=== PATIENT | female | born 1945 | race Caucasian/White ===

== ENCOUNTER 2023-03-29 21:41 | Inpatient (IN) | payer MEDICARE, BC, SELFPAY ==
[2023-03-29 17:30] VITALS: BP 141/70
[2023-03-29 17:56] LABS: % Basophils 0.5 % (0-2); % Eosinophils 0.4 % (0-6); % Immature Granulocytes 0.5 % (0-0.5); % Lymphocytes 6.6 % (20.5-51.1); % Monocytes 6.3 % (1.7-9.3); % Neutrophils 85.7 % (42.2-75.2); Absolute Basophils 0.1 10^3/uL (0-0.2); Absolute Immature Granulocytes 0.1 10^3/uL (0-0.05); Absolute Lymphocytes 0.6 10^3/uL (1.2-3.4); Absolute Monocytes 0.6 10^3/uL (0.1-0.6); Absolute Neutrophils 8.3 10^3/uL (1.4-6.5); Hematocrit 42.8 % (37.0-47.0); Hemoglobin 14.6 g/dL (12.0-16.0); Mean Corp Hgb Conc. 34.1 g/dL (33.0-37.0); Mean Corpuscular Hgb 30.9 pg (27.0-31.0); Mean Corpuscular Volume 90.7 fL (81.0-99.0); Mean Platelet Volume 10.5 fL (7.4-10.4); Nucleated Red Blood Cells % 0 %; Platelet Count 255 10^3/uL (130-400); Red Blood Cell Count 4.72 10^6/uL (4.20-5.40); Red Cell Dist. Width 13.9 % (11.5-14.5); White Blood Cell Count 9.7 10^3/uL (4.8-10.8)
[2023-03-29 18:05] LABS: ALT (SGPT) 26 U/L (0-35); AST (SGOT) 36 U/L (14-36); Alkaline Phosphatase 84 U/L (38-126); Blood Urea Nitrogen 66 mg/dl (7-17); Calcium 9.2 mg/dl (8.4-10.2); Carbon Dioxide 22 mmol/L (22-30); Chloride 105 mmol/L (98-107); Glucose 166 mg/dl (70-99); Potassium 3.8 mmol/L (3.5-5.1); Sodium 136 mmol/L (135-145); Total Bilirubin 0.8 mg/dl (0.2-1.3); Total Protein 7.6 g/dl (6.3-8.2); eGFR 28.31
--- NOTE | 2023-03-29 19:44 | ED.GENMED ---
History of Present Illness
General
Chief Complaint: Skin Problem
Source: patient and family
Time Seen by Provider: 03/29/23 19:31
Travel History
Have you had any contact with someone who has COVID-19?: No
Do you have any symptoms of coronavirus? Fever > 100 degrees, chills, cough, shortness of breath, sore throat, loss of taste or smell, muscle aches, or headache?: No
History of Present Illness
History of Present Illness:
77-year-old female with past medical history of CHF, hypertension, hyperlipidemia, CKD, diabetes presenting to the emergency department with family for evaluation of extremity edema, erythema and fluid weeping that has been ongoing for an unknown
duration of time. Family reports that patient's brother used to help patient with wound care but he this previous July and patient has not had much medical care since that time. Patient lives at home with younger son but the son who is
present with the states that he does not help very much with the patient. Patient denies any fevers, chills, rigors but does endorse a cough that is been going on for about 4 weeks but states the cough today is better than it had been. Patient and
son admit to medication noncompliance secondary to some side effects of the medications noting that she does not take her diuretic and it is unclear how compliant patient is with her diabetic medications.
Past History
Past History
ED Past Medical History: COPD, HTN, Hypercholesterolemia, NIDDM, Renal failure and Other (Chronic venous stasis)
ED Past Surgical History: Gynecological and Orthopedic
Social History
Tobacco: Non-smoker
Alcohol: None
Drug: None
Personal:
Living: with family
Employment: Not employed
Family History
Family History: Diabetes and Other
Review of Systems
Review of Systems
All Other Systems: ROS reviewed and negative except as documented in HPI and ROS
Phy Exam
Physical Exam
Physical Exam:
GENERAL: Alert , in no apparent distress, Appears older than stated age, unkempt and malodorous
EYE: conjunctiva clear
NECK: Supple
ENT: o/p clr, mmm.
CARDIAC: Regular rate and rhythm
LUNGS: Clear breath sounds bilaterally, no acute respiratory distress, no wheezes/rales/rhonchi, Intermittent nonproductive cough during the exam appreciated
NEUROLOGICAL: Alert and oriented
SKIN: Warm , Lower extremities have dry cracking/flaking skin, the left lower extremity has significant erythema circumferentially with skin sloughing at the distal anterior portion of the ankle with clear weeping
MUSCULOSKELETAL: Significant edema to the left lower extremity compared to the right. There are faintly palpable pedal pulses bilateral. Cap refill is approximately 2 seconds sensation grossly intact to light touch.
PSYCH: Normal and appropriate interaction.
Scores
Heart Failure Risk
Heart Failure Risk Score: Not Applicable
Heart Score for Chest Pain Patients
STEMI patient?: Not applicable
Withdrawal Assessment of Alcohol
Withdrawal Assessment Completed?: Not applicable
Course
Orders/Labs/Results
Orders:
Orders
03/29/23 17:43
CMP [Comprehensive Metabolic Panel] Urgent
Complete Blood Count/With Diff Urgent
03/29/23 19:42
NT-proBNP Urgent
Piperacillin/Tazo 3.375 Gram [Zosyn] 3.375 gram in 50 ml IV NOW
Vancomycin [Vancocin] 1,500 mg 0.9% Sodium Chloride [Nss] 20 ml 0.9% Sodium Chloride 250 ml [Nss] 250 ml IV NOW
Venous Doppler Lwr Ext Left [US Periph Venous LOWER Ext LT] Urgent
Comment:
Reason For Exam: edema, erythema
Abnormal Lab Results
03/29/23
17:43
MPV 10.5 H fL
(7.4-10.4)
Abs Immat Gran (auto) 0.1 H 10^3/uL
(0-0.05)
Absolute Neuts (auto) 8.3 H 10^3/uL
(1.4-6.5)
Absolute Lymphs (auto) 0.6 L 10^3/uL
(1.2-3.4)
Neutrophils % 85.7 H %
(42.2-75.2)
Lymphocytes % 6.6 L %
(20.5-51.1)
BUN 66 H mg/dl
(7-17)
Creatinine 1.8 H mg/dL
(0.6-1.0)
Glucose 166 H mg/dl
(70-99)
03/29/23 17:43
03/29/23 17:43
Vital Signs
Initial and Last Documented VS:
Initial Vital Signs
Temp Pulse Resp BP Pulse Ox
97.9 F 88 18 141/70 96
03/29/23 17:30 03/29/23 17:30 03/29/23 17:30 03/29/23 17:30 03/29/23 17:30
Last Documented Vital Signs
Temp Pulse Resp BP Pulse Ox
97.9 F 88 18 141/70 96
03/29/23 17:30 03/29/23 17:30 03/29/23 17:30 03/29/23 17:30 03/29/23 17:30
MDM/Problems Addressed
Differential Diagnosis Includes:
Acute on chronic stasis dermatitis, cellulitis, DVT, medication noncompliance, peripheral vascular disease, peripheral arterial disease, CHF
MDM/Problems Addressed:
77-year-old female presenting to the emergency department for evaluation of left lower extremity erythema and edema with wound weeping but for unknown duration of time. Son notes that he came to check up on the patient today and had to convince the
patient to come to the ER for further evaluation. Overall concern for patient's ability to care for herself as she is very unkempt, her socks were matted to her feet and there is significant dried skin flaking and sloughing of her skin to the left
lower extremity. Will ask for suspected cellulitis. Patient noted a cough and appreciated a cough during exam so will obtain an ultrasound to rule out DVT although I am less suspicious for DVT/PE as a diagnosis. Lab work had been initiated from
triage and there is no leukocytosis. There is worsening renal function past patient's baseline. Antibiotics ordered. Anticipate admission.
Chronic conditions affecting care: DM and Other (PVD)
*Radiology
Radiology exam reviewed: radiology read reviewed
*Pulse Oximetry
Patient hypoxic: no
*Critical Care Note
Total Time (30-74mins, 75-104mins- exclusive of procedures): Not Applicable
Data Reviewed
Review of Other/Old Records Reveals: Labs and Records
Patient Management
Discussion with other providers: Hospitalist
Escalation/DeEscalation of care consider admission/obs:
US negative for DVT. Hospitalist notified and accepts for continued evaluation and treatment of left lower extremity cellulitis
ED Attending Note
-
Portions of this chart may have been created with voice recognition software.� Occasional wrong word or��sound alike� substitutions may have occurred due to the inherent limitations of voice recognition software.
Discharge Plan
Departure
Patient Disposition: Admit
Date of Disposition: 03/29/23
Time of Disposition: 20:24
Presentation/result/management discussed w/ accepting MD/DO: Hospitalist
Discharge Problem:
Cellulitis of left leg, PVD (peripheral vascular disease), Nonadherence to medication
Prescriptions:
No Action
metoprolol succinate 50 MG tablet extended release 24 hr
50 mg PO DAILY
pravastatin 20 MG tablet
20 mg PO HS
aspirin [Aspir-Low] 81 MG tablet,delayed release (DR/EC)
81 mg PO DAILY
cholecalciferol (vitamin D3) 2,000 UNIT tablet
2,000 units PO MOWEFR
Patient Comments:
pt takes on MON,WED,FRI- 2000 units TUES,THURS,SAT,SUN- 1000 units
glimepiride 1 MG tablet
1 mg PO DAILY
metformin 500 MG tablet
500 mg PO HS
spironolactone 25 MG tablet
12.5 mg PO DAILY
cholecalciferol (vitamin D3) [Vitamin D3] 25 mcg (1,000 unit) Tablet
25 mcg PO SUTUTHSA
furosemide 80 mg tablet
80 mg PO DAILY 30 Days Qty: 30 0RF
levofloxacin 750 mg tablet
750 mg PO Q48H Qty: 2 0RF
clindamycin HCl 150 mg capsule
450 mg PO TID 7 Days Qty: 63 0RF
Referrals:
Liz Pereira MD [Family Provider] -
Interventions
Interventions:
*Risk Screen - Suicide Last Done: 03/29/23 18:23
*General Assessment Last Done: 03/29/23 17:30
*Neglect/Abuse Screening Last Done: 03/29/23 18:23
*ED COVID-19 Vaccine History Last Done: 03/29/23 17:30
--- NOTE | 2023-03-29 20:32 | HPS.HSE ---
Addendum entered and electronically signed by Pablo Soto MD 03/29/23 21:22:
I saw and examined the patient.
The TON CONTAINER FILLER or PA's note was reviewed and I agree with the note.
Comment:
HPI
76F DMT2 HX CKD3b/4, chr HFpEF, severe PHT, HTN BiB family for evaluation of extremity edema, erythema and fluid weeping that has been ongoing for an unknown duration of time. Family reports that patient's brother used to help patient with wound
care but he this previous July and patient has not had much medical care since that time. P
+ cough that is been going on for about 4 weeks
Noncompliance secondary to some side effects of the medications noting that she does not take her diuretic and it is unclear how compliant patient is with her diabetic medications.
ROS
Denies any fevers, chills, rigors
PHX
LE wounds, edema
Chr HFpEF
Secondary pulmonary hypertension
CKD3/4
DM2
HTN
HLD
Chronic venous insufficiency
Obesity
FERNANDA, untreated
COPD
H/o lung nodules
Ongoing tobacco use
h/o B/L LE vein ablation
Noncompliance
Reviewed VS: afebrile, unremarkable
PE
Gen: NAD
HEENT: anicteric
Neck: supple
Lungs: symmetric AE
Cor: RRR S1 S2
Abdomen: soft benign
FRUIT HARVEST WORKER: awake and alert
MS: bilateral lymphedema, foul smelling, superficial wound posterior left leg
Psych:nl mood
Data
WCC 9.7
BUN 66
Cr 1.8 - baseline is 1.5 - 1.7
eGFR 28 c/w CKD 4
CO2 22 - Baseline CO2 is in mid 30s ( suspect chr hypercapnic RF)
pending pBNP - baseline was 1500 - 5000
LLEx peripheral venous duplex US
No evidence of deep venous thrombosis of the left lower extremity.
Prior Wd Cx as of 08/12/21
Polymicrobic POS ( Providencia, E Coli, Enterococcus , Kleb, Diphtheroids)
08/13/21 ECHO
- LVEF 55 to 60%
- abnormal septal motion consistent with RV volume overload and/or elevated RV end-diastolic pressure
- stage II diastolic dysfunction
- enlarged RV size, severely dilated right atrium
- mild TR
- severe pulmonary hypertension with PAP 66 mmHg, mild OK, no significant change compared to prior
Last hospitalist admission: 08/13/21- 08/20/21
DC DIAGNOSIS:
1. Acute on chronic HFpEF
2. Severe lymphedema.
3. Cellulitis.
ASSESSMENT & PLAN
Reports non compliance with Rx
LLE cellulitis
Worsening chr David venous stasis/ underlying bilateral lymphedema
HX Polymicrobic POS Wd Cx with Providencia, E Coli, Enterococcus , Kleb, Diethenoids
No prior HX POS MRSA screen
- NEG Sono evidence of DVT
- cont Zosyn for now
- ID consult
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
Ingrowing unkempt toe nails
Chr lymphedema
- Wd care consult
- Electromechanical Technician consult
Acute on chr HFpEF - Noncompliance with diuretic
Clinically suspect element acute on chr RHF led to worsening chr David venous statisis
Underlying severe PHT
- check pBNP
- IV Lasix [address] of PO
- daily BMP
- DCA cardiology consult
Suspected clinical FERNANDA - reports not on CPAP
Current HCO3 /CO2 22
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
Obesity
Current Tobacco use disorder
- stat ABG with ant altered mentation and to start BiiPAP
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
- f/U Cr daily
- Renal consult while diuresis
Essential HTN
- c/w Metoprolol , spironolactone and Lasix
- f/u Cr
DMT2
- c/w CARE ANALYST Glimepiride
- Held Metformin
- add ISS low
HLD on
c/w ASA and Pravastatin
Current ETOH use disorder
- Observe on MSAS
DVT prophylaxis�SQH
Code: DNR per patient request
IP TLM
Original Note:
Family Physician
-
Family Physician: Liz Pereira
Chief Complaint
-
leg erythema, edema, pain x 3 days
History of Present Illness
77-year-old female from home where she her youngest son lives with her and states she has had increased pain, redness and swelling to her left lower extremity on top of her chronic lymphedema. She has not been able to use her lymphedema Velcro
stockings. She has chronic scaling from feet to below knees she has overgrown toenails growing into the bottoms of her toes with crusting scales. She is unkept yet states she had a shower yesterday. She reports she still drives but has her son do
grocery shopping for her. She denies fever, chills, chest pain, palpitations, shortness of breath, abdominal pain, nausea, vomiting, diarrhea, urinary symptoms
PMH HTN, HLD, CKD 3B, diastolic CHF, severe pulmonary HTN, DM 2, morbid obesity, bilateral leg cellulitis, venous stasis dermatitis, PVD, nicotine abuse, alcohol abuse.
Medical History
Past Medical History
Past Medical History: Reports Other
Additional Past Medical History:
HTN
HLD
CKD 3B
diastolic CHF
severe pulmonary HTN
DM 2
morbid obesity
bilateral leg cellulitis, venous stasis dermatitis, PVD,
nicotine abuse
COPD
Sleep apnea
Past Surgical History: Reports Other
Additional Past Surgical History:
Tubal ligation
Appendectomy
Right knee arthroscopy
Social History
Tobacco: Smoker
Alcohol: Binge drinker (Drinks 1 box wine Pinot grigio every weekend)
Drug: None
Personal: Single
Living: With Family (Youngest adult son child lives with her)
Employment: Retired
Family History
Family History: Other (Father age 83 dementia mother age 94)
Allergies / Home Medications
Allergies reflects when Allergies were last updated in [facility].
Home Medications with original date entered in [facility]
Allergy/Medication List:
Allergies
Allergy/AdvReac Type Severity Reaction Status Date / Time
cephalexin [From Keflex] Allergy Mild Rash, Verified 03/29/23 17:34
Tolerates
zosyn,
cefepime,
cefazolin
DINA Inhibitors Allergy cough Verified 03/29/23 17:34
amlodipine besylate Allergy cough Verified 03/29/23 17:34
[From Norvasc]
Influenza Virus Vaccines Allergy does not Verified 03/29/23 17:34
remember
Sulfa (Sulfonamide Allergy eyes swell Verified 03/29/23 17:34
Antibiotics)
valsartan [From Diovan] Allergy cough Verified 03/29/23 17:34
Home Medications
metoprolol succinate 50 mg tablet,extended release 24 hr 50 mg PO DAILY Heart disease/condition 08/09/15
pravastatin 20 mg tablet 20 mg PO DAILY High cholesterol 08/09/15
metformin 500 mg tablet 500 mg PO DAILY Diabetes 01/31/21
spironolactone 25 mg tablet 12.5 mg PO DAILY Fluid retention/Swelling 01/31/21
acetaminophen 500 mg tablet (Tylenol Extra Strength) 500 mg PO DAILY 03/29/23
aspirin 81 mg tablet,delayed release 81 mg PO DAILY 03/29/23
furosemide 40 mg tablet 40 mg PO DAILY 03/29/23
glimepiride 2 mg tablet 2 mg PO DAILY 03/29/23
Review of Systems
-
History Source: Patient
A 12 point ROS was completed and negative except as noted: Yes
Constitutional: Denies Fever, Fatigue or Chills
EENT: Denies Sore Throat or Runny Nose
Respiratory: Denies Cough or Trouble Breathing
Cardiac: Denies Chest Pain, Diaphoresis, Palpitations or Syncope
Abdomen/GI: Denies Abdominal Pain, Nausea, Vomiting, Diarrhea or Constipated
: Denies Dysuria, Frequency, Flank Pain, Incontinence or Difficulty Voiding
Musculoskeletal: Reports Edema (Chronic bilateral leg lymphedema, left leg increased with erythema, edema and large plaque scales from feet to knees bilaterally with overgrown toenails); Denies Joint Pain
Skin: Denies Itching or Rash
Neurological: Denies Dizzy, Headache or Weakness
Endocrine: Reports No Symptoms
Hematologic/Lymphatic: Reports No Symptoms
Psych: Reports Calm
Physical Exam
Vital Signs
Vital Signs
Temp Pulse Resp BP Pulse Ox
97.9 F 88 18 141/70 96
03/29/23 17:30 03/29/23 17:30 03/29/23 17:30 03/29/23 17:30 03/29/23 17:30
Physical Exam
General: Comfortable, Conversant, Pain and Morbidly Obese; No Fever or Chills
HEENT: NormoCephalic, Anicteric, PERRLA, [place] Conjunctivae and No Ptosis
Respiratory: Clear; No Wheezes, Rales or Rhonchi
Cardiac: S1/S2 and Regular Rhythm; No Tachycardia, Murmur or Rub
Breast: Deferred by me
GI: Soft, Non Tender, Non Distended, Normal Bowel Sounds, No Hepatosplenomegaly and Other (soft venrtal hernia present )
Genito-urinary: Deferred by me
Musculoskeletal: No Clubbing, No Cyanosis, Edema, Left Lower Extremity (Chronic bilateral leg lymphedema, left leg increased with erythema, edema and large plaque scales from feet to knees bilaterally with overgrown toenails) and Edema, Right Lower
Extremity (Chronic lymphedema with chronic plaque scales feet to knees); No Edema, Left Upper Extremity or Edema, Right Upper Extremity
Skin: Warm and Dry; No Jaundice
Neuro: AO x 3, No Motor Deficits and Nonfocal/grossly intact; No No Sensory Deficits, Slurred Speech, Facial Droop or Tremors
Psych: Calm
Laboratory Results
-
03/29/23 17:43
03/29/23 17:43
Laboratory Results
Total Bilirubin 0.8 mg/dl (0.2-1.3) 03/29/23 17:43
AST 36 U/L (14-36) 03/29/23 17:43
ALT 26 U/L (0-35) 03/29/23 17:43
Alkaline Phosphatase 84 U/L (38-126) 03/29/23 17:43
Impression/Plan
-
Impression/plan:
Admit to tele
#Left lower extremity cellulitis
##Worsening PVD/venous stasis/Chronic Lymphedema
Overgrown nail/unkept appearance
-IV vancomycin given in er will hold further
- IV Zosyn
-Consult ID
-Consult Dr. Arciniega
-Consult wound care
-Check COVID, flu
PT/OT/case management eval
#Acute on Chronic diastolic heart failure
#Severe pulmonary HTN
-Lasix 80 mg once then Lasix 40 mg IV daily, spironolactone 12.5 mg daily
I/O daily weight
2D echo 08/13/2021: EF 55 to 60%, mild LVH, no wall abnormalities, stage II diastolic dysfunction, enlarged RVS,
moderate reduced right ventricular systolic function, severely dilated right atrium, mild TR
Severe pulm HTN�pulm arterial pressure 66 mmHg
#CKD stage IV
Creat 1.8, baseline appears 1.6
-Hold metformin
- follow bmp
-consult Nephro
#DM2
Accu-Cheks with SSI, check HgbA1c
Hold metformin
-Continue glimepiride 2 mg daily
#Alcohol abuse
Drinks 1 box of wine on weekends
-MSAs screen protocol
#HTN�benign
bp stable
-Metoprolol succinate 50 mg daily
#HLD
-Continue pravastatin
#Morbid obesity due to excess calorie consumption
-1800 ADA low-fat diet
#COPD�no acute exacerbation
#Nicotine abuse
3/ ppd
- nicotine 21 mg patch
- cessation advised
#Sleep apnea- no cpap uses
#Chronic pain
-Continue Tylenol 650 mg daily
DVT prophylaxis
Subcu heparin
DNR
[2023-03-29] MEDS: ZOSYN 50 IV (20:44)
[2023-03-29 20:46] VITALS: BP 132/54
--- NOTE | 2023-03-29 20:55 | PHANOTE ---
03/29/2023, [employer] rec tech, spoke to pt. to obtain their med. history; pt. states that they are taking Metformin 500 mg daily; however, I could not find this med. in pt.'s pharmacy fill data or using [facility] records so therefore I could not confirm it.
[2023-03-29 21:04] LABS: NT-proBNP 500 pg/ml
[2023-03-29] MEDS: VANCOCIN 540 MG IV (22:08)
[2023-03-29 22:09] VITALS: BP 120/74
[2023-03-29 22:49] VITALS: BP 95/74; BMI 36.6
--- NOTE | 2023-03-29 23:00 | PTCARENOTE ---
Pt arrived to unit from ED and ambulated with x1 assist from stretcher to bed. Pt is AAOx3. Pt oriented to room, call segura within reach. BP after ambulating and sitting on side of bed 95/74 in right upper arm. BP rechecked after lying down was
134/68 in left upper arm. Will continue to monitor.
[2023-03-29 23:11] LABS: Glucose - Point of Care 184 mg/dl (70-99)
[2023-03-29 23:17] VITALS: BMI 36.6
[2023-03-29 23:26] VITALS: BP 134/68
[2023-03-29 23:50] LABS: COVID-19 Antigen Negative (Negative)
[2023-03-29 23:50] LABS: INR 1.14; PT 14.4 Sec (11.4-14.6)
[2023-03-29 23:51] LABS: APTT 29.4 Sec (23.4-35.0)
[2023-03-29 23:52] LABS: GGTP 28 U/L (12-43); Magnesium 2.1 mg/dl (1.6-2.3); Phosphorus 4.5 mg/dl (2.5-4.5)
[2023-03-29 23:54] LABS: Alcohol None Detected
[2023-03-29 23:59] LABS: B-Hydroxybutyrate 0.97 mmol/L (0.02-0.27)
[2023-03-30] VITALS (7 sets, daily range): BP systolic 120–135; BP diastolic 61–90; O2SAT 97; BMI 37.0
[2023-03-30] MEDS: ZOSYN 50 IV ×4 (02:30→21:00)
[2023-03-30 08:14] LABS: % Basophils 0.2 % (0-2); % Eosinophils 0.2 % (0-6); % Immature Granulocytes 0.7 % (0-0.5); % Lymphocytes 1.8 % (20.5-51.1); % Monocytes 2.8 % (1.7-9.3); % Neutrophils 94.3 % (42.2-75.2); Absolute Immature Granulocytes 0.1 10^3/uL (0-0.05); Absolute Lymphocytes 0.2 10^3/uL (1.2-3.4); Absolute Monocytes 0.4 10^3/uL (0.1-0.6); Absolute Neutrophils 12.1 10^3/uL (1.4-6.5); Hematocrit 39.5 % (37.0-47.0); Hemoglobin 13.4 g/dL (12.0-16.0); Mean Corp Hgb Conc. 33.9 g/dL (33.0-37.0); Mean Corpuscular Hgb 30.4 pg (27.0-31.0); Mean Corpuscular Volume 89.6 fL (81.0-99.0); Nucleated Red Blood Cells % 0 %; Platelet Count 244 10^3/uL (130-400); Red Blood Cell Count 4.41 10^6/uL (4.20-5.40); Red Cell Dist. Width 14.1 % (11.5-14.5); White Blood Cell Count 12.8 10^3/uL (4.8-10.8)
[2023-03-30 08:26] LABS: Glucose - Point of Care 158 mg/dl (70-99)
[2023-03-30 08:31] LABS: Glycohemoglobin (HgbA1c) 6.6 % (4.0-5.6)
[2023-03-30 08:51] LABS: Blood Urea Nitrogen 55 mg/dl (7-17); Carbon Dioxide 23 mmol/L (22-30); Chloride 106 mmol/L (98-107); Estimated Creatinine Clearance 34 ml/min; Glucose 157 mg/dl (70-99); Potassium 3.9 mmol/L (3.5-5.1); Sodium 137 mmol/L (135-145); eGFR 30.32
[2023-03-30] MEDS: LASIX 40 MG IV (09:34)
[2023-03-30] MEDS: THIAMINE INJECTION 200 MG IV ×2 (09:36→21:01)
[2023-03-30] MEDS: HEPARIN 5000 UNITS SC ×2 (09:37→19:39)
[2023-03-30] MEDS: ASPIR LOW (ENTERIC COATED) 81 MG PO (09:38)
[2023-03-30] MEDS: DESENEX/MITRAZOL/ZEASORB 1 APPLIC TOPICAL ×2 (09:38→19:40)
[2023-03-30] MEDS: PRAVACHOL 20 MG PO (09:39)
[2023-03-30] MEDS: ALDACTONE 12.5 MG PO (09:39)
[2023-03-30] MEDS: NICODERM TRANSDERMAL 21 MG TRANSDERM (09:41)
[2023-03-30] MEDS: FOLVITE 1 MG PO (09:41)
[2023-03-30] MEDS: TOPROL XL 50 MG PO (09:42)
--- NOTE | 2023-03-30 10:29 | WOUNDNOTE ---
R HEEL AND POSTERIOR LOWER LEG
--- NOTE | 2023-03-30 10:30 | WOUNDNOTE ---
L LOWER LEG/ANKLE
--- NOTE | 2023-03-30 10:31 | WOUNDNOTE ---
[facility] RN note: Patient admitted with cellulitis of L leg and PVD. Patient lives with her son.
See H&P for complete history.
PMH: HTN, NIDDM, smoker, obesity, venous stasis ulcers, lymphedema, CKD3, chronic UTI's and DVT's.
Wound Location and type/assessment:Patient known to service, last seen on 08/20/21 for venous ulcers on legs. Compared to last seen, L calf wound now with scant weeping skin of serosanguineous drainage, flaky scaly skin both legs and feet near toes.
Large SS drainage,+ yellow slough and odor near L ankle area. Leg is red with 2-3+ edema, heels are intact. B/L + palpable pedal pulses, poor nail care and unable to manage own wound care, patient states. No open wounds visible btw toe webs. Has
Farrow wrap's at home for compression, uses them sometimes patient states. Patient turned with assist of nurse, Sacrum is intact, few thin scabs on both buttocks suspect from shearing, not pressure. Blanchable chronic discolored skin. Patient states
she takes Lasix at home and is constantly on the toilet. Venous Doppler L leg negative for DVT. MASD abdominal/groin folds, fungal powder in use.
Appetite: good.
Pressure redistribution devices in place: [employer] Air. Patient moves slowly and needs assistance, repositioned onto R semi side lying position. Pillow placed under calves to offload heels.
Plan: LLE dressing changed using adaptic, alginate, abd pad and kerlix, Chris wrap knee high. Will order Dakin's for wound cleaning/soaks to start tomorrow. Applied Vaseline to dry skin on legs and feet, will order mineral oil to start tomorrow.
Protective silicone border foam changed on Sacrum. Protective foam to L heel applied. Will confirm orders with Dr. Padron. Updated nurse Prabha on the above. Updated care plan and will follow as needed.
Recommend patient follow up with [facility].
Note to case management requested for discharge: VN to assist with wound care if not SNF.
--- NOTE | 2023-03-30 10:58 | CM ---
Patient seen bedside.
IA completed.
Patient lives with son in a basement apartment.
3 steps to enter apartment.
Patient has a WC, Walker and cane.
Per patient she uses the walker at home and drives.
Per patient she sleeps in a recliner to assist with breathing.
Patient drives her son to work.
Patient stated she is not not active with home care and not being followed by [facility].
Had [facility] in the past, however per prior notes, unable to accept back.
Patient is agreeable to Skilled rehab and VN if required.
Options list provided.
Patient denies ETOH services.
PCP: Dr Pereira
Pharmacy: [facility]
Plan: Skilled vs home with services. Son will transport.
[2023-03-30] MEDS: NOVOLOG FLEXPEN-LOW RESISTANCE 1 UNITS SC ×2 (11:22→13:05)
[2023-03-30] MEDS: AMARYL 2 MG PO (11:23)
--- NOTE | 2023-03-30 11:39 | W.PN.HOSP.TC ---
Today's Communication/Plan
-
diuresis
IV antibiotics
Assessment / Plan
Assessment / Plan
76F� DMT2 HX CKD3b/4, chr HFpEF, severe PHT, HTN� BiB� family for evaluation of extremity edema, erythema and fluid weeping that has been ongoing for an unknown duration of time.� Family reports that patient's brother used to help patient with wound
care but he this previous July and patient has not had much medical care since that time.�
Noncompliance secondary to some side effects of the medications noting that she does not take her diuretic and it is unclear how compliant patient is with her diabetic medications.
LLEx peripheral venous duplex US
No evidence of deep venous thrombosis of the left lower extremity.
08/13/21 ECHO
- LVEF 55 to 60%
- abnormal septal motion consistent with RV volume overload and/or elevated RV end-diastolic pressure
- stage II diastolic dysfunction
- enlarged RV size, severely dilated right atrium
- mild TR
- severe pulmonary hypertension with PAP 66 mmHg, mild GA, no significant change compared to prior
ASSESSMENT & PLAN
Reports non compliance with Rx
LLE cellulitis
Worsening chr David venous stasis/ underlying bilateral lymphedema
HX Polymicrobic POS Wd Cx with� Providencia, E Coli, Enterococcus , Kleb, Diethenoids
No prior HX POS MRSA screen
- NEG Sono evidence of DVT
- cont�Zosyn for now
- ID consult
- LLE elevation
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
Ingrowing unkempt toe nails
Chr lymphedema
- Wd care consult
- It Help Desk Analyst consult
Acute on chr HFpEF - Noncompliance� with� diuretic (TAKES ONCE A DAY INSTEAD OF TWICE A DAY)
Clinically suspect element acute on chr RHF led to worsening� chr David venous stasis
Underlying severe PHT
- IV Lasix [address] of PO
- daily BMP�
- DCA cardiology consult�
Suspected� clinical FERNANDA - reports not on CPAP
Current HCO3 /CO2� 22
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
Obesity
Current Tobacco use disorder
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
-monitor daily with diuresis
Essential HTN
- c/w Metoprolol , spironolactone and Lasix
DMT2
- c/w GROCERY CLERK MARKING Glimepiride
- Held Metformin
- add ISS low
HLD on
c/w ASA and Pravastatin
Current ETOH use disorder
- Observe on MSAS
DVT prophylaxis�SQH
Code: DNR per patient request
IP TLM
Anticipated Discharge: 24 - 48 hours
Subjective/Interval History
-
Date of Service: March 30, 2023
states she takes lasix once a day at home
breathing stable
no chest pain
walks with walker
Objective Data
-
Labs:
Laboratory Results
03/29/23 03/30/23
23:20 07:12
WBC 12.8 H
Hgb 13.4
Hct 39.5
Plt Count 244
PT 14.4
INR 1.14
APTT 29.4
Sodium 137
Potassium 3.9
Chloride 106
Carbon Dioxide 23
BUN 55 H
Creatinine 1.7 H
Glucose 157 H
Calcium 9.0
Vital Signs:
Vital Signs
Temp Pulse Resp BP Pulse Ox
98.2 F 110 19 120/87 94
03/30/23 08:36 03/30/23 09:39 03/30/23 08:36 03/30/23 09:39 03/30/23 08:36
I&O
03/29/23 03/30/23 03/31/23
06:59 06:59 06:59
Intake Total 1560 / 1560
Balance 1559
Review of Systems
-
History Source: Patient
All other systems: Reviewed and negative
Physical Exam
-
General: Appears Chronically Ill
HEENT: Normocephalic, Atraumatic and Moist Mucous Membranes
Respiratory: Clear to Auscultation
Cardiac: Regular Rhythm and S1/S2; Negative Murmur, Rub or Gallop
GI: Soft, Nontender, Nondistended and Normal Bowel Sounds; Negative Organomegaly
Rectal: Deferred by Provider
Musculoskeletal: Edema, Right Lower Extrem, Edema, Left Lower Extrem and Other (LLE wrapped (photos in [employer] from wound RN) - erythema noted L > R with chronic venous stasis )
Skin: Other (toe nail overgrowth ); Negative Rash
Neuro: Nonfocal/Grossly Intact
Psych: Calm
Data Reviewed
-
Diagnostic Radiology: Report Reviewed by me
Labs: Labs Reviewed by me
[2023-03-30 12:03] LABS: Glucose - Point of Care 174 mg/dl (70-99)
[2023-03-30 12:34] LABS: Urine Albumin Negative (Neg - Trace); Urine Bilirubin Negative (Negative); Urine Character Clear (Clear); Urine Color Yellow; Urine Glucose Negative (Negative); Urine Ketone Negative (Negative); Urine Leukocyte Negative (Negative); Urine Nitrite Negative (Negative); Urine Occult Blood 1+ (Negative); Urine Specific Gravity 1.015 (<1.030); Urine Urobilinogen Negative (Neg - 1+)
[2023-03-30 12:41] LABS: Urine Bacteria Few (Negative); Urine Red Blood Cell 0-2 /HPF (0-2); Urine White Cell 0-2 /HPF (0-5)
--- NOTE | 2023-03-30 13:16 | CON.CAR ---
Addendum entered and electronically signed by Ronnie Funez MD 03/30/23 15:53:
I saw and examined the patient.
The BATCH ANALYST or PA's note was reviewed and I agree with the note.
Comment: General: Well developed, well nourished in NAD.
Neck: Supple, no JVD, HJR, carotids +2 B/L, no bruits bilaterally.
Heart: Non displaced PMI, RRR, no murmurs, No S3, S4, no rubs.
Lungs: Scattered rhonchi
Abdomen: Normal bowel sounds, soft, non-tender, non-distended.
Extremities: Chronic venous stasis changes
Neuro: Grossly nonfocal, awake, alert and oriented x3.
Dedra has a history of chronic diastolic CHF, secondary severe pulm hypertension, CKD, diabetes, hypertension, venous insufficiency, obesity, untreated sleep apnea, COPD, ongoing tobacco abuse. She presents with worsening edema and erythema left
lower extremity. She has not been taking Lasix on a regular basis over the last year as it causes her to urinate too much and disrupts her daily activity. She has not weighed herself but was 246 pounds a year ago. She has had weight gain as well
due to lower extremity edema.
Will assess with IV diuresis. Need to follow creatinine closely which is 1.7. Also being treated for cellulitis. Compliance is an issue and will need to be more compliant with taking medications and weighing herself daily
Original Note:
Consultation
Consultation Request
Date/Time Consultation Performed: 03/30/23
Requesting Provider: Dr. Soto
Performing Provider: Saadia Drummond PA-C for Dr. Funez
Reason for Consultation: CHF
Medical History
-
Chief Complaint: LLE pain, erythema
History of Present Illness:
Patient is a 77-year-old female with past medical history of chronic heart failure with preserved EF, secondary severe pulmonary hypertension, with history of noncompliance with Lasix, as well as chronic venous insufficiency who presented due to
worsening edema and erythema of left lower extremity starting 48 hours ago. She states this has become progressively worse causing her to come into the hospital. She is supposed to be taking Lasix 40 mg daily, however has not been taking Lasix on
a regular basis over the last year as it causes her to urinate and disrupt her daily activities. She states she last took her weight about a year ago when she was 246 pounds, now less than that, however she states she has gained some weight
recently due to lower extremity edema. She believes she is compliant with all of her additional medications, and she manages them as an outpatient. She sleeps in a lounge chair, cannot lay flat due to shortness of breath, however has not been
using more pillows than previous. Denies chest pain, palpitations. proBNP 500, which is lower than prior admissions. Cardiology consulted for evaluation of CHF.
PMH:
Chronic HFpEF
Secondary severe pulmonary hypertension
CKD
DM2
HTN
HLD
Chronic venous insufficiency
Obesity
FERNANDA, untreated
COPD
H/o lung nodules
Ongoing tobacco use
h/o B/L LE vein ablation
Noncompliance
Past Medical History
Past Medical History: Other (in HPI)
Social History
Tobacco: Smoker
Alcohol: Binge Drinker
Living: Other (with son)
Employment: Retired
Allergies / Home Medications
Allergy/AdvReac Type Severity Reaction Status Date / Time
cephalexin [From Keflex] Allergy Mild Rash, Verified 03/29/23 17:34
Tolerates
zosyn,
cefepime,
cefazolin
DINA Inhibitors Allergy cough Verified 03/29/23 17:34
amlodipine besylate Allergy cough Verified 03/29/23 17:34
[From Norvasc]
Influenza Virus Vaccines Allergy does not Verified 03/29/23 17:34
remember
Sulfa (Sulfonamide Allergy eyes swell Verified 03/29/23 17:34
Antibiotics)
valsartan [From Diovan] Allergy cough Verified 02/19/24 17:34
Medication Instructions Recorded Confirmed Type
metoprolol succinate 50 mg 50 mg PO DAILY Heart 08/09/15 03/29/23 History
tablet,extended release 24 hr disease/condition
pravastatin 20 mg tablet 20 mg PO DAILY High cholesterol 08/09/15 03/29/23 History
metformin 500 mg tablet 500 mg PO DAILY diabetes 01/31/21 08/19/21 History
spironolactone 25 mg tablet 12.5 mg PO DAILY Fluid 01/31/21 03/29/23 History
retention/Swelling
acetaminophen 500 mg tablet 500 mg PO DAILY pain 03/29/23 03/29/23 History
(Tylenol Extra Strength)
aspirin 81 mg tablet,delayed 81 mg PO DAILY Blood Clot 03/29/23 03/29/23 History
release Prevention/Tx
furosemide 40 mg tablet 40 mg PO DAILY Fluid 03/29/23 03/29/23 History
Retention/Swelling
glimepiride 2 mg tablet 2 mg PO DAILY diabetes 03/29/23 03/29/23 History
Review of Systems
-
History Source: Patient
All other systems: Negative unless noted
Physical Exam
Vital Signs
Temp Pulse Resp BP Pulse Ox
98.1 F 98 17 127/90 94
03/30/23 13:07 03/30/23 13:07 03/30/23 13:07 03/30/23 13:07 03/30/23 13:07
Lab Results
03/30/23 07:12
03/30/23 07:12
Veg-E-Vsyhfqckmrf Pept 500 pg/ml 03/29/23 20:32
Physical Exam
General: No Apparent Distress, Comfortable and Other (obese. sitting in chair)
HEENT: Normocephalic, Anicteric and Moist Mucous Membranes
Respiratory: Clear and Non Labored Respirations
Cardiac: S1/S2 and Regular Rhythm
GI: Soft, Non Tender, Normal Bowel Sounds and Distended (mild)
Musculoskeletal: No Clubbing, No Cyanosis and Edema (3+ edema of LLE, 1+ edema of RLE with chronic venous stasis changes/discoloration. LLE edematous with dressings around ankle)
Neuro: AO x 3
Impression / Plan
-
Primary Digester Operator Helper: Dr. Latesha Sood
Assessment:
LLE cellulitis
Suspected acute on chronic HFpEF
Secondary severe pulmonary hypertension
CKD3B
DM2
HTN
HLD
Chronic venous insufficiency/lymphedema
Obesity
FERNANDA, untreated
COPD
H/o lung nodules
Ongoing tobacco use
h/o right upper extremity thrombus, followed by vascular
h/o B/L LE vein ablation
Noncompliance
ECHO 08/13/2021: Definity used, EF 55 to 60%, abnormal septal motion consistent with RV volume overload, stage II diastolic dysfunction, enlarged RV size with moderately reduced RV systolic function, severely dilated right atrium, mild TR, severe
pulmonary hypertension with PAP 66 mmHg
Plan:
-Patient presents with left lower extremity wound and cellulitis
-Cardiology consulted for evaluation of acute CHF, with noncompliance with Lasix as an outpatient
-Continue IV Lasix 40 mg daily. Cr 1.7 on 03/30
-CHF education. compliance urged
-repeat echo, last from 08/2021 with results as above
-continue toprol, spironolactone
-in SR by review of tele overnight
-continue local wound care
-continue LE compression as able
-continue abx per ID/primary service
Data Reviewed
-
EKG: Tracing Personally Visualized and interpreted
Medical Tests (Nuc Med, Echo etc): Report Reviewed by me
Labs: Labs Reviewed by me
Old Records: Reviewed
[2023-03-30 13:24] LABS: Amphetamines Negative (Negative); Barbiturates Negative (Negative); Benzodiazepines Negative (Negative); Buprenorphine Negative (Negative); Cocaine Negative (Negative); Marijuana Negative (Negative); Methadone Negative (Negative); Methamphetamines Negative (Negative); Opiates Negative (Negative); Phencyclidine Negative (Negative); Tricyclic Antidepressants Negative (Negative)
--- NOTE | 2023-03-30 14:42 | CON.ID ---
Consultation
-
Date/Time Consultation Requested: 03/29/2023 2202
Date/Time Consultation Performed: 03/30/2021 1428
Requesting Provider: Yue
Performing Provider: Reddy
Reason for Consultation: Lower extremity cellulitis
Chief Complaint / Past History
History of Present Illness
Dedra Black is a 77-year-old female being evaluated at the request of Madisyn Turner regarding lower extremity cellulitis. History is obtained from chart review, along with patient interview. According to reviewed notes the patient has a
significant history of chronic lower extremity venous stasis. She has been seen several times in the ER secondary to lower extremity cellulitis. According to reviewed notes the patient's brother used to help the patient out with wound care of the
lower extremities, but he mid 2022, and since that time she has not had significant medical care. She notes that recently she has had increasing edema of the lower extremities, and she has had a difficult time getting on the lower
extremity compression socks. She admits to some fevers over the past week or so, along with some tenderness of the lower extremities. She has noted some serous drainage from the lower extremities (left > right).
Today she is found to have a leukocytosis. Infectious Diseases is asked to comment upon further antimicrobial management.
Past History
Additional Past Medical History:
COPD
HTN
Dyslipidemia
DM
CKD
Lower extremity venous stasis
Lower extremity venous insufficiency
Allergy History:
cephalexin [From Keflex] Allergy (Mild, Verified 03/29/23 17:34)
Rash, Tolerates zosyn, cefepime, cefazolin
DINA Inhibitors Allergy (Verified 03/29/23 17:34)
cough
amlodipine besylate [From Norvasc] Allergy (Verified 03/29/23 17:34)
cough
Influenza Virus Vaccines Allergy (Verified 03/29/23 17:34)
does not remember
Sulfa (Sulfonamide Antibiotics) Allergy (Verified 03/29/23 17:34)
eyes swell
valsartan [From Diovan] Allergy (Verified 03/29/23 17:34)
cough
Medications Reviewed: Yes
Current Antibiotics:
Zosyn
Social History
Tobacco: Non-Smoker
Alcohol: None
Drug: None
Personal:
Living: Alone
Employment: Retired
Family History
Family History: Not Pertinent
Review of Systems
Vital Signs
Temp Pulse Resp BP Pulse Ox
98.1 F 98 17 127/90 94
03/30/23 13:07 03/30/23 13:07 03/30/23 13:07 03/30/23 13:07 03/30/23 13:07
Physical Exam
Physical Exam
Constitutional: No Acute Distress, Comfortable, Chronically Ill, Non-toxic and Obese
Head: Normocephalic
Eyes: Pupils Equal, Pupils Round, No Conjunctival Hemorrhage and Sclera Anicteric
Oral: No Thrush and No Ulcers
Cardiovascular: Regular Rate and S1/S2; Negative S3/S4
Pulmonary: Clear; Negative Wheezes, Rales or Rhonchi
Gastrointestinal: Soft, Non Tender and Non Distended
Genito-Urinary: Negative Gold
Extremities: Edema (4+), Erythema (Bilateral lower extremities. Extends along the medial aspect of the left lower extremity thigh.) and Venous Insufficiency (Severe bilateral lower extremities with tissue texture changes and hyperkeratosis)
Musculoskeletal: Negative Joint Swelling
Neurological: Awake and Alert
Psychological: Calm
Lab / Diagnostic Study Results
03/30/23 07:12
03/30/23 07:12
Abs Immat Gran (auto) 0.1 10^3/uL (0-0.05) H 03/30/23 07:12
Absolute Neuts (auto) 12.1 10^3/uL (1.4-6.5) H 03/30/23 07:12
Absolute Lymphs (auto) 0.2 10^3/uL (1.2-3.4) L 03/30/23 07:12
Absolute Monos (auto) 0.4 10^3/uL (0.1-0.6) 03/30/23 07:12
Absolute Basos (auto) 0.0 10^3/uL (0-0.2) 03/30/23 07:12
Immature Gran % 0.7 % (0-0.5) H 03/30/23 07:12
Neutrophils % 94.3 % (42.2-75.2) H 03/30/23 07:12
Lymphocytes % 1.8 % (20.5-51.1) L 03/30/23 07:12
Monocytes % 2.8 % (1.7-9.3) 03/30/23 07:12
Eosinophils % 0.2 % (0-6) 03/30/23 07:12
Basophils % 0.2 % (0-2) 03/30/23 07:12
PT 14.4 Sec (11.4-14.6) 03/29/23 23:20
INR 1.14 03/29/23 23:20
Urine WBC 0-2 /HPF (0-5) 03/30/23 12:11
Ur Squamous Epith Cells 3-5 /LPF (Few) 03/30/23 12:11
Microbiology Results
Micro:
03/29/23 23:21 MRSA Screen - Pending
Nose
Assessment / Plan
Left lower extremity cellulitis
Bilateral severe lower extremity venous stasis and insufficiency disease
Lymphedema
Leukocytosis
Multiple antibiotic allergies (cephalexin; sulfa)
COPD
HTN
Dyslipidemia
DM
CKD
Recommendations:
Continue with Zosyn for the present.
Agree with current wound care orders.
Continue with compressive modalities to decrease overall tissue edema, which should decrease serous drainage.
Monitor white count and temperature curve.
No need to perform a superficial culture as will not likely reflect true pathogen's.
[2023-03-30 16:25] LABS: Glucose - Point of Care 120 mg/dl (70-99)
[2023-03-30] MEDS: NOVOLOG FLEXPEN-LOW RESISTANCE SC (17:08)
[2023-03-30] MEDS: ZOSYN IV (19:39)
[2023-03-30] MEDS: THIAMINE INJECTION IV (19:39)
--- NOTE | 2023-03-30 21:17 | W.CS.POD ---
Addendum entered and electronically signed by Jose Mittal DPM 04/08/23 08:09:
Addendum tot he plan of treatment: By using nail nipper trimmed ( reduced the length ) all toe nails X 10, not any type of excisional or non excisional debridement .
Original Note:
Consult Summary - Podiatry
-
77 yo female with h/o DM - type 2 and HTN, HLD, Chronic venous insufficiency and B/L lower leg lymphedema,
Obesity presented to the [facility] brought in by family for evaluation of extremity edema, erythema and fluid weeping that has been ongoing for an unknown duration of time.�She does not remember any wound care treatments, she was doing at home therapy
. She did not take care of her feet for long time.
WBC count at 12.5
Reviewed PMH, meds and allergies
Exam : b/l palpable pedal pulses
B/L feet with non pitting edema, b/l indurated skin with lymphedema, presence of erythematous LT lower leg
LT lower leg with superficial ulcers with serous drainage,
All toe nails are elongated, dystrophic, mycotic X10. no open ulcerations b/l feet. No Signs of infection
A/p: LT lower leg cellulitis
Lymphedema b/l lower legs with superficial ulcerations
Chronic venous stasis
Diabetic neuropathy
Onychomycosis
Plan : Cont IV abx per id
Compressions to lT lower leg
Debrided all toe nails at bedside
Discussed with pt to follow up at wound care center after discharge
[2023-03-30 21:37] LABS: Glucose - Point of Care 116 mg/dl (70-99)
[2023-03-31] VITALS (7 sets, daily range): BP systolic 98–122; BP diastolic 51–76; BMI 36.3
[2023-03-31] MEDS: ZOSYN 50 IV ×4 (03:00→19:49)
--- NOTE | 2023-03-31 04:36 | DOWNTIME ---
There was a [employer] Client Crust Sorter Downtime on 03/31/2023 from 0111 to 03/31/2023 at 0405. Downtime documentation of patient's care, including medication administrations, has been reconciled in the electronic record per guidelines. Refer to the
patient's paper chart under the miscellaneous tab to see printed paper medication records and downtime forms.
[2023-03-31 07:29] LABS: Glucose - Point of Care 49 mg/dl (70-99)
[2023-03-31 07:57] LABS: Glucose - Point of Care 79 mg/dl (70-99)
[2023-03-31 08:02] LABS: % Basophils 0.3 % (0-2); % Eosinophils 0.9 % (0-6); % Immature Granulocytes 0.5 % (0-0.5); % Lymphocytes 7.8 % (20.5-51.1); % Monocytes 5.4 % (1.7-9.3); % Neutrophils 85.1 % (42.2-75.2); Absolute Eosinophils 0.1 10^3/uL (0-0.7); Absolute Lymphocytes 0.6 10^3/uL (1.2-3.4); Absolute Monocytes 0.4 10^3/uL (0.1-0.6); Absolute Neutrophils 6.5 10^3/uL (1.4-6.5); Hematocrit 37.2 % (37.0-47.0); Hemoglobin 12.2 g/dL (12.0-16.0); Mean Corp Hgb Conc. 32.8 g/dL (33.0-37.0); Mean Corpuscular Volume 91.6 fL (81.0-99.0); Mean Platelet Volume 10.8 fL (7.4-10.4); Nucleated Red Blood Cells % 0 %; Platelet Count 219 10^3/uL (130-400); Red Blood Cell Count 4.06 10^6/uL (4.20-5.40); Red Cell Dist. Width 14.2 % (11.5-14.5); White Blood Cell Count 7.6 10^3/uL (4.8-10.8)
[2023-03-31 09:21] LABS: Blood Urea Nitrogen 44 mg/dl (7-17); Calcium 9.3 mg/dl (8.4-10.2); Carbon Dioxide 27 mmol/L (22-30); Chloride 102 mmol/L (98-107); Estimated Creatinine Clearance 30 ml/min; Glucose 42 mg/dl (70-99); Potassium 3.6 mmol/L (3.5-5.1); Sodium 137 mmol/L (135-145); eGFR 26.53
[2023-03-31] MEDS: NOVOLOG FLEXPEN-LOW RESISTANCE SC ×3 (09:51→16:40)
[2023-03-31] MEDS: AMARYL PO (09:52)
[2023-03-31] MEDS: ALDACTONE 12.5 MG PO (09:53)
[2023-03-31] MEDS: ASPIR LOW (ENTERIC COATED) 81 MG PO (09:55)
[2023-03-31] MEDS: DESENEX/MITRAZOL/ZEASORB 1 APPLIC TOPICAL ×2 (09:55→19:50)
[2023-03-31] MEDS: HEPARIN 5000 UNITS SC ×2 (09:57→19:50)
[2023-03-31] MEDS: FOLVITE 1 MG PO (09:57)
[2023-03-31] MEDS: LASIX 40 MG IV (10:01)
[2023-03-31] MEDS: HYDROPHOR 1 APPLIC TOPICAL (10:01)
[2023-03-31] MEDS: NICODERM TRANSDERMAL TRANSDERM ×2 (10:05→10:41)
[2023-03-31] MEDS: THIAMINE INJECTION 200 MG IV ×2 (10:06→19:50)
[2023-03-31] MEDS: PRAVACHOL 20 MG PO (10:06)
[2023-03-31] MEDS: TOPROL XL 50 MG PO (10:09)
[2023-03-31 11:01] LABS: Glucose - Point of Care 158 mg/dl (70-99)
--- NOTE | 2023-03-31 12:05 | W.PN.HOSP.TC ---
Addendum entered and electronically signed by Amparo Padron MD 03/31/23 12:59:
hypoglycemia
-stop glimepiride in-house
Original Note:
Today's Communication/Plan
-
IV Zosyn
diuresis
appreciate consultants
eventual SNF
Assessment / Plan
Assessment / Plan
76F� DMT2 HX CKD3b/4, chr HFpEF, severe PHT, HTN� BiB� family for evaluation of extremity edema, erythema and fluid weeping that has been ongoing for an unknown duration of time.� Family reports that patient's brother used to help patient with wound
care but he this previous July and patient has not had much medical care since that time.�
Noncompliance secondary to some side effects of the medications noting that she does not take her diuretic and it is unclear how compliant patient is with her diabetic medications.
LLEx peripheral venous duplex US
No evidence of deep venous thrombosis of the left lower extremity.
08/13/21 ECHO
- LVEF 55 to 60%
- abnormal septal motion consistent with RV volume overload and/or elevated RV end-diastolic pressure
- stage II diastolic dysfunction
- enlarged RV size, severely dilated right atrium
- mild TR
- severe pulmonary hypertension with PAP 66 mmHg, mild IN, no significant change compared to prior
ASSESSMENT & PLAN
Reports non compliance with Rx
LLE cellulitis
Worsening chr David venous stasis/ underlying bilateral lymphedema
HX Polymicrobic POS Wd Cx with� Providencia, E Coli, Enterococcus , Kleb, Diethenoids
No prior HX POS MRSA screen
- NEG Sono evidence of DVT
- cont�Zosyn for now
- ID consult appreciated
- LLE elevation
Severe chr venosus stasis dermatitis
Ingrowing unkempt toe nails
Chr lymphedema
-appreciate wound care
-appreciate podiatry - patient s/p toe nail debridement on 03/30
Acute on chr HFpEF - Noncompliance� with� diuretic (TAKES ONCE A DAY INSTEAD OF TWICE A DAY)
Clinically suspect element acute on chr RHF led to worsening� chr David venous stasis
Underlying severe PHT
- Lasix 40mg IV QD
- patient prescribed BID and only takes once a day at home
- appreciate cardiology consult
Suspected clinical FERNANDA - reports not on CPAP
Current HCO3 /CO2� 22
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
Obesity
Current Tobacco use disorder
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
-monitor daily with diuresis
Essential HTN
- c/w Metoprolol , spironolactone and Lasix
DMT2
- c/w CHIEF TRANSFER AND PUMPHOUSE OPERATOR Glimepiride
- Held Metformin
- add ISS low
HLD on
c/w ASA and Pravastatin
Current ETOH use disorder
- Observe on MSAS
PT/OT recommending SNF
DVT prophylaxis�SQH
Code: DNR per patient request
IP TLM
Anticipated Discharge: 24 - 48 hours
Subjective/Interval History
-
Date of Service: March 31, 2023
states legs less swollen
she is urinating a lot
no chest pain
Objective Data
-
Labs:
Laboratory Results
03/31/23
07:06
WBC 7.6
Hgb 12.2
Hct 37.2
Plt Count 219
Sodium 137
Potassium 3.6
Chloride 102
Carbon Dioxide 27
BUN 44 H
Creatinine 1.9 H
Glucose 42 L*
Calcium 9.3
Vital Signs:
Vital Signs
Temp Pulse Resp BP Pulse Ox
98.2 F 75 18 103/75 97
03/31/23 11:24 03/31/23 11:24 03/31/23 11:24 03/31/23 11:24 03/31/23 11:24
I&O
03/30/23 03/31/23 04/01/23
06:59 06:59 06:59
Intake Total 1560 / 1560 1719 / 1719
Balance 1560 / 1560 172 / 172
Review of Systems
-
History Source: Patient
All other systems: Reviewed and negative
Physical Exam
-
General: Appears Chronically Ill
HEENT: Normocephalic, Atraumatic and Moist Mucous Membranes
Respiratory: Clear to Auscultation
Cardiac: Regular Rhythm and S1/S2; Negative Murmur, Rub or Gallop
GI: Soft, Nontender, Nondistended and Normal Bowel Sounds; Negative Organomegaly
Rectal: Deferred by Provider
Musculoskeletal: Edema, Right Lower Extrem, Edema, Left Lower Extrem and Other (LLE wrapped (photos in [employer] from wound RN) - erythema noted L > R with chronic venous stasis )
Skin: Other (toe nail overgrowth ); Negative Rash
Neuro: Nonfocal/Grossly Intact
Psych: Calm
Data Reviewed
-
Diagnostic Radiology: Report Reviewed by me
Labs: Labs Reviewed by me
[2023-03-31 12:40] LABS: Glucose - Point of Care 135 mg/dl (70-99)
[2023-03-31] MEDS: KCL 20 MEQ PO (12:41)
[2023-03-31] MEDS: DAKIN'S SOLUTION 0.125% 1/4 STRENGTH 1 ML TOPICAL (14:59)
--- NOTE | 2023-03-31 15:15 | CM ---
Patient seen bedside.
PT/OT recommending skilled rehab.
Discussed with patient.
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
Reviewed home care agencies, had [facility] in 2021 but would prefer another agency.
Referral to [facility].
Per patient her son Lucio is there to assist her.
Plan: home with [facility] (skilled if patient changes her mind and is agreeable)
--- NOTE | 2023-03-31 16:24 | CARDSERVDEF ---
Echocardiogram with Definity completed after protocol screening completed. Allergies verified.
Patent IV site: ___RAC__
IV site flushed with 0.9% NaCl pre and post administration.
Diluted bolus method utilized to enhance visualization of ventricular kohler.
Total volume given: __10__ mL
Patient tolerated all procedures well without complications.
--- NOTE | 2023-03-31 16:38 | W.PN.CARDCBS ---
Addendum entered and electronically signed by Paula Feliciano DO 03/31/23 19:57:
I saw and examined the patient.
The Potato Loader's note was reviewed and I agree with the note.
Comment: Seen and examined. Overall patient complaining of leg pain but denies shortness of breath. No chest pain.
Comment:�NAD, AAOX3 RA.
Heart: Regular positive S1-S2. No murmurs. Distant heart sounds
Lungs: Bronchovesicular breath sounds decreased at the bases. No wheezes
Abdomen: Obese. Nontender. Positive bowel sounds
Extremities: Chronic venous stasis changes; ++ edema.
Plan:
Admitted with worsening left lower extremity cellulitis complicating bilateral lower extremity venous stasis/lymphedema
-ID consulted as well as wound care
-IV antibiotic
Heart failure with preserved ejection fraction appears volume overloaded
-weight decreasing on IV lasix 40mg daily.
-Cr up slightly to 1.9 on 03/31. if continues to worsen, would consider nephrology evaluation
-CHF education
-2D echocardiogram with normal LV systolic function, 55 to 60%. RV appears enlarged with reduced function. RVSP estimated 42 mmHg. Mild MR and TR.
-Tobacco cessation strongly advised
Original Note:
Today's Communication / Plan
-
continue lasix
follow Cr. if continues to worsen consider nephro eval
continue toprol, spironolactone
Impression / Plan
-
Primary Silk Winding Machine Operator: Dr. Latesha Sood
Assessment:
LLE cellulitis
Suspected acute on chronic HFpEF
Secondary severe pulmonary hypertension
CKD3B
DM2
HTN
HLD
Chronic venous insufficiency/lymphedema
Obesity
FERNANDA, untreated
COPD
H/o lung nodules
Ongoing tobacco use
h/o right upper extremity thrombus, followed by vascular
h/o B/L LE vein ablation
Noncompliance
ECHO 08/13/2021: Definity used, EF 55 to 60%, abnormal septal motion consistent with RV volume overload, stage II diastolic dysfunction, enlarged RV size with moderately reduced RV systolic function, severely dilated right atrium, mild TR, severe
pulmonary hypertension with PAP 66 mmHg
Plan:
-weight decreasing on IV lasix 40mg daily. Cr up slightly to 1.9 on 03/31. if continues to worsen, would consider nephrology evaluation
-CHF education
-echo pending
-continue toprol, spironolactone. consider addition of SGLT2 inhibitor if not cost prohibitive, CM to assess cost. medication compliance remains major issue for patient
-was hypoglycemic this morning, adjustment in meds/continued monitoring per primary service
-in SR with PACs by review of tele overnight
-continue LE wound care and compression as able
-continue abx per ID/primary service
-she has been recommended SNF by PT/OT however currently wants to go home with VN services
Progress Note - Silk Winding Machine Operator
Subjective
Date of Service: March 31, 2023
weight trending down. hypoglycemic this AM
Objective
Labs:
03/31/23 07:06
03/31/23 07:06
Labs
Hgb 12.2 g/dL (12.0-16.0) 03/31/23 07:06
Hct 37.2 % (37.0-47.0) 03/31/23 07:06
Plt Count 219 10^3/uL (130-400) 03/31/23 07:06
PT 14.4 Sec (11.4-14.6) 03/29/23 23:20
INR 1.14 03/29/23 23:20
APTT 29.4 Sec (23.4-35.0) 03/29/23 23:20
Sodium 137 mmol/L (135-145) 03/31/23 07:06
Potassium 3.6 mmol/L (3.5-5.1) 03/31/23 07:06
BUN 44 mg/dl (7-17) H 03/31/23 07:06
Creatinine 1.9 mg/dL (0.6-1.0) H 03/31/23 07:06
Glucose 42 mg/dl (70-99) L* 03/31/23 07:06
Vital Signs and I&O:
Vital Signs
Temp Pulse Resp BP Pulse Ox
98.0 F 73 18 108/76 98
03/31/23 15:33 03/31/23 15:33 03/31/23 15:33 03/31/23 15:33 03/31/23 15:33
Vital Signs
Temp Pulse Resp BP Pulse Ox
98.0 F 73 18 108/76 98
03/31/23 15:33 03/31/23 15:33 03/31/23 15:33 03/31/23 15:33 03/31/23 15:33
Intake & Output
03/29/23 03/30/23 03/31/23 04/01/23
07:59 07:59 07:59 07:59
Intake Total 1560 / 1560 1720 / 1720
Balance 1560 / 1560 1720 / 1720
[2023-03-31 16:40] LABS: Glucose - Point of Care 109 mg/dl (70-99)
--- NOTE | 2023-03-31 17:34 | W.PN.ID1 ---
Date of Service
Date of Service: March 31, 2023
Today's Communication
Continue antibiotics.
Assessment / Plan
Left lower extremity cellulitis
Bilateral severe lower extremity venous stasis and insufficiency disease
Lymphedema
Leukocytosis
Multiple antibiotic allergies (cephalexin; sulfa)
COPD
HTN
Dyslipidemia
DM
CKD
Recommendations:
Continue with Zosyn for the present.
Agree with current wound care orders.
Continue with compressive modalities to decrease overall tissue edema, which should decrease serous drainage.
Would maintain compression 24 hours a day, at least during this initial period.
Monitor white count and temperature curve.
No need to perform a superficial culture as will not likely reflect true pathogen's.
Chief Complaint
-: Cellulitis
Subjective / Review of Systems
Review of Systems: No Fever and No Chills
Vital Signs / Physical Exam
Vital Signs
Vital Signs
Temp Pulse Resp BP Pulse Ox
98.0 F 73 18 108/76 98
03/31/23 15:33 03/31/23 15:33 03/31/23 15:33 03/31/23 15:33 03/31/23 15:33
Physical Exam
Constitutional: No Acute Distress, Comfortable, Non-toxic and Obese
Eyes: No Conjunctival Hemorrhage and Sclera Anicteric
Cardiovascular: S1/S2; Negative S3/S4
Pulmonary: Non Labored
Extremities: Edema, Erythema and Venous Insufficiency
Neurological: Awake and Alert
Psychological: Calm
Objective Data
Lab Data
Lab Results
03/31/23 07:06
03/31/23 07:06
PT 14.4 Sec (11.4-14.6) 03/29/23 23:20
INR 1.14 03/29/23 23:20
APTT 29.4 Sec (23.4-35.0) 03/29/23 23:20
Estimated Creat Clear 30 ml/min 03/31/23 07:06
Total Bilirubin 0.8 mg/dl (0.2-1.3) 03/29/23 17:43
GGT 28 U/L (12-43) 03/29/23 23:20
AST 36 U/L (14-36) 03/29/23 17:43
ALT 26 U/L (0-35) 03/29/23 17:43
Alkaline Phosphatase 84 U/L (38-126) 03/29/23 17:43
Most recent labs reviewed.
Micro Results:
03/29/23 23:21 MRSA Screen - Final
Nose No Methicillin Resistant Staphylococcus aureus isolated.
[2023-03-31 21:15] LABS: Glucose - Point of Care 140 mg/dl (70-99)
[2023-04-01] MEDS: ZOSYN 50 IV ×2 (01:40→08:54)
[2023-04-01 03:15] VITALS: BP 116/80
[2023-04-01 03:55] LABS: Glucose - Point of Care 118 mg/dl (70-99)
[2023-04-01 06:00] VITALS: BMI 36.5
[2023-04-01 07:22] LABS: Glucose - Point of Care 131 mg/dl (70-99)
[2023-04-01] MEDS: NOVOLOG FLEXPEN-LOW RESISTANCE SC (07:29)
[2023-04-01 07:48] LABS: % Basophils 0.7 % (0-2); % Eosinophils 2.9 % (0-6); % Immature Granulocytes 0.7 % (0-0.5); % Lymphocytes 17.6 % (20.5-51.1); % Monocytes 11.1 % (1.7-9.3); Absolute Eosinophils 0.1 10^3/uL (0-0.7); Absolute Lymphocytes 0.8 10^3/uL (1.2-3.4); Absolute Monocytes 0.5 10^3/uL (0.1-0.6); Hematocrit 36.5 % (37.0-47.0); Hemoglobin 12.1 g/dL (12.0-16.0); Mean Corp Hgb Conc. 33.2 g/dL (33.0-37.0); Mean Corpuscular Volume 90.6 fL (81.0-99.0); Mean Platelet Volume 10.7 fL (7.4-10.4); Nucleated Red Blood Cells % 0 %; Platelet Count 227 10^3/uL (130-400); Red Blood Cell Count 4.03 10^6/uL (4.20-5.40); Red Cell Dist. Width 13.9 % (11.5-14.5); White Blood Cell Count 4.5 10^3/uL (4.8-10.8)
[2023-04-01 07:59] VITALS: BP 94/68
[2023-04-01 08:15] LABS: Blood Urea Nitrogen 40 mg/dl (7-17); Carbon Dioxide 26 mmol/L (22-30); Chloride 106 mmol/L (98-107); Estimated Creatinine Clearance 34 ml/min; Glucose 123 mg/dl (70-99); Potassium 3.8 mmol/L (3.5-5.1); Sodium 137 mmol/L (135-145); eGFR 30.32
[2023-04-01] MEDS: PRAVACHOL 20 MG PO (08:54)
[2023-04-01] MEDS: ALDACTONE 12.5 MG PO (08:55)
[2023-04-01] MEDS: TOPROL XL 50 MG PO (08:55)
[2023-04-01] MEDS: ASPIR LOW (ENTERIC COATED) 81 MG PO (08:55)
[2023-04-01] MEDS: FOLVITE 1 MG PO (08:55)
[2023-04-01] MEDS: LASIX 40 MG IV (08:56)
[2023-04-01] MEDS: HEPARIN 5000 UNITS SC ×2 (08:56→20:14)
[2023-04-01] MEDS: THIAMINE INJECTION 200 MG IV ×2 (08:56→20:14)
[2023-04-01] MEDS: DESENEX/MITRAZOL/ZEASORB 1 APPLIC TOPICAL ×2 (08:58→20:18)
[2023-04-01] MEDS: HYDROPHOR 1 APPLIC TOPICAL (08:59)
[2023-04-01] MEDS: DAKIN'S SOLUTION 0.125% 1/4 STRENGTH 473 ML TOPICAL (08:59)
[2023-04-01] MEDS: NICODERM TRANSDERMAL TRANSDERM (09:00)
--- NOTE | 2023-04-01 09:39 | PN.CDI ---
CDI
- -
CDI:
Physician Documentation Request
Admit Date: 03/29/23 21:41
Dear Doctor Nereida,
Patient admitted for cellulitis and acute heart failure.
Laboratory Tests
03/30/23
07:12
WBC 12.8 H
03/30/23
05:38 03/30/23
09:34 03/30/23
19:20
Pulse 104 110 100
Please clarify which of the following most accurately describes the status of the patient's infection:
Sepsis, resolved
- Systemic manifestations of infection, with 2 or more SIRS criteria which include:
- Fever >100.4 degrees F or hypothermia < 96.8 degrees F
- Leukocytosis - WBC > 12,000 or leukopenia - WBC < 4,000 or > 10% bands
- Tachycardia > 90 beats per minute
- Tachypnea - RR > 20 breaths per minute or PaCO2 , 32mmHg
Source: Merck Manual 2013
Cellulitis Only, Without Systemic Illness
Other
Use of terms such as suspected, likely, concern for, or probable (associated with a specific diagnosis that is being evaluated, monitored, or treated as if it exists) are acceptable and can be coded in the inpatient setting, when documented at the
time of discharge.
Thank you,
Migdalia Mejia RN, BSN
CDI Specialist
Available via [employer] text
Please use your independent medical judgment in providing your response.
--- NOTE | 2023-04-01 10:52 | VNURNOTE ---
Home health liaison met with patient to discuss [facility] services, visit frequency, homebound status, pet policy. Patient is agreeable and understands that home visits will be 1-2 x week to assess and teach medical management. [facility] brochure provided
with contact information. Patient is aware that visiting nurse will contact her within 1-2 days of discharge from . Referral for [facility] completed in [facility].
--- NOTE | 2023-04-01 11:33 | W.PN.HOSP.TC ---
Today's Communication/Plan
-
diuresis
F/U further ID recs
possible DC with HH tomorrow
Assessment / Plan
Assessment / Plan
76F� DMT2 HX CKD3b/4, chr HFpEF, severe PHT, HTN� BiB� family for evaluation of extremity edema, erythema and fluid weeping that has been ongoing for an unknown duration of time.� Family reports that patient's brother used to help patient with wound
care but he this previous July and patient has not had much medical care since that time.�
Noncompliance secondary to some side effects of the medications noting that she does not take her diuretic and it is unclear how compliant patient is with her diabetic medications.
LLEx peripheral venous duplex US
No evidence of deep venous thrombosis of the left lower extremity.
08/13/21 ECHO
- LVEF 55 to 60%
- abnormal septal motion consistent with RV volume overload and/or elevated RV end-diastolic pressure
- stage II diastolic dysfunction
- enlarged RV size, severely dilated right atrium
- mild TR
- severe pulmonary hypertension with PAP 66 mmHg, mild PA, no significant change compared to prior
ASSESSMENT & PLAN
Reports non compliance with Rx
LLE cellulitis
Worsening chr David venous stasis/ underlying bilateral lymphedema
HX Polymicrobic POS Wd Cx with� Providencia, E Coli, Enterococcus , Kleb, Diethenoids
No prior HX POS MRSA screen
- NEG Sono evidence of DVT
- cont�Zosyn for now
- ID consult appreciated
- LLE elevation
Severe chr venosus stasis dermatitis
Ingrowing unkempt toe nails
Chr lymphedema
-appreciate wound care
-appreciate podiatry - patient s/p toe nail debridement on 03/30
Acute on chr HFpEF - Noncompliance� with� diuretic (TAKES ONCE A DAY INSTEAD OF TWICE A DAY)
Clinically suspect element acute on chr RHF led to worsening� chr David venous stasis
Underlying severe PHT
- Lasix 40mg IV QD
- patient prescribed BID and only takes once a day at home
- appreciate cardiology consult
Suspected clinical FERNANDA - reports not on CPAP
Current HCO3 /CO2� 22
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
Obesity
Current Tobacco use disorder
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
-monitor daily with diuresis
Essential HTN
- c/w Metoprolol , spironolactone and Lasix
DMT2
- hold ASPHALT ROLLER OPERATOR Glimepiride
- Held Metformin
- add ISS low
-A1c 6.6% can DC on lower dose glimepiride; hold metformin with CKD
HLD on
c/w ASA and Pravastatin
Current ETOH use disorder
- Observe on MSAS
PT/OT recommending SNF
DVT prophylaxis�SQH
Code: DNR per patient request
IP TLM
Anticipated Discharge: 24 - 48 hours
Subjective/Interval History
-
Date of Service: April 01, 2023
feeling better
legs less swollen
ambulating better
no shortness of breath
Objective Data
-
Labs:
Laboratory Results
04/01/23
07:31
WBC 4.5 L
Hgb 12.1
Hct 36.5 L
Plt Count 227
Sodium 137
Potassium 3.8
Chloride 106
Carbon Dioxide 26
BUN 40 H
Creatinine 1.7 H
Glucose 123 H
Calcium 9.0
Vital Signs:
Vital Signs
Temp Pulse Resp BP Pulse Ox
97.7 F 76 18 117/66 95
04/01/23 07:59 04/01/23 08:56 04/01/23 07:59 04/01/23 08:56 04/01/23 08:00
I&O
03/31/23 04/01/23 04/02/23
06:59 06:59 06:59
Intake Total 1719 820 / 820
Balance 1719 820 / 820
Review of Systems
-
History Source: Patient
All other systems: Reviewed and negative
Physical Exam
-
General: Appears Chronically Ill
HEENT: Normocephalic, Atraumatic and Moist Mucous Membranes
Respiratory: Clear to Auscultation
Cardiac: Regular Rhythm and S1/S2; Negative Murmur, Rub or Gallop
GI: Soft, Nontender, Nondistended and Normal Bowel Sounds; Negative Organomegaly
Rectal: Deferred by Provider
Musculoskeletal: Edema, Right Lower Extrem, Edema, Left Lower Extrem and Other (legs wrapped; photos in [employer] )
Skin: Other (toe nail overgrowth ); Negative Rash
Neuro: AO x 3 and Nonfocal/Grossly Intact
Psych: Calm
Data Reviewed
-
Diagnostic Radiology: Report Reviewed by me
Labs: Labs Reviewed by me
[2023-04-01 11:58] VITALS: BP 109/77
[2023-04-01 12:47] LABS: Glucose - Point of Care 161 mg/dl (70-99)
[2023-04-01] MEDS: NOVOLOG FLEXPEN-LOW RESISTANCE 1 UNITS SC ×2 (12:59→17:27)
--- NOTE | 2023-04-01 13:33 | W.PN.ID1 ---
Date of Service
Date of Service: April 01, 2023
Today's Communication
Transition to Augmentin. See below�
Assessment / Plan
Left lower extremity cellulitis
Bilateral severe lower extremity venous stasis and insufficiency disease
Lymphedema
Leukocytosis
Multiple antibiotic allergies (cephalexin; sulfa)
COPD
HTN
Dyslipidemia
DM
CKD
Recommendations:
Transition to Augmentin 875 mg twice daily for an additional 7 days.
Continue with compressive modalities to decrease lymphedema. Prior serous drainage has abated.
Would maintain compression 24 hours a day, at least during this initial period.
Lower extremity elevation above the level of the heart at least 1 hour out of every 6.
Patient will likely need follow-up in the lymphedema clinic following discharge.
����������������������������������������������������������
Chief Complaint
-: Cellulitis
Subjective / Review of Systems
Review of Systems: No Fever and No Chills
Vital Signs / Physical Exam
Vital Signs
Vital Signs
Temp Pulse Resp BP Pulse Ox
97.5 F 76 20 109/77 96
04/01/23 11:58 04/01/23 11:58 04/01/23 11:58 04/01/23 11:58 04/01/23 11:58
Physical Exam
Constitutional: No Acute Distress, Comfortable, Non-toxic and Obese
Pulmonary: Non Labored; Negative Wheezes
Gastrointestinal: Soft and Non Distended
Extremities: Other (Lower extremities with advanced bilateral venous stasis and insufficiency. Ongoing edema of the left lower extremity noted. )
Neurological: Awake and Alert
Psychological: Calm
Objective Data
Lab Data
Lab Results
04/01/23 07:31
04/01/23 07:31
PT 14.4 Sec (11.4-14.6) 03/29/23 23:20
INR 1.14 03/29/23 23:20
APTT 29.4 Sec (23.4-35.0) 03/29/23 23:20
Estimated Creat Clear 34 ml/min 04/01/23 07:31
Total Bilirubin 0.8 mg/dl (0.2-1.3) 03/29/23 17:43
GGT 28 U/L (12-43) 03/29/23 23:20
AST 36 U/L (14-36) 03/29/23 17:43
ALT 26 U/L (0-35) 03/29/23 17:43
Alkaline Phosphatase 84 U/L (38-126) 03/29/23 17:43
Most recent labs reviewed.
Micro Results:
03/29/23 23:21 MRSA Screen - Final
Nose No Methicillin Resistant Staphylococcus aureus isolated.
Care Review
Plan reviewed with: Physician (Hospitalist)
--- NOTE | 2023-04-01 14:01 | W.PN.CARDCBS ---
Addendum entered and electronically signed by Sergio Wells MD 04/01/23 14:20:
I saw and examined the patient.
The Animal Control Supervisor's note was reviewed and I agree with the note.
Comment: GEN: No distress, awake, Ox3
HEENT: supple, anicteric, mmm
LUNGS: scatt rhonchi
CV: Reg, S1/S2, /6 syst LSB, no gallop
ABD: soft, BS+, NT/ND
EXT: ++ edema
NEURO: Gross non-focal
SKIN: erythema
plan:
Will continue to diurese as much as possible. Continue Lasix 40 mg IV daily. Creatinine at 1.7 and overall improved.
Continue antibiotics for cellulitis.
Continue aspirin, pravastatin, metoprolol, and Aldactone.
Original Note:
Today's Communication / Plan
-
Continue IV Lasix
Follow creatinine
Patient noncompliance remains major issue
Impression / Plan
-
Primary Wheelchair Van Driver: Dr. Latesha Sood
Assessment:
LLE cellulitis
Suspected acute on chronic HFpEF
Secondary severe pulmonary hypertension
CKD3B
DM2
HTN
HLD
Chronic venous insufficiency/lymphedema
Obesity
FERNANDA, untreated
COPD
H/o lung nodules
Ongoing tobacco use
h/o right upper extremity thrombus, followed by vascular
h/o B/L LE vein ablation
Noncompliance
ECHO 08/13/2021: Definity used, EF 55 to 60%, abnormal septal motion consistent with RV volume overload, stage II diastolic dysfunction, enlarged RV size with moderately reduced RV systolic function, severely dilated right atrium, mild TR, severe
pulmonary hypertension with PAP 66 mmHg
ECHO 03/31/23: EF 55 to 60%, posterior MAC, mild MR, mild TR, PAP 42 mmHg, moderately dilated right atrium, enlarged RV size with reduced RV systolic function, little change compared to prior
Plan:
-Weight up 1 pound overnight, unclear if accurate. Output not recorded. Unclear how much of lower extremity edema is CHF versus cellulitis. Continue IV Lasix 40 mg daily for now. Creatinine slightly improved on 04/01-1.7.
-CHF education
-Echo with results as above
-Continue Toprol, spironolactone. Given patient's noncompliance, likely will not add SGLT2 inhibitor
-in SR with PACs by review of tele overnight
-continue LE wound care and compression as able
-continue abx per ID/primary service
-she has been recommended SNF by PT/OT however currently wants to go home with VN services
Progress Note - Wheelchair Van Driver
Subjective
Date of Service: April 01, 2023
No issues overnight noted
Objective
Labs:
04/01/23 07:31
04/01/23 07:31
Labs
Hgb 12.1 g/dL (12.0-16.0) 04/01/23 07:31
Hct 36.5 % (37.0-47.0) L 04/01/23 07:31
Plt Count 227 10^3/uL (130-400) 04/01/23 07:31
PT 14.4 Sec (11.4-14.6) 03/29/23 23:20
INR 1.14 03/29/23 23:20
APTT 29.4 Sec (23.4-35.0) 03/29/23 23:20
Sodium 137 mmol/L (135-145) 04/01/23 07:31
Potassium 3.8 mmol/L (3.5-5.1) 04/01/23 07:31
BUN 40 mg/dl (7-17) H 04/01/23 07:31
Creatinine 1.7 mg/dL (0.6-1.0) H 04/01/23 07:31
Glucose 123 mg/dl (70-99) H 04/01/23 07:31
Vital Signs and I&O:
Vital Signs
Temp Pulse Resp BP Pulse Ox
97.5 F 76 20 109/77 96
04/01/23 11:58 04/01/23 11:58 04/01/23 11:58 04/01/23 11:58 04/01/23 11:58
Vital Signs
Temp Pulse Resp BP Pulse Ox
97.5 F 76 20 109/77 96
04/01/23 11:58 04/01/23 11:58 04/01/23 11:58 04/01/23 11:58 04/01/23 11:58
Intake & Output
03/30/23 03/31/23 04/01/23 04/02/23
07:59 07:59 07:59 07:59
Intake Total 1560 / 1560 1720 / 1720 820 / 820
Balance 1560 / 1560 1720 / 1720 820 / 820
[2023-04-01 16:00] VITALS: BP 124/58
--- NOTE | 2023-04-01 16:00 | CM ---
Patient seen bedside.
PT/OT recommending skilled rehab, patient declined.
Patient will require dressing changes and will need to be taught dressing changes prior to discharge.
Per patient, her son Lucio can learn to do the dressing changes he has assisted her n the past.
Spoke with nursing to possibly coordinate when son can come in and teaching can be completed.
Patient aware VN will not come out for daily dressing changes.
IMM completed.
Plan is home with [facility].
[2023-04-01 17:25] LABS: Glucose - Point of Care 162 mg/dl (70-99)
[2023-04-01 19:10] VITALS: BP 118/62
[2023-04-01] MEDS: AUGMENTIN 875 MG/125 MG 1 TABLET PO (20:13)
[2023-04-01 22:16] LABS: Glucose - Point of Care 109 mg/dl (70-99)
[2023-04-01 23:15] VITALS: BP 122/61
[2023-04-02 03:25] VITALS: BP 136/73
[2023-04-02 06:00] VITALS: BMI 36.1
[2023-04-02 07:43] LABS: Glucose - Point of Care 132 mg/dl (70-99)
[2023-04-02] MEDS: NOVOLOG FLEXPEN-LOW RESISTANCE SC ×2 (07:44→16:51)
[2023-04-02 08:26] VITALS: BP 116/77
[2023-04-02 09:03] LABS: Blood Urea Nitrogen 33 mg/dl (7-17); Calcium 9.4 mg/dl (8.4-10.2); Carbon Dioxide 27 mmol/L (22-30); Chloride 105 mmol/L (98-107); Estimated Creatinine Clearance 35 ml/min; Glucose 131 mg/dl (70-99); Potassium 3.9 mmol/L (3.5-5.1); Sodium 137 mmol/L (135-145)
[2023-04-02] MEDS: TOPROL XL 50 MG PO (10:34)
[2023-04-02] MEDS: VITAMIN B1 100 MG PO ×2 (10:34→20:34)
[2023-04-02] MEDS: AUGMENTIN 875 MG/125 MG 1 TABLET PO ×2 (10:34→20:33)
[2023-04-02] MEDS: NICODERM TRANSDERMAL TRANSDERM (10:34)
[2023-04-02] MEDS: ALDACTONE 12.5 MG PO (10:35)
[2023-04-02] MEDS: FOLVITE 1 MG PO (10:35)
[2023-04-02] MEDS: LASIX 40 MG IV (10:35)
[2023-04-02] MEDS: HYDROPHOR 1 APPLIC TOPICAL (10:35)
[2023-04-02] MEDS: HEPARIN 5000 UNITS SC ×2 (10:35→20:33)
[2023-04-02] MEDS: PRAVACHOL 20 MG PO (10:36)
[2023-04-02] MEDS: ASPIR LOW (ENTERIC COATED) 81 MG PO (10:36)
[2023-04-02] MEDS: DAKIN'S SOLUTION 0.125% 1/4 STRENGTH 1 ML TOPICAL (10:36)
[2023-04-02] MEDS: DESENEX/MITRAZOL/ZEASORB 1 APPLIC TOPICAL ×2 (10:36→20:33)
--- NOTE | 2023-04-02 11:09 | CM ---
Addendum entered by Anne-Marie Narayan 04/02/23 12:26:
Patient reluctantly agreeable to skilled rehab.
referrals to [facility], [facility] and [facility].
Original Note:
Patient seen bedside with son Jack (primary contact) and daughter in law Harriet.
Family interested in skilled rehab for patient.
Patient not so sure she wants skilled rehab but will think about it. Options list provided along with CM phone number.
Per Harriet, patient not taking care of her basic needs at home, not showering regularly.
[facility] information also given to daughter in law for possible additional needs if she wishes to call them.
Private caregiver/Material Handler 2Nd Shift list given to son. he is aware insurance will not cover and possible costs associated.
Patient lives with son Lucio who was a TBI and is unable to take on the responsibility to care for her and do dressing changes.
Patient drives her son Lucio to work 3x week.
Patient agreeable to home health, however VN cannot come out every day to do wound care and patient unable to reach to back of her leg for dressing changes.
Plan: skilled vs home with HC and possible private care givers.
--- NOTE | 2023-04-02 11:38 | W.PN.HOSP.TC ---
Addendum entered and electronically signed by Amparo Padron MD 04/02/23 14:36:
Sepsis 2/2 Cellulitis, resolved
continue augmentin
Original Note:
Today's Communication/Plan
-
Augmentin
Diuresis
Eventual SNF
Assessment / Plan
Assessment / Plan
76F� DMT2 HX CKD3b/4, chr HFpEF, severe PHT, HTN� BiB� family for evaluation of extremity edema, erythema and fluid weeping that has been ongoing for an unknown duration of time.� Family reports that patient's brother used to help patient with wound
care but he this previous July and patient has not had much medical care since that time.� She was admitted for treatment cellulitis and Heart failure exacerbation.
LLEx peripheral venous duplex US
No evidence of deep venous thrombosis of the left lower extremity.
08/13/21 ECHO
- LVEF 55 to 60%
- abnormal septal motion consistent with RV volume overload and/or elevated RV end-diastolic pressure
- stage II diastolic dysfunction
- enlarged RV size, severely dilated right atrium
- mild TR
- severe pulmonary hypertension with PAP 66 mmHg, mild CA, no significant change compared to prior
ASSESSMENT & PLAN
Reports non compliance with Rx
LLE cellulitis
Worsening chr David venous stasis/ underlying bilateral lymphedema
HX Polymicrobic POS Wd Cx with� Providencia, E Coli, Enterococcus , Kleb, Diethenoids
No prior HX POS MRSA screen
- NEG Sono evidence of DVT
- ID consult appreciated
- LLE elevation
- compression wraps
- transitioned from IV Zosyn to Augmentin - to continue x 6 more days therapy
Acute on chr HFpEF - Noncompliance� with� diuretic (TAKES ONCE A DAY INSTEAD OF TWICE A DAY)
Clinically suspect element acute on chr RHF led to worsening� chr David venous stasis
Underlying severe PHT
- Lasix 40mg IV QD - patient with continued weight loss overnight and improved renal function; continues to report some sx volume overload/orthostasis
- patient prescribed BID and only takes once a day at home
- appreciate cardiology consult
-continue diuresis; daily BMP
Severe chr venous stasis dermatitis
Ingrowing unkempt toe nails
Chr lymphedema
-appreciate wound care
-appreciate podiatry - patient s/p toe nail debridement on 03/30
Suspected clinical FERNANDA - reports not on CPAP
Current HCO3 /CO2� 22
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
Obesity
Current Tobacco use disorder
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
-monitor daily with diuresis
Essential HTN
- c/w Metoprolol , spironolactone and Lasix
DMT2
- hold TITLE CLERK Glimepiride
- Held Metformin
- add ISS low
-A1c 6.6% can DC on lower dose glimepiride; hold metformin with CKD
HLD on
c/w ASA and Pravastatin
Current ETOH use disorder
- Observe on MSAS
PT/OT recommending SNF
DVT prophylaxis�SQH
Code: DNR per patient request
IP TLM
Anticipated Discharge: 24 - 48 hours
Subjective/Interval History
-
Date of Service: April 02, 2023
patient states she is feeling better
+ cough and some SOB when laying flat
Objective Data
-
Labs:
Laboratory Results
04/02/23
07:36
Sodium 137
Potassium 3.9
Chloride 105
Carbon Dioxide 27
BUN 33 H
Creatinine 1.6 H
Glucose 131 H
Calcium 9.4
Vital Signs:
Vital Signs
Temp Pulse Resp BP Pulse Ox
97.6 F 85 20 116/77 97
04/02/23 03:25 04/02/23 08:26 04/02/23 08:26 04/02/23 08:26 04/02/23 08:26
I&O
04/01/23 04/02/23 04/03/23
06:59 06:59 06:59
Intake Total 820 / 820 900 / 900
Balance 820 / 820 900 / 900
Review of Systems
-
History Source: Patient
All other systems: Reviewed and negative
Physical Exam
-
General: Appears Chronically Ill
HEENT: Normocephalic, Atraumatic and Moist Mucous Membranes
Respiratory: Clear to Auscultation
Cardiac: Regular Rhythm and S1/S2; Negative Murmur, Rub or Gallop
GI: Soft, Nontender, Nondistended and Normal Bowel Sounds; Negative Organomegaly
Rectal: Deferred by Provider
Musculoskeletal: Edema, Right Lower Extrem, Edema, Left Lower Extrem and Other (legs wrapped; photos in [employer]) )
Skin: Other (toe nail overgrowth ); Negative Rash
Neuro: AO x 3 and Nonfocal/Grossly Intact
Psych: Calm
Data Reviewed
-
Diagnostic Radiology: Report Reviewed by me
Labs: Labs Reviewed by me
--- NOTE | 2023-04-02 11:52 | W.PN.ID1 ---
Date of Service
Date of Service: April 02, 2023
Today's Communication
Continue abx.
Assessment / Plan
Left lower extremity cellulitis
Bilateral severe lower extremity venous stasis and insufficiency disease
Lymphedema
Leukocytosis
Multiple antibiotic allergies (cephalexin; sulfa)
COPD
HTN
Dyslipidemia
DM
CKD
Recommendations:
Continue Augmentin 875 mg twice daily for an additional 6 days.
Continue with compressive modalities to decrease lymphedema. Prior serous drainage has abated.
Would maintain compression 24 hours a day, at least during this initial period.
Lower extremity elevation above the level of the heart at least 1 hour out of every 6.
Patient will need follow-up in the lymphedema clinic following discharge.
����������������������������������������������������������
Chief Complaint
-: Cellulitis
Subjective / Review of Systems
Review of Systems: No Fever
Vital Signs / Physical Exam
Vital Signs
Vital Signs
Temp Pulse Resp BP Pulse Ox
97.6 F 85 20 116/77 97
04/02/23 03:25 04/02/23 08:26 04/02/23 08:26 04/02/23 08:26 04/02/23 08:26
Physical Exam
Constitutional: No Acute Distress, Comfortable, Chronically Ill and Non-toxic
Eyes: Sclera Anicteric
Pulmonary: Non Labored
Gastrointestinal: Soft and Non Tender
Extremities: Edema, Erythema and Venous Insufficiency (severe)
Neurological: Awake
Psychological: Calm
Objective Data
Lab Data
Lab Results
04/01/23 07:31
04/02/23 07:36
PT 14.4 Sec (11.4-14.6) 03/29/23 23:20
INR 1.14 03/29/23 23:20
APTT 29.4 Sec (23.4-35.0) 03/29/23 23:20
Estimated Creat Clear 35 ml/min 04/02/23 07:36
Total Bilirubin 0.8 mg/dl (0.2-1.3) 03/29/23 17:43
GGT 28 U/L (12-43) 03/29/23 23:20
AST 36 U/L (14-36) 03/29/23 17:43
ALT 26 U/L (0-35) 03/29/23 17:43
Alkaline Phosphatase 84 U/L (38-126) 03/29/23 17:43
Most recent labs reviewed.
Micro Results:
03/29/23 23:21 MRSA Screen - Final
Nose No Methicillin Resistant Staphylococcus aureus isolated.
[2023-04-02 12:04] VITALS: BP 143/68
[2023-04-02 12:24] LABS: Glucose - Point of Care 169 mg/dl (70-99)
[2023-04-02] MEDS: NOVOLOG FLEXPEN-LOW RESISTANCE 1 UNITS SC (13:04)
[2023-04-02 16:00] VITALS: BP 128/62
[2023-04-02 16:33] LABS: Glucose - Point of Care 130 mg/dl (70-99)
--- NOTE | 2023-04-02 16:48 | W.PN.CARDCBS ---
Documented by User: Saadia Drummond PA-C 04/02/23 16:55
Today's Communication / Plan
-
continue IV lasix today, consider transition to po lasix 80mg daily in AM. alternative would be to consider transition to torsemide
BMP in 1 week
continue toprol, spironolactone
will arrange OP cardiac follow up
Impression / Plan
-
Primary Environmental Technical Officer: Dr. Latesha Sood
Assessment:
LLE cellulitis
Suspected acute on chronic HFpEF
Secondary severe pulmonary hypertension
CKD3B
DM2
HTN
HLD
Chronic venous insufficiency/lymphedema
Obesity
FERNANDA, untreated
COPD
H/o lung nodules
Ongoing tobacco use
h/o right upper extremity thrombus, followed by vascular
h/o B/L LE vein ablation
Noncompliance
ECHO 08/13/2021: Definity used, EF 55 to 60%, abnormal septal motion consistent with RV volume overload, stage II diastolic dysfunction, enlarged RV size with moderately reduced RV systolic function, severely dilated right atrium, mild TR, severe
pulmonary hypertension with PAP 66 mmHg
ECHO 03/31/23: EF 55 to 60%, posterior MAC, mild MR, mild TR, PAP 42 mmHg, moderately dilated right atrium, enlarged RV size with reduced RV systolic function, little change compared to prior
Plan:
-patient continues to respond well to lasix. weight downtrending. dry weight unknown. continue IV lasix today, consider transition to po in AM. she was supposed to be taking 80mg po lasix as OP however was only taking 40mg daily. would plan to place
back on po lasix 80mg daily. could also consider transition to torsemide. we discussed taking the dose of diuretic in the afternoon so she can run errands in the morning without need to frequently urinate.
-Cr continues to improve, 1.6 on 04/02. BMP in 1 week upon DC
-CHF education. encouraged compliance with follow up
-continue Toprol, spironolactone. Given patient's noncompliance, likely will not add SGLT2 inhibitor
-in SR with PACs on review of tele overnight
-continue LE wound care and compression as able
-continue abx per ID/primary service
-she is considering SNF upon DC. will arrange OP cardiac follow up
-d/w nursing
Progress Note - Environmental Technical Officer
Subjective
Date of Service: April 02, 2023
reports her legs feel much improved compared to admission. no SOB
Objective
Labs:
04/01/23 07:31
04/02/23 07:36
Labs
Hgb 12.1 g/dL (12.0-16.0) 04/01/23 07:31
Hct 36.5 % (37.0-47.0) L 04/01/23 07:31
Plt Count 227 10^3/uL (130-400) 04/01/23 07:31
PT 14.4 Sec (11.4-14.6) 03/29/23 23:20
INR 1.14 03/29/23 23:20
APTT 29.4 Sec (23.4-35.0) 03/29/23 23:20
Sodium 137 mmol/L (135-145) 04/02/23 07:36
Potassium 3.9 mmol/L (3.5-5.1) 04/02/23 07:36
BUN 33 mg/dl (7-17) H 04/02/23 07:36
Creatinine 1.6 mg/dL (0.6-1.0) H 04/02/23 07:36
Glucose 131 mg/dl (70-99) H 04/02/23 07:36
Vital Signs and I&O:
Vital Signs
Temp Pulse Resp BP Pulse Ox
97.6 F 70 20 143/68 98
04/02/23 12:04 04/02/23 12:04 04/02/23 12:04 04/02/23 12:04 04/02/23 12:04
Vital Signs
Temp Pulse Resp BP Pulse Ox
97.6 F 70 20 143/68 98
04/02/23 12:04 04/02/23 12:04 04/02/23 12:04 04/02/23 12:04 04/02/23 12:04
Intake & Output
03/31/23 04/01/23 04/02/23 04/03/23
07:59 07:59 07:59 07:59
Intake Total 1720 / 1720 820 / 820 900 / 900
Balance 1720 / 1720 820 / 820 900 / 900
Physical Exam
Physical Exam
GEN: No distress, awake, alert, oriented x3
HEENT: supple, anicteric, mmm, eomi
LUNGS: CTA B/L, no wheezes/rales
CV: Reg, S1/S2, no murmur
ABD: soft, BS+, NT/ND
EXT: No cyanosis, clubbing. 1+ edema of RLE. 2+ edema of LLE with dressing c/d/i. chronic venous changes/discoloration B/L
NEURO: Gross non-focal
SKIN: Warm, pink, dry. No rash

Documented by User: John Rudolph, DO 04/02/23 18:21
Impression / Plan
-
Addendum:
I saw and examined the patient.
The Slackman's note was reviewed and I agree with the note.
Comment:
GEN: No distress, awake, alert, oriented x3
HEENT: supple, anicteric, mmm, eomi
LUNGS: CTA B/L, no wheezes/rales
CV: Reg, S1/S2, no murmur
ABD: soft, BS+, NT/ND
EXT: No cyanosis, clubbing. 1+ edema of RLE. 2+ edema of LLE with dressing c/d/i. chronic venous changes/discoloration B/L
NEURO: Gross non-focal
SKIN: Warm, pink, dry. No rash
- Treatment of cellulitis per primary service
- Transition to oral diuretic tomorrow (80 mg p.o. Lasix) with BMP in 1 week
- Outpatient cardiology follow-up
...
Primary Environmental Technical Officer: Dr. Latesha Sood
Assessment:
LLE cellulitis
Suspected acute on chronic HFpEF
Secondary severe pulmonary hypertension
CKD3B
DM2
HTN
HLD
Chronic venous insufficiency/lymphedema
Obesity
FERNANDA, untreated
COPD
H/o lung nodules
Ongoing tobacco use
h/o right upper extremity thrombus, followed by vascular
h/o B/L LE vein ablation
Noncompliance
ECHO 08/13/2021: Definity used, EF 55 to 60%, abnormal septal motion consistent with RV volume overload, stage II diastolic dysfunction, enlarged RV size with moderately reduced RV systolic function, severely dilated right atrium, mild TR, severe
pulmonary hypertension with PAP 66 mmHg
ECHO 03/31/23: EF 55 to 60%, posterior MAC, mild MR, mild TR, PAP 42 mmHg, moderately dilated right atrium, enlarged RV size with reduced RV systolic function, little change compared to prior
Plan:
-patient continues to respond well to lasix. weight downtrending. dry weight unknown. continue IV lasix today, consider transition to po in AM. she was supposed to be taking 80mg po lasix as OP however was only taking 40mg daily. would plan to place
back on po lasix 80mg daily. could also consider transition to torsemide. we discussed taking the dose of diuretic in the afternoon so she can run errands in the morning without need to frequently urinate.
-Cr continues to improve, 1.6 on 04/02. BMP in 1 week upon DC
-CHF education. encouraged compliance with follow up
-continue Toprol, spironolactone. Given patient's noncompliance, likely will not add SGLT2 inhibitor
-in SR with PACs on review of tele overnight
-continue LE wound care and compression as able
-continue abx per ID/primary service
-she is considering SNF upon DC. will arrange OP cardiac follow up
-d/w nursing
[2023-04-02 19:25] VITALS: BP 141/60
[2023-04-02 23:00] VITALS: BP 122/73; BP 142/68
[2023-04-03 06:00] VITALS: BMI 35.9
[2023-04-03 06:35] LABS: Blood Urea Nitrogen 35 mg/dl (7-17); Calcium 9.4 mg/dl (8.4-10.2); Carbon Dioxide 29 mmol/L (22-30); Chloride 103 mmol/L (98-107); Estimated Creatinine Clearance 40 ml/min; Glucose 139 mg/dl (70-99); Potassium 3.7 mmol/L (3.5-5.1); Sodium 137 mmol/L (135-145); eGFR 38.27
[2023-04-03 07:19] LABS: Glucose - Point of Care 145 mg/dl (70-99)
[2023-04-03] MEDS: NOVOLOG FLEXPEN-LOW RESISTANCE SC (07:23)
[2023-04-03 08:00] VITALS: BP 125/67
[2023-04-03] MEDS: VITAMIN B1 100 MG PO ×2 (08:28→20:30)
[2023-04-03] MEDS: FOLVITE 1 MG PO (08:28)
[2023-04-03] MEDS: DAKIN'S SOLUTION 0.125% 1/4 STRENGTH 1 ML TOPICAL (08:28)
[2023-04-03] MEDS: TOPROL XL 50 MG PO (08:28)
[2023-04-03] MEDS: PRAVACHOL 20 MG PO (08:28)
[2023-04-03] MEDS: ASPIR LOW (ENTERIC COATED) 81 MG PO (08:28)
[2023-04-03] MEDS: HEPARIN 5000 UNITS SC ×2 (08:28→20:29)
[2023-04-03] MEDS: AUGMENTIN 875 MG/125 MG 1 TABLET PO ×2 (08:28→20:29)
[2023-04-03] MEDS: LASIX 40 MG IV (08:28)
[2023-04-03] MEDS: ALDACTONE 12.5 MG PO (08:28)
[2023-04-03] MEDS: NICODERM TRANSDERMAL TRANSDERM (08:29)
[2023-04-03] MEDS: HYDROPHOR 1 APPLIC TOPICAL (08:29)
[2023-04-03] MEDS: DESENEX/MITRAZOL/ZEASORB 1 APPLIC TOPICAL ×2 (08:29→20:31)
[2023-04-03 11:00] VITALS: BP 134/65
[2023-04-03 11:28] LABS: Glucose - Point of Care 165 mg/dl (70-99)
[2023-04-03] MEDS: NOVOLOG FLEXPEN-LOW RESISTANCE 1 UNITS SC ×2 (11:35→16:35)
--- NOTE | 2023-04-03 12:02 | W.PN.CARDCBS ---
Today's Communication / Plan
-
Transition to Lasix 80 mg daily.
Compliance discussed
Outpatient follow-up to be arranged.
Impression / Plan
-
.
Primary Route Sales Person: Dr. Latesha Sood
Impression:
LLE cellulitis
Suspected acute on chronic HFpEF
Secondary severe pulmonary hypertension
CKD3B
DM2
HTN
HLD
Chronic venous insufficiency/lymphedema
Obesity
FERNANDA, untreated
COPD
H/o lung nodules
Ongoing tobacco use
h/o right upper extremity thrombus, followed by vascular
h/o B/L LE vein ablation
Noncompliance
ECHO 08/13/2021: Definity used, EF 55 to 60%, abnormal septal motion consistent with RV volume overload, stage II diastolic dysfunction, enlarged RV size with moderately reduced RV systolic function, severely dilated right atrium, mild TR, severe
pulmonary hypertension with PAP 66 mmHg
ECHO 03/31/23: EF 55 to 60%, posterior MAC, mild MR, mild TR, PAP 42 mmHg, moderately dilated right atrium, enlarged RV size with reduced RV systolic function, little change compared to prior
Plan:
Clinically improved.
Transition to 80 mg Lasix p.o. daily she was only taking 40 mg daily instead of 40 mg twice daily.
Creatinine is stable.
Given significant noncompliance SGLT2 inhibitor not added at the current time.
Continue wound care lower extremity as per ID and primary service.
Stable from cardiovascular standpoint. Will arrange outpatient follow-up.
Reviewed with primary service.
Please recall if needed.
Progress Note - Route Sales Person
Subjective
Date of Service: April 03, 2023
Patient is seen and examined. No chest pain or shortness of breath
Objective
Labs:
04/01/23 07:31
04/03/23 05:46
Labs
Hgb 12.1 g/dL (12.0-16.0) 04/01/23 07:31
Hct 36.5 % (37.0-47.0) L 04/01/23 07:31
Plt Count 227 10^3/uL (130-400) 04/01/23 07:31
PT 14.4 Sec (11.4-14.6) 03/29/23 23:20
INR 1.14 03/29/23 23:20
APTT 29.4 Sec (23.4-35.0) 03/29/23 23:20
Sodium 137 mmol/L (135-145) 04/03/23 05:46
Potassium 3.7 mmol/L (3.5-5.1) 04/03/23 05:46
BUN 35 mg/dl (7-17) H 04/03/23 05:46
Creatinine 1.4 mg/dL (0.6-1.0) H 04/03/23 05:46
Glucose 139 mg/dl (70-99) H 04/03/23 05:46
Vital Signs and I&O:
Vital Signs
Temp Pulse Resp BP Pulse Ox
97.9 F 67 18 125/67 95
04/03/23 08:00 04/03/23 08:00 04/03/23 08:00 04/03/23 08:00 04/03/23 08:00
Vital Signs
Temp Pulse Resp BP Pulse Ox
97.9 F 67 18 125/67 95
04/03/23 08:00 04/03/23 08:00 04/03/23 08:00 04/03/23 08:00 04/03/23 08:00
Intake & Output
04/01/23 04/02/23 04/03/23 04/04/23
06:59 06:59 06:59 06:59
Intake Total 820 / 820 900 / 900 600 / 600
Balance 820 / 820 900 / 900 600 / 600
Physical Exam
Physical Exam
General: No acute distress, AAOX3
Neck: Negative JVD
Heart: Regular, Negative S3 positive S1/S2, Negative S4, No murmur
Lungs: CTA b/l, negative wheezes/rales/rhonchi
Abd: Positive BS, NT/ND, neg rebound/rigidity/guarding
Ext: Venous stasis skin changes. Legs wrapped bilaterally. Lymphedema.
Neuro: nonfocal
--- NOTE | 2023-04-03 12:12 | W.PN.HOSP.TC ---
Today's Communication/Plan
-
Augmentin
Lasix
Dispo planning for SNF
Assessment / Plan
Assessment / Plan
76F� DMT2 HX CKD3b/4, chr HFpEF, severe PHT, HTN� BiB� family for evaluation of extremity edema, erythema and fluid weeping that has been ongoing for an unknown duration of time.� Family reports that patient's brother used to help patient with wound
care but he this previous July and patient has not had much medical care since that time.� She was admitted for treatment cellulitis and Heart failure exacerbation.
LLEx peripheral venous duplex US
No evidence of deep venous thrombosis of the left lower extremity.
08/13/21 ECHO
- LVEF 55 to 60%
- abnormal septal motion consistent with RV volume overload and/or elevated RV end-diastolic pressure
- stage II diastolic dysfunction
- enlarged RV size, severely dilated right atrium
- mild TR
- severe pulmonary hypertension with PAP 66 mmHg, mild AR, no significant change compared to prior
ASSESSMENT & PLAN
Reports non compliance with Rx
LLE cellulitis
Worsening chr David venous stasis/ underlying bilateral lymphedema
HX Polymicrobic POS Wd Cx with� Providencia, E Coli, Enterococcus , Kleb, Diethenoids
No prior HX POS MRSA screen
- NEG Sono evidence of DVT
- ID consult appreciated
- LLE elevation
- compression wraps
- transitioned from IV Zosyn to Augmentin - to continue x 5 more days therapy
Acute on chr HFpEF - Noncompliance� with� diuretic (TAKES ONCE A DAY INSTEAD OF TWICE A DAY)
Clinically suspect element acute on chr RHF led to worsening� chr David venous stasis
Underlying severe PHT
- Lasix 40mg IV QD - patient with continued weight loss overnight and improved renal function
- patient prescribed BID and only takes once a day at home
- appreciate cardiology consult
- s/p IV diuresis - transitioned to lasix 80mg PO QD
-continue diuresis; daily BMP
Severe chr venous stasis dermatitis
Ingrowing unkempt toe nails
Chr lymphedema
-appreciate wound care
-appreciate podiatry - patient s/p toe nail debridement on 03/30
Suspected clinical FERNANDA - reports not on CPAP
Current HCO3 /CO2� 22
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
Obesity
Current Tobacco use disorder
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
-monitor daily with diuresis
Essential HTN
- c/w Metoprolol , spironolactone and Lasix
DMT2
- hold [employer] RO[employer]ER Glimepiride
- Held Metformin
- add ISS low
-A1c 6.6% can DC on lower dose glimepiride; hold metformin with CKD
HLD on
c/w ASA and Pravastatin
Current ETOH use disorder
- Observe on MSAS
PT/OT recommending SNF
DVT prophylaxis�SQH
Code: DNR per patient request
IP TLM
Anticipated Discharge: Within 24 hours
Subjective/Interval History
-
Date of Service: April 03, 2023
swelling much improved
willing to go to SNF for wound care
Objective Data
-
Labs:
Laboratory Results
04/03/23
05:46
Sodium 137
Potassium 3.7
Chloride 103
Carbon Dioxide 29
BUN 35 H
Creatinine 1.4 H
Glucose 139 H
Calcium 9.4
Vital Signs:
Vital Signs
Temp Pulse Resp BP Pulse Ox
97.7 F 72 18 134/65 98
04/03/23 11:00 04/03/23 11:00 04/03/23 11:00 04/03/23 11:00 04/03/23 11:00
I&O
04/02/23 04/03/23 04/04/23
06:59 06:59 06:59
Intake Total 900 / 900 600 / 600
Balance 900 / 900 600 / 600
Review of Systems
-
History Source: Patient
All other systems: Reviewed and negative
Physical Exam
-
General: Appears Chronically Ill
HEENT: Normocephalic, Atraumatic and Moist Mucous Membranes
Respiratory: Clear to Auscultation
Cardiac: Regular Rhythm and S1/S2; Negative Murmur, Rub or Gallop
GI: Soft, Nontender, Nondistended and Normal Bowel Sounds; Negative Organomegaly
Rectal: Deferred by Provider
Musculoskeletal: Edema, Right Lower Extrem, Edema, Left Lower Extrem and Other (legs wrapped; photos in [employer] )
Skin: Other (toe nail overgrowth ); Negative Rash
Neuro: AO x 3 and Nonfocal/Grossly Intact
Psych: Calm
Data Reviewed
-
Diagnostic Radiology: Report Reviewed by me
Labs: Labs Reviewed by me
--- NOTE | 2023-04-03 12:25 | CM ---
Addendum entered by Sylvia Gomez RN 04/03/23 13:51:
CM updated patient's son Jack with [facility]. [facility] and [facility] are unable to accept.
Addendum entered by Sylvia Gomez RN 04/03/23 13:49:
[facility] has accepted patient for possible Wednesday transfer.
Original Note:
CM was advised that patient can be transferred to SNF when bed is available. CM updated [facility] admission coordinator and [facility] Admission Coordinator with plan for discharge. CM will await acceptance.
[2023-04-03 15:00] VITALS: BP 138/63
[2023-04-03 16:26] LABS: Glucose - Point of Care 160 mg/dl (70-99)
[2023-04-03 19:00] VITALS: BP 158/82
[2023-04-03 21:50] LABS: Glucose - Point of Care 124 mg/dl (70-99)
[2023-04-03 23:00] VITALS: BP 147/74
[2023-04-04 03:00] VITALS: BP 141/75
[2023-04-04 06:00] VITALS: BMI 35.9
[2023-04-04 07:26] LABS: Blood Urea Nitrogen 36 mg/dl (7-17); Calcium 9.9 mg/dl (8.4-10.2); Carbon Dioxide 28 mmol/L (22-30); Chloride 102 mmol/L (98-107); Estimated Creatinine Clearance 35 ml/min; Glucose 135 mg/dl (70-99); Sodium 137 mmol/L (135-145)
[2023-04-04] MEDS: AUGMENTIN 875 MG/125 MG 1 TABLET PO ×2 (07:31→21:48)
[2023-04-04] MEDS: NICODERM TRANSDERMAL TRANSDERM (07:31)
[2023-04-04] MEDS: LASIX 80 MG PO (07:32)
[2023-04-04] MEDS: ASPIR LOW (ENTERIC COATED) 81 MG PO (07:32)
[2023-04-04] MEDS: VITAMIN B1 100 MG PO ×2 (07:32→21:48)
[2023-04-04] MEDS: TOPROL XL 50 MG PO (07:33)
[2023-04-04] MEDS: HEPARIN 5000 UNITS SC ×2 (07:33→21:48)
[2023-04-04] MEDS: PRAVACHOL 20 MG PO (07:33)
[2023-04-04] MEDS: FOLVITE 1 MG PO (07:33)
[2023-04-04] MEDS: ALDACTONE 12.5 MG PO (07:33)
[2023-04-04] MEDS: DESENEX/MITRAZOL/ZEASORB 1 APPLIC TOPICAL ×2 (07:34→21:47)
[2023-04-04 07:35] VITALS: BP 112/81
[2023-04-04] MEDS: DAKIN'S SOLUTION 0.125% 1/4 STRENGTH 473 ML TOPICAL (07:35)
[2023-04-04] MEDS: HYDROPHOR 1 APPLIC TOPICAL (07:35)
[2023-04-04] MEDS: NOVOLOG FLEXPEN-LOW RESISTANCE SC (07:37)
[2023-04-04 12:21] LABS: Glucose - Point of Care 151 mg/dl (70-99)
[2023-04-04] MEDS: NOVOLOG FLEXPEN-LOW RESISTANCE 1 UNITS SC ×2 (12:22→16:35)
--- NOTE | 2023-04-04 12:28 | W.PN.HOSP.TC ---
Today's Communication/Plan
-
dispo planning
Assessment / Plan
Assessment / Plan
76F� DMT2 HX CKD3b/4, chr HFpEF, severe PHT, HTN� BiB� family for evaluation of extremity edema, erythema and fluid weeping that has been ongoing for an unknown duration of time.� Family reports that patient's brother used to help patient with wound
care but he this previous July and patient has not had much medical care since that time.� She was admitted for treatment cellulitis and Heart failure exacerbation.
LLEx peripheral venous duplex US
No evidence of deep venous thrombosis of the left lower extremity.
08/13/21 ECHO
- LVEF 55 to 60%
- abnormal septal motion consistent with RV volume overload and/or elevated RV end-diastolic pressure
- stage II diastolic dysfunction
- enlarged RV size, severely dilated right atrium
- mild TR
- severe pulmonary hypertension with PAP 66 mmHg, mild MS, no significant change compared to prior
ASSESSMENT & PLAN
Reports non compliance with Rx
LLE cellulitis
Worsening chr David venous stasis/ underlying bilateral lymphedema
HX Polymicrobic POS Wd Cx with� Providencia, E Coli, Enterococcus , Kleb, Diethenoids
No prior HX POS MRSA screen
- NEG Sono evidence of DVT
- ID consult appreciated
- LLE elevation
- compression wraps
- transitioned from IV Zosyn to Augmentin - to continue x 4 more days therapy
Acute on chr HFpEF - Noncompliance� with� diuretic (TAKES ONCE A DAY INSTEAD OF TWICE A DAY)
Clinically suspect element acute on chr RHF led to worsening� chr David venous stasis
Underlying severe PHT
- s/p Lasix 40mg IV QD with weight loss and improvement in renal function
- patient prescribed BID and only takes once a day at home
- appreciate cardiology consult
- transitioned to lasix 80mg PO QD
- patient ready for SNF, bed avilable 04/05
Severe chr venous stasis dermatitis
Ingrowing unkempt toe nails
Chr lymphedema
-appreciate wound care
-appreciate podiatry - patient s/p toe nail debridement on 03/30
Suspected clinical FERNANDA - reports not on CPAP
Current HCO3 /CO2� 22
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
Obesity
Current Tobacco use disorder
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
-monitor daily with diuresis
Essential HTN
- c/w Metoprolol , spironolactone and Lasix
DMT2
- hold METER TE[employer] PRIMARY Glimepiride
- Held Metformin
- add ISS low
-A1c 6.6% can DC on lower dose glimepiride; hold metformin with CKD
HLD on
c/w ASA and Pravastatin
Current ETOH use disorder
- Observe on MSAS
PT/OT recommending SNF
DVT prophylaxis�SQH
Code: DNR per patient request
IP TLM
Anticipated Discharge: Within 24 hours
Subjective/Interval History
-
Date of Service: April 04, 2023
no new complaints
Objective Data
-
Labs:
Laboratory Results
04/04/23
06:02
Sodium 137
Potassium 4.0
Chloride 102
Carbon Dioxide 28
BUN 36 H
Creatinine 1.6 H
Glucose 135 H
Calcium 9.9
Vital Signs:
Vital Signs
Temp Pulse Resp BP Pulse Ox
97.8 F 77 18 112/81 95
04/04/23 07:35 04/04/23 07:35 04/04/23 07:35 04/04/23 07:35 04/04/23 07:35
I&O
04/03/23 04/04/23 04/05/23
06:59 06:59 06:59
Intake Total 600 / 600 2160 / 2160
Balance 600 / 600 2160 / 2160
Review of Systems
-
History Source: Patient
All other systems: Reviewed and negative
Physical Exam
-
General: Appears Chronically Ill
HEENT: Normocephalic, Atraumatic and Moist Mucous Membranes
Respiratory: Clear to Auscultation
Cardiac: Regular Rhythm and S1/S2; Negative Murmur, Rub or Gallop
GI: Soft, Nontender, Nondistended and Normal Bowel Sounds; Negative Organomegaly
Rectal: Deferred by Provider
Musculoskeletal: Edema, Right Lower Extrem, Edema, Left Lower Extrem and Other (legs wrapped; photos in [employer] )
Skin: Negative Rash
Neuro: AO x 3 and Nonfocal/Grossly Intact
Psych: Calm
Data Reviewed
-
Diagnostic Radiology: Report Reviewed by me
Labs: Labs Reviewed by me
[2023-04-04 15:20] VITALS: BP 148/66
[2023-04-04 16:26] LABS: Glucose - Point of Care 198 mg/dl (70-99)
[2023-04-04 19:30] VITALS: BP 133/63
[2023-04-04 21:29] LABS: Glucose - Point of Care 123 mg/dl (70-99)
[2023-04-04 23:35] VITALS: BP 125/67
[2023-04-05 03:25] VITALS: BP 128/69
[2023-04-05 06:00] VITALS: BMI 35.3
[2023-04-05 07:00] VITALS: BP 151/73
[2023-04-05 07:16] LABS: Glucose - Point of Care 163 mg/dl (70-99)
[2023-04-05] MEDS: DESENEX/MITRAZOL/ZEASORB 1 APPLIC TOPICAL ×2 (09:17→20:21)
[2023-04-05] MEDS: DAKIN'S SOLUTION 0.125% 1/4 STRENGTH 473 ML TOPICAL (09:18)
[2023-04-05] MEDS: NICODERM TRANSDERMAL TRANSDERM (09:20)
[2023-04-05] MEDS: HEPARIN 5000 UNITS SC ×2 (09:22→20:22)
[2023-04-05] MEDS: FOLVITE 1 MG PO (09:22)
[2023-04-05] MEDS: ASPIR LOW (ENTERIC COATED) 81 MG PO (09:23)
[2023-04-05] MEDS: PRAVACHOL 20 MG PO (09:23)
[2023-04-05] MEDS: LASIX 80 MG PO (09:23)
[2023-04-05] MEDS: ALDACTONE 12.5 MG PO (09:23)
[2023-04-05] MEDS: AUGMENTIN 875 MG/125 MG 1 TABLET PO ×2 (09:23→20:21)
[2023-04-05] MEDS: VITAMIN B1 100 MG PO ×2 (09:24→20:21)
[2023-04-05] MEDS: TOPROL XL 50 MG PO (09:24)
[2023-04-05] MEDS: NOVOLOG FLEXPEN-LOW RESISTANCE 1 UNITS SC (09:25)
--- NOTE | 2023-04-05 10:03 | CM ---
Addendum entered by Anne-Marie Narayan 04/05/23 15:24:
Bed available for Wednesday at [facility].
Patient agreeable to skilled rehab.
Spoke with patient son Jack, agreeable to d/c and transporting.
IMM completed.
Addendum entered by Anne-Marie Narayan 04/05/23 12:34:
Patient agreeable to skilled rehab. Await TCB from [facility] re bed availability.
Addendum entered by Anne-Marie Narayan 04/05/23 11:29:
Spoke with patient bedside.
No one available at home to assist with wound care and nurses can not come out daily.
PT recommending skilled rehab.
Patient said she will think about going to skilled rehab for a few days.
Original Note:
Await bed availability for skilled rehab.
No auth needed.
Plan: Skilled rehab when bed available.
[2023-04-05 11:13] LABS: Glucose - Point of Care 221 mg/dl (70-99)
[2023-04-05 11:29] VITALS: BP 130/61
[2023-04-05] MEDS: HYDROPHOR 1 APPLIC TOPICAL (12:35)
[2023-04-05] MEDS: NOVOLOG FLEXPEN-LOW RESISTANCE 2 UNITS SC (12:36)
--- NOTE | 2023-04-05 14:26 | W.PN.HOSP.TC ---
Today's Communication/Plan
-
dc planning
Assessment / Plan
Assessment / Plan
Assessment:
LLE cellulitis
Worsening chr David venous stasis/underlying bilateral lymphedema
HX Polymicrobic POS Wd Cx with�Providencia, E Coli, Enterococcus, Kleb, Diethenoids
No prior HX POS MRSA screen
- NEG Sono evidence of DVT
- ID consult appreciated
- LLE elevation
- compression wraps
- transitioned from IV Zosyn to Augmentin - to continue x 3 more days therapy
Acute on chr HFpEF - Noncompliance� with� diuretic (TAKES ONCE A DAY INSTEAD OF TWICE A DAY)
Clinically suspect element acute on chr RHF led to worsening� chr David venous stasis
Underlying severe PHT
- s/p Lasix 40mg IV QD with weight loss and improvement in renal function
- patient prescribed BID and only takes once a day at home
- appreciate cardiology consult
- transitioned to Lasix 80mg PO QD
Severe chronic venous stasis dermatitis
Ingrowing unkempt toe nails
Chronic lymphedema
- appreciate wound care
- appreciate podiatry - patient s/p toe nail debridement on 03/30
Suspected clinical FERNANDA - reports not on CPAP
Current HCO3 /CO2� 22
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
Obesity
Current Tobacco use disorder
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
- monitor daily with diuresis
Essential HTN
- c/w Metoprolol , spironolactone and Lasix
DMT2
- hold WASTE TREATMENT OPERATOR Glimepiride
- add ISS low
- A1c 6.6% can DC on lower dose glimepiride; stop metformin with CKD
HLD on
- c/w ASA and Pravastatin
Current ETOH use disorder
- Observe on MSAS
DVT ppx: SC heparin
Code: DNR
Dispo: SNF vs home
Anticipated Discharge: Within 24 hours
Subjective/Interval History
-
Date of Service: April 05, 2023
denies any new complaints
remains undecided about SNF vs home
Objective Data
-
Vital Signs:
Vital Signs
Temp Pulse Resp BP Pulse Ox
97.7 F 65 16 130/61 97
04/05/23 11:29 04/05/23 11:29 04/05/23 11:29 04/05/23 11:29 04/05/23 11:29
I&O
04/04/23 04/05/23 04/06/23
06:59 06:59 06:59
Intake Total 2160 / 2160 1730 / 1730
Balance 2160 / 2160 1730 / 1730
Physical Exam
-
General: No Apparent Distress
HEENT: Normocephalic and Atraumatic
Respiratory: Negative Wheezes or Rales
Cardiac: Regular Rhythm and S1/S2
GI: Soft and Nontender
Musculoskeletal: No Edema
Neuro: AO x 3
Hematologic / Lymphatic: No Lymphadenopathy
Psych: Calm
Data Reviewed
-
Total Time Spent with Patient (in minutes): 45
Labs: Labs Reviewed by me
[2023-04-05 15:00] VITALS: BP 118/62
[2023-04-05 16:39] LABS: Glucose - Point of Care 143 mg/dl (70-99)
[2023-04-05] MEDS: NOVOLOG FLEXPEN-LOW RESISTANCE SC (17:02)
[2023-04-05 19:00] VITALS: BP 124/59
[2023-04-05 21:53] LABS: Glucose - Point of Care 137 mg/dl (70-99)
[2023-04-05 23:00] VITALS: BP 118/58
[2023-04-06 03:00] VITALS: BP 121/60
[2023-04-06 03:12] VITALS: BP 121/60
[2023-04-06 06:00] VITALS: BMI 35.6
[2023-04-06 07:00] VITALS: BP 123/49
[2023-04-06 07:20] LABS: Glucose - Point of Care 138 mg/dl (70-99)
[2023-04-06] MEDS: NOVOLOG FLEXPEN-LOW RESISTANCE SC (07:24)
[2023-04-06] MEDS: LASIX 80 MG PO (07:53)
[2023-04-06] MEDS: PRAVACHOL 20 MG PO (07:54)
[2023-04-06] MEDS: NICODERM TRANSDERMAL TRANSDERM (07:54)
[2023-04-06] MEDS: ASPIR LOW (ENTERIC COATED) 81 MG PO (07:54)
[2023-04-06] MEDS: FOLVITE 1 MG PO (07:54)
[2023-04-06] MEDS: ALDACTONE 12.5 MG PO (07:54)
[2023-04-06] MEDS: AUGMENTIN 875 MG/125 MG 1 TABLET PO (07:54)
[2023-04-06] MEDS: TOPROL XL 50 MG PO (07:54)
[2023-04-06] MEDS: VITAMIN B1 100 MG PO (07:54)
[2023-04-06] MEDS: HEPARIN 5000 UNITS SC (07:55)
[2023-04-06] MEDS: DESENEX/MITRAZOL/ZEASORB 1 APPLIC TOPICAL (07:57)
[2023-04-06] MEDS: DAKIN'S SOLUTION 0.125% 1/4 STRENGTH 473 ML TOPICAL (07:57)
[2023-04-06] MEDS: HYDROPHOR 1 APPLIC TOPICAL (07:58)
[2023-04-06] MEDS: TYLENOL 650 MG PO (10:33)
--- NOTE | 2023-04-06 10:33 | W.HF.CON ---
Heart Failure
- LV Function
Left ventricular function study result: LV Ejection fraction >40%
Ejection Fraction Percentage: 55-60
- ARNI
Patient already on ARNI: No
Heart Failure ARNI Not Indicated: LV Ejection Fraction >/= 40%
- ACEI/ARB
Patient already on ACEI/ARB: No
Heart Failure ACEI/ARB Not Indicated: LV Ejection Fraction > 40%
- Beta Casimiro
Patient already on Evidence Based Beta Casimiro: Yes
- Mineralocorticord Receptor Antagonist
Patient already on MRA: Yes
- SGLT-2 Inhibitor
Patient already on SGLT-2 Inhibitor: No
Heart Failure SGLT-2 Inhibitor Not Indicated: LV Ejection Fraction >40%
- NYHA CHF Classification
NYHA CHF Classification Level: Class III - Symptoms w/ min exertion, interferes w/ nml daily activity
- ACC/AHA Stage
ACC/AHA Stage: Stage C: Symptomatic Heart Failure
[2023-04-06 11:00] VITALS: BP 117/65
--- NOTE | 2023-04-06 11:15 | WOUNDNOTE ---
L POSTERIOR LOWER LEG
--- NOTE | 2023-04-06 11:17 | WOUNDNOTE ---
WON RN NOTE: Followed up with assist from nurse Jordan. Leg wounds much improved, now with just one venous ulcer L posterior leg, clean no odor. Toe nails trimmed by podiatry, toes much improved. Chronic dry scaly legs, mineral oil to be applied by
nurse and romina wraps re applied. Sacrum intact, patient able to turn with minimal assist, on [place] air bed, heels intact. Repositioned patient in bed, patient assisted. Pillow under calves. Plan: will discontinue Dakin's, and change order to
clean with saline, adaptic and silicone foam daily to L leg. Will confirm orders with hospitalist.
--- NOTE | 2023-04-06 11:42 | W.PN.HOSP.TC ---
Today's Communication/Plan
-
dc now
Assessment / Plan
Assessment / Plan
Assessment:
LLE cellulitis
Worsening chr David venous stasis/underlying bilateral lymphedema
HX Polymicrobic POS Wd Cx with�Providencia, E Coli, Enterococcus, Kleb, Diethenoids
No prior HX POS MRSA screen
- NEG Sono evidence of DVT
- ID consult appreciated
- LLE elevation
- compression wraps
- transitioned from IV Zosyn to Augmentin - to continue x 3 more days therapy
Acute on chr HFpEF - Noncompliance� with� diuretic (TAKES ONCE A DAY INSTEAD OF TWICE A DAY)
Clinically suspect element acute on chr RHF led to worsening� chr David venous stasis
Underlying severe PHT
- s/p Lasix 40mg IV QD with weight loss and improvement in renal function
- patient prescribed BID and only takes once a day at home
- appreciate cardiology consult
- transitioned to Lasix 80mg PO QD
Severe chronic venous stasis dermatitis
Ingrowing unkempt toe nails
Chronic lymphedema
- appreciate wound care
- appreciate podiatry - patient s/p toe nail debridement on 03/30
Suspected clinical FERNANDA - reports not on CPAP
Current HCO3 /CO2� 22
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
Obesity
Current Tobacco use disorder
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
- monitor daily with diuresis
Essential HTN
- c/w Metoprolol , spironolactone and Lasix
DMT2
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
- add ISS low
- A1c 6.6% can DC on lower dose glimepiride; stop metformin with CKD
HLD on
- c/w ASA and Pravastatin
Current ETOH use disorder
- Observe on MSAS
DVT ppx: SC heparin
Code: DNR
Dispo: SNF now to [facility]
see dictated noteMore than 30 minutes spent in discharge including
Final examination of the patient
Summarizing hospital stay
Instructions for continuing care to all relevant caregivers
Preparation of discharge records, prescriptions, and referral forms
Total time spent (in minutes): 45
Anticipated Discharge: Today
Subjective/Interval History
-
Date of Service: April 06, 2023
Anxiously awaiting dc
Objective Data
-
Vital Signs:
Vital Signs
Temp Pulse Resp BP Pulse Ox
98.0 F 72 18 120/62 95
04/06/23 07:00 04/06/23 07:54 04/06/23 07:00 04/06/23 07:54 04/06/23 07:00
I&O
04/05/23 04/06/23 04/07/23
06:59 06:59 06:59
Intake Total 1730 / 1730 940 / 940
Balance 1730 / 1730 940 / 940
Review of Systems
-
History Source: Patient and Coordinated Provider
Constitutional: Denies Fever
EENT: Reports No Symptoms Reported
Respiratory: Reports No Symptoms; Denies Trouble Breathing or Wheezing
Cardiac: Reports No Symptoms; Denies Chest Pain
Physical Exam
-
General: No Apparent Distress
HEENT: Normocephalic and Atraumatic
Respiratory: Negative Wheezes or Rales
Cardiac: Regular Rhythm and S1/S2
GI: Soft and Nontender
Musculoskeletal: Negative No Edema (chronic venous stasis, bilateral lymphedema)
Neuro: AO x 3
Hematologic / Lymphatic: No Lymphadenopathy
Psych: Calm
[2023-04-06 11:46] LABS: Glucose - Point of Care 213 mg/dl (70-99)
--- NOTE | 2023-04-06 12:04 | W.DS.TRANS ---
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
-
Discharge Instructions:
Discharge Diagnosis/Procedures left lower extremity cellulitis; diastolic heart
failure acute exacerbation; status post toe
nail debridement on 03/30 by Podiatry
Diet 2 Gram Sodium,Restrict fluids to 48 oz,Diabetic,
Carb Controlled
Activity As tolerated
Driving Restrictions No driving
Blood Work BMP in 1 week
follow glucose qid, resume Amaryl if glu
increases as per outpt medicine
Other Services PT,OT
Specialty Instructions Weigh Daily
Stop these medications: Stop Metformin. Hold Glimepiride. If this is
resumed post SNF consider resuming lower dose
1mg daily.
Instructions: *DCA Heart Failure Instructions
Stand-Alone Forms:
Changes to Home Medications: Yes
Discharge Medications:
DC Medications w/original date entered in [facility]
metoprolol succinate 50 mg tablet,extended release 24 hr 50 mg PO DAILY Heart disease/condition 08/09/15
pravastatin 20 mg tablet 20 mg PO DAILY High cholesterol 08/09/15
spironolactone 25 mg tablet 12.5 mg PO DAILY Fluid retention/Swelling 01/31/21
acetaminophen 500 mg tablet (Tylenol Extra Strength) 500 mg PO DAILY pain 03/29/23
aspirin 81 mg tablet,delayed release 81 mg PO DAILY Blood Clot Prevention/Tx 03/29/23
amoxicillin 875 mg-potassium clavulanate 125 mg tablet 1 tab PO Q12 #6 tabs 04/06/23
furosemide 80 mg tablet 80 mg PO DAILY #30 tabs 04/06/23
Home Medication Changes
Lasix increased to 80 mg daily
Augmentin for 6 doses
Amaryl placed on hold
Pending Results: No
--- NOTE | 2023-04-06 12:24 | CM ---
Patient for d/c to [facility] today.
[facility] will transport.
IMM completed yesterday.
Plan: [facility]
Report# [phone]
[2023-04-06] MEDS: NOVOLOG FLEXPEN-LOW RESISTANCE 2 UNITS SC (12:38)
--- NOTE | 2023-04-06 15:11 | PN.CDI ---
CDI
- -
CDI:
Physician Documentation Request
Admit Date: 03/29/23 21:41
Dear Doctor Daxa,
Patient admitted for cellulitis.
03/30 Podiatry Consult: 'Debrided all toe nails at bedside'
Could you provide, in the progress notes further clarification regarding the debridement.
Please specify the type of debridement performed:
1. Excisional Debridement - defined as removal by excision of devitalized tissue, necrosis or slough
2. Non-excisional debridement - defined as removal of devitalized tissue, necrosis or slough by such methods as irrigation, brushing, scrubbing or washing.
If the debridement was excisional, please also include:
1. Type of instrument used (#11 blade, #15 blade etc.)
2. What was excised (necrotic tissue, gangrenous tissue, slough etc.)
For excisional or non-excisional, please also include:
1. Depth of debridement (skin, subcutaneous tissue, fascia, muscle, bone etc)
2. Size and appearance of the wound (L, W, D, color of wound, drainage)
Use of terms such as suspected, likely, concern for, or probable (associated with a specific diagnosis that is being evaluated, monitored, or treated as if it exists) are acceptable and can be coded in the inpatient setting, when documented at the
time of discharge.
Thank you,
Migdalia Mejia RN, BSN
CDI Specialist
Available via [place] text
Please use your independent medical judgment in providing your response.
== END 2023-04-06 14:40 | DRG 602 ==
LOC: 4 WEST ACU 21:41
PROVIDERS: Clinical Nurse Specialist Family Health; Emergency Medicine; Physician Assistant Medical; Student in an Organized Health Care Education/Training Program; ADMITTING PHYSICIAN Internal Medicine; ATTENDING PHYSICIAN Internal Medicine; EMERGENCY PHYSICIAN Emergency Medicine; FAMILY PHYSICIAN Family Medicine; OTHER PHYSICIAN Internal Medicine Infectious Disease; OTHER PHYSICIAN Podiatrist Foot & Ankle Surgery
DX: L03.116 Cellulitis of left lower limb (principal); A41.9 Sepsis, unspecified organism; I50.33 Acute on chronic diastolic (congestive) heart failure; I13.0 Hypertensive heart and chronic kidney disease with heart failure and stage 1 through stage 4 chronic kidney disease, or unspecified chronic kidney disease; N18.4 Chronic kidney disease, stage 4 (severe); L03.115 Cellulitis of right lower limb; E11.22 Type 2 diabetes mellitus with diabetic chronic kidney disease; E78.00 Pure hypercholesterolemia, unspecified; I27.20 Pulmonary hypertension, unspecified; E66.01 Morbid (severe) obesity due to excess calories; I87.2 Venous insufficiency (chronic) (peripheral); E11.51 Type 2 diabetes mellitus with diabetic peripheral angiopathy without gangrene; G47.33 Obstructive sleep apnea (adult) (pediatric); J44.9 Chronic obstructive pulmonary disease, unspecified; R91.8 Other nonspecific abnormal finding of lung field; F17.200 Nicotine dependence, unspecified, uncomplicated; G89.29 Other chronic pain; I89.0 Lymphedema, not elsewhere classified; I87.8 Other specified disorders of veins; E11.40 Type 2 diabetes mellitus with diabetic neuropathy, unspecified; B35.1 Tinea unguium; E11.649 Type 2 diabetes mellitus with hypoglycemia without coma; F10.10 Alcohol abuse, uncomplicated; Z91.148 Patient's other noncompliance with medication regimen for other reason; Z79.82 Long term (current) use of aspirin; Z79.84 Long term (current) use of oral hypoglycemic drugs; Z68.35 Body mass index [BMI] 35.0-35.9, adult; Z11.52 Encounter for screening for COVID-19; Z66 Do not resuscitate; Z91.199 Patient's noncompliance with other medical treatment and regimen due to unspecified reason; Z88.1 Allergy status to other antibiotic agents; Z88.2 Allergy status to sulfonamides; Z88.7 Allergy status to serum and vaccine; Z88.8 Allergy status to other drugs, medicaments and biological substances
CPT/HCPCS: 80048; 80053; 80306; 81003; 81015; 82010; 82077; 82962; 82977; 83036; 83735; 83880; 84100; 85025; 85610; 85730; 87070; 87811; 93307; 93971; 96365; 97163; 97167; 97530; 97535; 99285; Q9957

== ENCOUNTER → 2023-04-14 11:33 | Outpatient (REF) | payer MEDICARE, BC, SELFPAY ==
[2023-04-14 12:19] LABS: Blood Urea Nitrogen 37 mg/dl (7-17); Calcium 9.1 mg/dl (8.4-10.2); Carbon Dioxide 27 mmol/L (22-30); Chloride 102 mmol/L (98-107); Glucose 169 mg/dl (70-99); Potassium 4.6 mmol/L (3.5-5.1); Sodium 135 mmol/L (135-145)
== END ==
LOC: OLABP 11:33
PROVIDERS: ATTENDING PHYSICIAN Student in an Organized Health Care Education/Training Program
DX: L03.116 Cellulitis of left lower limb (principal); I87.8 Other specified disorders of veins; M62.81 Muscle weakness (generalized); R26.2 Difficulty in walking, not elsewhere classified; I89.0 Lymphedema, not elsewhere classified; N18.4 Chronic kidney disease, stage 4 (severe); I13.0 Hypertensive heart and chronic kidney disease with heart failure and stage 1 through stage 4 chronic kidney disease, or unspecified chronic kidney disease; E11.628 Type 2 diabetes mellitus with other skin complications; E78.5 Hyperlipidemia, unspecified
CPT/HCPCS: 36415; 80048

== ENCOUNTER 2023-09-02 18:12 | Inpatient (IN) | payer MEDICARE, BC, SELFPAY ==
[2023-09-02 14:17] VITALS: BP 141/56
[2023-09-02 14:57] LABS: ALT (SGPT) 14 U/L (0-35); AST (SGOT) 20 U/L (14-36); Alkaline Phosphatase 88 U/L (38-126); Blood Urea Nitrogen 41 mg/dl (7-17); Calcium 9.7 mg/dl (8.4-10.2); Carbon Dioxide 24 mmol/L (22-30); Chloride 106 mmol/L (98-107); Glucose 149 mg/dl (70-99); Potassium 4.3 mmol/L (3.5-5.1); Sodium 139 mmol/L (135-145); Total Bilirubin 0.5 mg/dl (0.2-1.3); Total Protein 7.1 g/dl (6.3-8.2); eGFR 26.36
[2023-09-02 15:18] LABS: % Basophils 0.7 % (0-2); % Eosinophils 1.1 % (0-6); % Immature Granulocytes 0.4 % (0-0.5); % Lymphocytes 13.1 % (20.5-51.1); % Neutrophils 76.7 % (42.2-75.2); Absolute Eosinophils 0.1 10^3/uL (0-0.7); Absolute Lymphocytes 0.6 10^3/uL (1.2-3.4); Absolute Monocytes 0.4 10^3/uL (0.1-0.6); Absolute Neutrophils 3.5 10^3/uL (1.4-6.5); Hematocrit 38.9 % (37.0-47.0); Hemoglobin 13.2 g/dL (12.0-16.0); Mean Corp Hgb Conc. 33.9 g/dL (33.0-37.0); Mean Corpuscular Hgb 30.4 pg (27.0-31.0); Mean Corpuscular Volume 89.6 fL (81.0-99.0); Mean Platelet Volume 11.1 fL (7.4-10.4); Nucleated Red Blood Cells % 0 %; Platelet Count 197 10^3/uL (130-400); Red Blood Cell Count 4.34 10^6/uL (4.20-5.40); Red Cell Dist. Width 13.3 % (11.5-14.5); White Blood Cell Count 4.5 10^3/uL (4.8-10.8)
[2023-09-02 16:16] VITALS: BMI 38.7
[2023-09-02 16:20] VITALS: BP 142/63
--- NOTE | 2023-09-02 16:30 | ED.GENMED ---
History of Present Illness
General
Chief Complaint: Skin Problem
Source: patient
Exam Limitations: none
Time Seen by Provider: 09/02/23 15:55
Nursing documentation reviewed up to this point in time: agreed with
History of Present Illness
History of Present Illness:
Pt is an 78 yr old female with past medical history of cellulitis congestive heart failure with preserved ejection fraction, severe pulmonary hypertension, chronic kidney disease stage IIIb, NIDDM, hypertension hyperlipidemia chronic dizziness
insufficiency with lymphedema, chronic stasis dermatitis obesity sleep apnea COPD presents to the ED for worsening lower extremity swelling/redness . She denies any fever or chills.
Past History
Past History
ED Past Medical History: COPD, HTN, Hypercholesterolemia, NIDDM, Renal failure and Other (Chronic venous stasis)
ED Past Surgical History: Gynecological and Orthopedic
Social History
Tobacco: Non-smoker
Alcohol: None
Drug: None
Personal:
Living: with family
Employment: Not employed
Family History
Family History: Diabetes and Other
Review of Systems
Review of Systems
Allergies reviewed?: Yes
All Other Systems: ROS reviewed and negative except as documented in HPI and ROS
Constitutional: Reports no symptoms; Denies fever, fatigue or chills
Respiratory: Reports no symptoms
Cardiac: Reports no symptoms
ABD/GI: Reports no symptoms
Musculoskeletal: Reports other ( redness swelling to b/l legs )
Skin: Reports no symptoms
Neurological: Reports no symptoms
Psychiatric: Reports no symptoms
Phy Exam
General Physical Exam
General Presentation: well appearing
General age: appears stated age
General Skin: warm and dry
General Habitus: elderly and obese
General Mental: alert
Neurological Exam
Neurological Exam: alert and oriented x3
Musculoskeletal Exam
Musculoskeletal Exam: other (b/l l/e swelling chronic appearing thick scaling skin to legs + underlying erythema to bilateral lower legs)
Skin Exam
Skin Exam: normal color and warm/dry
Psychiatric Exam
Psychiatric Exam: normal mood/affect
Course
Orders/Labs/Results
Orders:
Orders
09/02/23 14:27
CMP [Comprehensive Metabolic Panel] Urgent
Complete Blood Count/With Diff Urgent
09/02/23 Dinner
1800 calorie (15 carb) Diabetic
At Your Request: Limited Participation
Does patient need a safe tray?: No
Fluid Restriction: 1200 mL/day (40 oz)
09/02/23 16:42
Piperacillin/Tazo 3.375 Gram [Zosyn] 3.375 gram in 50 ml IV NOW
09/02/23 16:59
Lactic Acid Urgent
09/02/23 17:05
Venous Doppler Lwr Ext Bilat [US Periph Venous LOWER Ext Karsten] Urgent
Comment:
Reason For Exam: edema
09/02/23 17:36
Admit/Transfer Patient As Directed
Co-Sign Provider:
Level of Care: Inpatient admission
Assign to:: Medical/Surgical
Physician / Group: thierry trinidad
Diagnosis: bilat leg worsenign venous stasis derm/edema L>R
Reason for Hospitalization: bilat leg worsenign venous stasis derm/edema L>R
Expected length of stay greater than two midnights?: Yes
ELOS- Estimated Length of Stay in days: 4
I certify the patient meets the requirements for IP care: Yes
Code Status As Directed
Resuscitation Status: Do not resuscitate
Reached after discussion with pt or family/Healthcare POA: Yes
Based on pt advanced directive or healthcare POA form: Yes
Decision communicated with: per pt
09/02/23 17:37
DNR Bracelet Application ONCE
09/02/23 17:45
INFECTIOUS DISEASE CONSULT Routine
Consulting Provider: Latanya Quintanilla
Was physician already notified: Yes
Reason for consult: bilat leg venous stasis derm/ erythema increased swelling
09/02/23 19:28
Acetaminophen [Tylenol] 1,000 mg PO Q6HPRN PRN
VANCOMYCIN Pharmacy to Dose [VANCOCIN Pharmacy to Dose] 1 each Pharmacy To Prepare [Call Pharmacy To Prepare] 0 ml IV PER PROTOCOL
09/02/23 19:28
WOUND/OSTOMY CONSULT Routine
Reason for Consult: bilat leg lyemphedema
Activity As Directed
Activity Level: With Assistance
Intake/ Output As Directed
Frequency: Per unit guidelines
Vital Signs As Directed
Frequency: Per unit guidelines
Weight As Directed
Frequency: Daily
Ot Eval And Treat Routine
Pt Eval And Treat Routine
Activity Level: With Assistance
DX Deep Vein Thrombosis Video Routine
09/02/23 20:00
Heparin 5,000 units SC Q12
09/03/23 00:00
CeFAZolin 1 GRAM [Ancef] 1 gram in 5 ml IV Q8H
09/03/23 06:00
Basic Metabolic Panel IN AM
Complete Blood Count/With Diff IN AM
09/03/23 08:00
Aspirin Low Dose EC [Aspir Low (Enteric Coated)] 81 mg PO DAILY
Furosemide [Lasix] 80 mg PO DAILY
Metoprolol Xl [Toprol Xl] 50 mg PO DAILY
Pravastatin Sodium [Pravachol] 20 mg PO DAILY
Spironolactone [Aldactone] 12.5 mg PO DAILY
09/04/23 06:00
Basic Metabolic Panel IN AM
Complete Blood Count/With Diff IN AM
09/05/23 06:00
Basic Metabolic Panel IN AM
Complete Blood Count/With Diff IN AM
Abnormal Lab Results
09/02/23
14:27
WBC 4.5 L 10^3/uL
(4.8-10.8)
MPV 11.1 H fL
(7.4-10.4)
Absolute Lymphs (auto) 0.6 L 10^3/uL
(1.2-3.4)
Neutrophils % 76.7 H %
(42.2-75.2)
Lymphocytes % 13.1 L %
(20.5-51.1)
BUN 41 H mg/dl
(7-17)
Creatinine 1.9 H mg/dL
(0.6-1.0)
Glucose 149 H mg/dl
(70-99)
09/02/23 14:27
09/02/23 14:27
Vital Signs
Initial and Last Documented VS:
Initial Vital Signs
Temp Pulse Resp BP Pulse Ox
97.9 F 74 18 141/56 94
09/02/23 14:17 09/02/23 14:17 09/02/23 14:17 09/02/23 14:17 09/02/23 14:17
Last Documented Vital Signs
Temp Pulse Resp BP Pulse Ox
98.3 F 85 17 132/67 95
09/02/23 23:33 09/02/23 23:33 09/02/23 23:33 09/02/23 23:33 09/02/23 23:33
MDM/Problems Addressed
Differential Diagnosis Includes:
Not limited to cellulitis chronic edema lymphedema less likely DVT
MDM/Problems Addressed:
Will admit for cellulitis. Patient with bilateral lower extremity swelling she does have chronic lymphedema however there is underlying erythema she reports this is getting worse along with worsening swelling despite Lasix 80 mg a day. She denies
any fevers ultrasound negative. IV Zosyn ordered.
*Critical Care Note
Total Time (30-74mins, 75-104mins- exclusive of procedures): Not Applicable
ED Attending Note
-
Portions of this chart may have been created with voice recognition software.� Occasional wrong word or��sound alike� substitutions may have occurred due to the inherent limitations of voice recognition software.
Discharge Plan
Departure
Patient Disposition: Admit
Date of Disposition: 09/02/23
Time of Disposition: 17:04
Admit to: Med/Surg
Admit to doctor: hospitalist
Presentation/result/management discussed w/ accepting MD/DO: Hospitalist
Patient with high blood pressure during this ER visit?: Yes
Condition: Fair
Covid-19: Not Applicable
Discharge Problem:
Bilateral cellulitis of lower leg, chronic renal diseae
Interventions
Interventions:
*Risk Screen - Suicide Last Done: 09/02/23 16:16
*General Assessment Last Done: 09/02/23 14:17
*Neglect/Abuse Screening Last Done: 09/02/23 16:16
ED- Fall Risk Assessment Last Done: 09/02/23 16:16
*ED COVID-19 Vaccine History Last Done: 09/02/23 14:17
*Nursing Disposition Last Done: 09/02/23 19:18
ED-Skin Assessment Last Done: 09/02/23 16:22
Discharge Date and Time
Discharge Date/Time: 09/02/23 19:18
[2023-09-02] MEDS: ZOSYN 50 IV (17:06)
--- NOTE | 2023-09-02 17:10 | HPS.HSE ---
Family Physician
-
Family Physician: Liz Pereira
Chief Complaint
-
Bilateral leg edema left greater than right
History of Present Illness
78-year-old male complaining of worsening lower extremity edema and erythema with chronic leg lymphedema/venous stasis dermatitis. She has not worn her Tubigrip's for the past 3 days. And has noticed that her left leg has become more swollen than
her right. She is on 80 mg of Lasix daily since her discharge in April. She states she is still sleeping in a recliner in her study with her legs dependent since April. I spoke with her and the son and asked if it would accommodate a hospital bed
with adjusting head and feet and he stated yes. She denies fever, chills, chest pain, palpitations, shortness breath, cough, abdominal pain, nausea, vomiting, diarrhea, urinary symptoms. SHe has past medical history of HTN, HLD, CKD 3B-4,
diastolic CHF, severe pulmonary HTN, DM2, morbid obesity, PVD, nicotine abuse, alcohol abuse.
Medical History
Past Medical History
Past Medical History: Reports Other
Additional Past Medical History:
HTN
HLD
CKD 3B-4
diastolic CHF
severe pulmonary HTN
DM 2
morbid obesity
bilateral leg cellulitis, venous stasis dermatitis, PVD,
nicotine abuse
COPD
Sleep apnea
Past Surgical History: Reports Other
Additional Past Surgical History:
Tubal ligation
Appendectomy
Right knee arthroscopy
Social History
Tobacco: Smoker
Alcohol: Binge drinker (Drinks 1 box wine Pinot grigio every weekend)
Drug: None
Personal: Single
Living: With Family (Youngest adult son child lives with her)
Employment: Retired
Family History
Family History: Other (Father age 83 dementia mother age 94)
Allergies / Home Medications
Allergies reflects when Allergies were last updated in [facility].
Home Medications with original date entered in [employer]
Allergy/Medication List:
Allergies
Allergy/AdvReac Type Severity Reaction Status Date / Time
cephalexin [From Keflex] Allergy Mild Rash, Verified 09/02/23 14:19
Tolerates
zosyn,
cefepime,
cefazolin
DINA Inhibitors Allergy cough Verified 09/02/23 14:19
amlodipine besylate Allergy cough Verified 09/02/23 14:19
[From Norvasc]
Influenza Virus Vaccines Allergy does not Verified 09/02/23 14:19
remember
Sulfa (Sulfonamide Allergy eyes swell Verified 09/02/23 14:19
Antibiotics)
valsartan [From Diovan] Allergy cough Verified 09/02/23 14:19
Home Medications
metoprolol succinate 50 mg tablet,extended release 24 hr 50 mg PO DAILY Heart disease/condition 08/09/15
pravastatin 20 mg tablet 20 mg PO DAILY High cholesterol 08/09/15
spironolactone 25 mg tablet 12.5 mg PO DAILY Fluid retention/Swelling 01/31/21
acetaminophen 500 mg tablet (Tylenol Extra Strength) 1,000 mg PO Q6HPRN PRN mild pain 03/29/23
aspirin 81 mg tablet,delayed release 81 mg PO DAILY Blood Clot Prevention/Tx 03/29/23
furosemide 80 mg tablet 80 mg PO DAILY #30 tabs 04/06/23
neomycin-bacitracn Zn-polymyx 3.5 mg-400 unit-5,000 unit/gram top oint (Triple Antibiotic) 1 applic topical DAILY both legs 09/02/23
Review of Systems
-
History Source: Patient and Family (Son at bedside)
A 12 point ROS was completed and negative except as noted: Yes
Constitutional: Denies Fever or Chills
EENT: Denies Sore Throat or Runny Nose
Respiratory: Denies Cough or Trouble Breathing
Cardiac: Denies Chest Pain, Diaphoresis, Palpitations or Syncope
Abdomen/GI: Denies Abdominal Pain, Nausea, Vomiting, Diarrhea, Constipated, Bloody Stools or Black Stools
: Denies Dysuria, Frequency, Flank Pain, Incontinence or Difficulty Voiding
Musculoskeletal: Reports Edema (Chronic venous stasis dermatitis with thickened plaques to bilateral lower extremities, overgrown toenails, left leg edema> than right); Denies Joint Pain
Skin: Denies Itching or Rash
Neurological: Denies Dizzy or Headache
Endocrine: Reports No Symptoms
Hematologic/Lymphatic: Reports No Symptoms
Psych: Reports Calm
Physical Exam
Vital Signs
Vital Signs
Temp Pulse Resp BP Pulse Ox
97.9 F 78 16 142/63 98
09/02/23 14:17 09/02/23 16:16 09/02/23 16:16 09/02/23 16:20 09/02/23 16:22
Physical Exam
General: Comfortable, Conversant and Other (Unkempt appearance)
HEENT: NormoCephalic, Anicteric, Moist mucous membranes, [facility] Conjunctivae and No Ptosis
Respiratory: Clear; No Wheezes, Rales or Rhonchi
Cardiac: S1/S2, Regular Rhythm and Peripheral Edema (Chronic venous stasis dermatitis with thickened plaques to bilateral lower extremities, overgrown toenails, left leg edema> than right); No Murmur, Rub or Gallop
Breast: Deferred by me
GI: Soft, Non Tender, Non Distended, Normal Bowel Sounds and No Hepatosplenomegaly
Rectal: Deferred by Provider
Genito-urinary: Deferred by me
Musculoskeletal: Edema, Left Lower Extremity (Chronic venous stasis dermatitis with thickened plaques to bilateral lower extremities, overgrown toenails, left leg edema> than right) and Edema, Right Lower Extremity (Chronic venous stasis dermatitis
with thickened plaques to bilateral lower extremities, overgrown toenails, left leg edema> than right); No Edema, Left Upper Extremity or Edema, Right Upper Extremity
Skin: Warm, Dry and Other (Chronic venous stasis dermatitis with thickened plaques to bilateral lower extremities, overgrown toenails, left leg edema> than right); No Rash
Neuro: AO x 3, No Motor Deficits, Nonfocal/grossly intact, Cranial Nerves Intact and No Sensory Deficits; No Slurred Speech or Facial Droop
Laboratory Results
-
09/02/23 14:27
09/02/23 14:27
Laboratory Results
Total Bilirubin 0.5 mg/dl (0.2-1.3) 09/02/23 14:27
AST 20 U/L (14-36) 09/02/23 14:27
ALT 14 U/L (0-35) 09/02/23 14:27
Alkaline Phosphatase 88 U/L (38-126) 09/02/23 14:27
Impression/Plan
-
Impression/plan:
Admit to MedSurg
#Worsening venous stasis dermatitis/acute on chronic lymphedema bilateral lower extremities Left > right/Hx PVD
#hX Polymicrobic POS Wd Cx with Providencia, E Coli, Enterococcus , Kleb, Diethenoids 08/12/2021
Patient followed with Dr. Pearce podiatry in April
-Consult wound care
-Check venous Dopplers bilateral lower legs
-IV Zosyn given in ER will continue IV Ancef and vancomycin
-Encouraged patient to wear Tubigrip's elevate feet and not sleep in the recliner
-PT/OT/case management eval( ask about home hospital bed
#Chronic diastolic heart failure
#Severe pulmonary HTN
-Continue furosemide 80 mg daily, spironolactone 12.5 mg daily
I/O daily weight
2D echo 03/31/2023: EF 55-60%, no wall abnormalities, diastolic function indeterminant, mild TR, pulm arterial pressure 42 mmHg. Moderately dilated right atrium, enlarged right ventricular size with reduced right ventricular systolic function
-Follows with [facility] cardiology
#CKD stage IV
Creat 1.6, baseline appears 1.6
- follow bmp
#DM2
BS 149
Accu-Cheks with SSI, check HgbA1c
(Patient was on former metformin and glipizide that was stopped)
#Alcohol abuse
Drinks 1 box of wine on weekends, last pinot grigio wine was on Wednesday 4 days ago 08/29/2023
-MSAs screen protocol
#HTN�benign
bp stable
BP 142/63
cont -Metoprolol succinate 50 mg daily
#HLD
-Continue pravastatin
#Morbid obesity due to excess calorie consumption
-1800 ADA low-fat diet
#COPD�no acute exacerbation
#Nicotine abuse
04/11 ppd
- nicotine 21 mg patch
- cessation advised
#Sleep apnea-reported not on CPAP
#Chronic pain
-Continue Tylenol 650 mg daily
DVT prophylaxis
Subcu heparin if no leg dvt
DNR
--- NOTE | 2023-09-02 17:23 | EDRN ---
James Turner HUNTER in to see pt at this time.
[2023-09-02 17:35] VITALS: BP 134/62
--- NOTE | 2023-09-02 17:36 | EDRN ---
Dr. Marrufo in room w/ pt at this time.
--- NOTE | 2023-09-02 17:44 | W.PN.UPDATE ---
Update Note
Progress Note Update
HPI: 78-year-old female PMH HTN, HLD, CKD 3B, diastolic CHF, severe pulmonary HTN, DM2, morbid obesity, PVD, nicotine abuse, alcohol abuse; p/w worsening BL LE edema and erythema in setting of chronic LE lymphedema/venous stasis dermatitis. She also
c/o pain in both her legs.
A/P:
# Worsening BL LE venous stasis dermatitis in setting of chronic BL lymphedema
# Possible associated BL cellulitis
s/p IV Zosyn in ED, cont with Ancef and Vanc
ID CS
Wound care CS
check venous US
Encouraged continued Tubigrip compression therapy
# Chronic diastolic heart failure
# Severe pulmonary HTN
Continue furosemide 80 mg daily, I/O daily weight
Toprol, spironolactone
# CKD stage IV
SCr on admission at 1.9, baseline at 1.6
Follow BMP
# NIDDM
Accu-Cheks with SSI
check HgbA1c
# Alcohol abuse
Drinks 1 box of wine on weekends
MSAs screen protocol
# HTN
Toprol, spironolactone
# HLD
Continue pravastatin
# Morbid obesity due to excess calorie consumption
BMI 38
# COPD, no acute exacerbation
# Nicotine abuse
nicotine patch
Cessation advised
# Sleep apnea, reported not on CPAP
# Chronic pain
Continue Tylenol 650 mg daily
DVT prophylaxis: Subcu heparin
DNR
--- NOTE | 2023-09-02 17:51 | EDRN ---
WOUND/SKIN CARE NOTE: Pt identified by name and .
L lower leg anterior lateral
R lower leg anterior medial
R foot
L foot
R lower extremity medial aspect
R lower leg medial aspect
L lower leg lateral posterior
R lower leg lateral posterior
L
L lower leg close up of open area
L lower leg medial posterior
L foot medial aspect
[2023-09-02 18:26] VITALS: BP 145/68
--- NOTE | 2023-09-02 18:37 | EDRN ---
Pt repositioned on stretcher and is eating a boxed lunch at this time.
--- NOTE | 2023-09-02 19:30 | PTCARENOTE ---
Pt arrived from ED via stretcher. Pt ambulated to the bed with assist x 1. Pt uses RW at home. AAOx3 - forgetful at times. B/L LE reddened w/ chronic lymphedema. Pt c/o pain to the back calves. Lotion applied, adaptic, ABD, and kerlix to b/l legs.
Wound care c/s in. Oriented to room.
[2023-09-02 19:35] VITALS: BMI 38.6
[2023-09-02 19:49] VITALS: BP 131/52
[2023-09-02 19:59] VITALS: BMI 38.6
[2023-09-02 20:05] LABS: GGTP 18 U/L (12-43); INR 1.05; Magnesium 2.3 mg/dl (1.6-2.3); PT 13.7 Sec (11.4-14.6); Phosphorus 3.6 mg/dl (2.5-4.5)
[2023-09-02 20:06] LABS: APTT 29.4 Sec (23.4-35.0)
[2023-09-02 20:11] LABS: B-Hydroxybutyrate 0.25 mmol/L (0.02-0.27)
[2023-09-02 20:15] LABS: Alcohol None Detected
--- NOTE | 2023-09-02 20:23 | PHA.VAN.IN ---
Assessment
- Assessment
Renal Function: Appears elevated from baseline (04/14/23 SCR = 1.6)
Concomitant Antimicrobials: ANCEF
- Previous Dosing Experience
Previous Regimen: 05/26/21
Date of Regimen: DOSING BY RANDOM LEVELS
Provided Trough of: UNKNOWN
Provided AUC of: UNKNOWN
Patient's SCR is: Elevated compared to previous dosing experience (05/26/21 SCR = 1.4)
Patient's weight is: Decreased compared to previous dosing experience (05/26/21 WT = 129.5 KG)
Plan
- Plan
Initial / Loading Dose: 2GM
Maintenance Regimen: DOSING BY RANDOM LEVELS
Monitoring: RANDOM VANCOMYCIN LEVEL 09/03/23 AM
Pharmacokinetics Vancomycin I
- -
Patient Age: 78
Patient Sex: Female
Vancomycin Day #: 1
Indication: Skin And Soft Tissue (B/L LE CELLULITIS)
Requesting Provider: RORY
Pertinent Antimicrobial Allergies:
Allergies
Sulfa (Sulfonamide Antibiotics) Allergy (Verified 09/02/23 14:19)
eyes swell
cephalexin [From Keflex] Allergy (Mild, Verified 09/02/23 14:19)
Rash, Tolerates zosyn, cefepime, cefazolin
per MAR pt received doses of zosyn, cefepime and cefazolin 2021 ordered by ID
Height / Weight:
Height 5 ft 7 in
Actual Weight 111.584 kg
Pertinent Past Medical History: CHRONIC VENOUS STASIS ULCERS
- Vital Signs / Lab Results
Temp Pulse Resp BP Pulse Ox
97.9 F 84 16 131/52 94
09/02/23 19:49 09/02/23 19:49 09/02/23 19:49 09/02/23 19:49 09/02/23 19:49
Lab Results - Hematology
09/02/23
14:27
WBC 4.5 L
Lab Results - Chemistry
09/02/23
14:27
BUN 41 H
Creatinine 1.9 H
Albumin 4.0
09/02/23
16:59
Lactic Acid 1.0
[2023-09-02 21:19] LABS: Glucose - Point of Care 235 mg/dl (70-99)
[2023-09-02] MEDS: VANCOCIN 540 MG IV (21:34)
[2023-09-02] MEDS: HEPARIN 5000 UNITS SC (21:34)
[2023-09-02] MEDS: THIAMINE INJECTION 200 MG IV (21:34)
[2023-09-02] MEDS: BENADRYL 25 MG PO (23:12)
[2023-09-02 23:33] VITALS: BP 132/67
[2023-09-03] MEDS: TYLENOL 1000 MG PO ×2 (01:45→23:10)
[2023-09-03] MEDS: ANCEF 5 IV ×2 (01:49→09:04)
--- NOTE | 2023-09-03 03:08 | PTCARENOTE ---
Pt given IV Vanco - within 15 minutes patient was c/o generalized itch and flushed. AUTO RADIO MECHANIC made aware. Advised to lower rate of administration and Benadryl x 1. Pt tolerated lower rate. At the end of the infusion - pt w/ mildly swollen/reddened area
at IV site (LAC). No c/o pain. VAT aware - ice applied. IV removed and new one placed on R arm.
[2023-09-03 06:00] VITALS: BMI 38.5
[2023-09-03 06:32] LABS: Urine Albumin Negative (Neg - Trace); Urine Bilirubin Negative (Negative); Urine Character Clear (Clear); Urine Color Yellow; Urine Glucose Negative (Negative); Urine Ketone 1+ (Negative); Urine Leukocyte Negative (Negative); Urine Nitrite Negative (Negative); Urine Occult Blood 3+ (Negative); Urine Specific Gravity 1.015 (<1.030); Urine Urobilinogen Negative (Neg - 1+)
[2023-09-03 07:01] LABS: Amphetamines Negative (Negative); Barbiturates Negative (Negative); Benzodiazepines Negative (Negative); Buprenorphine Negative (Negative); Cocaine Negative (Negative); Marijuana Negative (Negative); Methadone Negative (Negative); Methamphetamines Negative (Negative); Opiates Negative (Negative); Phencyclidine Negative (Negative); Tricyclic Antidepressants Negative (Negative)
[2023-09-03 07:08] LABS: Urine White Cell 0-2 /HPF (0-5)
[2023-09-03 07:09] LABS: Urine Bacteria Few (Negative)
[2023-09-03 07:25] LABS: % Basophils 0.2 % (0-2); % Eosinophils 0.1 % (0-6); % Immature Granulocytes 0.6 % (0-0.5); % Lymphocytes 1.8 % (20.5-51.1); % Monocytes 2.1 % (1.7-9.3); % Neutrophils 95.2 % (42.2-75.2); Absolute Immature Granulocytes 0.1 10^3/uL (0-0.05); Absolute Lymphocytes 0.2 10^3/uL (1.2-3.4); Absolute Monocytes 0.2 10^3/uL (0.1-0.6); Absolute Neutrophils 10.4 10^3/uL (1.4-6.5); Hemoglobin 12.7 g/dL (12.0-16.0); Mean Corp Hgb Conc. 33.4 g/dL (33.0-37.0); Mean Corpuscular Volume 89.8 fL (81.0-99.0); Mean Platelet Volume 11.2 fL (7.4-10.4); Nucleated Red Blood Cells % 0 %; Platelet Count 183 10^3/uL (130-400); Red Blood Cell Count 4.23 10^6/uL (4.20-5.40); Red Cell Dist. Width 13.3 % (11.5-14.5); White Blood Cell Count 10.9 10^3/uL (4.8-10.8)
[2023-09-03 07:37] LABS: Glucose - Point of Care 168 mg/dl (70-99)
[2023-09-03 07:40] VITALS: BP 123/76
[2023-09-03 07:42] LABS: Vancomycin Random 18.5 ug/ml
[2023-09-03 07:57] LABS: Blood Urea Nitrogen 36 mg/dl (7-17); Calcium 9.4 mg/dl (8.4-10.2); Carbon Dioxide 21 mmol/L (22-30); Chloride 110 mmol/L (98-107); Estimated Creatinine Clearance 36 ml/min; Glucose 171 mg/dl (70-99); Potassium 4.3 mmol/L (3.5-5.1); Sodium 138 mmol/L (135-145)
--- NOTE | 2023-09-03 09:00 | WOUNDNOTE ---
LEGS (POSTERIOR)(with photo flash)
--- NOTE | 2023-09-03 09:00 | WOUNDNOTE ---
L CALF (POSTERIOR MEDIAL)
--- NOTE | 2023-09-03 09:00 | WOUNDNOTE ---
LLE (POSTERIOR MEDIAL)
--- NOTE | 2023-09-03 09:00 | WOUNDNOTE ---
THIGHS (POSTERIOR)(blanchable dull purple)
--- NOTE | 2023-09-03 09:00 | WOUNDNOTE ---
[facility] RN note: Patient admitted with bilateral leg worsening (L>R). Patient lives with son. Patient has been sleeping in her recliner chair.
See H&P for complete history.
PMH: HTN, CKD, CHF, COPD, sleep apnea, obesity, venous stasis, smoker, ETOH abuse.
Wound Location and type/assessment: Patient admitted with: dermal venous stasis ulcers L posterior medial calf and R lateral calf. +Diffuse erythema Le's, +Hemosiderosis, +2 LE edema. +Palpable pedal pulses. Bilateral LE venous Doppler negative for
DVT. Sacral/buttocks/posterior thigh discolored dull red/purple (blanchable), scratch larsen lower back/upper pelvis area. Blanchable red heels. Mild MASD abdominal/groin folds.
Appetite: good.
Pressure redistribution devices in place: [employer] Accumax. Patient needs help to turn. She can ambulate with walker she states.
Plan: Dressing changed on le's. Maricruz care given and patient turned with help from AVA Mari and CVICU nurse sharita Wu. Dr. Robles was in who approved local care and knee high compression (chris wraps). Bilateral Chris wraps applied. Heels off bed
with pillow and air chair cushion. Discussed with AVA Mari.
Care plan to be updated and will follow as needed.
Note to case management requested for discharge: VN if goes home when discharged. Suggested VN to patient. Instructed patient to follow up with Wound care center.
--- NOTE | 2023-09-03 09:00 | WOUNDNOTE ---
FELTON'S (POSTERIOR)(with photo flash)
[2023-09-03] MEDS: HEPARIN 5000 UNITS SC ×2 (09:04→22:43)
[2023-09-03] MEDS: THIAMINE INJECTION 200 MG IV ×2 (09:04→22:43)
[2023-09-03] MEDS: FOLVITE 1 MG PO (09:05)
[2023-09-03] MEDS: LASIX 80 MG PO (09:05)
[2023-09-03] MEDS: TOPROL XL 50 MG PO (09:05)
[2023-09-03] MEDS: ASPIR LOW (ENTERIC COATED) 81 MG PO (09:05)
[2023-09-03] MEDS: PRAVACHOL 20 MG PO (09:05)
[2023-09-03] MEDS: ALDACTONE 12.5 MG PO (09:06)
--- NOTE | 2023-09-03 10:32 | PHA.VAN.FU ---
Vancomycin Assessment / Plan
- Assessment
Renal Function: SCR Decreasing (1.9>1.6 which is closer to her baseline)
WBC's are: Trending Up (4.5>10.9)
In the past 24 hrs, patient has been: Afebrile
Concomitant Antimicrobials: Cefazolin
- Assessment - Therapeutic Drug Monitoring
Random Level: 18.5 drawn ~9 hrs after 2gm vancomycin loading dose given
- Dosing Plan
Dosing by Level: Hold off on dosing today
- Monitoring Plan
Random Level: Ordered for 09/04/23 06:00
- Follow Up
Pharmacy will continue to follow.
Vancomycin Follow UP
- -
Patient Age: 78
Patient Sex: Female
Vancomycin Day #: 2
Indication: Skin And Soft Tissue (B/L LE CELLULITIS)
Requesting Provider: RORY
Pertinent Antimicrobial Allergies:
Allergies
Sulfa (Sulfonamide Antibiotics) Allergy (Verified 09/02/23 14:19)
eyes swell
cephalexin [From Keflex] Allergy (Mild, Verified 09/02/23 14:19)
Rash, Tolerates zosyn, cefepime, cefazolin
per MAR pt received doses of zosyn, cefepime and cefazolin 2021 ordered by ID
Height / Weight:
Height 5 ft 7 in
Actual Weight 111.3 kg
IBW in k.6
Adjusted BW in k.5
Pertinent Past Medical History: CHRONIC VENOUS STASIS ULCERS, CKD IV, NIDDM, BMI~38
- Vital Signs / Lab Results
Temp Pulse Resp BP Pulse Ox
98.6 F 89 20 123/76 95
09/03/23 07:40 09/03/23 09:05 09/03/23 07:40 09/03/23 09:05 09/03/23 07:40
Lab Results - Hematology
09/02/23 09/03/23
14:27 06:48
WBC 4.5 L 10.9 H
Lab Results - Chemistry
09/02/23 09/03/23
14:27 06:48
BUN 41 H 36 H
Creatinine 1.9 H 1.6 H
Estimated Creat Clear 36
Albumin 4.0
09/02/23
16:59
Lactic Acid 1.0
Lab Results - Urine
09/03/23
05:57
Urine Nitrite Negative
Ur Leukocyte Esterase Negative
Urine WBC 0-2
Ur Squamous Epith Cells 3-5
Urine Bacteria Few A
Therapeutic Drug Monitoring
Random Vancomycin 18.5 ug/ml 09/03/23 06:48
[2023-09-03 11:40] LABS: Glucose - Point of Care 163 mg/dl (70-99)
[2023-09-03 12:08] VITALS: BP 143/64; PULSE 90; O2SAT 100
--- NOTE | 2023-09-03 12:15 | W.PN.HOSP.TC ---
Today's Communication/Plan
-
iv abx
ID consulted
wound care
Tubigrip compressions
Assessment / Plan
Assessment / Plan
Physical Exam
General: Comfortable, Conversant
HEENT: NormoCephalic, Anicteric, Moist mucous membranes, [place] Conjunctivae and No Ptosis
Respiratory: Clear; No Wheezes, Rales or Rhonchi
Cardiac: S1/S2, Regular Rhythm and Peripheral Edema (Chronic venous stasis dermatitis with thickened plaques to bilateral lower extremities, overgrown toenails, left leg edema> than right); No Murmur, Rub or Gallop
Breast: Deferred by me
GI: Soft, Non Tender, Non Distended, Normal Bowel Sounds and No Hepatosplenomegaly
Rectal: Deferred by Provider
Genito-urinary: Deferred by me
Musculoskeletal: Edema, Left Lower Extremity (Chronic venous stasis dermatitis with thickened plaques to bilateral lower extremities, overgrown toenails, left leg edema> than right) and Edema, Right Lower Extremity (Chronic venous stasis dermatitis
with thickened plaques to bilateral lower extremities, overgrown toenails, left leg edema> than right); No Edema, Left Upper Extremity or Edema, Right Upper Extremity
Skin: Warm, Dry and Other (Chronic venous stasis dermatitis with thickened plaques to bilateral lower extremities, overgrown toenails, left leg edema> than right); No Rash
Neuro: AO x 3, No Motor Deficits, Nonfocal/grossly intact, Cranial Nerves Intact and No Sensory Deficits; No Slurred Speech or Facial Droop
HPI: 78-year-old female PMH HTN, HLD, CKD 3B, diastolic CHF, severe pulmonary HTN, DM2, morbid obesity, PVD, nicotine abuse, alcohol abuse; p/w worsening BL LE edema and erythema in setting of chronic LE lymphedema/venous stasis dermatitis. She also
c/o pain in both her legs.
A/P:
# Worsening BL LE venous stasis dermatitis in setting of chronic BL lymphedema
# Possible associated BL cellulitis
s/p IV Zosyn in ED, cont with Ancef and Vanc
ID CS
Wound care CS
US DVT negative
Encouraged continued Tubigrip compression therapy
# Chronic diastolic heart failure
# Severe pulmonary HTN
Continue furosemide 80 mg daily, I/O daily weight
Toprol, spironolactone
# CKD stage IV
Follow BMP
# NIDDM
Accu-Cheks with SSI
# Alcohol abuse
Drinks 1 box of wine on weekends
MSAs screen protocol
# HTN
Toprol, spironolactone
# HLD
Continue pravastatin
# Morbid obesity due to excess calorie consumption
BMI 38
# COPD, no acute exacerbation
# Nicotine abuse
nicotine patch
Cessation advised
# Sleep apnea, reported not on CPAP
# Chronic pain
Continue Tylenol 650 mg daily
DVT prophylaxis: Subcu heparin
DNR
Anticipated Discharge: > 48 hours
Subjective/Interval History
-
Date of Service: September 03, 2023
b/l erythema, tender - pulses present
Objective Data
-
Labs:
Laboratory Results
09/03/23
06:48
WBC 10.9 H
Hgb 12.7
Hct 38.0
Plt Count 183
Sodium 138
Potassium 4.3
Chloride 110 H
Carbon Dioxide 21 L
BUN 36 H
Creatinine 1.6 H
Glucose 171 H
Calcium 9.4
Vital Signs:
Vital Signs
Temp Pulse Resp BP Pulse Ox
98.6 F 89 20 123/76 95
09/03/23 07:40 09/03/23 09:05 09/03/23 07:40 09/03/23 09:05 09/03/23 08:45
I&O
09/02/23 09/03/23 09/04/23
06:59 06:59 06:59
Intake Total 1060 / 1060
Output Total 250 / 250
Balance 810 / 810
Review of Systems
-
History Source: Patient and Coordinated Provider
Constitutional: Denies Fever
EENT: Reports No Symptoms Reported
Respiratory: Reports No Symptoms; Denies Trouble Breathing or Wheezing
Cardiac: Reports No Symptoms; Denies Chest Pain
Data Reviewed
-
Total Time Spent with Patient (in minutes): 45
Labs: Labs Reviewed by me
--- NOTE | 2023-09-03 12:45 | CON.ID ---
Consultation
-
Date/Time Consultation Requested: September 02, 2023 158
Date/Time Consultation Performed: September 03, 2023 1245
Requesting Provider: Dr.Venu Claudio
Performing Provider: Dr. Latanya Quintanilla
Reason for Consultation: Venous stasis dermatitis
Chief Complaint / Past History
Chief Complaint
Leg swelling
History of Present Illness
78-year-old female with history of chronic lower extremity venous stasis, hx lower extremity cellulitis. She notes that recently she has had increasing edema and redness of the lower extremities, left greater than right. Due to the edema she was
not able to put on her Tubigrip's. Also complaining of the calf wounds bothering her. She sleeps on a recliner. Otherwise no fevers or chills. She came to the ER yesterday. She started on cefazolin and vancomycin.
Past History
Additional Past Medical History:
COPD
HTN
Dyslipidemia
DM
CKD3b
Pulm HTN
sleep apnea
BMI 38
Lower extremity venous stasis
Lower extremity venous insufficiency
Lymphedema
Tobacco use disorder
Additional Past Surgical History:
Appendectomy
right knee arthroscopic surgery
Allergy History:
cephalexin [From Keflex] Allergy (Mild, Verified 09/02/23 14:19)
Rash, Tolerates zosyn, cefepime, cefazolin
DINA Inhibitors Allergy (Verified 09/02/23 14:19)
cough
amlodipine besylate [From Norvasc] Allergy (Verified 09/02/23 14:19)
cough
Influenza Virus Vaccines Allergy (Verified 09/02/23 14:19)
does not remember
Sulfa (Sulfonamide Antibiotics) Allergy (Verified 09/02/23 14:19)
eyes swell
valsartan [From Diovan] Allergy (Verified 09/02/23 14:19)
cough
Medications Reviewed: Yes
Current Antibiotics:
Vancomycin
cefazolin
Social History
Tobacco: Smoker
Alcohol: Binge Drinker (1 box of wine on weekends)
Drug: None
Personal:
Family History
Family History: Not Pertinent
Review of Systems
Review of Systems
General: Negative Fever, Chills or Change in Appetite
HEENT: Negative Sinus Problems or Headache
Cardiovascular: Negative Chest Pain or Dyspnea
Respiratory: Negative Cough
Gasteroenterology: Other (no diarrhea); Negative Nausea or Vomiting
Genital / Urological: Negative Dysuria or Flank Pain
Endocrine: Weight Change (weight gain)
All systems: All other systems were reviewed and were negative
Vital Signs
Temp Pulse Resp BP Pulse Ox
98.6 F 89 20 123/76 95
09/03/23 07:40 09/03/23 09:05 09/03/23 07:40 09/03/23 09:05 09/03/23 08:45
Physical Exam
Physical Exam
Constitutional: No Acute Distress and Obese
Cardiovascular: Regular Rate and S1/S2
Pulmonary: Clear
Gastrointestinal: Soft, Non Tender and Non Distended
Extremities: Edema (LLE>RLE)
Wound: Other (Reviewed today' wound photos - LLE: Extensive venous stasis wounds with posterior calf erythema extending to posterior thigh. RLE fewer venous stasis wounds , + dark erythema.)
Neurological: AO x 3
Lab / Diagnostic Study Results
09/03/23 06:48
09/03/23 06:48
Abs Immat Gran (auto) 0.1 10^3/uL (0-0.05) H 09/03/23 06:48
Absolute Neuts (auto) 10.4 10^3/uL (1.4-6.5) H 09/03/23 06:48
Absolute Lymphs (auto) 0.2 10^3/uL (1.2-3.4) L 09/03/23 06:48
Absolute Monos (auto) 0.2 10^3/uL (0.1-0.6) 09/03/23 06:48
Absolute Basos (auto) 0.0 10^3/uL (0-0.2) 09/03/23 06:48
Immature Gran % 0.6 % (0-0.5) H 09/03/23 06:48
Neutrophils % 95.2 % (42.2-75.2) H 09/03/23 06:48
Lymphocytes % 1.8 % (20.5-51.1) L 09/03/23 06:48
Monocytes % 2.1 % (1.7-9.3) 09/03/23 06:48
Eosinophils % 0.1 % (0-6) 09/03/23 06:48
Basophils % 0.2 % (0-2) 09/03/23 06:48
PT 13.7 Sec (11.4-14.6) 09/02/23 19:39
INR 1.05 09/02/23 19:39
Lactic Acid 1.0 mmol/L (0.7-2.0) 09/02/23 16:59
Urine WBC 0-2 /HPF (0-5) 09/03/23 05:57
Ur Squamous Epith Cells 3-5 /LPF (Few) 09/03/23 05:57
Microbiology Results
Micro:
09/02/23 20:47 MRSA Screen - Pending
Nose
Assessment / Plan
# LLE cellulitis
# Chronic venous stasis wounds LLE> RLE
# Lymphedema
- Start Zosyn, continue through the weekend, at least.
-DC cefazolin/Vancomycin.
-Elevate LE
-DINA wrap compression
- Appreciate Wound Care eval.
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
Tobacco use disorder
COPD
HTN
Dyslipidemia
DM
CKD3b
Pulm HTN
sleep apnea
BMI 38
Lower extremity venous stasis
Lower extremity venous insufficiency
Lymphedema
[2023-09-03 15:09] VITALS: BP 142/58
--- NOTE | 2023-09-03 15:34 | CM ---
CM met with Dedra earlier today to complete IA. She lives in a 1 story home with 3 entry steps. She usually ambulates with a RW.
Dedra has 2 sons; Her son Cyrus lives in the home, but is limited in the assistance he can provide; another son, Jack, lives nearby and is able to go to the house as needed to provide assistance. He has added railings outside and some within the
home to help Dedra navigate safely in the house.
Dedra sleeps in a recliner (that is also a lift chair), but her legs are typically dangling which contributes to her ongoing cellulitis, infection and swelling of her legs. Jack has asked if she would qualify for a hospital bed. I advised him that
we could try for that, and with her CHF and COPD dx she would likely qualify.
Jack is agreeable to have [facility] services when Dedra comes home from the hospital and is willing/able to be there for teaching for the wound care needs.
Plan: Discharge to home with [facility] vs. SNF in the event Dedra is not able to return immediately home.
PCP: Liz Pereira
Pharmacy: [facility]
[2023-09-03 15:53] VITALS: BMI 38.5
--- NOTE | 2023-09-03 16:48 | CM ---
[facility]
Pt will return home with [facility] and family support at discharge. SNF can be considered as an alternate plan if Dedra is unsafe to return directly home.
[2023-09-03 17:33] LABS: Glucose - Point of Care 159 mg/dl (70-99)
[2023-09-03] MEDS: ZOSYN 50 IV ×2 (17:34→23:58)
[2023-09-03 21:36] LABS: Glucose - Point of Care 173 mg/dl (70-99)
[2023-09-03] MEDS: DESENEX/MITRAZOL/ZEASORB 1 APPLIC TOPICAL (22:44)
[2023-09-03 23:36] VITALS: BP 116/57
[2023-09-04] MEDS: ZOSYN 50 IV ×4 (05:47→23:00)
[2023-09-04 06:00] VITALS: BMI 37.8
[2023-09-04 06:51] VITALS: BP 115/54
[2023-09-04 07:17] LABS: % Basophils 0.3 % (0-2); % Eosinophils 1.2 % (0-6); % Immature Granulocytes 0.4 % (0-0.5); % Lymphocytes 11.2 % (20.5-51.1); % Monocytes 4.7 % (1.7-9.3); % Neutrophils 82.2 % (42.2-75.2); Absolute Eosinophils 0.1 10^3/uL (0-0.7); Absolute Lymphocytes 0.9 10^3/uL (1.2-3.4); Absolute Monocytes 0.4 10^3/uL (0.1-0.6); Absolute Neutrophils 6.3 10^3/uL (1.4-6.5); Hematocrit 36.1 % (37.0-47.0); Hemoglobin 12.4 g/dL (12.0-16.0); Mean Corp Hgb Conc. 34.3 g/dL (33.0-37.0); Mean Corpuscular Hgb 31.3 pg (27.0-31.0); Mean Corpuscular Volume 91.2 fL (81.0-99.0); Mean Platelet Volume 11.3 fL (7.4-10.4); Nucleated Red Blood Cells % 0 %; Platelet Count 154 10^3/uL (130-400); Red Blood Cell Count 3.96 10^6/uL (4.20-5.40); Red Cell Dist. Width 13.5 % (11.5-14.5); White Blood Cell Count 7.7 10^3/uL (4.8-10.8)
[2023-09-04 07:42] LABS: Glucose - Point of Care 126 mg/dl (70-99)
[2023-09-04] MEDS: HEPARIN 5000 UNITS SC ×2 (09:27→20:03)
[2023-09-04] MEDS: ASPIR LOW (ENTERIC COATED) 81 MG PO (09:27)
[2023-09-04] MEDS: THIAMINE INJECTION 200 MG IV ×2 (09:27→22:56)
[2023-09-04] MEDS: TOPROL XL 50 MG PO (09:28)
[2023-09-04] MEDS: ALDACTONE 12.5 MG PO (09:28)
[2023-09-04] MEDS: LASIX 80 MG PO (09:28)
[2023-09-04] MEDS: FOLVITE 1 MG PO (09:28)
[2023-09-04] MEDS: HYDROPHOR 1 APPLIC TOPICAL (09:28)
[2023-09-04] MEDS: PRAVACHOL 20 MG PO (09:28)
[2023-09-04] MEDS: DESENEX/MITRAZOL/ZEASORB 1 APPLIC TOPICAL ×2 (09:29→20:13)
[2023-09-04 10:01] LABS: Calcium 8.9 mg/dl (8.4-10.2); Carbon Dioxide 25 mmol/L (22-30); Estimated Creatinine Clearance 38 ml/min; Potassium 3.8 mmol/L (3.5-5.1); eGFR 35.01
[2023-09-04 10:10] LABS: Blood Urea Nitrogen 29 mg/dl (7-17); Chloride 105 mmol/L (98-107); Glucose 129 mg/dl (70-99); Sodium 136 mmol/L (135-145)
--- NOTE | 2023-09-04 11:23 | CM ---
Patient does not want to go to SNF at this time. Patient was in [facility] in April and is currently declining SNF option. Patient was referred to [facility] and awaiting confirmation of acceptance. Patient plan is home with son. CM will continue to follow for
discharge planning needs.
Plan; home with VN vs SNF.
--- NOTE | 2023-09-04 11:33 | W.PN.HOSP.TC ---
Today's Communication/Plan
-
Cont Zosyn
Wound care
DINA compression therapy
Leg Elevation
Assessment / Plan
Assessment / Plan
Physical Exam
General: Comfortable, Conversant
HEENT: NormoCephalic, Anicteric, Moist mucous membranes, [place] Conjunctivae and No Ptosis
Respiratory: Clear; No Wheezes, Rales or Rhonchi
Cardiac: S1/S2, Regular Rhythm and Peripheral Edema (Chronic venous stasis dermatitis with thickened plaques to bilateral lower extremities, overgrown toenails, left leg edema> than right); No Murmur, Rub or Gallop
Breast: Deferred by me
GI: Soft, Non Tender, Non Distended, Normal Bowel Sounds and No Hepatosplenomegaly
Rectal: Deferred by Provider
Genito-urinary: Deferred by me
Musculoskeletal: Edema, Left Lower Extremity (Chronic venous stasis dermatitis with thickened plaques to bilateral lower extremities, overgrown toenails, left leg edema> than right) and Edema, Right Lower Extremity (Chronic venous stasis dermatitis
with thickened plaques to bilateral lower extremities, overgrown toenails, left leg edema> than right); No Edema, Left Upper Extremity or Edema, Right Upper Extremity
Skin: Warm, Dry and Other (Chronic venous stasis dermatitis with thickened plaques to bilateral lower extremities, overgrown toenails, left leg edema> than right); No Rash
Neuro: AO x 3, No Motor Deficits, Nonfocal/grossly intact, Cranial Nerves Intact and No Sensory Deficits; No Slurred Speech or Facial Droop
HPI: 78-year-old female PMH HTN, HLD, CKD 3B, diastolic CHF, severe pulmonary HTN, DM2, morbid obesity, PVD, nicotine abuse, alcohol abuse; p/w worsening BL LE edema and erythema in setting of chronic LE lymphedema/venous stasis dermatitis. She also
c/o pain in both her legs.
A/P:
# Worsening BL LE venous stasis dermatitis in setting of chronic BL lymphedema LLE> RLE
# LLE cellulitis
Cont Zosyn
ID consulted
Wound care CS
US DVT negative
Tubigrip compression therapy
Leg Elevation
# Chronic diastolic heart failure
# Severe pulmonary HTN
Continue furosemide 80 mg daily, I/O daily weight
Toprol, spironolactone
# CKD stage IV
Follow BMP
# NIDDM
Accu-Cheks with SSI
# Alcohol abuse
Drinks 1 box of wine on weekends
MSAS screen protocol
# HTN
Toprol, spironolactone
# HLD
Continue pravastatin
# Morbid obesity due to excess calorie consumption
BMI 38
# COPD, no acute exacerbation
# Nicotine abuse
nicotine patch
Cessation advised
# Sleep apnea, reported not on CPAP
# Chronic pain
Continue Tylenol 650 mg daily
DVT prophylaxis: Subcu heparin
DNR
Anticipated Discharge: 24 - 48 hours
Subjective/Interval History
-
Date of Service: September 04, 2023
Lower extremity erythema improving
Objective Data
-
Labs:
Laboratory Results
09/04/23 09/04/23
06:13 09:06
WBC 7.7
Hgb 12.4
Hct 36.1 L
Plt Count 154
Sodium Cancelled 136
Potassium Cancelled 3.8
Chloride Cancelled 105
Carbon Dioxide Cancelled 25
BUN Cancelled 29 H
Creatinine Cancelled 1.5 H
Glucose Cancelled 129 H
Calcium Cancelled 8.9
Vital Signs:
Vital Signs
Temp Pulse Resp BP Pulse Ox
97.8 F 72 24 115/54 100
09/04/23 06:51 09/04/23 09:28 09/04/23 06:51 09/04/23 09:28 09/04/23 10:29
I&O
09/03/23 09/04/23 09/05/23
06:59 06:59 06:59
Intake Total 1060 / 1060 1080 / 1080
Output Total 250 / 250 900 / 900
Balance 810 / 810 180 / 180
Review of Systems
-
History Source: Patient and Coordinated Provider
Constitutional: Denies Fever
EENT: Reports No Symptoms Reported
Respiratory: Reports No Symptoms; Denies Trouble Breathing or Wheezing
Cardiac: Reports No Symptoms; Denies Chest Pain
Physical Exam
-
General: No Apparent Distress
HEENT: Normocephalic and Atraumatic
Respiratory: Negative Wheezes or Rales
Cardiac: Regular Rhythm and S1/S2
GI: Soft and Nontender
Musculoskeletal: Negative No Edema (chronic venous stasis, bilateral lymphedema)
Neuro: AO x 3
Hematologic / Lymphatic: No Lymphadenopathy
Psych: Calm
Data Reviewed
-
Total Time Spent with Patient (in minutes): 45
Ultrasound: Report Reviewed by me
Labs: Labs Reviewed by me
[2023-09-04 12:07] LABS: Glucose - Point of Care 167 mg/dl (70-99)
[2023-09-04 15:26] VITALS: BP 117/50
[2023-09-04 16:18] LABS: Glucose - Point of Care 105 mg/dl (70-99)
[2023-09-04] MEDS: THIAMINE INJECTION IV (20:03)
[2023-09-04 21:19] LABS: Glucose - Point of Care 161 mg/dl (70-99)
[2023-09-04 23:32] VITALS: BP 125/91
[2023-09-05] MEDS: ZOSYN 50 IV ×3 (05:43→17:51)
[2023-09-05 06:00] VITALS: BMI 37.3
[2023-09-05 06:33] LABS: % Basophils 0.2 % (0-2); % Eosinophils 3.8 % (0-6); % Immature Granulocytes 0.2 % (0-0.5); % Lymphocytes 22.4 % (20.5-51.1); % Monocytes 9.4 % (1.7-9.3); Absolute Eosinophils 0.2 10^3/uL (0-0.7); Absolute Monocytes 0.4 10^3/uL (0.1-0.6); Absolute Neutrophils 2.9 10^3/uL (1.4-6.5); Hematocrit 33.7 % (37.0-47.0); Hemoglobin 11.5 g/dL (12.0-16.0); Mean Corp Hgb Conc. 34.1 g/dL (33.0-37.0); Mean Corpuscular Hgb 30.5 pg (27.0-31.0); Mean Corpuscular Volume 89.4 fL (81.0-99.0); Nucleated Red Blood Cells % 0 %; Platelet Count 174 10^3/uL (130-400); Red Blood Cell Count 3.77 10^6/uL (4.20-5.40); Red Cell Dist. Width 13.2 % (11.5-14.5); White Blood Cell Count 4.5 10^3/uL (4.8-10.8)
[2023-09-05 07:02] LABS: Glucose - Point of Care 145 mg/dl (70-99)
[2023-09-05 07:03] LABS: Blood Urea Nitrogen 31 mg/dl (7-17); Calcium 9.2 mg/dl (8.4-10.2); Carbon Dioxide 27 mmol/L (22-30); Chloride 103 mmol/L (98-107); Estimated Creatinine Clearance 33 ml/min; Glucose 136 mg/dl (70-99); Potassium 3.7 mmol/L (3.5-5.1); Sodium 136 mmol/L (135-145); eGFR 30.13
[2023-09-05 07:35] VITALS: BP 132/68
[2023-09-05] MEDS: ASPIR LOW (ENTERIC COATED) 81 MG PO (08:49)
[2023-09-05] MEDS: LASIX 80 MG PO (08:50)
[2023-09-05] MEDS: TOPROL XL 50 MG PO (08:50)
[2023-09-05] MEDS: ALDACTONE 12.5 MG PO (08:50)
[2023-09-05] MEDS: PRAVACHOL 20 MG PO (08:50)
[2023-09-05] MEDS: FOLVITE 1 MG PO (08:51)
[2023-09-05] MEDS: THIAMINE INJECTION 200 MG IV (08:51)
[2023-09-05] MEDS: HEPARIN 5000 UNITS SC ×2 (08:51→19:51)
[2023-09-05] MEDS: HYDROPHOR 1 APPLIC TOPICAL (10:28)
[2023-09-05] MEDS: DESENEX/MITRAZOL/ZEASORB 1 APPLIC TOPICAL ×2 (10:44→19:52)
--- NOTE | 2023-09-05 11:13 | W.PN.HOSP.TC ---
Today's Communication/Plan
-
Continue antibiotics
Compression
Assessment / Plan
Assessment / Plan
HPI: 78-year-old female PMH HTN, HLD, CKD 3B, diastolic CHF, severe pulmonary HTN, DM2, morbid obesity, PVD, nicotine abuse, alcohol abuse; p/w worsening BL LE edema and erythema in setting of chronic LE lymphedema/venous stasis dermatitis. She also
c/o pain in both her legs.
CVS: S1-S2 normal
Chest: CTA B/L
Abdomen: Soft, NT / Bowel sounds present
Extremities: No edema, normal pulses
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
A/P:
# Worsening BL LE venous stasis dermatitis in setting of chronic BL lymphedema LLE> RLE
# LLE cellulitis
Cont Zosyn
Continue Lasix
ID consulted
Wound care CS
US DVT negative
Compression therapy
Leg Elevation as possible.
# Chronic heart failure with preserved ejection fraction
# Severe pulmonary HTN
Continue furosemide 80 mg daily, I/O daily weight
Toprol, spironolactone
# CKD stage IV
Follow BMP
# NIDDM
Accu-Cheks with SSI
# Alcohol abuse
Drinks 1 box of wine on weekends
MSAS screen protocol
Thiamine
# HTN
Toprol, spironolactone
# HLD
Continue pravastatin
# Morbid obesity due to excess calorie consumption
BMI 38
# COPD, no acute exacerbation
# Nicotine abuse
nicotine patch
Cessation advised
# Sleep apnea, reported not on CPAP
# Chronic pain
Continue Tylenol 650 mg daily
#DVT prophylaxis: Subcu heparin
#DNR
Anticipated Discharge: 24 - 48 hours
Subjective/Interval History
-
Date of Service: September 05, 2023
Objective Data
-
Labs:
Laboratory Results
09/05/23
06:10
WBC 4.5 L
Hgb 11.5 L
Hct 33.7 L
Plt Count 174
Sodium 136
Potassium 3.7
Chloride 103
Carbon Dioxide 27
BUN 31 H
Creatinine 1.7 H
Glucose 136 H
Calcium 9.2
Vital Signs:
Vital Signs
Temp Pulse Resp BP Pulse Ox
98.1 F 67 16 132/68 93
09/05/23 07:35 09/05/23 08:50 09/05/23 07:35 09/05/23 08:50 09/05/23 07:35
I&O
09/04/23 09/05/23 09/06/23
06:59 06:59 06:59
Intake Total 1080 / 1080 480 / 480
Output Total 900 / 900 3400 / 3400
Balance 180 / 180 -2920 / -2920
[2023-09-05 11:55] LABS: Glucose - Point of Care 164 mg/dl (70-99)
[2023-09-05 15:05] VITALS: BP 131/57; PULSE 67; O2SAT 96
[2023-09-05 15:25] VITALS: BP 108/59
[2023-09-05 16:25] LABS: Glucose - Point of Care 120 mg/dl (70-99)
[2023-09-05] MEDS: VITAMIN B1 100 MG PO (19:51)
[2023-09-05] MEDS: TYLENOL 1000 MG PO (20:03)
[2023-09-05 22:20] LABS: Glucose - Point of Care 131 mg/dl (70-99)
[2023-09-05 23:39] VITALS: BP 129/66
[2023-09-06] MEDS: ZOSYN 50 IV ×5 (02:06→23:38)
[2023-09-06 06:00] VITALS: BMI 36.6
[2023-09-06 07:43] VITALS: BP 108/68
[2023-09-06 07:49] LABS: Glucose - Point of Care 150 mg/dl (70-99)
[2023-09-06] MEDS: TOPROL XL 50 MG PO (08:39)
[2023-09-06] MEDS: ASPIR LOW (ENTERIC COATED) 81 MG PO (08:39)
[2023-09-06] MEDS: FOLVITE 1 MG PO (08:39)
[2023-09-06] MEDS: PRAVACHOL 20 MG PO (08:40)
[2023-09-06] MEDS: LASIX 80 MG PO (08:40)
[2023-09-06] MEDS: HEPARIN 5000 UNITS SC ×2 (08:40→20:33)
[2023-09-06] MEDS: VITAMIN B1 100 MG PO ×2 (08:40→20:33)
[2023-09-06] MEDS: ALDACTONE 12.5 MG PO (08:40)
[2023-09-06 08:48] LABS: Hematocrit 37.5 % (37.0-47.0); Hemoglobin 12.8 g/dL (12.0-16.0); Mean Corp Hgb Conc. 34.1 g/dL (33.0-37.0); Mean Corpuscular Hgb 30.8 pg (27.0-31.0); Mean Corpuscular Volume 90.4 fL (81.0-99.0); Platelet Count 181 10^3/uL (130-400); Red Blood Cell Count 4.15 10^6/uL (4.20-5.40); Red Cell Dist. Width 13.2 % (11.5-14.5); White Blood Cell Count 4.9 10^3/uL (4.8-10.8)
[2023-09-06] MEDS: HYDROPHOR 1 APPLIC TOPICAL (09:52)
[2023-09-06] MEDS: DESENEX/MITRAZOL/ZEASORB 1 APPLIC TOPICAL ×2 (09:52→21:30)
[2023-09-06 10:08] LABS: Blood Urea Nitrogen 37 mg/dl (7-17); Calcium 9.5 mg/dl (8.4-10.2); Carbon Dioxide 30 mmol/L (22-30); Chloride 101 mmol/L (98-107); Estimated Creatinine Clearance 33 ml/min; Glucose 213 mg/dl (70-99); Potassium 4.2 mmol/L (3.5-5.1); Sodium 137 mmol/L (135-145); eGFR 30.13
--- NOTE | 2023-09-06 11:05 | VNURNOTE ---
Home Health Liaison met with patient at bedside discuss [facility] nurse/therapy, visits, schedule and homebound status. Patient is agreeable and understands that visits at home will be 2-3 x per week to assess and teach medical management and wound care.
Patient is aware that [facility] will contact them for start of care in a few days after discharge from . [facility] referral updated in [facility].
[2023-09-06 11:09] LABS: Glucose - Point of Care 164 mg/dl (70-99)
--- NOTE | 2023-09-06 14:34 | W.PN.ID1 ---
Date of Service
Date of Service: September 06, 2023
Today's Communication
Continue antibiotics
Assessment / Plan
# LLE cellulitis
# Chronic venous stasis wounds LLE> RLE
# Lymphedema
- Continue Zosyn while inpatient, but at discharge, can transition to oral Keflex for another 3 to 5 days.
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
Tobacco use disorder
COPD
HTN
Dyslipidemia
DM
CKD3b
Pulm HTN
sleep apnea
BMI 38
Lower extremity venous stasis
Lower extremity venous insufficiency
Lymphedema
Chief Complaint
-: Cellulitis
Subjective / Review of Systems
Patient seen and examined. Reports marked improvement in lower extremity edema.
Review of Systems: No Fever and No Chills
Vital Signs / Physical Exam
Vital Signs
Vital Signs
Temp Pulse Resp BP Pulse Ox
97.9 F 69 20 119/56 94
09/06/23 07:43 09/06/23 08:40 09/06/23 07:43 09/06/23 08:40 09/06/23 08:40
Physical Exam
Constitutional: No Acute Distress, Comfortable, Chronically Ill and Non-toxic
Eyes: Sclera Anicteric
Pulmonary: Non Labored
Gastrointestinal: Soft and Non Tender
Extremities: Edema
Neurological: Awake
Psychological: Calm
Objective Data
Lab Data
Lab Results
09/06/23 08:41
09/06/23 08:41
PT 13.7 Sec (11.4-14.6) 09/02/23 19:39
INR 1.05 09/02/23 19:39
APTT 29.4 Sec (23.4-35.0) 09/02/23 19:39
Estimated Creat Clear 33 ml/min 09/06/23 08:41
Lactic Acid 1.0 mmol/L (0.7-2.0) 09/02/23 16:59
Total Bilirubin 0.5 mg/dl (0.2-1.3) 09/02/23 14:27
GGT 18 U/L (12-43) 09/02/23 19:39
AST 20 U/L (14-36) 09/02/23 14:27
ALT 14 U/L (0-35) 09/02/23 14:27
Alkaline Phosphatase 88 U/L (38-126) 09/02/23 14:27
Most recent labs reviewed.
Micro Results:
09/02/23 20:47 MRSA Screen - Final
Nose No Methicillin Resistant Staphylococcus aureus isolated.
Care Review
Plan reviewed with: Physician (Hospitalist)
[2023-09-06 15:07] VITALS: BP 111/63
--- NOTE | 2023-09-06 15:41 | W.PN.HOSP.TC ---
Today's Communication/Plan
-
PT recommending home health versus SNF
PT reevaluation
Possible discharge tomorrow if stable.
Assessment / Plan
Assessment / Plan
HPI: 78-year-old female PMH HTN, HLD, CKD 3B, diastolic CHF, severe pulmonary HTN, DM2, morbid obesity, PVD, nicotine abuse, alcohol abuse; p/w worsening BL LE edema and erythema in setting of chronic LE lymphedema/venous stasis dermatitis. She also
c/o pain in both her legs.
CVS: S1-S2 normal
Chest: CTA B/L
Abdomen: Soft, NT / Bowel sounds present
Extremities: No edema, normal pulses
MANAGER MATERIALS MANAGEMENT: Non focal exam
A/P:
# Worsening BL LE venous stasis dermatitis in setting of chronic BL lymphedema LLE> RLE
# LLE cellulitis
Cont Zosyn
Continue Lasix
ID following
Wound care
US DVT negative
Compression therapy
Leg Elevation as possible.
# Chronic heart failure with preserved ejection fraction
# Severe pulmonary HTN
Continue furosemide 80 mg daily, I/O daily weight
Toprol, spironolactone
# CKD stage IV
Follow BMP
# NIDDM
Accu-Cheks with SSI
# Alcohol abuse
Drinks 1 box of wine on weekends
MSAS screen protocol
Thiamine
# HTN
Toprol, spironolactone
# HLD
Continue pravastatin
# Morbid obesity due to excess calorie consumption
BMI 38
# COPD, no acute exacerbation
# Nicotine abuse
nicotine patch
Cessation advised
# Sleep apnea, reported not on CPAP
# Chronic pain
Continue Tylenol 650 mg daily
#DVT prophylaxis: Subcu heparin
#DNR
D/W ID
Pt says she doesnt want rehab
PT re eval
Anticipated Discharge: Within 24 hours
Subjective/Interval History
-
Date of Service: September 06, 2023
Objective Data
-
Labs:
Laboratory Results
09/06/23
08:41
WBC 4.9
Hgb 12.8
Hct 37.5
Plt Count 181
Sodium 137
Potassium 4.2
Chloride 101
Carbon Dioxide 30
BUN 37 H
Creatinine 1.7 H
Glucose 213 H
Calcium 9.5
Vital Signs:
Vital Signs
Temp Pulse Resp BP Pulse Ox
97.9 F 69 20 119/56 94
09/06/23 07:43 09/06/23 08:40 09/06/23 07:43 09/06/23 08:40 09/06/23 08:40
I&O
09/05/23 09/06/23 09/07/23
06:59 06:59 06:59
Intake Total 480 / 480 680 / 680
Output Total 3400 / 3400 2450 / 2450
Balance -2920 / -2920 -1770 / -1770
[2023-09-06 16:18] VITALS: BP 136/72; PULSE 64; O2SAT 97
[2023-09-06 17:10] LABS: Glucose - Point of Care 122 mg/dl (70-99)
[2023-09-06 21:10] LABS: Glucose - Point of Care 205 mg/dl (70-99)
[2023-09-06 23:40] VITALS: BP 137/68
[2023-09-07] MEDS: ZOSYN 50 IV (05:19)
[2023-09-07 06:00] VITALS: BMI 36.2
[2023-09-07 06:55] VITALS: BP 114/56
[2023-09-07 07:32] LABS: Glucose - Point of Care 157 mg/dl (70-99)
[2023-09-07] MEDS: ALDACTONE 12.5 MG PO (09:13)
[2023-09-07] MEDS: VITAMIN B1 100 MG PO (09:13)
[2023-09-07] MEDS: ASPIR LOW (ENTERIC COATED) 81 MG PO (09:13)
[2023-09-07] MEDS: PRAVACHOL 20 MG PO (09:14)
[2023-09-07] MEDS: LASIX 80 MG PO (09:14)
[2023-09-07] MEDS: TOPROL XL 50 MG PO (09:14)
[2023-09-07] MEDS: FOLVITE 1 MG PO (09:14)
[2023-09-07] MEDS: HEPARIN 5000 UNITS SC (09:14)
[2023-09-07] MEDS: HYDROPHOR 1 APPLIC TOPICAL (09:18)
[2023-09-07] MEDS: DESENEX/MITRAZOL/ZEASORB 1 APPLIC TOPICAL (09:18)
--- NOTE | 2023-09-07 10:02 | W.PN.HOSP.TC ---
Addendum entered and electronically signed by Pili Reed MD 09/07/23 10:30:
allegic to Keflex- use Augmentin
Original Note:
Today's Communication/Plan
-
Discharge
Assessment / Plan
Assessment / Plan
HPI: 78-year-old female PMH HTN, HLD, CKD 3B, diastolic CHF, severe pulmonary HTN, DM2, morbid obesity, PVD, nicotine abuse, alcohol abuse; p/w worsening BL LE edema and erythema in setting of chronic LE lymphedema/venous stasis dermatitis. She also
c/o pain in both her legs.
CVS: S1-S2 normal
Chest: CTA B/L
Abdomen: Soft, NT
Extremities: No edema, skin changes consistent with chronic venous stasis.
A/P:
# Worsening BL LE venous stasis dermatitis in setting of chronic BL lymphedema LLE> RLE
# LLE cellulitis
Zosyn will be changed to Keflex
Continue Lasix
Wound rewrapped today. No open areas. Mostly chronic thickening of the skin secondary to venous stasis-care discussed with the patient
Wound care
US DVT negative
Compression therapy also discussed with the patient
Leg Elevation as possible.
# Chronic heart failure with preserved ejection fraction
# Severe pulmonary HTN
Continue furosemide 80 mg daily, I/O daily weight
Toprol, spironolactone
# CKD stage IV
Follow BMP
# NIDDM
Accu-Cheks with SSI
# Alcohol abuse
Drinks 1 box of wine on weekends
MSAS screen protocol
Thiamine
# HTN
Toprol, spironolactone
# HLD
Continue pravastatin
# Morbid obesity due to excess calorie consumption
BMI 38
# COPD, no acute exacerbation
# Nicotine abuse
nicotine patch
Cessation advised
# Sleep apnea, reported not on CPAP
# Chronic pain
Continue Tylenol 650 mg daily
#DVT prophylaxis: Subcu heparin
#DNR
D/W ID
Pt says she doesnt want rehab
PT evaluation ordered
Discussed with nursing at bedside
Total discharge coordination time more than 30 minutes.
Anticipated Discharge: Today
Subjective/Interval History
-
Date of Service: September 07, 2023
Objective Data
-
Vital Signs:
Vital Signs
Temp Pulse Resp BP Pulse Ox
97.8 F 63 26 114/56 93
09/07/23 06:55 09/07/23 06:55 09/07/23 06:55 09/07/23 06:55 09/07/23 06:55
I&O
09/06/23 09/07/23 09/08/23
06:59 06:59 06:59
Intake Total 680 / 680 1150 / 1150
Output Total 2450 / 2450 2100 / 2100
Balance -1770 / -1770 -950 / -950
--- NOTE | 2023-09-07 10:32 | W.DS.TRANS ---
Addendum entered and electronically signed by Pili Reed MD 09/07/23 16:04:
Dictation- [id number]
Original Note:
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
-
Discharge Instructions:
Sleep Apnea Risk Intermediate
Discharge Diagnosis/Procedures Cellulitis lower extremity
Chronic venous stasis
Bilateral lower extremity edema
Chronic heart failure with preserved ejection
fraction
Pulmonary hypertension
CKD stage IV
Diabetes
Hypertension
Hyperlipidemia
COPD
Sleep apnea
Diet Restrict fluids to 48 oz,2 Gram Sodium,Diabetic,
Carb Controlled
Activity As tolerated,With assistance
Driving Restrictions As prior to admission
Other Services VN
Specialty Instructions Weigh Daily
Instructions:
Stand-Alone Forms:
Changes to Home Medications: Yes
Discharge Medications:
DC Medications w/original date entered in [facility]
metoprolol succinate 50 mg tablet,extended release 24 hr 50 mg PO DAILY Heart disease/condition 08/09/15
pravastatin 20 mg tablet 20 mg PO DAILY High cholesterol 08/09/15
spironolactone 25 mg tablet 12.5 mg PO DAILY Fluid retention/Swelling 01/31/21
acetaminophen 500 mg tablet (Tylenol Extra Strength) 1,000 mg PO Q6HPRN PRN mild pain 03/29/23
aspirin 81 mg tablet,delayed release 81 mg PO DAILY Blood Clot Prevention/Tx 03/29/23
amoxicillin 875 mg-potassium clavulanate 125 mg tablet 1 tab PO BID Skin issues #8 tabs 09/07/23
furosemide 80 mg tablet 80 mg PO DAILY Heart Failure #30 tabs 09/07/23
thiamine HCl (vitamin B1) 100 mg tablet 100 mg PO BID Supplement #20 tabs 09/07/23
white petrolatum 42 % topical ointment (Hydrophor) 1 applic topical DAILY Skin issues #0 grams 09/07/23
Home Medication Changes
new
amoxicillin 875 mg-potassium clavulanate 125 mg tablet 1 tab PO BID Skin issues #8 tabs 09/07/23
thiamine HCl (vitamin B1) 100 mg tablet 100 mg PO BID Supplement #20 tabs 09/07/23
white petrolatum 42 % topical ointment (Hydrophor) 1 applic topical DAILY Skin issues #0 grams 09/07/23
Pending Results: No
[2023-09-07 11:02] VITALS: BP 115/68
--- NOTE | 2023-09-07 11:07 | CM ---
Dedra is being discharged to home today via son Jack. [facility]
is ordering a hospital bed for delivery to home tomorrow to help improve the lymphedema with legs being elevated.
Plan: Discharge to home with [facility] and hospital bed to be delivered by [facility] tomorrow.
PCP: Liz Pereira
Pharm: [facility]
--- NOTE | 2023-09-07 11:10 | W.PN.UPDATE ---
Update Note
Progress Note Update
Patient is in need of a semi-electric hospital bed with foam mattress . Needs elevation of the legs. Patient has been sleeping upright in the because she could not lay flat.
and to facilitate frequent repositioning to prevent bed ulcers and pressure points.
--- NOTE | 2023-09-07 11:24 | VNURNOTE ---
Spoke with patient's son Jack. He is aware [facility] will contact the patient later today or tomorrow AM to schedule start of care visit for tomorrow.
--- NOTE | 2023-09-07 12:28 | CM ---
Hospital bed ordered through [facility] for delivery tomorrow. I spoke with Jack, Dedra's son, to advise him of same and he is very thankful for this, as it will be a great improvement for her.
[facility]. No additional needs identified at this time.
Jack provided transport home today.
== END 2023-09-07 11:28 | disposition home health service (06) | DRG 603 ==
LOC: 4 EAST ACU 18:12
PROVIDERS: Clinical Nurse Specialist Family Health; Emergency Medicine; Internal Medicine; Nurse Practitioner; ADMITTING PHYSICIAN Internal Medicine; ATTENDING PHYSICIAN Hospitalist; CONSULT PHYSICIAN Internal Medicine Infectious Disease; EMERGENCY PHYSICIAN Emergency Medicine; FAMILY PHYSICIAN Family Medicine
DX: L03.116 Cellulitis of left lower limb (principal); N18.4 Chronic kidney disease, stage 4 (severe); I50.32 Chronic diastolic (congestive) heart failure; I13.0 Hypertensive heart and chronic kidney disease with heart failure and stage 1 through stage 4 chronic kidney disease, or unspecified chronic kidney disease; L03.115 Cellulitis of right lower limb; E11.22 Type 2 diabetes mellitus with diabetic chronic kidney disease; E11.51 Type 2 diabetes mellitus with diabetic peripheral angiopathy without gangrene; E66.01 Morbid (severe) obesity due to excess calories; J44.9 Chronic obstructive pulmonary disease, unspecified; I87.8 Other specified disorders of veins; I87.2 Venous insufficiency (chronic) (peripheral); G47.30 Sleep apnea, unspecified; I27.20 Pulmonary hypertension, unspecified; Z66 Do not resuscitate; Z79.84 Long term (current) use of oral hypoglycemic drugs; Z68.36 Body mass index [BMI] 36.0-36.9, adult
CPT/HCPCS: 80048; 80053; 80202; 80306; 81003; 81015; 82010; 82077; 82962; 82977; 83605; 83735; 84100; 85025; 85027; 85610; 85730; 87070; 93970; 96365; 97162; 97167; 97530; 99285

== ENCOUNTER 2023-12-17 19:23 | Inpatient (IN) | payer MEDICARE, BC, SELFPAY ==
[2023-12-17] VITALS (12 sets, daily range): BP systolic 106–155; BP diastolic 49–105; BMI 37.3
[2023-12-17 14:05] LABS: % Basophils 0.5 % (0-2); % Eosinophils 0.8 % (0-6); % Immature Granulocytes 0.3 % (0-0.5); % Neutrophils 83.4 % (42.2-75.2); Absolute Eosinophils 0.1 10^3/uL (0-0.7); Absolute Lymphocytes 0.6 10^3/uL (1.2-3.4); Absolute Monocytes 0.3 10^3/uL (0.1-0.6); Absolute Neutrophils 5.3 10^3/uL (1.4-6.5); Hematocrit 42.2 % (37.0-47.0); Hemoglobin 14.4 g/dL (12.0-16.0); Mean Corp Hgb Conc. 34.1 g/dL (33.0-37.0); Mean Corpuscular Hgb 30.3 pg (27.0-31.0); Mean Corpuscular Volume 88.8 fL (81.0-99.0); Mean Platelet Volume 10.3 fL (7.4-10.4); Nucleated Red Blood Cells % 0 %; Platelet Count 258 10^3/uL (130-400); Red Blood Cell Count 4.75 10^6/uL (4.20-5.40); Red Cell Dist. Width 13.3 % (11.5-14.5); White Blood Cell Count 6.4 10^3/uL (4.8-10.8)
[2023-12-17 14:27] LABS: ALT (SGPT) 16 U/L (0-35); AST (SGOT) 20 U/L (14-36); Albumin 4.5 g/dl (3.5-5.0); Alkaline Phosphatase 77 U/L (38-126); Blood Urea Nitrogen 73 mg/dl (7-17); Calcium 10.2 mg/dl (8.4-10.2); Carbon Dioxide 26 mmol/L (22-30); Chloride 94 mmol/L (98-107); Glucose 245 mg/dl (70-99); Potassium 3.6 mmol/L (3.5-5.1); Sodium 136 mmol/L (135-145); Total Bilirubin 0.7 mg/dl (0.2-1.3); eGFR 24.79
[2023-12-17 14:35] LABS: NT-proBNP 334 pg/ml
--- NOTE | 2023-12-17 15:50 | ED.GENMED ---
History of Present Illness
General
Chief Complaint: Swelling
Source: patient and family
Exam Limitations: none
Time Seen by Provider: 12/17/23 15:47
Nursing documentation reviewed up to this point in time: agreed with
History of Present Illness
History of Present Illness:
78-year-old female with history of COPD, CHF, HTN, HLD, chronic renal failure, NIDDM, chronic venous stasis and chronic lymphedema presents stating for the past week both her lower legs have become more swollen, more painful, more red and the left
lower leg has begun to develop open wounds that are painful. She denies fever or chills.
Past History
Past History
ED Past Medical History: COPD, HTN, Hypercholesterolemia, NIDDM, Renal failure and Other (Chronic venous stasis, lymphedema)
ED Past Surgical History: Gynecological and Orthopedic
Social History
Tobacco: Non-smoker
Alcohol: None
Drug: None
Personal:
Living: with family
Employment: Not employed
Family History
Family History: Diabetes and Other
Review of Systems
Review of Systems
Allergies reviewed?: Yes
All Other Systems: ROS reviewed and negative except as documented in HPI and ROS
Constitutional: Denies fever or chills
Respiratory: Denies trouble breathing
Cardiac: Denies chest pain
ABD/GI: Denies abdominal pain, nausea, vomiting or diarrhea
: Denies dysuria, difficulty voiding or urgency
Musculoskeletal: Reports edema (Both lower extremities are more swollen, more red, more painful)
Skin: Reports other (Open sores developing on left lower extremity)
Neurological: Reports no symptoms
Phy Exam
Physical Exam
Physical Exam:
GENERAL: No acute distress. A&Ox3.
CONSTITUTIONAL: Afebrile.
EYES: clear, conjunctivae normal
ENMT: moist mucus membranes, Pharynx nl
RESPIRATORY: Regular respirations, nonlabored, lungs clear.
CARDIOVASCULAR: Regular rate and rhythm, no murmurs, no rubs.
GI: Soft, nontender, normal BS
MUSCULOSKELETAL: Both lower extremities including feet and toes, are warm, erythematous, tender, swollen, open areas noted on posterior lateral aspect of left lower extremity. Well perfused.
SKIN: Rest of skin is warm, dry, pink
PSYCH: Normal mood and affect. Well kept, interactive and appropriate
NEUROLOGIC: Awake, alert and oriented. No focal neurological deficits
Scores
Heart Failure Risk
Heart Failure Risk Score: Not Applicable
Course
Orders/Labs/Results
Orders:
Orders
12/17/23 13:53
Complete Blood Count/With Diff Urgent
Comprehensive Metabolic Panel Urgent
Pro-BNP [NT-proBNP] Urgent
12/17/23 16:00
US Periph Venous LOWER Ext Karsten Urgent
Comment:
Reason For Exam: Pain, swelling, redness
12/17/23 16:01
Piperacillin/Tazo 3.375 Gram [Zosyn] 3.375 gram in 50 ml IV NOW
Abnormal Lab Results
12/17/23
13:53
Absolute Lymphs (auto) 0.6 L 10^3/uL
(1.2-3.4)
Neutrophils % 83.4 H %
(42.2-75.2)
Lymphocytes % 10.0 L %
(20.5-51.1)
Chloride 94 L mmol/L
(98-107)
BUN 73 H mg/dl
(7-17)
Creatinine 2.0 H mg/dL
(0.6-1.0)
Glucose 245 H mg/dl
(70-99)
12/17/23 13:53
12/17/23 13:53
Vital Signs
Initial and Last Documented VS:
Initial Vital Signs
Temp Pulse Resp BP Pulse Ox
97.7 F 86 16 106/52 100
12/17/23 13:40 12/17/23 13:40 12/17/23 13:40 12/17/23 13:40 12/17/23 13:40
Last Documented Vital Signs
Temp Pulse Resp BP Pulse Ox
97.7 F 84 22 139/85 97
12/17/23 13:40 12/17/23 17:35 12/17/23 17:35 12/17/23 18:00 12/17/23 18:00
MDM/Problems Addressed
Differential Diagnosis Includes:
Cellulitis, DVT
MDM/Problems Addressed:
78-year-old female with history of COPD, CHF, HTN, HLD, chronic renal failure, NIDDM, chronic venous stasis and chronic lymphedema presents stating for the past week both her lower legs have become more swollen, more painful, more red and the left
lower leg has begun to develop open wounds that are painful. She denies fever or chills.
Afebrile NAD
4:30 PM:
CBC with no clinically significant abnormality
CMP consistent with her chronic kidney disease, mildly worse
BNP within normal limits
Patient in ultrasound
Hospitalist notified of admission for cellulitis bilateral lower extremities, acute on chronic renal insufficiency
*Critical Care Note
Total Time (30-74mins, 75-104mins- exclusive of procedures): Not Applicable
ED Attending Note
-
Portions of this chart may have been created with voice recognition software.� Occasional wrong word or��sound alike� substitutions may have occurred due to the inherent limitations of voice recognition software.
Discharge Plan
Departure
Patient Disposition: Admit
Date of Disposition: 12/17/23
Time of Disposition: 16:05
Admit to: Med/Surg
Presentation/result/management discussed w/ accepting MD/DO: Hospitalist
Condition: Fair
Discharge Problem:
Cellulitis of both lower extremities, Acute on chronic renal insufficiency
Prescriptions:
No Action
metoprolol succinate 50 MG tablet extended release 24 hr
50 mg PO DAILY
pravastatin 20 MG tablet
20 mg PO DAILY
spironolactone 25 MG tablet
12.5 mg PO DAILY
aspirin 81 mg Tablet,Delayed Release (Dr/Ec)
81 mg PO DAILY
acetaminophen [Tylenol Extra Strength] 500 mg Tablet
1,000 mg PO Q6HPRN PRN (Reason: mild pain)
furosemide 80 mg Tablet
80 mg PO DAILY Qty: 30 0RF
furosemide 40 mg Tablet
40 mg PO QPM
metolazone 2.5 mg Tablet
2.5 mg PO WESA
vitamin A 2,400 mcg Capsule
2,400 mcg PO DAILY
thiamine HCl (vitamin B1) 100 mg tablet
100 mg PO DAILY
Interventions
Interventions:
*Risk Screen - Suicide Last Done: 12/17/23 14:57
*General Assessment Last Done: 12/17/23 14:57
*Neglect/Abuse Screening Last Done: 12/17/23 14:57
ED- Fall Risk Assessment Last Done: 12/17/23 14:57
*ED COVID-19 Vaccine History Last Done: 12/17/23 14:57
ED- Cardiac Assessment Last Done: 12/17/23 14:57
ED- Pulmonary Assessment Last Done: 12/17/23 14:57
ED-Skin Assessment Last Done: 12/17/23 14:57
Discharge Date and Time
Print Language: ICELANDIC
[2023-12-17] MEDS: ZOSYN 50 IV (17:24)
--- NOTE | 2023-12-17 18:16 | HPS.HSE ---
Addendum entered and electronically signed by Fidel Cruz MD 12/17/23 19:12:
Per patient's allergy list, patient tolerates Cefepime.
Original Note:
Family Physician
-
Family Physician: Liz Pereira
Chief Complaint
-
Bilateral Lower Leg Redness, Swelling and Wounds
History of Present Illness
78-year-old female with past medical history of COPD, CHF, HTN, HLD, chronic renal failure, NIDDM, chronic venous stasis and chronic lymphedema presented stating for the past approximately 1 week both her lower legs have become more swollen, more
painful, more red and the left lower leg has begun to develop open wounds that are painful. She denied fever, chills or any other symptoms. She has not been to outpatient wound clinic per her.
Medical History
Past Medical History
Past Medical History: Reports Other (As per HPI above)
Past Surgical History: Reports Other
Additional Past Surgical History:
Tubal ligation
Appendectomy
Right knee arthroscopy
Social History
Tobacco: Smoker
Alcohol: None
Drug: None
Family History
Family History: Not pertinent
Allergies / Home Medications
Allergies reflects when Allergies were last updated in [facility].
Home Medications with original date entered in [facility]
Allergy/Medication List:
Allergies
Allergy/AdvReac Type Severity Reaction Status Date / Time
cephalexin [From Keflex] Allergy Mild Rash, Verified 12/17/23 13:45
Tolerates
zosyn,
cefepime,
cefazolin
DINA Inhibitors Allergy cough Verified 12/17/23 13:45
amlodipine besylate Allergy cough Verified 12/17/23 13:45
[facility]
Influenza Virus Vaccines Allergy does not Verified 12/17/23 13:45
remember
Sulfa (Sulfonamide Allergy eyes swell Verified 12/17/23 13:45
Antibiotics)
valsartan [From Diovan] Allergy cough Verified 12/17/23 13:45
Home Medications
metoprolol succinate 50 mg tablet,extended release 24 hr 50 mg PO DAILY Heart disease/condition 08/09/15
pravastatin 20 mg tablet 20 mg PO DAILY High cholesterol 08/09/15
spironolactone 25 mg tablet 12.5 mg PO DAILY Fluid retention/Swelling 01/31/21
acetaminophen 500 mg tablet (Tylenol Extra Strength) 1,000 mg PO Q6HPRN PRN mild pain 03/29/23
aspirin 81 mg tablet,delayed release 81 mg PO DAILY Blood Clot Prevention/Tx 03/29/23
furosemide 80 mg tablet 80 mg PO DAILY Heart Failure #30 tabs 09/07/23
furosemide 40 mg tablet 40 mg PO QPM 12/17/23
metolazone 2.5 mg tablet 2.5 mg PO WESA 12/17/23
thiamine HCl (vitamin B1) 100 mg tablet 100 mg PO DAILY Supplement 12/17/23
vitamin A 2,400 mcg capsule 2,400 mcg PO DAILY 12/17/23
Review of Systems
-
A 12 point ROS was completed and negative except as noted: Yes
Physical Exam
Vital Signs
Vital Signs
Temp Pulse Resp BP Pulse Ox
97.7 F 84 22 139/85 97
12/17/23 13:40 12/17/23 17:35 12/17/23 17:35 12/17/23 18:00 12/17/23 18:00
Physical Exam
General: No Apparent Distress, Comfortable and Conversant
HEENT: NormoCephalic and Moist mucous membranes
Respiratory: Clear
Cardiac: S1/S2 and Regular Rhythm
GI: Soft, Non Tender and Normal Bowel Sounds
Musculoskeletal: No Cyanosis, Edema, Left Lower Extremity and Edema, Right Lower Extremity
Skin: Warm and Other (Wounds, erythema and tenderness in lower extremities bilaterally)
Neuro: Awake, Alert, AO x 3 and Nonfocal/grossly intact
Psych: Calm and Intact Judgment/Insight
Laboratory Results
-
12/17/23 13:53
12/17/23 13:53
Laboratory Results
Total Bilirubin 0.7 mg/dl (0.2-1.3) 12/17/23 13:53
AST 20 U/L (14-36) 12/17/23 13:53
ALT 16 U/L (0-35) 12/17/23 13:53
Alkaline Phosphatase 77 U/L (38-126) 12/17/23 13:53
Impression/Plan
-
Assessment/Plan
# Worsening BL LE venous stasis dermatitis in setting of chronic BL lymphedema LLE> RLE
# Bilateral Lower Extremity Cellulitis
# Recurrent Cellulitis
# Lymphedema
Given recent hospitalization in the past 12 months, with antibiotic administration within the past 6 months, risk for MRSA
Vancomycin, Cefepime and Flagyl for now
Will consult ID, appreciate their evaluation and recommendations
Wound care
US DVT from December 17, 2023 is negative
Compression therapy
Leg Elevation
# Chronic heart failure with preserved ejection fraction
# Severe pulmonary HTN
Continue furosemide 80 mg daily, 40 mg QPM, I/O daily weight
Toprol, spironolactone
# CKD stage IV vs. JONO on CKD
Last creatinine was 1.7 now 2.0
Follow BMP
# NIDDM
Accu-Cheks with SSI
# History of Alcohol abuse
-Patient denied current alcohol use
# HTN
Toprol, spironolactone
# HLD
Continue pravastatin
# Morbid obesity due to excess calorie consumption
BMI 38
# COPD, no acute exacerbation
# Nicotine abuse
nicotine patch
Cessation advised
# Sleep apnea, reported not on CPAP
# Chronic pain
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
#DVT prophylaxis: Subcu heparin
#DNR
--- NOTE | 2023-12-17 20:32 | PHA.VAN.IN ---
Assessment
- Assessment
Renal Function: Appears elevated from baseline
Concomitant Antimicrobials: Cefepime, Metronidazole
Plan
- Plan
Initial / Loading Dose: Vanco 2G Loading dose 12/17/2023 2100
Maintenance Regimen: Dosing by level
Monitoring: Vanco Random level 12/18/2023 0530
Pharmacokinetics Vancomycin I
- -
Patient Age: 78
Patient Sex: Male
Vancomycin Day #: 1
Indication: Skin And Soft Tissue
Requesting Provider: Dr. Cruz
Pertinent Antimicrobial Allergies:
Cephalexin - Rash
Sulfonamide Abx - Eye Swelling
Height / Weight:
Height 5 ft 7 in
Actual Weight 108 kg
Pertinent Past Medical History: T2DM, CKD Stage III, Lower Extremity Celluitis
- Vital Signs / Lab Results
Temp Pulse Resp BP Pulse Ox
97.7 F 84 22 128/49 93
12/17/23 13:40 12/17/23 17:35 12/17/23 17:35 12/17/23 20:00 12/17/23 20:00
Lab Results - Hematology
12/17/23
13:53
WBC 6.4
Lab Results - Chemistry
12/17/23
13:53
BUN 73 H
Creatinine 2.0 H
Albumin 4.5
--- NOTE | 2023-12-17 20:45 | PTCARENOTE ---
Patient arrived from ED via stretcher to 322, alert and oriented but does appear to be forgetful and poor historian with medical history/medications/etc. Patient ambulated from stretcher to bed using own rollator from home - weak and unsteady with
assist of 1 person. Initiated on personnel monitor #6 - SR/ST. Patient resting in bed comfortably at this time, call segura in reach and verbalizes understanding on use. Will monitor.
[2023-12-17] MEDS: VANCOCIN 540 MG IV (21:03)
[2023-12-17] MEDS: LASIX PO ×2 (21:06→21:11)
[2023-12-17] MEDS: MAXIPIME 1000 MG IV (21:06)
--- NOTE | 2023-12-17 21:11 | PTCARENOTE ---
Patient refusing scheduled PM dose PO Lasix at this time - patient states it is too late for her to take it, and that she prefers to take PM 40mg dose at noon at home. Will discuss with oncoming dayshift RN to discuss with MD tomorrow about timing.
Will monitor.
[2023-12-17 21:45] LABS: Glucose - Point of Care 191 mg/dl (70-99)
--- NOTE | 2023-12-17 22:00 | PTCARENOTE ---
Addendum entered by Milagro Olivera RN 12/17/23 22:57:
Patient with relief from Benadryl and reduced rate of vanco infusion. Will continue to monitor.
Original Note:
IV vanco infusion initiated on patient per MD orders. Approx 20 minutes into infusion patient started c/o severe itching 'all over' and states to this RN, 'I think the last time I was here, this happened too. I don't remember.' No
allergies/reactions noted in patient's chart regarding IV vanco. No rash observed by this RN. Notified covering LANCE Crowe, requested to have infusion rate decreased and dose of PO Benadryl ordered. Provided to patient, see APR.
monitor.
[2023-12-17] MEDS: BENADRYL 25 MG PO (22:16)
[2023-12-18] MEDS: HEPARIN SC (00:35)
[2023-12-18] MEDS: FLAGYL 500 MG 100 IV ×3 (00:50→13:31)
[2023-12-18 03:53] VITALS: BP 143/65
[2023-12-18 06:00] VITALS: BMI 37.0
[2023-12-18 07:23] LABS: % Basophils 0.3 % (0-2); % Eosinophils 0.1 % (0-6); % Immature Granulocytes 0.9 % (0-0.5); % Lymphocytes 1.6 % (20.5-51.1); % Monocytes 2.6 % (1.7-9.3); % Neutrophils 94.5 % (42.2-75.2); Absolute Immature Granulocytes 0.1 10^3/uL (0-0.05); Absolute Lymphocytes 0.2 10^3/uL (1.2-3.4); Absolute Monocytes 0.4 10^3/uL (0.1-0.6); Absolute Neutrophils 13.1 10^3/uL (1.4-6.5); Hematocrit 40.5 % (37.0-47.0); Hemoglobin 13.5 g/dL (12.0-16.0); Mean Corp Hgb Conc. 33.3 g/dL (33.0-37.0); Mean Corpuscular Hgb 30.1 pg (27.0-31.0); Mean Corpuscular Volume 90.2 fL (81.0-99.0); Mean Platelet Volume 10.7 fL (7.4-10.4); Nucleated Red Blood Cells % 0 %; Platelet Count 246 10^3/uL (130-400); Red Blood Cell Count 4.49 10^6/uL (4.20-5.40); Red Cell Dist. Width 13.5 % (11.5-14.5); White Blood Cell Count 13.9 10^3/uL (4.8-10.8)
[2023-12-18 07:49] LABS: Vancomycin Random 19.5 ug/ml
[2023-12-18 07:51] LABS: Blood Urea Nitrogen 60 mg/dl (7-17); Calcium 9.4 mg/dl (8.4-10.2); Carbon Dioxide 28 mmol/L (22-30); Chloride 98 mmol/L (98-107); Estimated Creatinine Clearance 30 ml/min; Glucose 207 mg/dl (70-99); Magnesium 2.1 mg/dl (1.6-2.3); Potassium 3.2 mmol/L (3.5-5.1); Sodium 141 mmol/L (135-145); eGFR 26.36
[2023-12-18 08:00] LABS: Glucose - Point of Care 200 mg/dl (70-99)
--- NOTE | 2023-12-18 08:14 | PHA.VAN.FU ---
Vancomycin Assessment / Plan
- Assessment
Renal Function: SCR Decreasing
WBC's are: Trending Up
In the past 24 hrs, patient has been: Afebrile
Concomitant Antimicrobials: Cefepime, metronidazole
- Assessment - Therapeutic Drug Monitoring
Random Level: R = 19.5 ~ 10 hrs post Vanc 2000mg
- Dosing Plan
Continue: Dose by level
Dosing by Level: Hold off on dosing today
- Monitoring Plan
Random Level: 1110 AM
- Follow Up
Pharmacy will continue to follow.
Vancomycin Follow UP
- -
Patient Age: 78
Patient Sex: Male
Vancomycin Day #: 2
Indication: Skin And Soft Tissue
Requesting Provider: Dr. Cruz
Pertinent Antimicrobial Allergies:
Cephalexin - Rash
Sulfonamide Abx - Eye Swelling
Height / Weight:
Height 5 ft 7 in
Actual Weight 107.048 kg
Pertinent Past Medical History: T2DM, CKD Stage III, Lower Extremity Celluitis
- Vital Signs / Lab Results
Temp Pulse Resp BP Pulse Ox
99.3 F 101 18 143/65 92
12/18/23 03:53 12/18/23 03:53 12/18/23 03:53 12/18/23 03:53 12/18/23 03:53
Lab Results - Hematology
12/17/23 12/18/23
13:53 06:32
WBC 6.4 13.9 H
Lab Results - Chemistry
12/17/23 12/18/23
13:53 06:32
BUN 73 H 60 H
Creatinine 2.0 H 1.9 H
Estimated Creat Clear 30
Albumin 4.5
Therapeutic Drug Monitoring
Random Vancomycin 19.5 ug/ml 12/18/23 06:32
[2023-12-18 08:38] VITALS: BP 150/77
[2023-12-18] MEDS: NOVOLOG FLEXPEN-LOW RESISTANCE 2 UNITS SC ×2 (08:50→13:32)
[2023-12-18] MEDS: ALDACTONE 12.5 MG PO (08:50)
[2023-12-18] MEDS: DESENEX/MITRAZOL/ZEASORB 1 APPLIC TOPICAL ×2 (08:51→20:42)
[2023-12-18] MEDS: VITAMIN B1 100 MG PO (08:51)
[2023-12-18] MEDS: TOPROL XL 50 MG PO (08:51)
[2023-12-18] MEDS: HEPARIN 5000 UNITS SC ×2 (08:51→18:08)
[2023-12-18] MEDS: PRAVACHOL 20 MG PO (08:51)
[2023-12-18] MEDS: ASPIR LOW (ENTERIC COATED) 81 MG PO (08:51)
[2023-12-18] MEDS: ZAROXOLYN 2.5 MG PO (08:53)
[2023-12-18] MEDS: LASIX 80 MG PO (08:53)
[2023-12-18 09:18] LABS: Glycohemoglobin (HgbA1c) 8.7 % (4.0-5.6)
--- NOTE | 2023-12-18 11:04 | CM ---
Met with patient admitted from home. She lives in one level home with 3 steps in. Son, Lucio lives with her. She has another son who is nearby and supportive.She says she drives her son, Lucio to work in afternoon.
She uses rolling walker, lift chair, tub seat and tub rails. She reports her toilet has kohler on both sides and she uses kohler to get off toilet.
PCP Liz Pereira
Discussed options for care post admission. She is willing to go back to [facility] or go home with [facility].
IF she does not meet criteria for [facility] she maybe able to drive to [facility]. CM to follow up with patient after ID sees her and discharge needs are known.
She has had [facility] in past.
PLAN: [facility] home with home care.
[2023-12-18 12:30] LABS: Glucose - Point of Care 238 mg/dl (70-99)
[2023-12-18 12:42] VITALS: BP 131/100
--- NOTE | 2023-12-18 12:42 | W.PN.HOSP.TC ---
Today's Communication/Plan
-
Continue antibiotics
Appreciate ID
Change to moderate intensity sliding scale, will consider starting long-acting and premeal insulin
Assessment / Plan
Assessment / Plan
Physical Exam
General: No Apparent Distress, Comfortable and Conversant
HEENT: Normocephalic and Moist mucous membranes
Respiratory: Clear
Cardiac: S1/S2 and Regular Rhythm
GI: Soft, Non Tender and Normal Bowel Sounds
Musculoskeletal: No Cyanosis, Edema, Left Lower Extremity and Edema, Right Lower Extremity
Skin: Warm and Other (Wounds, erythema and tenderness in lower extremities bilaterally)
Neuro: Awake, Alert, AO x 3 and Nonfocal/grossly intact
Psych: Calm and Intact Judgment/Insight
Assessment/Plan
# Worsening BL LE venous stasis dermatitis in setting of chronic BL lymphedema LLE> RLE
# Bilateral Lower Extremity Cellulitis
# New Leukocytosis on 12/18/23
# Recurrent Cellulitis
# Lymphedema
Given recent hospitalization in the past 12 months, with antibiotic administration within the past 6 months, risk for MRSA
Vancomycin, Cefepime and Flagyl for now
Consult ID, appreciate their evaluation and recommendations
Wound care
US DVT from December 17, 2023 is negative
Compression therapy
Leg Elevation
# Chronic heart failure with preserved ejection fraction
# Severe pulmonary HTN
Continue furosemide 80 mg daily, 40 mg QPM, I/O daily weight
Toprol, spironolactone
#Hypokalemia on 12/18/23
-Replacement ordered
-Recheck BMP
-Mag is okay
# CKD stage IV vs. JONO on CKD
Last creatinine was 1.7 now 2.0-->1.9
Follow BMP
# NIDDM
Accu-Cheks with SSI
Change sliding scale to moderate intensity
# History of Alcohol abuse
-Patient denied current alcohol use
# HTN
Toprol, spironolactone
# HLD
Continue pravastatin
# Morbid obesity due to excess calorie consumption
BMI 38
# COPD, no acute exacerbation
# Nicotine abuse
nicotine patch
Cessation advised
# Sleep apnea, reported not on CPAP
# Chronic pain
Continue REGISTERED NURSE RENAL Tylenol
#DVT prophylaxis: Subcu heparin
#DNR
Anticipated Discharge: > 48 hours
Subjective/Interval History
-
Date of Service: December 18, 2023
Patient was seen and examined. She reported no new symptoms or complaints, and said her legs are about the same as they were yesterday. No fever overnight.
Objective Data
-
Labs:
Laboratory Results
12/18/23
06:32
WBC 13.9 H
Hgb 13.5
Hct 40.5
Plt Count 246
Sodium 141
Potassium 3.2 L
Chloride 98
Carbon Dioxide 28
BUN 60 H
Creatinine 1.9 H
Glucose 207 H
Calcium 9.4
Vital Signs:
Vital Signs
Temp Pulse Resp BP Pulse Ox
99.7 F 102 20 150/77 90
12/18/23 08:38 12/18/23 08:53 12/18/23 08:38 12/18/23 08:53 12/18/23 08:38
I&O
12/17/23 12/18/23 12/19/23
06:59 06:59 06:59
Intake Total 240 / 240
Balance 240 / 240
[2023-12-18] MEDS: KCL ELIXIR 20 MEQ PO (13:29)
--- NOTE | 2023-12-18 14:28 | CON.ID ---
Consultation
-
Date/Time Consultation Requested: 12/17/23 19:12
Date/Time Consultation Performed: 12/18/23 14:29
Requesting Provider: Dr Cruz
Performing Provider: Dr Nj
Reason for Consultation: Recurrent cellulitis, lymphedema
Chief Complaint / Past History
Chief Complaint
Bilateral Lower Leg Redness, Swelling and Wounds
History of Present Illness
Ms Black is an 78 year old female with history of CHF, COPD, CKD, uncontrolled Dm2 class II obesity, chronic lymphedema who presented here 12/16 for about 1 week of increasing redness and swelling of the lower extremities. She has a chronic wound
on the L leg tath is painful. No fevers or chills. She is not following with wound care.
Since arrival here she has been afebrile, bp stable, wbc initially 6.4 now 13.9, hgb 13.5, plt 246, L shift is noted and progressed today, cr baseline is 1.7, on arrival cr was 2.0 and today its 1.9, K 3.2, a1c is 8.7
Past History
Additional Past Medical History:
HTN
HLD
Additional Past Surgical History:
Tubal ligation
Appendectomy
Right knee arthroscopy
Allergy History:
cephalexin [From Keflex] Allergy (Mild, Verified 12/17/23 13:45)
Rash, Tolerates zosyn, cefepime, cefazolin
DINA Inhibitors Allergy (Verified 12/17/23 13:45)
cough
amlodipine besylate [From Norvasc] Allergy (Verified 12/17/23 13:45)
cough
Influenza Virus Vaccines Allergy (Verified 12/17/23 13:45)
does not remember
Sulfa (Sulfonamide Antibiotics) Allergy (Verified 12/17/23 13:45)
eyes swell
valsartan [From Diovan] Allergy (Verified 12/17/23 13:45)
cough
vancomycin Adverse Reaction (Mild, Verified 12/18/23 03:30)
itching with fast rate. tolerates slower rate infusion
Medications Reviewed: Yes
Social History
Tobacco: Smoker
Alcohol: None
Drug: None
Family History
Family History: Not Pertinent
Review of Systems
Review of Systems
General: Chills; Negative Fever
All systems: All other systems were reviewed and were negative
Vital Signs
Temp Pulse Resp BP Pulse Ox
97.9 F 63 18 131/100 63
12/18/23 12:42 12/18/23 12:42 12/18/23 12:42 12/18/23 12:42 12/18/23 12:42
Physical Exam
Physical Exam
Constitutional: No Acute Distress
Cardiovascular: Regular Rate and S1/S2; Negative Murmur or Rub
Pulmonary: Clear and Symmetric; Negative Wheezes, Rales or Rhonchi
Gastrointestinal: Soft, Non Tender, Non Distended and Normal Bowel Sounds
Extremities: Other (chronic lichenification of the bilateral legs, legs are bright red, wounds along both posterior ankles draining clear fluid)
Skin: Warm and Dry; Negative Rash or Jaundice
Neurological: Awake
Lab / Diagnostic Study Results
12/18/23 06:32
Abs Immat Gran (auto) 0.1 10^3/uL (0-0.05) H 12/18/23 06:32
Absolute Neuts (auto) 13.1 10^3/uL (1.4-6.5) H 12/18/23 06:32
Absolute Lymphs (auto) 0.2 10^3/uL (1.2-3.4) L 12/18/23 06:32
Absolute Monos (auto) 0.4 10^3/uL (0.1-0.6) 12/18/23 06:32
Absolute Basos (auto) 0.0 10^3/uL (0-0.2) 12/18/23 06:32
Immature Gran % 0.9 % (0-0.5) H 12/18/23 06:32
Neutrophils % 94.5 % (42.2-75.2) H 12/18/23:32
Lymphocytes % 1.6 % (20.5-51.1) L 12/18/23 06:32
Monocytes % 2.6 % (1.7-9.3) 12/18/23 06:
Eosinophils % 0.1 % (0-6) 12/18/23 06:32
Basophils % 0.3 % (0-2) 12/18/23 06:32
Microbiology Results
Micro:
12/17/23 21:21 MRSA Screen - Pending
Nose
Assessment / Plan
Cellulitis
Acute on chronic venous stasis
Chronic wound
uncontrolled Dm2
chronic lymphedema
- blood cultures not required at this time
- 09/01 MRSA screen negative, repeated yesterday - in progress
- compression/elevation critical therapies - does have open wounds on the ankles - dress with adaptic, abdominal pad, kerflex then dina wraps
- agree with vancomycin and cefepime; stopped metronidazole
- recommend tight control of DM2
- follow up in wound care clinic after discharge
[2023-12-18 16:32] VITALS: BP 150/77
[2023-12-18] MEDS: LASIX 40 MG PO (18:09)
[2023-12-18] MEDS: NOVOLOG FLEXPEN-MODERATE RESISTANCE 3 UNITS SC (18:11)
[2023-12-18 18:12] LABS: Glucose - Point of Care 200 mg/dl (70-99)
[2023-12-18 19:31] VITALS: BP 156/94
[2023-12-18] MEDS: MAXIPIME 1000 MG IV (20:42)
[2023-12-18] MEDS: STERILE WATER FOR INJECTION 10 ML IV (20:42)
[2023-12-18] MEDS: FLUSH (NSS) 1 FLUSH IV (20:43)
--- NOTE | 2023-12-18 21:00 | PTCARENOTE ---
Patient ringing to get OOB to go to the bathroom. Patient able to ambulate to bathroom with walker and assist of one person. Linens soiled and all linens changed at this time. Assisted patient with partial bath while in bathroom, provided patient
with new gown, and applied new tele leads and Desenex powder per orders. Patient requesting to leave DINA wraps on as they are assisting with her leg pain at this time. Back to bed, resting comfortably, call segura in reach and patient verbalizes
understanding of use. Will monitor.
[2023-12-18 21:19] LABS: Glucose - Point of Care 151 mg/dl (70-99)
[2023-12-18 23:12] VITALS: BP 116/55
[2023-12-19 00:33] LABS: Blood Urea Nitrogen 61 mg/dl (7-17); Calcium 9.4 mg/dl (8.4-10.2); Carbon Dioxide 28 mmol/L (22-30); Chloride 99 mmol/L (98-107); Estimated Creatinine Clearance 31 ml/min; Glucose 134 mg/dl (70-99); Potassium 2.9 mmol/L (3.5-5.1); Sodium 137 mmol/L (135-145); eGFR 28.13
[2023-12-19] MEDS: KCL ELIXIR 40 MEQ PO (01:16)
[2023-12-19] MEDS: HEPARIN 5000 UNITS SC ×3 (01:16→16:07)
--- NOTE | 2023-12-19 01:35 | PTCARENOTE ---
Potassium yesterday 3.2, repleted 12/17 in afternoon. Repeat BMP tonight showing potassium of 2.9. Notified CASH POSTING SPECIALIST - 40 meq Elixir ordered and provided to patient. AM labs ordered for patient. Will monitor.
[2023-12-19 03:30] VITALS: BP 109/72
[2023-12-19 06:00] VITALS: BMI 36.0
[2023-12-19 06:04] LABS: % Basophils 0.4 % (0-2); % Eosinophils 1.2 % (0-6); % Immature Granulocytes 0.4 % (0-0.5); % Lymphocytes 10.5 % (20.5-51.1); % Monocytes 5.8 % (1.7-9.3); % Neutrophils 81.7 % (42.2-75.2); Absolute Eosinophils 0.1 10^3/uL (0-0.7); Absolute Lymphocytes 0.8 10^3/uL (1.2-3.4); Absolute Monocytes 0.4 10^3/uL (0.1-0.6); Hematocrit 40.4 % (37.0-47.0); Hemoglobin 13.4 g/dL (12.0-16.0); Mean Corp Hgb Conc. 33.2 g/dL (33.0-37.0); Mean Corpuscular Hgb 30.3 pg (27.0-31.0); Mean Corpuscular Volume 91.4 fL (81.0-99.0); Mean Platelet Volume 10.3 fL (7.4-10.4); Nucleated Red Blood Cells % 0 %; Platelet Count 227 10^3/uL (130-400); Red Blood Cell Count 4.42 10^6/uL (4.20-5.40); Red Cell Dist. Width 13.4 % (11.5-14.5); White Blood Cell Count 7.4 10^3/uL (4.8-10.8)
[2023-12-19 06:12] LABS: Vancomycin Random 11.8 ug/ml
[2023-12-19 06:26] LABS: Blood Urea Nitrogen 62 mg/dl (7-17); Calcium 9.7 mg/dl (8.4-10.2); Carbon Dioxide 28 mmol/L (22-30); Chloride 97 mmol/L (98-107); Estimated Creatinine Clearance 29 ml/min; Glucose 141 mg/dl (70-99); Potassium 3.5 mmol/L (3.5-5.1); Sodium 141 mmol/L (135-145); eGFR 26.36
--- NOTE | 2023-12-19 07:38 | PHA.VAN.FU ---
Vancomycin Assessment / Plan
- Assessment
Renal Function: Stable
WBC's are: Trending Down
In the past 24 hrs, patient has been: Afebrile
Concomitant Antimicrobials: Cefepime
- Assessment - Therapeutic Drug Monitoring
Random Level: R = 11.8 ~ 33 hrs post Vanc 2gm
- Dosing Plan
Continue: Dose by level
Dosing by Level: Re-dose today (Vanc 1000mg IV--9.6mg/kg)
- Monitoring Plan
Random Level: 11 AM
- Follow Up
Pharmacy will continue to follow.
Vancomycin Follow UP
- -
Patient Age: 78
Patient Sex: Male
Vancomycin Day #: 3
Indication: Skin And Soft Tissue
Requesting Provider: Dr. Cruz
Pertinent Antimicrobial Allergies:
Cephalexin - Rash
Sulfonamide Abx - Eye Swelling
Height / Weight:
Height 5 ft 7 in
Actual Weight 104.043 kg
Pertinent Past Medical History: T2DM, CKD Stage III, Lower Extremity Celluitis
- Vital Signs / Lab Results
Temp Pulse Resp BP Pulse Ox
98.0 F 83 16 109/72 95
12/19/23 03:30 12/19/23 03:30 12/19/23 03:30 12/19/23 03:30 12/19/23 03:30
Lab Results - Hematology
12/17/23 12/18/23 12/19/23
13:53 06:32 05:37
WBC 6.4 13.9 H 7.4
Lab Results - Chemistry
12/17/23 12/18/23 12/19/23
13:53 06:32 00:06
BUN 73 H 60 H 61 H
Creatinine 2.0 H 1.9 H 1.8 H
Estimated Creat Clear 30 31
Albumin 4.5
12/19/23
05:37
BUN 62 H
Creatinine 1.9 H
Estimated Creat Clear 29
Albumin
Therapeutic Drug Monitoring
Random Vancomycin 11.8 ug/ml 12/19/23 05:37
[2023-12-19 07:43] LABS: Glucose - Point of Care 157 mg/dl (70-99)
[2023-12-19 07:54] VITALS: BP 119/47
[2023-12-19] MEDS: LASIX 80 MG PO (08:45)
[2023-12-19] MEDS: NOVOLOG FLEXPEN-MODERATE RESISTANCE 1 UNITS SC ×3 (08:45→18:02)
[2023-12-19] MEDS: PRAVACHOL 20 MG PO (08:46)
[2023-12-19] MEDS: VITAMIN B1 100 MG PO (08:46)
[2023-12-19] MEDS: TOPROL XL 50 MG PO (08:46)
[2023-12-19] MEDS: ALDACTONE 12.5 MG PO (08:46)
[2023-12-19] MEDS: ASPIR LOW (ENTERIC COATED) 81 MG PO (08:46)
[2023-12-19] MEDS: HYDROPHOR 1 APPLIC TOPICAL (08:47)
[2023-12-19] MEDS: DESENEX/MITRAZOL/ZEASORB 1 APPLIC TOPICAL ×2 (08:47→20:12)
[2023-12-19] MEDS: VANCOCIN 200 IV (08:49)
--- NOTE | 2023-12-19 10:00 | W.PN.HOSP.TC ---
Today's Communication/Plan
-
Continue antibiotics
Appreciate ID
Glucose values are better
Assessment / Plan
Assessment / Plan
Physical Exam
General: Not in acute distress
HEENT: Normocephalic and Moist mucous membranes
Respiratory: Clear to Auscultation Bilaterally
Cardiac: S1/S2 and Regular Rhythm
GI: Soft, Non Tender and Normal Bowel Sounds
Musculoskeletal: No Cyanosis, Edema, Left Lower Extremity and Edema, Right Lower Extremity
Skin: Warm and Other (Wounds, erythema in lower extremities with DINA wraps bilaterally)
Neuro: Awake, Alert, AO x 3 and Nonfocal/grossly intact
Psych: Calm and Intact Judgment/Insight
Assessment/Plan
# Worsening Bilateral LE venous stasis dermatitis in setting of chronic BL lymphedema LLE> RLE
# Bilateral Lower Extremity Cellulitis
# New Leukocytosis on 12/18/23
# Recurrent Cellulitis
# Lymphedema
Given recent hospitalization in the past 12 months, with antibiotic administration within the past 6 months, risk for MRSA
Vancomycin, Cefepime
Flagyl stopped on 12/18/23
Consulted ID, appreciate their evaluation and recommendations
Wound care
US DVT from December 17, 2023 is negative
Compression therapy
Leg Elevation
# Chronic heart failure with preserved ejection fraction
# Severe pulmonary HTN
Continue furosemide 80 mg daily, 40 mg QPM, I/O daily weight
Toprol, spironolactone
#Hypokalemia on 12/18/23
-RESOLVED
-Replacement ordered
-Recheck BMP
-Mag is okay
# CKD stage IV vs. JONO on CKD
Last creatinine was 1.7 now 2.0-->1.9-->1.8-->1.9
Follow BMP
# NIDDM
Accu-Cheks with SSI
HbA1c 8.7% this admission
Changed sliding scale to moderate intensity with improved glucose readings
Carb controlled diet
# History of Alcohol abuse
-Patient denied current alcohol use
# HTN
Toprol, spironolactone
# HLD
Continue pravastatin
# Morbid obesity due to excess calorie consumption
BMI 38
# COPD, no acute exacerbation
# Nicotine abuse
nicotine patch
Cessation advised
# Sleep apnea, reported not on CPAP
# Chronic pain
Continue [employer]RA[employer] UP OPER[employer] Tylenol
#DVT prophylaxis: Subcu heparin
#DNR
Anticipated Discharge: > 48 hours
Subjective/Interval History
-
Date of Service: December 19, 2023
Patient was seen and examined. She reported no new significant complaints or symptoms.
Objective Data
-
Labs:
Laboratory Results
12/19/23 12/19/23
00:06 05:37
WBC 7.4
Hgb 13.4
Hct 40.4
Plt Count 227
Sodium 137 141
Potassium 2.9 L 3.5
Chloride 99 97 L
Carbon Dioxide 28 28
BUN 61 H 62 H
Creatinine 1.8 H 1.9 H
Glucose 134 H 141 H
Calcium 9.4 9.7
Vital Signs:
Vital Signs
Temp Pulse Resp BP Pulse Ox
97.5 F 76 18 119/47 94
12/19/23 07:54 12/19/23 08:46 12/19/23 07:54 12/19/23 08:46 12/19/23 07:54
I&O
12/18/23 12/19/23 12/20/23
06:59 06:59 06:59
Intake Total 1040 / 1040 660 / 660
Balance 1040 / 1040 660 / 660
[2023-12-19] MEDS: KCL 20 MEQ PO (10:56)
[2023-12-19 12:18] VITALS: BP 141/69
[2023-12-19 13:05] LABS: Glucose - Point of Care 175 mg/dl (70-99)
[2023-12-19 16:27] VITALS: BP 103/54
[2023-12-19 17:42] LABS: Glucose - Point of Care 154 mg/dl (70-99)
[2023-12-19] MEDS: LASIX 40 MG PO (18:02)
[2023-12-19 19:00] VITALS: BP 105/51
[2023-12-19] MEDS: MAXIPIME 1000 MG IV (20:10)
[2023-12-19] MEDS: STERILE WATER FOR INJECTION 10 ML IV (20:12)
[2023-12-19 21:50] LABS: Glucose - Point of Care 113 mg/dl (70-99)
[2023-12-19 23:00] VITALS: BP 121/49
[2023-12-20] MEDS: HEPARIN 5000 UNITS SC ×3 (01:08→16:35)
[2023-12-20 03:57] VITALS: BP 128/57
[2023-12-20 06:00] VITALS: BMI 36.2
[2023-12-20 06:55] LABS: Glucose - Point of Care 213 mg/dl (70-99)
[2023-12-20] MEDS: NOVOLOG FLEXPEN-MODERATE RESISTANCE 3 UNITS SC (07:16)
[2023-12-20] MEDS: LASIX 80 MG PO (07:18)
[2023-12-20] MEDS: HYDROPHOR 1 APPLIC TOPICAL (07:18)
[2023-12-20] MEDS: VITAMIN B1 100 MG PO (07:18)
[2023-12-20] MEDS: ASPIR LOW (ENTERIC COATED) 81 MG PO (07:18)
[2023-12-20] MEDS: ALDACTONE 12.5 MG PO (07:18)
[2023-12-20] MEDS: PRAVACHOL 20 MG PO (07:18)
[2023-12-20] MEDS: TOPROL XL 50 MG PO (07:18)
[2023-12-20] MEDS: DESENEX/MITRAZOL/ZEASORB 1 APPLIC TOPICAL ×2 (07:19→20:04)
[2023-12-20 07:23] VITALS: BP 110/60
[2023-12-20 07:39] LABS: % Basophils 0.3 % (0-2); % Immature Granulocytes 0.6 % (0-0.5); % Lymphocytes 10.5 % (20.5-51.1); % Monocytes 9.4 % (1.7-9.3); % Neutrophils 77.2 % (42.2-75.2); Absolute Eosinophils 0.1 10^3/uL (0-0.7); Absolute Lymphocytes 0.8 10^3/uL (1.2-3.4); Absolute Monocytes 0.7 10^3/uL (0.1-0.6); Absolute Neutrophils 5.5 10^3/uL (1.4-6.5); Hematocrit 41.5 % (37.0-47.0); Hemoglobin 13.7 g/dL (12.0-16.0); Mean Corpuscular Hgb 29.9 pg (27.0-31.0); Mean Corpuscular Volume 90.6 fL (81.0-99.0); Mean Platelet Volume 10.6 fL (7.4-10.4); Nucleated Red Blood Cells % 0 %; Platelet Count 244 10^3/uL (130-400); Red Blood Cell Count 4.58 10^6/uL (4.20-5.40); Red Cell Dist. Width 13.3 % (11.5-14.5); White Blood Cell Count 7.1 10^3/uL (4.8-10.8)
[2023-12-20 07:55] LABS: Vancomycin Random 15.6 ug/ml
[2023-12-20 08:22] LABS: Blood Urea Nitrogen 62 mg/dl (7-17); Calcium 9.6 mg/dl (8.4-10.2); Carbon Dioxide 24 mmol/L (22-30); Chloride 97 mmol/L (98-107); Estimated Creatinine Clearance 31 ml/min; Glucose 206 mg/dl (70-99); Potassium 3.4 mmol/L (3.5-5.1); Sodium 140 mmol/L (135-145); eGFR 28.13
--- NOTE | 2023-12-20 08:53 | PHA.VAN.FU ---
Vancomycin Assessment / Plan
- Assessment
Renal Function: Stable (~1.8)
WBC's are: WNL
In the past 24 hrs, patient has been: Afebrile
Concomitant Antimicrobials: cefepime
- Assessment - Therapeutic Drug Monitoring
Random Level: 15.6 ~ 22 hours post 1000 mg dose 12/18
Calculated half life (H): calculated half-life ~32 hours
- Dosing Plan
Continue: dose by random level
Dosing by Level: Re-dose today (500 mg x 1 dose)
- Monitoring Plan
Random Level: repeat random level AM 12/21/23
- Follow Up
Pharmacy will continue to follow.
Vancomycin Follow UP
- -
Patient Age: 78
Patient Sex: Male
Vancomycin Day #: 4
Indication: Skin And Soft Tissue
Requesting Provider: Dr. Cruz
Pertinent Antimicrobial Allergies:
Cephalexin - Rash
Sulfonamide Abx - Eye Swelling
Height / Weight:
Height 5 ft 7 in
Actual Weight 104.644 kg
Pertinent Past Medical History: T2DM, CKD Stage III, Lower Extremity Celluitis
- Vital Signs / Lab Results
Temp Pulse Resp BP Pulse Ox
97.9 F 83 16 110/60 94
12/20/23 07:23 12/20/23 07:23 12/20/23 07:23 12/20/23 07:23 12/20/23 07:23
Lab Results - Hematology
12/17/23 12/18/23 12/19/23
13:53 06:32 05:37
WBC 6.4 13.9 H 7.4
12/20/23
06:30
WBC 7.1
Lab Results - Chemistry
12/17/23 12/18/23 12/19/23
13:53 06:32 00:06
BUN 73 H 60 H 61 H
Creatinine 2.0 H 1.9 H 1.8 H
Estimated Creat Clear 30 31
Albumin 4.5
12/19/23 12/20/23
05:37 06:30
BUN 62 H 62 H
Creatinine 1.9 H 1.8 H
Estimated Creat Clear 29 31
Albumin
Microbiology Results
12/17/23 21:21 MRSA Screen - Final
Nose No Methicillin Resistant Staphylococcus aureus isolated.
Therapeutic Drug Monitoring
Random Vancomycin 15.6 ug/ml 12/20/23 06:30
[2023-12-20] MEDS: VANCOCIN HCL 500 MG 100 IV (09:34)
--- NOTE | 2023-12-20 10:16 | W.PN.HOSP.TC ---
Today's Communication/Plan
-
c/w IV Abx
Repplace K
Assessment / Plan
Assessment / Plan
Physical Exam
General: Not in acute distress
HEENT: Normocephalic and Moist mucous membranes
Respiratory: Clear to Auscultation Bilaterally
Cardiac: S1/S2 and Regular Rhythm
GI: Soft, Non Tender and Normal Bowel Sounds
Musculoskeletal: No Cyanosis, Edema, Left Lower Extremity and Edema, Right Lower Extremity
Skin: Warm and Other (Wounds, erythema in lower extremities with DINA wraps bilaterally)
Neuro: Awake, Alert, AO x 3 and Nonfocal/grossly intact
Psych: Calm and Intact Judgment/Insight
Assessment/Plan
# Worsening Bilateral LE venous stasis dermatitis in setting of chronic BL lymphedema LLE> RLE
# Bilateral Lower Extremity Cellulitis
# New Leukocytosis on 12/18/23
# Recurrent Cellulitis
# Lymphedema
Given recent hospitalization in the past 12 months, with antibiotic administration within the past 6 months, risk for MRSA
Vancomycin, Cefepime
Flagyl stopped on 12/18/23
Consulted ID, appreciate their evaluation and recommendations
Wound care
US DVT from December 17, 2023 is negative
Compression therapy
Leg Elevation
# Chronic heart failure with preserved ejection fraction
# Severe pulmonary HTN
Continue furosemide 80 mg daily, 40 mg QPM, I/O daily weight
Toprol, spironolactone
#Hypokalemia on 12/18/23
-RESOLVED
-Replacement ordered
-Recheck BMP
-Mag is okay
# JONO on CKD Stage IV
Last creatinine was 1.7 now 2.0-->1.9-->1.8-->1.9
Follow BMP
# hypokalemia
Replaced
# NIDDM
Accu-Cheks with SSI
HbA1c 8.7% this admission
Changed sliding scale to moderate intensity with improved glucose readings
Carb controlled diet
# History of Alcohol abuse
-Patient denied current alcohol use
# Primary HTN
Toprol, spironolactone
# HLD
Continue pravastatin
# Morbid obesity due to excess calorie consumption
BMI 38
# COPD, no acute exacerbation
# Nicotine abuse
nicotine patch
Cessation advised
# Sleep apnea, reported not on CPAP
# Chronic pain
Continue MANAGER [employer] W[employer]HOUSING Tylenol
#DVT prophylaxis: Subcu heparin
#DNR
Total time spent to see the patient on the floor, examine the patient, review data and lab results, discuss treatment plan with patient, nursing staff around 55 minutes
Anticipated Discharge: 24 - 48 hours
Subjective/Interval History
-
Date of Service: December 20, 2023
She feels better
No chest pain
No fevers
Objective Data
-
Labs:
Laboratory Results
12/20/23
06:30
WBC 7.1
Hgb 13.7
Hct 41.5
Plt Count 244
Sodium 140
Potassium 3.4 L
Chloride 97 L
Carbon Dioxide 24
BUN 62 H
Creatinine 1.8 H
Glucose 206 H
Calcium 9.6
Vital Signs:
Vital Signs
Temp Pulse Resp BP Pulse Ox
97.9 F 83 16 110/60 94
12/20/23 07:23 12/20/23 07:23 12/20/23 07:23 12/20/23 07:23 12/20/23 07:23
I&O
12/19/23 12/20/23 12/21/23
06:59 06:59 06:59
Intake Total 660 / 660 1210 / 1210
Balance 660 / 660 1210 / 1210
[2023-12-20] MEDS: KCL 20 MEQ PO (10:39)
[2023-12-20 11:12] VITALS: BP 115/59
[2023-12-20 11:22] LABS: Glucose - Point of Care 190 mg/dl (70-99)
[2023-12-20] MEDS: NOVOLOG FLEXPEN-MODERATE RESISTANCE 1 UNITS SC (11:32)
[2023-12-20 15:16] VITALS: BP 115/59
[2023-12-20 16:15] LABS: Glucose - Point of Care 270 mg/dl (70-99)
[2023-12-20] MEDS: NOVOLOG FLEXPEN-MODERATE RESISTANCE 5 UNITS SC (16:36)
[2023-12-20] MEDS: LASIX 40 MG PO (16:37)
--- NOTE | 2023-12-20 17:24 | W.PN.ID1 ---
Date of Service
Date of Service: December 20, 2023
Today's Communication
- switch to dicloxacillin to complete 4 more days of therapy - cross reactivity with cephalexin low
Assessment / Plan
Cellulitis
chronic venous stasis
Chronic wounds
uncontrolled Dm2
chronic lymphedema
reported allergy to cephalexin - rash
- 09/01 MRSA screen negative, repeated yesterday - negative
- compression/elevation critical therapies - does have open wounds on the ankles - dress with adaptic, abdominal pad, kerflex then romina wraps
- switch to dicloxacillin to complete 4 more days of therapy - cross reactivity with cephalexin low
- recommend tight control of DM2
- follow up in wound care clinic after discharge
Chief Complaint
-: Cellulitis and Other
Subjective / Review of Systems
afebrile
markedly improved erythema, warmth and swelling
Vital Signs / Physical Exam
Vital Signs
Vital Signs
Temp Pulse Resp BP Pulse Ox
98.0 F 83 18 115/59 96
12/20/23 15:16 12/20/23 15:16 12/20/23 15:16 12/20/23 15:16 12/20/23 15:16
Physical Exam
Constitutional: No Acute Distress
Cardiovascular: Regular Rate and S1/S2; Negative Murmur or Rub
Pulmonary: Clear and Symmetric; Negative Wheezes or Rales
Gastrointestinal: Soft, Non Tender, Non Distended and Normal Bowel Sounds
Skin: Warm, Dry and Rash (markedly improved edema, warmth, mild residual erythema on background of venous stasis dermatitis); Negative Jaundice
Objective Data
Lab Data
Lab Results
12/20/23 06:30
12/20/23 06:30
Estimated Creat Clear 31 ml/min 12/20/23 06:30
Total Bilirubin 0.7 mg/dl (0.2-1.3) 12/17/23 13:53
AST 20 U/L (14-36) 12/17/23 13:53
ALT 16 U/L (0-35) 12/17/23 13:53
Alkaline Phosphatase 77 U/L (38-126) 12/17/23 13:53
Most recent labs reviewed.
Micro Results:
12/17/23 21:21 MRSA Screen - Final
Nose No Methicillin Resistant Staphylococcus aureus isolated.
[2023-12-20] MEDS: DYNAPEN 500 MG PO (20:03)
[2023-12-20 21:49] LABS: Glucose - Point of Care 295 mg/dl (70-99)
[2023-12-20 23:00] VITALS: BP 135/62
[2023-12-21] MEDS: DYNAPEN 500 MG PO ×4 (00:12→19:41)
[2023-12-21] MEDS: HEPARIN 5000 UNITS SC ×4 (00:12→23:59)
[2023-12-21 06:00] VITALS: BMI 36.1
[2023-12-21 06:49] LABS: Vancomycin Random 14.3 ug/ml
[2023-12-21 07:08] LABS: Blood Urea Nitrogen 80 mg/dl (7-17); Calcium 9.8 mg/dl (8.4-10.2); Carbon Dioxide 30 mmol/L (22-30); Chloride 96 mmol/L (98-107); Estimated Creatinine Clearance 28 ml/min; Glucose 192 mg/dl (70-99); Potassium 3.2 mmol/L (3.5-5.1); Sodium 141 mmol/L (135-145); eGFR 24.79
[2023-12-21 08:02] VITALS: BP 117/56
[2023-12-21 08:37] LABS: Glucose - Point of Care 233 mg/dl (70-99)
[2023-12-21] MEDS: TOPROL XL 50 MG PO (09:17)
[2023-12-21] MEDS: PRAVACHOL 20 MG PO (09:17)
[2023-12-21] MEDS: LASIX 80 MG PO (09:17)
[2023-12-21] MEDS: ALDACTONE 12.5 MG PO (09:18)
[2023-12-21] MEDS: VITAMIN B1 100 MG PO (09:18)
[2023-12-21] MEDS: ASPIR LOW (ENTERIC COATED) 81 MG PO (09:18)
[2023-12-21] MEDS: DESENEX/MITRAZOL/ZEASORB 1 APPLIC TOPICAL ×2 (09:19→21:00)
[2023-12-21] MEDS: HYDROPHOR 1 APPLIC TOPICAL (09:19)
[2023-12-21] MEDS: NOVOLOG FLEXPEN-MODERATE RESISTANCE 3 UNITS SC (11:05)
--- NOTE | 2023-12-21 11:11 | W.PN.ID1 ---
Date of Service
Date of Service: December 21, 2023
Today's Communication
- lotion for xerosis
- switch to dicloxacillin to complete 3 more days of therapy - cross reactivity with cephalexin low
- recommend tight control of DM2
- follow up in wound care clinic after discharge
Assessment / Plan
Cellulitis
chronic venous stasis
Chronic wounds
uncontrolled Dm2
chronic lymphedema
reported allergy to cephalexin - rash
- complaints of dry, itchy skin - xerosis - lotion
- 09/01 MRSA screen negative, repeated yesterday - negative
- compression/elevation critical therapies - does have open wounds on the ankles - dress with adaptic, abdominal pad, kerflex then romina wraps
- switch to dicloxacillin to complete 3 more days of therapy - cross reactivity with cephalexin low
- recommend tight control of DM2
- follow up in wound care clinic after discharge
Chief Complaint
-: Cellulitis and Other
Subjective / Review of Systems
afebrile
bp stable
no events overnight
xerosis noted - no rashes beyond the legs
Vital Signs / Physical Exam
Vital Signs
Vital Signs
Temp Pulse Resp BP Pulse Ox
97.6 F 69 18 117/56 92
12/21/23 08:02 12/21/23 09:18 12/21/23 08:02 12/21/23 09:18 12/21/23 08:02
Physical Exam
Constitutional: No Acute Distress
Cardiovascular: Regular Rate and S1/S2; Negative Murmur or Rub
Pulmonary: Clear and Symmetric; Negative Wheezes or Rales
Gastrointestinal: Soft, Non Tender, Non Distended and Normal Bowel Sounds
Skin: Warm and Dry; Negative Rash (xerosis noted - no rashes beyond the legs ) or Jaundice
Objective Data
Lab Data
Lab Results
12/20/23 06:30
12/21/23 05:57
Estimated Creat Clear 28 ml/min 12/21/23 05:57
Total Bilirubin 0.7 mg/dl (0.2-1.3) 12/17/23 13:53
AST 20 U/L (14-36) 12/17/23 13:53
ALT 16 U/L (0-35) 12/17/23 13:53
Alkaline Phosphatase 77 U/L (38-126) 12/17/23 13:53
Most recent labs reviewed.
Micro Results:
12/17/23 21:21 MRSA Screen - Final
Nose No Methicillin Resistant Staphylococcus aureus isolated.
[2023-12-21 11:40] LABS: Glucose - Point of Care 343 mg/dl (70-99)
--- NOTE | 2023-12-21 12:00 | W.PN.HOSP.TC ---
Today's Communication/Plan
-
Uncontrolled diabetes, will add Lantus, find out OP medications, was on glimepiride in past?
Replace potassium
Order wound care consult
Order PT/OT
DC in am
Assessment / Plan
Assessment / Plan
Physical Exam
General: Not in acute distress
HEENT: Normocephalic and Moist mucous membranes
Respiratory: Clear to Auscultation Bilaterally
Cardiac: S1/S2 and Regular Rhythm
GI: Soft, Non Tender and Normal Bowel Sounds
Musculoskeletal: No Cyanosis, Edema, Left Lower Extremity and Edema, Right Lower Extremity
Skin: Warm and Other (Wounds, erythema in lower extremities with DINA wraps bilaterally)
Neuro: Awake, Alert, AO x 3 and Nonfocal/grossly intact
Psych: Calm and Intact Judgment/Insight
Assessment/Plan
# Worsening Bilateral LE venous stasis dermatitis in setting of chronic BL lymphedema LLE> RLE
# Bilateral Lower Extremity Cellulitis
# New Leukocytosis on 12/18/23
# Recurrent Cellulitis
# Lymphedema
Given recent hospitalization in the past 12 months, with antibiotic administration within the past 6 months, risk for MRSA
s/p Vancomycin, Cefepime, no won Dicloxacillin
Flagyl stopped on 12/18/23
Consulted ID, appreciate their evaluation and recommendations
Consult wound care
US DVT from December 17, 2023 is negative
Compression therapy
Leg Elevation
Consult PT/OT
# Chronic heart failure with preserved ejection fraction
# Severe pulmonary HTN
Continue furosemide 80 mg daily, 40 mg QPM, I/O daily weight
Toprol, spironolactone
#Hypokalemia on 12/18/23
-RESOLVED
-Replacement ordered
-Recheck BMP
-Mag is okay
# JONO on CKD Stage IV
Last creatinine was 1.7 now 2.0-->1.9-->1.8-->1.9
Follow BMP
# hypokalemia, lower at 3.2, aggressive potassium replacement.
# NIDDM
uncontrolled, will add Lantus
Accu-Cheks with SSI
HbA1c 8.7% this admission
Changed sliding scale to moderate intensity with improved glucose readings
Carb controlled diet
# History of Alcohol abuse
-Patient denied current alcohol use
# Primary HTN
Toprol, spironolactone
# HLD
Continue pravastatin
# Morbid obesity due to excess calorie consumption
BMI 38
# COPD, no acute exacerbation
# Nicotine abuse
nicotine patch
Cessation advised
# Sleep apnea, reported not on CPAP
# Chronic pain
Continue [employer] Tylenol
#DVT prophylaxis: Subcu heparin
#DNR
Total time spent to see the patient on the floor, examine the patient, review data and lab results, discuss treatment plan with patient, nursing staff around 55 minutes
Anticipated Discharge: Within 24 hours
Subjective/Interval History
-
Date of Service: December 21, 2023
No chest pain
No sob
No fevers
Objective Data
-
Labs:
Laboratory Results
12/21/23
05:57
Sodium 141
Potassium 3.2 L
Chloride 96 L
Carbon Dioxide 30
BUN 80 H
Creatinine 2.0 H
Glucose 192 H
Calcium 9.8
Vital Signs:
Vital Signs
Temp Pulse Resp BP Pulse Ox
97.6 F 69 18 117/56 92
12/21/23 08:02 12/21/23 09:18 12/21/23 08:02 12/21/23 09:18 12/21/23 08:02
I&O
12/20/23 12/21/23 12/22/23
06:59 06:59 06:59
Intake Total 1210 / 1210 1100 / 1100
Balance 1210 / 1210 1100 / 1100
[2023-12-21] MEDS: NOVOLOG FLEXPEN-MODERATE RESISTANCE 7 UNITS SC (13:18)
[2023-12-21] MEDS: KCL 40 MEQ PO (13:19)
[2023-12-21] MEDS: LANTUS 0.2 UNITS SC (13:20)
[2023-12-21 14:57] VITALS: BP 106/51; PULSE 72; O2SAT 96
[2023-12-21 14:58] VITALS: BP 106/51
[2023-12-21 15:17] VITALS: BP 106/51; PULSE 72; O2SAT 96
[2023-12-21 17:11] LABS: Glucose - Point of Care 132 mg/dl (70-99)
[2023-12-21] MEDS: NOVOLOG FLEXPEN-MODERATE RESISTANCE SC (17:44)
[2023-12-21 22:30] VITALS: BP 102/73
[2023-12-21 23:18] LABS: Glucose - Point of Care 205 mg/dl (70-99)
[2023-12-22] MEDS: DYNAPEN 500 MG PO ×4 (06:27→17:01)
[2023-12-22 07:04] LABS: Blood Urea Nitrogen 84 mg/dl (7-17); Calcium 9.5 mg/dl (8.4-10.2); Carbon Dioxide 31 mmol/L (22-30); Chloride 96 mmol/L (98-107); Estimated Creatinine Clearance 28 ml/min; Glucose 198 mg/dl (70-99); Potassium 3.4 mmol/L (3.5-5.1); Sodium 138 mmol/L (135-145); eGFR 24.79
[2023-12-22 07:10] VITALS: BP 112/61
[2023-12-22 07:41] LABS: Glucose - Point of Care 230 mg/dl (70-99)
[2023-12-22] MEDS: LANTUS 0.2 UNITS SC ×2 (08:41→22:00)
[2023-12-22] MEDS: TOPROL XL 50 MG PO (08:43)
[2023-12-22] MEDS: VITAMIN B1 100 MG PO (08:43)
[2023-12-22] MEDS: NOVOLOG FLEXPEN-MODERATE RESISTANCE 3 UNITS SC ×3 (08:43→16:53)
[2023-12-22] MEDS: ASPIR LOW (ENTERIC COATED) 81 MG PO (08:44)
[2023-12-22] MEDS: HEPARIN 5000 UNITS SC ×2 (08:44→15:27)
[2023-12-22] MEDS: LASIX 80 MG PO (08:44)
[2023-12-22] MEDS: ALDACTONE 12.5 MG PO (08:44)
[2023-12-22] MEDS: PRAVACHOL 20 MG PO (08:44)
[2023-12-22] MEDS: HYDROPHOR 1 APPLIC TOPICAL (08:45)
[2023-12-22] MEDS: DESENEX/MITRAZOL/ZEASORB 1 APPLIC TOPICAL ×2 (08:45→20:41)
[2023-12-22] MEDS: ZAROXOLYN 2.5 MG PO (08:53)
[2023-12-22 08:54] VITALS: BMI 35.0
--- NOTE | 2023-12-22 09:12 | W.PN.HOSP.TC ---
Today's Communication/Plan
-
Continue to treat high blood glucose, will verify outpatient medications for diabetes
Holding PM Lasix due to high creatinine
Replace K
Likely discharge in AM
Assessment / Plan
Assessment / Plan
Physical Exam
General: Not in acute distress
HEENT: Normocephalic and Moist mucous membranes
Respiratory: Clear to Auscultation Bilaterally
Cardiac: S1/S2 and Regular Rhythm
GI: Soft, Non Tender and Normal Bowel Sounds
Musculoskeletal: No Cyanosis, Edema, Left Lower Extremity and Edema, Right Lower Extremity
Skin: Warm and Other (Wounds, erythema in lower extremities with DINA wraps bilaterally)
Neuro: Awake, Alert, AO x 3 and Nonfocal/grossly intact
Psych: Calm and Intact Judgment/Insight
Assessment/Plan
# Worsening Bilateral LE venous stasis dermatitis in setting of chronic BL lymphedema LLE> RLE
# Bilateral Lower Extremity Cellulitis
# New Leukocytosis on 12/18/23
# Recurrent Cellulitis
# Lymphedema
Given recent hospitalization in the past 12 months, with antibiotic administration within the past 6 months, risk for MRSA
s/p Vancomycin, Cefepime, no won Dicloxacillin
Flagyl stopped on 12/18/23
Consulted ID, appreciate their evaluation and recommendations
Consult wound care
US DVT from December 17, 2023 is negative
Compression therapy
Leg Elevation
Consulted PT/OT, ok for home PT
# Chronic heart failure with preserved ejection fraction
# Severe pulmonary HTN
Continue furosemide 80 mg daily, 40 mg QPM, I/O daily weight
Toprol, spironolactone
#Hypokalemia on 12/18/23
-RESOLVED
-Replacement ordered
-Recheck BMP
-Mag is okay
# JONO on CKD Stage IV
Last creatinine was 1.7 now 2.0-->1.9-->1.8-->1.9
Follow BMP
# hypokalemia, lower at 3.4, aggressive potassium replacement.
# NIDDM
uncontrolled, will add Lantus at 20 units
Accu-Cheks with SSI
HbA1c 8.7% this admission
Changed sliding scale to moderate intensity with improved glucose readings
Carb controlled diet
Will reach out to her pharmacy , pt does not know what pills she takes at home
# History of Alcohol abuse
-Patient denied current alcohol use
# Primary HTN
Toprol, spironolactone
# HLD
Continue pravastatin
# Morbid obesity due to excess calorie consumption
BMI 38
# COPD, no acute exacerbation
# Nicotine abuse
nicotine patch
Cessation advised
# Sleep apnea, reported not on CPAP
# Chronic pain
Continue COUNTY ATTORNEY Tylenol
#DVT prophylaxis: Subcu heparin
#DNR
Total time spent to see the patient on the floor, examine the patient, review data and lab results, discuss treatment plan with patient, nursing staff around 57 minutes
Anticipated Discharge: Within 24 hours
Subjective/Interval History
-
Date of Service: December 22, 2023
No chest pain
No SOB
Objective Data
-
Labs:
Laboratory Results
12/22/23
06:01
Sodium 138
Potassium 3.4 L
Chloride 96 L
Carbon Dioxide 31 H
BUN 84 H
Creatinine 2.0 H
Glucose 198 H
Calcium 9.5
Vital Signs:
Vital Signs
Temp Pulse Resp BP Pulse Ox
97.5 F 67 16 113/64 98
12/22/23 07:10 12/22/23 08:53 12/22/23 07:10 12/22/23 08:53 12/22/23 07:10
I&O
11/01/3112/22/23 12/23/23
06:59 06:59 06:59
Intake Total 1100 / 1100 720 / 720
Balance 1100 / 1100 720 / 720
[2023-12-22] MEDS: KCL 40 MEQ PO (09:28)
--- NOTE | 2023-12-22 09:34 | WOUNDNOTE ---
R CALF (LOWER POSTERIOR)
--- NOTE | 2023-12-22 09:35 | WOUNDNOTE ---
[facility] RN note: Patient admitted with bilateral LE cellulitis, wounds. Patient lives with her son.
See H&P for complete history.
PMH: COPD, Venous stasis, lymphedema, CKD, UTI, arthritis, NIDDM.
Wound Location and type/assessment: Patient admitted with: Bilateral posterior calf venous stasis dermal ulcers, small-moderate ss andres drainage. Mild LE edema. +Hemosiderosis. L posterior calf very small dry scab. Blanchable mild red
coccyx/buttocks. +Pedal pulses heard easily with portable Doppler. LE venous Doppler negative for DVT.
Appetite: good.
Pressure redistribution devices in place: [employer] Accumax. Patient ambulates with walker. Air chair cushion given by AVA Davila.
Plan: LE dressings changed as ordered. Patient tolerated Chris wraps. Instructed patient local skin/wound care. She uses Tubigrip at home. Suggested she try Chris wraps is manageable. Her son can help her. Suggested she follow up at [facility]. Current
wound care appropriate. Discussed with AVA Davila.
Will follow as needed.
Note to case management requested for discharge: VN service.
Recommend follow up at wound care center upon discharge.
[2023-12-22 11:46] LABS: Glucose - Point of Care 210 mg/dl (70-99)
--- NOTE | 2023-12-22 14:06 | CM ---
Reviewed chart. Patient is doing well in therapy. Appears to be at baseline.
Plan: Case management will continue to follow and assist with discharge planning. Home when stable.
[2023-12-22 15:30] VITALS: BP 111/52
--- NOTE | 2023-12-22 16:27 | W.PN.ID1 ---
Date of Service
Date of Service: December 22, 2023
Today's Communication
- c/w dicloxacillin to complete 2 more days of therapy - tolerating this
- follow up in wound care clinic after discharge
Assessment / Plan
Cellulitis - resolved
chronic venous stasis
Chronic wounds
uncontrolled Dm2
chronic lymphedema
reported allergy to cephalexin - rash
- complaints of dry, itchy skin - xerosis - lotion
- 09/01 MRSA screen negative, repeated yesterday - negative
- compression/elevation critical therapies - does have open wounds on the ankles - dress with adaptic, abdominal pad, kerflex then romina wraps
- c/w dicloxacillin to complete 2 more days of therapy - tolerating this
- recommend tight control of DM2
- follow up in wound care clinic after discharge
Chief Complaint
-: Cellulitis and Other
Subjective / Review of Systems
afebrile
bp stable
using lotion and less pruritus
has swollen L elbow burase - no erythema or significant tenderness
Vital Signs / Physical Exam
Vital Signs
Vital Signs
Temp Pulse Resp BP Pulse Ox
97.5 F 70 18 111/52 96
12/22/23 15:30 12/22/23 15:30 12/22/23 15:30 12/22/23 15:30 12/22/23 15:30
Physical Exam
Constitutional: No Acute Distress
Cardiovascular: Regular Rate and S1/S2; Negative Murmur or Rub
Pulmonary: Clear and Symmetric; Negative Wheezes or Rales
Gastrointestinal: Soft, Non Tender, Non Distended and Normal Bowel Sounds
Musculoskeletal: Other (has swollen L elbow burase - no erythema or significant tenderness)
Skin: Warm and Dry; Negative Rash or Jaundice
Objective Data
Lab Data
Lab Results
12/20/23 06:30
12/22/23 06:01
Estimated Creat Clear 28 ml/min 12/22/23 06:01
Total Bilirubin 0.7 mg/dl (0.2-1.3) 12/17/23 13:53
AST 20 U/L (14-36) 12/17/23 13:53
ALT 16 U/L (0-35) 12/17/23 13:53
Alkaline Phosphatase 77 U/L (38-126) 12/17/23 13:53
Most recent labs reviewed.
Micro Results:
12/17/23 21:21 MRSA Screen - Final
Nose No Methicillin Resistant Staphylococcus aureus isolated.
[2023-12-22 16:46] LABS: Glucose - Point of Care 231 mg/dl (70-99)
[2023-12-22 21:49] LABS: Glucose - Point of Care 209 mg/dl (70-99)
[2023-12-22 22:30] VITALS: BP 106/54
[2023-12-23] MEDS: HEPARIN 5000 UNITS SC ×4 (00:44→23:32)
[2023-12-23] MEDS: DYNAPEN 500 MG PO ×5 (00:45→23:32)
[2023-12-23 06:00] VITALS: BMI 34.8
[2023-12-23 06:45] LABS: Blood Urea Nitrogen 91 mg/dl (7-17); Calcium 9.8 mg/dl (8.4-10.2); Carbon Dioxide 32 mmol/L (22-30); Chloride 94 mmol/L (98-107); Estimated Creatinine Clearance 27 ml/min; Glucose 192 mg/dl (70-99); Potassium 3.5 mmol/L (3.5-5.1); Sodium 137 mmol/L (135-145); eGFR 24.79
[2023-12-23 07:31] VITALS: BP 108/60
[2023-12-23 07:53] LABS: Glucose - Point of Care 206 mg/dl (70-99)
[2023-12-23] MEDS: NOVOLOG FLEXPEN-MODERATE RESISTANCE 3 UNITS SC (08:29)
[2023-12-23] MEDS: VITAMIN B1 100 MG PO (08:37)
[2023-12-23] MEDS: PRAVACHOL 20 MG PO (08:38)
[2023-12-23] MEDS: ASPIR LOW (ENTERIC COATED) 81 MG PO (08:39)
[2023-12-23] MEDS: TOPROL XL 50 MG PO (08:44)
[2023-12-23] MEDS: ALDACTONE 12.5 MG PO (08:47)
--- NOTE | 2023-12-23 08:48 | W.PN.HOSP.TC ---
Today's Communication/Plan
-
Holding diuretic with JONO/ CKD
Unable discharge due to pt's inability to manage her diabetes at home. Will continue with counseling and teaching
Will d/w embedded case manager, pt might need short term SNF?
Assessment / Plan
Assessment / Plan
Physical Exam
General: Not in acute distress
HEENT: Normocephalic and Moist mucous membranes
Respiratory: Clear to Auscultation Bilaterally
Cardiac: S1/S2 and Regular Rhythm
GI: Soft, Non Tender and Normal Bowel Sounds
Musculoskeletal: No Cyanosis, Edema, Left Lower Extremity and Edema, Right Lower Extremity
Skin: Warm and Other (Wounds, erythema in lower extremities with DINA wraps bilaterally)
Neuro: Awake, Alert, AO x 3 and Nonfocal/grossly intact
Psych: Calm and Intact Judgment/Insight
Assessment/Plan
# Worsening Bilateral LE venous stasis dermatitis in setting of chronic BL lymphedema LLE> RLE
# Bilateral Lower Extremity Cellulitis
# New Leukocytosis on 12/18/23
# Recurrent Cellulitis
# Lymphedema
Given recent hospitalization in the past 12 months, with antibiotic administration within the past 6 months, risk for MRSA
s/p Vancomycin, Cefepime. Finishing oral Dicloxacillin
Flagyl stopped on 12/18/23
Consulted ID, appreciate their evaluation and recommendations
Consult wound care
US DVT from December 17, 2023 is negative
Compression therapy
Leg Elevation
Consulted PT/OT
# Chronic heart failure with preserved ejection fraction
# Severe pulmonary HTN
Holding Lasix due to JONO. Daily weight
c/w Toprol, spironolactone
#Hypokalemia on 12/18/23
-RESOLVED
# JONO on CKD Stage IV
creatinine remains high, holding diuretic. Her weight is less.
Follow BMP
# hypokalemia, lower at 3.4, aggressive potassium replacement.
# NIDDM
uncontrolled, added Lantus BID. I d/w DM BRUSH OPERATOR, might try 70/30 dose to make it less overwhelming to the patient,
I d/w pt, she seems not to know about her BS readings at home, she reports PCP does not manage it. She will benefit from OP endocrinology follow up
HbA1c 8.7% this admission
# History of Alcohol abuse
-Patient denied current alcohol use
# Primary HTN
Toprol, spironolactone
# HLD
Continue pravastatin
# Morbid obesity due to excess calorie consumption
BMI 38
# COPD, no acute exacerbation
# Nicotine abuse
nicotine patch
Cessation advised
# Sleep apnea, reported not on CPAP
# Chronic pain
Continue UAT TESTER Tylenol
#DVT prophylaxis: Subcu heparin
#DNR
Total time spent to see the patient on the floor, examine the patient, review data and lab results, discuss treatment plan with patient, nursing staff around 57 minutes
Anticipated Discharge: Within 24 hours
Subjective/Interval History
-
Date of Service: December 23, 2023
Objective Data
-
Labs:
Laboratory Results
12/23/23
05:57
Sodium 137
Potassium 3.5
Chloride 94 L
Carbon Dioxide 32 H
BUN 91 H
Creatinine 2.0 H
Glucose 192 H
Calcium 9.8
Vital Signs:
Vital Signs
Temp Pulse Resp BP Pulse Ox
97.8 F 70 24 108/60 96
12/23/23 07:31 12/23/23 07:31 12/23/23 07:31 12/23/23 07:31 12/22/23 22:30
I&O
12/22/23 12/23/23 12/24/23
06:59 06:59 06:59
Intake Total 720 / 720 1420 / 1420
Balance 720 / 720 1420 / 1420
[2023-12-23] MEDS: DESENEX/MITRAZOL/ZEASORB 1 APPLIC TOPICAL ×2 (08:50→23:31)
[2023-12-23] MEDS: HYDROPHOR 1 APPLIC TOPICAL (08:51)
[2023-12-23] MEDS: LANTUS 0.2 UNITS SC (08:52)
[2023-12-23] MEDS: LASIX PO (08:54)
--- NOTE | 2023-12-23 10:13 | PN.DE.MGMTRT ---
Insulin Management
- -
12/23/2023 Diabetes Management Consult
Patient admitted for increased swelling in lower legs with open wounds. PMH COPD, CHF, HTN, HLD, chronic renal failure, diabetes, chronic venous stasis with lymphedema. Pre admission medication for diabetes unknown, A1C on admission 8.7%, cr 2,
eGFR 24.79.
Patient is awake and alert but not reliable for past diabetes care/management. She does not know what medications she took.
Lantus 20 units BID has been started, glucose 12/21 209 to 231 with corrective insulin and 20 lantus BID. Will start 4 units novolog AC change moderate corrective to low corrective.
I did show patient insulin pen but she was not able to follow the steps, I asked patients nurse, Giovanni, to try to reinforce. She states she has never monitored her glucose. Provided monitor but patient 'not ready' to learn it. I do not believe she
will be safe to self administer insulin. I understand from notes she has a son who may be able to assist.
Discussed with nurse.
Diabetes History
- -
Type of Diabetes: 2
Pre-Admission Diabetes Regimen
12/23/23
05:57
Creatinine 2.0 H
Lab Results
Hemoglobin A1c 8.7 % (4.0-5.6) H 12/18/23 06:32
Insulin Pump Settings
IP Diabetes Regimen
12/22/23 12/22/23 12/22/23
11:45 16:45 21:47
Glucose
POC Glucose 210 H 231 H 209 H
12/23/23 12/23/23
05:57 07:52
Glucose 192 H
POC Glucose 206 H
Meal type: Dinner
Meal type: Lunch
Amount consumed: 100%
Amount consumed: 100%
Patient Education
[2023-12-23] MEDS: TYLENOL 1000 MG PO (10:44)
[2023-12-23 12:30] VITALS: BP 114/75; PULSE 73; O2SAT 100
[2023-12-23 12:42] LABS: Glucose - Point of Care 266 mg/dl (70-99)
[2023-12-23] MEDS: NOVOLOG FLEXPEN 4 UNITS SC (12:49)
[2023-12-23] MEDS: NOVOLOG FLEXPEN-LOW RESISTANCE 3 UNITS SC (12:50)
--- NOTE | 2023-12-23 13:11 | PN.DE.MGMTRT ---
Insulin Management
- -
12/23/2023 Diabetes Management Follow up
Due to concern for multiple injections will stop Lantus and AC novolog and start Novolog 70/30 20 units BID and continue corrective insulin. First dose with dinner. Will need close supervision at home with insulin administration.
Diabetes History
- -
Type of Diabetes: 2 requiring insulin
Pre-Admission Diabetes Regimen
12/23/23
05:57
Creatinine 2.0 H
Lab Results
Hemoglobin A1c 8.7 % (4.0-5.6) H 12/18/23 06:32
Insulin Pump Settings
IP Diabetes Regimen
12/22/23 12/22/23 12/23/23
16:45 21:47 05:57
Glucose 192 H
POC Glucose 231 H 209 H
12/23/23 12/23/23
07:52 12:41
Glucose
POC Glucose 206 H 266 H
Meal type: Dinner
Meal type: Lunch
Amount consumed: 100%
Amount consumed: 100%
Patient Education
--- NOTE | 2023-12-23 14:20 | W.PN.ID1 ---
Date of Service
Date of Service: December 23, 2023
Today's Communication
ID service will no longer actively follow this patient please recall for further questions
Assessment / Plan
Cellulitis - resolved
chronic venous stasis
Chronic wounds
uncontrolled Dm2
chronic lymphedema
reported allergy to cephalexin - rash
- complaints of dry, itchy skin - xerosis - lotion
- compression/elevation critical therapies for venuos stasis dermatitis
- c/w dicloxacillin to complete 1 more days of therapy - tolerating this
- recommend tight control of DM2
- follow up in wound care clinic after discharge
ID service will no longer actively follow this patient please recall for further questions
Chief Complaint
-: Cellulitis and Other
Subjective / Review of Systems
afebrile
bp stable
rash resolved
tolerating dicloxacillin
Vital Signs / Physical Exam
Vital Signs
Vital Signs
Temp Pulse Resp BP Pulse Ox
97.8 F 70 24 108/60 98
12/23/23 07:31 12/23/23 07:31 12/23/23 07:31 12/23/23 07:31 12/23/23 07:30
Physical Exam
Constitutional: No Acute Distress
Cardiovascular: Regular Rate and S1/S2; Negative Murmur or Rub
Pulmonary: Clear and Symmetric; Negative Wheezes or Rales
Gastrointestinal: Soft, Non Tender, Non Distended and Normal Bowel Sounds
Skin: Warm and Dry; Negative Rash (resolved) or Jaundice
Objective Data
Lab Data
Lab Results
12/20/23 06:30
12/23/23 05:57
Estimated Creat Clear 27 ml/min 12/23/23 05:57
Total Bilirubin 0.7 mg/dl (0.2-1.3) 12/17/23 13:53
AST 20 U/L (14-36) 12/17/23 13:53
ALT 16 U/L (0-35) 12/17/23 13:53
Alkaline Phosphatase 77 U/L (38-126) 12/17/23 13:53
Most recent labs reviewed.
Micro Results:
12/17/23 21:21 MRSA Screen - Final
Nose No Methicillin Resistant Staphylococcus aureus isolated.
[2023-12-23 15:10] VITALS: BP 115/58
[2023-12-23 17:13] LABS: Glucose - Point of Care 134 mg/dl (70-99)
[2023-12-23] MEDS: NOVOLOG FLEXPEN-LOW RESISTANCE SC (17:21)
[2023-12-23] MEDS: NOVOLOG MIX 70/30 FLEXPEN 20 UNITS SC (17:54)
[2023-12-23 21:01] LABS: Glucose - Point of Care 155 mg/dl (70-99)
[2023-12-23 23:25] VITALS: BP 130/65
[2023-12-24 05:24] VITALS: BMI 34.8
[2023-12-24] MEDS: DYNAPEN 500 MG PO ×3 (06:17→17:41)
[2023-12-24 07:10] VITALS: BP 120/60
--- NOTE | 2023-12-24 07:43 | PN.DE.MGMTRT ---
Insulin Management
- -
12/24/2023: Diabetes Management F/U:
78 year old female admitted for increased swelling in lower legs with open wounds. PMH COPD, CHF, HTN, HLD, chronic renal failure, T2DM, chronic venous stasis with lymphedema. Pre admission medication for diabetes unknown, A1C on admission 8.7%,
Cr 2, eGFR 24.79.
Patient is awake and alert but not reliable for past diabetes care/management. She does not know what medications she took.
12/22 Lantus and AC NovoLog were discontinued yesterday due to concerns for multiple injections and NovoLog 70/30 20 units BID was started
Pt received 1st dose with dinner, HS glucose 155, fasting 161 this AM.
Will make no changes to current regimen: NovoLog 70/30 20 units BID and low corrective insulin with meals
Pt received Monitor and insulin pen instructions but was not able to follow the steps, nursing to continue reinforcing education.
Pt has never monitored her glucose. she had challenges with proper technique and use of both monitor and insulin pen.
Per chart review pt has a son who may be able to assist.
Pt will need close supervision at home with insulin administration.
Diabetes History
- -
Type of Diabetes: 2 requiring insulin
Pre-Admission Diabetes Regimen
Lab Results
Hemoglobin A1c 8.7 % (4.0-5.6) H 12/18/23 06:32
Insulin Pump Settings
IP Diabetes Regimen
12/23/23 12/23/23 12/23/23
07:52 12:41 17:12
POC Glucose 206 H 266 H 134 H
12/23/23
21:00
POC Glucose 155 H
Meal type: Dinner
Meal type: Lunch
Meal type: Breakfast
Amount consumed: 100%
Amount consumed: 100%
Amount consumed: 100%
Patient Education
[2023-12-24 08:06] LABS: Glucose - Point of Care 161 mg/dl (70-99)
[2023-12-24] MEDS: ALDACTONE 12.5 MG PO (08:25)
[2023-12-24] MEDS: TOPROL XL 50 MG PO (08:26)
[2023-12-24] MEDS: VITAMIN B1 100 MG PO (08:27)
[2023-12-24] MEDS: ASPIR LOW (ENTERIC COATED) 81 MG PO (08:27)
[2023-12-24] MEDS: DESENEX/MITRAZOL/ZEASORB 1 APPLIC TOPICAL ×2 (08:27→20:40)
[2023-12-24] MEDS: PRAVACHOL 20 MG PO (08:27)
[2023-12-24] MEDS: HEPARIN 5000 UNITS SC ×2 (08:27→16:05)
[2023-12-24] MEDS: NOVOLOG MIX 70/30 FLEXPEN 20 UNITS SC ×2 (08:28→18:16)
[2023-12-24] MEDS: NOVOLOG FLEXPEN-LOW RESISTANCE 1 UNITS SC ×2 (08:28→12:40)
[2023-12-24] MEDS: HYDROPHOR 1 APPLIC TOPICAL (08:29)
--- NOTE | 2023-12-24 10:36 | W.PN.HOSP.TC ---
Today's Communication/Plan
-
f/w DM BOUFFANT CURTAIN MACHINE TENDER recommendations, appreciate help
Assessment / Plan
Assessment / Plan
Physical Exam
General: Not in acute distress
HEENT: Normocephalic and Moist mucous membranes
Respiratory: Clear to Auscultation Bilaterally
Cardiac: S1/S2 and Regular Rhythm
GI: Soft, Non Tender and Normal Bowel Sounds
Musculoskeletal: No Cyanosis, Edema, Left Lower Extremity and Edema, Right Lower Extremity
Skin: Warm and Other (Wounds, erythema in lower extremities with DINA wraps bilaterally)
Neuro: Awake, Alert, AO x 3 and Nonfocal/grossly intact
Psych: Calm and Intact Judgment/Insight
Assessment/Plan
# Worsening Bilateral LE venous stasis dermatitis in setting of chronic BL lymphedema LLE> RLE
# Bilateral Lower Extremity Cellulitis
# New Leukocytosis on 12/18/23
# Recurrent Cellulitis
# Lymphedema
Given recent hospitalization in the past 12 months, with antibiotic administration within the past 6 months, risk for MRSA
s/p Vancomycin, Cefepime. Finishing oral Dicloxacillin
Flagyl stopped on 12/18/23
Consulted ID, appreciate their evaluation and recommendations
Consult wound care
US DVT from December 17, 2023 is negative
Compression therapy
Leg Elevation
Consulted PT/OT
# Chronic heart failure with preserved ejection fraction
# Severe pulmonary HTN
Holding Lasix due to JONO. Daily weight
c/w Toprol, spironolactone
#Hypokalemia on 12/18/23
-RESOLVED
# JONO on CKD Stage IV
creatinine remains high, holding diuretic. Her weight is less.
Follow BMP
# hypokalemia, lower at 3.4, aggressive potassium replacement.
# NIDDM
Poorly controlled, added Lantus BID and pre-meal insulin but pt was unable to f/w such regimen. I d/w DM BOUFFANT CURTAIN MACHINE TENDER, we started 70/30 dose to make it less overwhelming to the patient,
Patient was not checking blood glucose at home and we are unable to find out what medications she was on. Last time she filled Glimepiride was 02/2023 by pharmacy record. She will benefit from OP endocrinology follow up
HbA1c 8.7% this admission
# History of Alcohol abuse
-Patient denied current alcohol use
# Primary HTN
Toprol, spironolactone
# HLD
Continue pravastatin
# Morbid obesity due to excess calorie consumption
BMI 38
# COPD, no acute exacerbation
# Nicotine abuse
nicotine patch
Cessation advised
# Sleep apnea, reported not on CPAP
# Chronic pain
Continue CRUSHER Tylenol
#DVT prophylaxis: Subcu heparin
#DNR
Total time spent to see the patient on the floor, examine the patient, review data and lab results, discuss treatment plan with patient, DM BOUFFANT CURTAIN MACHINE TENDER, nursing staff around 57 minutes
Anticipated Discharge: Within 24 hours
Subjective/Interval History
-
Date of Service: December 24, 2023
No chest pain
No sob
Objective Data
-
Vital Signs:
Vital Signs
Temp Pulse Resp BP Pulse Ox
97.5 F 73 17 120/60 96
12/24/23 07:10 12/24/23 08:26 12/24/23 07:10 12/24/23 08:26 12/24/23 07:10
I&O
12/23/23 12/24/23 12/25/23
06:59 06:59 06:59
Intake Total 1420 / 1420 1140 / 1140
Balance 1420 / 1420 1140 / 1140
[2023-12-24 11:33] LABS: Glucose - Point of Care 175 mg/dl (70-99)
[2023-12-24 15:02] VITALS: BP 120/56
--- NOTE | 2023-12-24 17:04 | PN.DE ---
Diabetes Education
- -
Diabetes Education follow up.
Attempted to see pt twice today to reinforce diabetes education:- insulin instructions. Pt is not motivated and lacks insight in the significance and importance of consistent insulin administration. She repeatedly kept asking if she can just take
pills instead of insulin. Explained to pt that she is not a candidate for oral diabetes medications given her current kidney function with a Cr of 2.0. Redemonstrated proper steps to insulin administration but she will require further reinforcement.
I asked patients nurse, Giovanni, to try to reinforce.i am concerned about her not consistently taking the insulin at home. I explained the short and rodent exterminator complications if she does not take the insulin as prescribed. I understand from notes she has
a son who may be able to assist.
Discussed with nurse.
[2023-12-24 17:55] LABS: Glucose - Point of Care 293 mg/dl (70-99)
[2023-12-24] MEDS: NOVOLOG FLEXPEN-LOW RESISTANCE 3 UNITS SC (18:15)
[2023-12-24] MEDS: TYLENOL 1000 MG PO (20:43)
[2023-12-24 21:18] LABS: Glucose - Point of Care 180 mg/dl (70-99)
[2023-12-24 23:00] VITALS: BP 108/56
[2023-12-25] MEDS: DYNAPEN 500 MG PO ×3 (00:13→11:20)
[2023-12-25] MEDS: HEPARIN 5000 UNITS SC ×3 (00:13→16:45)
[2023-12-25 06:00] VITALS: BMI 35.0
[2023-12-25 07:10] VITALS: BP 125/63
[2023-12-25 08:16] LABS: Glucose - Point of Care 194 mg/dl (70-99)
[2023-12-25] MEDS: VITAMIN B1 100 MG PO (08:49)
[2023-12-25] MEDS: TOPROL XL 50 MG PO (08:49)
[2023-12-25] MEDS: ASPIR LOW (ENTERIC COATED) 81 MG PO (08:49)
[2023-12-25] MEDS: PRAVACHOL 20 MG PO (08:49)
[2023-12-25] MEDS: ZAROXOLYN 2.5 MG PO (09:03)
[2023-12-25] MEDS: ALDACTONE 12.5 MG PO (09:03)
[2023-12-25] MEDS: NOVOLOG FLEXPEN-LOW RESISTANCE 1 UNITS SC ×2 (09:05→17:09)
[2023-12-25] MEDS: NOVOLOG MIX 70/30 FLEXPEN 20 UNITS SC (09:08)
[2023-12-25] MEDS: HYDROPHOR 1 APPLIC TOPICAL (09:09)
[2023-12-25] MEDS: DESENEX/MITRAZOL/ZEASORB 1 APPLIC TOPICAL ×2 (09:09→20:49)
--- NOTE | 2023-12-25 10:21 | W.PN.HOSP.TC ---
Addendum entered and electronically signed by Mery Kidd MD 12/25/23 13:58:
Addendum
Called her son Jack based on his request at [phone]
I explained the status, he verbalized understanding. He will see his mother later today I will reach out to him tomorrow to discuss dc plan again.
End
Original Note:
Today's Communication/Plan
-
Unable to discharge safely to home
Blood glucose became better controlled with insulin treatment.
patient Refuses to use insulin. Does not monitor blood glucose. Non compliant with DM management.
Assessment / Plan
Assessment / Plan
Physical Exam
General: Not in acute distress
HEENT: Normocephalic and Moist mucous membranes
Respiratory: Clear to Auscultation Bilaterally
Cardiac: S1/S2 and Regular Rhythm
GI: Soft, Non Tender and Normal Bowel Sounds
Musculoskeletal: No Cyanosis, Edema, Left Lower Extremity and Edema, Right Lower Extremity
Skin: Warm and Other (Wounds, erythema in lower extremities with DINA wraps bilaterally)
Neuro: Awake, Alert, AO x 3 and Nonfocal/grossly intact
Psych: Calm and Intact Judgment/Insight
Assessment/Plan
# Worsening Bilateral LE venous stasis dermatitis in setting of chronic BL lymphedema LLE> RLE
# Bilateral Lower Extremity Cellulitis, non healing due to poorly controlled diabetes.
# New Leukocytosis on 12/18/23
# Recurrent Cellulitis
# Lymphedema
s/p Vancomycin, Cefepime. Finished oral Dicloxacillin
Flagyl stopped on 12/18/23
Consulted ID, appreciate their evaluation and recommendations
Consulted wound care
US DVT from December 17, 2023 is negative
Compression therapy
Leg Elevation
Consulted PT/OT
# Chronic heart failure with preserved ejection fraction
# Severe pulmonary HTN
resume Lasix.
c/w Toprol, spironolactone
#Hypokalemia on 12/18/23
-RESOLVED
# JONO on CKD Stage IV
monitored creatinine. Her weight is less.
Follow BMP
# hypokalemia, lower at 3.4, aggressive potassium replacement.
# NIDDM
Unable to discharge safely to home, patient refuses to use insulin at home.
Blood glucose became better controlled with insulin treatment.
regarding Oral diabetic medications : Due to underlying CKD, options are very limited ( most medications are contraindicated with renal impairment), also risk of hypoglycemia is high with renal insufficiency especially when patients do not monitor
blood glucose.
In history of our management here: started Lantus BID with pre-meal insulin but pt felt it was complicated regimen. we started 70/30 dose to make it less overwhelming to the patient. Patient found it hard to do insulin ( she reported poor
dexterity/ poor vision)
Patient was not checking blood glucose at home and we were unable to confirm OP medications. Last time she filled Glimepiride was 02/2023 by OP pharmacy records.
patient had multiple sessions with DM PRESS READER.
Will follow
I will try low dose of Januvia and glimepiride ( safest allowed per drug manufacture guidelines). Informed the patient that such regimen was not the best care, might not provide good control of diabetes, lead to hypoglycemia risk if no checking to
blood glucose as instructed. Patient verbalized understanding and wanted to do oral pills.
She will benefit from OP endocrinology follow up
HbA1c 8.7% this admission
# History of Alcohol abuse
-Patient denied current alcohol use
# Primary HTN
Toprol, spironolactone
# HLD
Continue pravastatin
# Morbid obesity due to excess calorie consumption
BMI 38
# COPD, no acute exacerbation
# Nicotine abuse
nicotine patch
Cessation advised
# Sleep apnea, reported not on CPAP
# Chronic pain
Continue NATIONAL FACILITIES MANAGER Tylenol
#DVT prophylaxis: Subcu heparin
#DNR
Total time spent to see the patient on the floor, examine the patient, review data and lab results, discuss treatment plan with patient, DM PRESS READER, nursing staff around 57 minutes
Anticipated Discharge: Within 24 hours
Subjective/Interval History
-
Date of Service: December 25, 2023
Refuses to use insulin at home ( does not like it, feels it is hard to do)
Objective Data
-
Labs:
Laboratory Results
12/25/23
10:15
Sodium Pending
Potassium Pending
Chloride Pending
Carbon Dioxide Pending
BUN Pending
Creatinine Pending
Glucose Pending
Calcium Pending
Vital Signs:
Vital Signs
Temp Pulse Resp BP Pulse Ox
97.8 F 69 16 125/63 94
12/25/23 07:10 12/25/23 07:10 12/25/23 07:10 12/25/23 07:10 12/25/23 07:10
I&O
12/24/23 12/25/23 12/26/23
06:59 06:59 06:59
Intake Total 1140 / 1140 1600 / 1600
Balance 1140 / 1140 1600 / 1600
[2023-12-25] MEDS: JANUVIA 25 MG PO (11:19)
[2023-12-25 11:23] LABS: Blood Urea Nitrogen 77 mg/dl (7-17); Carbon Dioxide 35 mmol/L (22-30); Chloride 94 mmol/L (98-107); Estimated Creatinine Clearance 32 ml/min; Glucose 167 mg/dl (70-99); Potassium 3.5 mmol/L (3.5-5.1); Sodium 138 mmol/L (135-145); eGFR 30.13
[2023-12-25 12:41] LABS: Glucose - Point of Care 229 mg/dl (70-99)
[2023-12-25] MEDS: NOVOLOG FLEXPEN-LOW RESISTANCE 2 UNITS SC (13:12)
--- NOTE | 2023-12-25 13:40 | CM ---
Patient with DM on new insulin, bilateral LE leg wounds. Room air. Receiving Insulin Novolog Flexpen, Novolog Mix Flexpen. PT recommends HH vs none, OT recommends HH. Seen by wound care nurse.
Seen by DM Educator; the patient was not able to follow steps to learn how to use insulin pen.
Marisolge from nurse Ela; patient refused Insulin training today.
Spoke with patient's son Jack;
Informed him that nurse reports that patient declined insulin instruction, and also had difficulty learning how to use insulin pen per the DM Educator.
Jack says patient often refuses what is suggested for her care. He says she has not been doing her wound care at home and he suspects she declined to allow [facility] nurse to continue to see her.
Per Jack, the patient resides with her son Lucio, who had a traumatic brain injury, and would not be able to learn how to administer insulin for her. He works ready to wear department manager as a chief service observer but is not able to drive, so patient drives him to
work. He helps the patient with meals and patient drives him to the food store and he shops for her.
Jack will talk with the patient about trying to learn insulin administration vs considering moving into an assisted living environment, however she is on a fixed pension and cannot afford a private caregiver and doubtful can afford assisted living,
or would agree to it. Jack is receptive to the patient having [facility] again at d/c.
Spoke with Karen Ramos, [facility] Liaison human relations professor; the patient was discharged from service Oct 2023. She did not have open wounds or wound care at that time. They completed goals for medication management at that time, and monitoring of skin. Discussed
need for [facility] again for insulin training and wound care, possibly PT.
Plan follow patient's insulin training, wound care needs, mobility needs for d/c
Plan probable home with VN.
[2023-12-25 15:45] VITALS: BP 114/64
--- NOTE | 2023-12-25 15:57 | PTCARENOTE ---
This am, patient refused any type of insulin administration teaching. She verbalized that she doesn't want to do tis at home. per her son Jack, she lives with her other son who has had TBI and she has not been doing wound care at home and can be
difficult and resists many things. After discussing case with Dr. Kidd, she is willing to try oral hypoglycemics with patient and hold 79/30 insulin but doesn't feel that is the best treatment. patient refusing to go to nursing facility as well.
will continue to encourage patient to learn how to administer insulin, will continue to monitor.
[2023-12-25 17:02] LABS: Glucose - Point of Care 186 mg/dl (70-99)
--- NOTE | 2023-12-25 19:27 | PTCARENOTE ---
patient agreeable to observing me prime Novolog Pen and set it for insulin dose with dinner. She was able to verbalize back to me her understanding. will continue to teach insulin management with her.
[2023-12-25 21:13] LABS: Glucose - Point of Care 227 mg/dl (70-99)
[2023-12-25 23:00] VITALS: BP 114/62
[2023-12-26] MEDS: HEPARIN 5000 UNITS SC ×4 (00:02→23:42)
[2023-12-26 06:00] VITALS: BMI 34.9
[2023-12-26 07:48] LABS: Glucose - Point of Care 189 mg/dl (70-99)
[2023-12-26 08:15] VITALS: BP 110/70
[2023-12-26] MEDS: NOVOLOG FLEXPEN-LOW RESISTANCE 1 UNITS SC ×2 (08:55→17:41)
[2023-12-26] MEDS: JANUVIA 25 MG PO (09:13)
[2023-12-26] MEDS: AMARYL 1 MG PO (09:13)
[2023-12-26] MEDS: ALDACTONE 12.5 MG PO (09:14)
[2023-12-26] MEDS: PRAVACHOL 20 MG PO (09:14)
[2023-12-26] MEDS: ASPIR LOW (ENTERIC COATED) 81 MG PO (09:14)
[2023-12-26] MEDS: VITAMIN B1 100 MG PO (09:14)
[2023-12-26] MEDS: HYDROPHOR 1 APPLIC TOPICAL (09:15)
[2023-12-26] MEDS: TOPROL XL 50 MG PO (09:16)
[2023-12-26] MEDS: DESENEX/MITRAZOL/ZEASORB 1 APPLIC TOPICAL ×2 (09:16→19:41)
--- NOTE | 2023-12-26 10:25 | W.PN.HOSP.TC ---
Today's Communication/Plan
-
Re- consult diabetic COTTON WRINGER as patient seems to be willing to work with them on Wednesday
c/w insulin TX, low dose oral agents ( prefer to avoid as noted in the note).
Assessment / Plan
Assessment / Plan
Physical Exam
General: Not in acute distress
HEENT: Normocephalic and Moist mucous membranes
Respiratory: Clear to Auscultation Bilaterally
Cardiac: S1/S2 and Regular Rhythm
GI: Soft, Non Tender and Normal Bowel Sounds
Musculoskeletal: No Cyanosis, Edema, Left Lower Extremity and Edema, Right Lower Extremity
Skin: Warm and Other (Wounds, erythema in lower extremities with DINA wraps bilaterally)
Neuro: Awake, Alert, AO x 3 and Nonfocal/grossly intact
Psych: Calm and Intact Judgment/Insight
Assessment/Plan
# Medical non- compliance
Seemed to be chronic issue
Pt had trouble allowing home care services. D/W her son Jack who was willing to help.
# Worsening Bilateral LE venous stasis dermatitis in setting of chronic BL lymphedema LLE> RLE
# Bilateral Lower Extremity Cellulitis, non healing due to poorly controlled diabetes.
# New Leukocytosis on 12/18/23
# Recurrent Cellulitis
# Lymphedema
s/p Vancomycin, Cefepime. Finished oral Dicloxacillin
Flagyl stopped on 12/18/23
Consulted ID, appreciate their evaluation and recommendations
Consulted wound care
US DVT from December 17, 2023 is negative
Compression therapy
Leg Elevation
Consulted PT/OT
# NIDDM
Unable to discharge safely to home, patient refused to use insulin at home.
Blood glucose became better controlled with insulin treatment.
Regarding Oral diabetic medications : Due to underlying CKD, options are very limited ( most medications are contraindicated with renal impairment), also risk of hypoglycemia is high with renal insufficiency especially when patients do not monitor
blood glucose.
In history of our management here: started Lantus BID with pre-meal insulin but pt felt it was complicated regimen. we started 70/30 dose to make it less overwhelming to the patient. Patient found it hard to do insulin ( she reported poor
dexterity/ poor vision)
Patient was not checking blood glucose at home and we were unable to confirm OP medications. Last time she filled Glimepiride was 02/2023 by OP pharmacy records.
Patient had multiple sessions with DM COTTON WRINGER for few days but she did not want to try insulin. She seemed anxious about it.
I will try low dose of Januvia and glimepiride ( safest allowed per drug manufacture guidelines). Informed the patient that such regimen was not the best care, might not provide good control of diabetes, lead to hypoglycemia risk if no checking to
blood glucose as instructed. Patient verbalized understanding. Generally, recommended insulin TX. Patient'/s son Jack spoke with his mother and she seemed to be willing to use insulin, re-consult DM COTTON WRINGER on Wednesday.
She will benefit from OP endocrinology follow up, info. put in for OP follow up.
HbA1c 8.7% this admission
# Chronic heart failure with preserved ejection fraction
# Severe pulmonary HTN
resumed Lasix.
c/w Toprol, spironolactone
#Hypokalemia on 12/18/23
-RESOLVED
# JONO on CKD Stage IV
monitored creatinine. Her weight is less.
Follow BMP
# hypokalemia, lower at 3.4, aggressive potassium replacement.
# History of Alcohol abuse
-Patient denied current alcohol use
# Primary HTN
Toprol, spironolactone
# HLD
Continue pravastatin
# Morbid obesity due to excess calorie consumption
BMI 38
# COPD, no acute exacerbation
# Nicotine abuse
nicotine patch
Cessation advised
# Sleep apnea, reported not on CPAP
# Chronic pain
Continue DRAW FRAME TENDER Tylenol
#DVT prophylaxis: Subcu heparin
#DNR
Total time spent to see the patient on the floor, examine the patient, review data and lab results, discuss treatment plan with patient, DM COTTON WRINGER, nursing staff around 57 minutes
Anticipated Discharge: Within 24 hours
Subjective/Interval History
-
Date of Service: December 26, 2023
No chest pain
No sob
Objective Data
-
Vital Signs:
Vital Signs
Temp Pulse Resp BP Pulse Ox
98.0 F 81 17 110/70 100
12/26/23 08:15 12/26/23 09:14 12/26/23 08:15 12/26/23 09:14 12/26/23 08:15
I&O
12/25/23 12/26/23 12/27/23
06:59 06:59 06:59
Intake Total 1600 / 1600 1080 / 1080
Balance 1600 / 1600 1080 / 1080
[2023-12-26 11:30] LABS: Glucose - Point of Care 223 mg/dl (70-99)
[2023-12-26] MEDS: NOVOLOG FLEXPEN-LOW RESISTANCE 2 UNITS SC (13:18)
[2023-12-26 15:23] VITALS: BP 101/53
[2023-12-26 15:30] VITALS: BP 126/71; BP 83/63; PULSE 71; O2SAT 100
--- NOTE | 2023-12-26 15:54 | PTCARENOTE ---
Pt c/o of bump on L thumb. Small, hard bump observed. Pt able to tolerate pain. Pt stated, 'I hit it on the bathroom sink'. MD made aware, no new orders provided. Will continue to monitor.
[2023-12-26 16:30] LABS: Glucose - Point of Care 184 mg/dl (70-99)
[2023-12-26] MEDS: NOVOLOG MIX 70/30 FLEXPEN 20 UNITS SC (17:42)
[2023-12-26 22:10] LABS: Glucose - Point of Care 152 mg/dl (70-99)
[2023-12-26 23:06] VITALS: BP 117/49
[2023-12-27 05:26] VITALS: BMI 35.0
[2023-12-27 07:30] VITALS: BP 115/55
--- NOTE | 2023-12-27 07:41 | W.PN.HOSP.TC ---
Today's Communication/Plan
-
Patient is new to Insulin and does not know how to administer Insulin by herself or how to check blood sugars
Patient without support at home today, patient's son has an emergency
Will plan for discharge tomorrow after assurance patient will have VN support services at home
Assessment / Plan
Assessment / Plan
Physical Exam
General: Not in acute distress
HEENT: Normocephalic and Moist mucous membranes
Respiratory: Clear to Auscultation Bilaterally
Cardiac: S1/S2 and Regular Rhythm
GI: Soft, Non Tender and Normal Bowel Sounds
Musculoskeletal: No Cyanosis. Edema, Left Lower Extremity and Edema, Right Lower Extremity.
Skin: Warm and Other (Wounds, erythema in lower extremities with DINA wraps bilaterally)
Neuro: Awake, Alert, AO x 3 and Nonfocal/grossly intact
Psych: Calm and Intact Judgment/Insight
Assessment/Plan
# Medical non- compliance
Seemed to be chronic issue
Pt had trouble allowing home care services. Dr. Kidd discussed this with her son Jack who was willing to help.
# Worsening Bilateral LE venous stasis dermatitis in setting of chronic BL lymphedema LLE> RLE
# Bilateral Lower Extremity Cellulitis, non healing due to poorly controlled diabetes.
# New Leukocytosis on 12/18/23
# Recurrent Cellulitis
# Lymphedema
s/p Vancomycin, Cefepime. Finished oral Dicloxacillin
Flagyl stopped on 12/18/23
Consulted ID, appreciate their evaluation and recommendations
Consulted wound care
US DVT from December 17, 2023 is negative
Compression therapy
Leg Elevation
Consulted PT/OT
78 female with B/L non healing lower extremities wounds. Uncontrolled DM, underlying CKD. She refuses to use insulin despite DM SIDE PANEL HANGER tried few times, delaying her discharge, she claimed vision/ hands issues but really kind of psychological. Spoke with
Son Jack, he visited her Wednesday night. She told me today she wanted DM SIDE PANEL HANGER to come back and she was willing to try it now. I started low doses of Glimepiride and Januvia but I�m not comfortable with oral meds due to potential hypoglycemia and poor
control (she does not check BS at home-never did before). If dose use insulin with SIDE PANEL HANGER, dc on insulin only and to f/w Endocrine if office. Per son, pt is stubborn and does nothing at home. She apparently also did not allow home care inside the house
before?!
# NIDDM
Blood glucose became better controlled with insulin treatment.
Regarding Oral diabetic medications : Due to underlying CKD, options are very limited ( most medications are contraindicated with renal impairment), also risk of hypoglycemia is high with renal insufficiency especially when patients do not monitor
blood glucose.
Continue NovoLog 70/30 20 units BID. Diabetes SIDE PANEL HANGER spoke with patient today and she is willing to take Insulin.
Continue home accuchecks AC and HS.
She will benefit from OP endocrinology follow up, info. put in for OP follow up.
HbA1c 8.7% this admission
Patient will need close supervision at home with insulin administration.
# Chronic heart failure with preserved ejection fraction
# Severe pulmonary HTN
-Lasix was held previously this admission
c/w Toprol, spironolactone
-Continue outpatient daily weights
-Contact PCP's and cardiology's office regarding when to resume Lasix
#Hypokalemia on 12/18/23
-RESOLVED
# JONO on CKD Stage IV
monitored creatinine. Her weight is less.
Follow BMP
# History of Alcohol abuse
-Patient denied current alcohol use
# Primary HTN
Toprol, spironolactone
# HLD
Continue pravastatin
# Morbid obesity due to excess calorie consumption
BMI 38
# COPD, no acute exacerbation
# Nicotine abuse
nicotine patch
Cessation advised
# Sleep apnea, reported not on CPAP
# Chronic pain
Continue PLUG ASSEMBLER Tylenol
#DVT prophylaxis: Subcu heparin
#DNR
Anticipated Discharge: Within 24 hours
Subjective/Interval History
-
Date of Service: December 27, 2023
Patient was seen and examined. She denied any symptoms or complaints.
Objective Data
-
Labs:
Laboratory Results
12/27/23
07:39
WBC Pending
Hgb Pending
Hct Pending
Plt Count Pending
Sodium Pending
Potassium Pending
Chloride Pending
Carbon Dioxide Pending
BUN Pending
Creatinine Pending
Glucose Pending
Calcium Pending
Vital Signs:
Vital Signs
Temp Pulse Resp BP Pulse Ox
98.5 F 73 18 117/49 94
12/26/23 23:06 12/26/23 23:06 12/26/23 23:06 12/26/23 23:06 12/26/23 23:06
I&O
12/26/23 12/27/23 12/28/23
06:59 06:59 06:59
Intake Total 1080 / 1080 780 / 780
Balance 1080 / 1080 780 / 780
[2023-12-27 08:05] LABS: Glucose - Point of Care 161 mg/dl (70-99)
[2023-12-27 08:07] LABS: Hematocrit 38.1 % (37.0-47.0); Hemoglobin 12.8 g/dL (12.0-16.0); Mean Corp Hgb Conc. 33.6 g/dL (33.0-37.0); Mean Corpuscular Hgb 30.7 pg (27.0-31.0); Mean Corpuscular Volume 91.4 fL (81.0-99.0); Mean Platelet Volume 10.6 fL (7.4-10.4); Platelet Count 252 10^3/uL (130-400); Red Blood Cell Count 4.17 10^6/uL (4.20-5.40); Red Cell Dist. Width 13.2 % (11.5-14.5); White Blood Cell Count 7.1 10^3/uL (4.8-10.8)
[2023-12-27] MEDS: PRAVACHOL 20 MG PO (08:36)
[2023-12-27] MEDS: AMARYL 1 MG PO (08:36)
[2023-12-27] MEDS: VITAMIN B1 100 MG PO (08:36)
[2023-12-27] MEDS: TOPROL XL 50 MG PO (08:36)
[2023-12-27] MEDS: ALDACTONE 12.5 MG PO (08:37)
[2023-12-27] MEDS: HEPARIN 5000 UNITS SC ×3 (08:37→23:24)
[2023-12-27] MEDS: ASPIR LOW (ENTERIC COATED) 81 MG PO (08:37)
[2023-12-27] MEDS: JANUVIA 25 MG PO (08:37)
[2023-12-27] MEDS: HYDROPHOR 1 APPLIC TOPICAL (08:38)
[2023-12-27] MEDS: DESENEX/MITRAZOL/ZEASORB 1 APPLIC TOPICAL ×2 (08:39→20:19)
--- NOTE | 2023-12-27 08:44 | PN.DE.MGMTRT ---
Insulin Management
- -
12/27/2023: Diabetes Management F/U:
78 year old female admitted for increased swelling in lower legs with open wounds. PMH COPD, CHF, HTN, HLD, chronic renal failure, T2DM, chronic venous stasis with lymphedema. Pre admission medication for diabetes unknown, A1C on admission 8.7%,
Cr 2, eGFR 24.79.
Patient is not reliable for past diabetes care/management. She does not know what medications she took.
Pt awake, alert, sitting up in bed, offers no complaint, able to discuss diabetes mgt.
12/21 Lantus and AC NovoLog were discontinued yesterday due to concerns for multiple injections and NovoLog 70/30 20 units BID was started.
12/24 Pt was started on low dose Januvia and Glimepiride by Dr. Kidd, however, as previously noted, pt is not an ideal candidate for oral diabetes therapy due to CRF with a Cr of 1.8 -2.0. Had a lengthy d/w pt regarding optimal glucose control and
reiterated that insulin is the safest modality of treatment at this time. Pt was made aware of risk for hypoglycemia if using MCKEE and insulin. She verbalized understanding but was still insisting on trial with oral meds.
Will STOP Januvia and Glimepiride make no changes to current regimen: NovoLog 70/30 20 units BID and low corrective insulin with meals
Pt received Monitor and insulin pen instructions with fair demonstration, nursing to continue reinforcing education.
Pt has never monitored her glucose. Per chart review pt has a son who may be able to assist.
Pt will need close supervision at home with insulin administration.
Diabetes History
- -
Type of Diabetes: 2 requiring insulin
Pre-Admission Diabetes Regimen
Lab Results
Hemoglobin A1c 8.7 % (4.0-5.6) H 12/18/23 06:32
Insulin Pump Settings
IP Diabetes Regimen
12/26/23 12/26/23 12/26/23
11:29 16:30 22:08
POC Glucose 223 H 184 H 152 H
12/27/23
08:04
POC Glucose 161 H
Meal type: Lunch
Meal type: Breakfast
Amount consumed: 100%
Amount consumed: 100%
Patient Education
[2023-12-27] MEDS: NOVOLOG FLEXPEN-LOW RESISTANCE 1 UNITS SC ×3 (09:09→18:06)
[2023-12-27] MEDS: NOVOLOG MIX 70/30 FLEXPEN 20 UNITS SC ×2 (09:10→18:06)
[2023-12-27 09:25] LABS: Blood Urea Nitrogen 77 mg/dl (7-17); Calcium 9.5 mg/dl (8.4-10.2); Carbon Dioxide 28 mmol/L (22-30); Chloride 97 mmol/L (98-107); Estimated Creatinine Clearance 30 ml/min; Glucose 152 mg/dl (70-99); Potassium 3.9 mmol/L (3.5-5.1); Sodium 135 mmol/L (135-145); eGFR 28.13
[2023-12-27 12:48] LABS: Glucose - Point of Care 188 mg/dl (70-99)
--- NOTE | 2023-12-27 15:57 | CM ---
Reviewed chart, received request for VN. Met with patient who is agreeable to VN services. Referral Made. IMM signed and reviewed. Patient stated that she wants to drive home. Will consult with RN.
IMM reviewed with patient and signed.
Plan: Case management will continue to follow and assist with discharge planning. Home with VN services.
[2023-12-27 16:00] VITALS: BP 102/60
--- NOTE | 2023-12-27 17:16 | PN.DE ---
Diabetes Education
- -
Met with pt again earlier today for ongoing diabetes education. provided instructions on insulin administration via demo with insulin pen. Discussed s/sx of hypoglycemia and reviewed actions for treatment.
Reviewed proper testing technique for obtaining a blood glucose, and went over testing schedule and expected results as noted in take home education booklet.
Pt received instructions with fair return demonstration using the glucometer and insulin pen with a blood sugar of 154 mg/dl
Discussed importance of checking blood sugars 4at least 2x/day and encouraged her to consistently take her insulin as prescribed.
Discussed with pt's nurse and provided her with needles for pt use to continue reinforcing the education.
[2023-12-27 18:02] LABS: Glucose - Point of Care 166 mg/dl (70-99)
[2023-12-27 21:27] LABS: Glucose - Point of Care 189 mg/dl (70-99)
[2023-12-27 23:15] VITALS: BP 121/66
[2023-12-28 06:00] VITALS: BMI 35.1
[2023-12-28 07:30] VITALS: BP 100/48
[2023-12-28 07:47] LABS: Blood Urea Nitrogen 75 mg/dl (7-17); Carbon Dioxide 28 mmol/L (22-30); Chloride 97 mmol/L (98-107); Estimated Creatinine Clearance 31 ml/min; Glucose 153 mg/dl (70-99); Potassium 4.1 mmol/L (3.5-5.1); Sodium 139 mmol/L (135-145); eGFR 28.13
[2023-12-28 07:54] LABS: Glucose - Point of Care 138 mg/dl (70-99)
--- NOTE | 2023-12-28 07:56 | PN.DE.MGMTRT ---
Insulin Management
- -
12/28/2023: Diabetes Management Follow up:
78 year old female admitted for increased swelling in lower legs with open wounds. PMH COPD, CHF, HTN, HLD, chronic renal failure, T2DM, chronic venous stasis with lymphedema. Pre admission medication for diabetes unknown, A1C on admission 8.7%,
Cr 2, eGFR 24.79.
Patient is not reliable for past diabetes care/management. She does not know what medications she took.
Pt awake, alert, sitting up in bed, offers no complaint, able to discuss diabetes mgt.
12/21 Lantus and AC NovoLog were discontinued yesterday due to concerns for multiple injections and NovoLog 70/30 20 units BID was started.
12/24 Pt was started on low dose Januvia and Glimepiride by Dr. Kidd, however, as previously noted, pt is not an ideal candidate for oral diabetes therapy due to CRF with a Cr of 1.8 -2.0. Had a lengthy d/w pt regarding optimal glucose control and
reiterated that insulin is the safest modality of treatment at this time. Pt was made aware of risk for hypoglycemia if using MCKEE and insulin. She verbalized understanding but was still insisting on trial with oral meds.
12/26 Januvia and Glimepiride stopped, NovoLog 70/30 20 units BID and low corrective insulin with meals continued.
12/27 Glucose control appropriate for patient age and comorbidities. Will continue Novolog 70/30 20 units BID. Son Jack is at bedside. He is unable to take patient to his home or assist on a daily basis. I expressed my concern that patient has
really no memory of being taught the insulin pen or the glucose monitor.
Pt received Monitor and insulin pen instructions 12/26 with fair demonstration, nursing to continue reinforcing education. TODAY patient has no recollection of meter or insulin pen instruction. I asked patient to demonstrate prep of the insulin
pen for injection. She was unable to perform ANY steps without being told and shown what to do. Patient is NOT safe for discharge to home. TT to Dr. Parra, bottle caser notified safest transition would be to SNF for further reinforcement. I
discussed with patients nurse.
Diabetes History
- -
Type of Diabetes: 2 requiring insulin
Pre-Admission Diabetes Regimen
12/27/23 12/28/23
07:39 06:47
Creatinine 1.8 H 1.8 H
Lab Results
Hemoglobin A1c 8.7 % (4.0-5.6) H 12/18/23 06:32
Insulin Pump Settings
IP Diabetes Regimen
12/27/23 12/27/23 12/27/23
07:39 08:04 12:46
Glucose 152 H
POC Glucose 161 H 188 H
12/27/23 12/27/23 12/28/23
18:01 21:26 06:47
Glucose 153 H
POC Glucose 166 H 189 H
12/28/23
07:53
Glucose
POC Glucose 138 H
Patient Education
[2023-12-28] MEDS: TOPROL XL 50 MG PO (09:05)
[2023-12-28] MEDS: HEPARIN 5000 UNITS SC ×2 (09:09→15:17)
[2023-12-28] MEDS: PRAVACHOL 20 MG PO (09:10)
[2023-12-28] MEDS: NOVOLOG FLEXPEN-LOW RESISTANCE SC ×2 (09:10→11:52)
[2023-12-28] MEDS: ALDACTONE 12.5 MG PO (09:10)
[2023-12-28] MEDS: ASPIR LOW (ENTERIC COATED) 81 MG PO (09:10)
[2023-12-28] MEDS: DESENEX/MITRAZOL/ZEASORB TOPICAL (09:11)
[2023-12-28] MEDS: NOVOLOG MIX 70/30 FLEXPEN 20 UNITS SC ×2 (09:11→17:28)
[2023-12-28] MEDS: HYDROPHOR 1 APPLIC TOPICAL (09:11)
[2023-12-28] MEDS: VITAMIN B1 100 MG PO (09:12)
[2023-12-28 11:39] LABS: Glucose - Point of Care 149 mg/dl (70-99)
--- NOTE | 2023-12-28 13:08 | VNURNOTE ---
Home Health Liaison met with patient and son Jack to discuss [facility] nurse/therapy, visits, schedule and homebound status. Son is concerned that patient needs more practice here in [facility] administering insulin and checking glucose. Explained VN services
and that we can teach and reinforce DM education at home. Patient appears forgetful. She is agreeable and understands that visits at home will be 2-3 x per week to assess and teach medical management. Son Jack stated he's not comfortable w/her
going home just yet, was asking about short term rehab to get more practice administering insulin. Son stated patient cannot stay with him. Other brother who patient lives w/ is unable to learn/help with insulin (according to Jack). VN brochure
provided with contact information. Updated BRENNAN More about concerns. She will speak with patient and son.
[facility] referral saved in [facility] Port.
--- NOTE | 2023-12-28 14:04 | CM ---
Addendum entered by TAO Beach 12/28/23 14:20:
Son updated and agreeable.
Original Note:
Spoke with attending and BISCUIT MACHINE OPERATOR certified adapted physical educator who stated that there are concerns with patent returning home. Patient's son expressed concerns as well per medical staff.
Spoke with patient who at first stated that she did not want to go to SNF however after a conversation about risks of returning right home, she agreed to go to [facility].
Placed a call to [facility] and spoke with Rosalie in admissions who reviewed her chart and confirmed that she can take patient.
# For report [phone] and fax# [phone]
Attending updated.
Will update RN.
Plan: Case management will continue to follow and assist with discharge planning. SNF when stable.
--- NOTE | 2023-12-28 14:37 | W.PN.HOSP.TC ---
Today's Communication/Plan
-
Discharge today
Assessment / Plan
Assessment / Plan
Physical Exam
General: Not in acute distress
HEENT: Normocephalic and Moist mucous membranes
Respiratory: Clear to Auscultation Bilaterally
Cardiac: S1/S2 and Regular Rhythm
GI: Soft, Non Tender and Normal Bowel Sounds
Musculoskeletal: No Cyanosis. Edema, Left Lower Extremity and Edema, Right Lower Extremity.
Skin: Warm and Other (Wounds, erythema in lower extremities with DINA wraps bilaterally)
Neuro: Awake, Alert, AO x 3 and Nonfocal/grossly intact
Psych: Calm and Intact Judgment/Insight
Assessment/Plan
# Medical non- compliance
Seemed to be chronic issue
Pt had trouble allowing home care services. Dr. Kidd discussed this with her son Jack who was willing to help.
# Worsening Bilateral LE venous stasis dermatitis in setting of chronic BL lymphedema LLE> RLE
# Bilateral Lower Extremity Cellulitis, non healing due to poorly controlled diabetes.
# New Leukocytosis on 12/18/23
# Recurrent Cellulitis
# Lymphedema
s/p Vancomycin, Cefepime. Finished oral Dicloxacillin
Flagyl stopped on 12/18/23
Consulted ID, appreciate their evaluation and recommendations
Consulted wound care
US DVT from December 17, 2023 is negative
Compression therapy
Leg Elevation
Consulted PT/OT
# NIDDM
Blood glucose became better controlled with insulin treatment.
Regarding Oral diabetic medications : Due to underlying CKD, options are very limited ( most medications are contraindicated with renal impairment), also risk of hypoglycemia is high with renal insufficiency especially when patients do not monitor
blood glucose.
Continue NovoLog 70/30 20 units BID. Diabetes COLD WORKING SUPERVISOR spoke with patient today and she is willing to take Insulin.
Continue home accuchecks AC and HS.
She will benefit from OP endocrinology follow up, info. put in for OP follow up.
HbA1c 8.7% this admission
Patient will need close supervision at home with insulin administration.
# Chronic heart failure with preserved ejection fraction
# Severe pulmonary HTN
-Lasix was held previously this admission
c/w Toprol, spironolactone
-Continue outpatient daily weights
-Contact PCP's and cardiology's office regarding when to resume Lasix
#Hypokalemia on 12/18/23
-RESOLVED
# JONO on CKD Stage IV
monitored creatinine. Her weight is less.
Follow BMP
# History of Alcohol abuse
-Patient denied current alcohol use
# Primary Hypertension
Toprol, spironolactone
# HLD
Continue pravastatin
# Morbid obesity due to excess calorie consumption
BMI 38
# COPD, no acute exacerbation
# Nicotine abuse
nicotine patch
Cessation advised
# Sleep apnea, reported not on CPAP
# Chronic pain
Continue ETCHER APPRENTICE PHOTOENGRAVING Tylenol
#DVT prophylaxis: Subcutaneous Heparin
#DNR
More than 30 minutes spent in discharge including
Final examination of the patient
Summarizing hospital stay
Instructions for continuing care to all relevant caregivers
Preparation of discharge records, prescriptions, and referral forms
Total time spent (in minutes): 38
Anticipated Discharge: Today
Subjective/Interval History
-
Date of Service: December 28, 2023
Patient was seen and examined. She denied any chest pain, SOB, or any other symptoms.
Objective Data
-
Labs:
Laboratory Results
12/28/23
06:47
Sodium 139
Potassium 4.1
Chloride 97 L
Carbon Dioxide 28
BUN 75 H
Creatinine 1.8 H
Glucose 153 H
Calcium 10.0
Vital Signs:
Vital Signs
Temp Pulse Resp BP Pulse Ox
97.8 F 67 16 100/48 94
12/28/23 07:30 12/28/23 09:10 12/28/23 07:30 12/28/23 09:10 12/28/23 08:00
I&O
12/27/23 12/28/23 12/29/23
06:59 06:59 06:59
Intake Total 780 / 780 960 / 960
Balance 780 / 780 960 / 960
[2023-12-28 15:15] VITALS: BP 113/55
[2023-12-28 17:26] LABS: Glucose - Point of Care 180 mg/dl (70-99)
[2023-12-28] MEDS: NOVOLOG FLEXPEN-LOW RESISTANCE 1 UNITS SC (17:26)
== END 2023-12-28 18:08 | DRG 638 ==
LOC: 3 WEST ACU 19:23
PROVIDERS: Internal Medicine; ADMITTING PHYSICIAN Hospitalist; CONSULT PHYSICIAN Student in an Organized Health Care Education/Training Program; EMERGENCY PHYSICIAN Emergency Medicine; FAMILY PHYSICIAN Family Medicine
DX: E11.69 Type 2 diabetes mellitus with other specified complication (principal); I13.0 Hypertensive heart and chronic kidney disease with heart failure and stage 1 through stage 4 chronic kidney disease, or unspecified chronic kidney disease; L03.115 Cellulitis of right lower limb; I50.32 Chronic diastolic (congestive) heart failure; L03.116 Cellulitis of left lower limb; Z66 Do not resuscitate; N18.4 Chronic kidney disease, stage 4 (severe); N17.9 Acute kidney failure, unspecified; E11.65 Type 2 diabetes mellitus with hyperglycemia; J44.9 Chronic obstructive pulmonary disease, unspecified; E11.22 Type 2 diabetes mellitus with diabetic chronic kidney disease; E78.00 Pure hypercholesterolemia, unspecified; I89.0 Lymphedema, not elsewhere classified; I87.8 Other specified disorders of veins; E87.6 Hypokalemia; E66.01 Morbid (severe) obesity due to excess calories; I27.20 Pulmonary hypertension, unspecified; G47.30 Sleep apnea, unspecified; G89.29 Other chronic pain; F17.200 Nicotine dependence, unspecified, uncomplicated; Z68.38 Body mass index [BMI] 38.0-38.9, adult; Z91.198 Patient's noncompliance with other medical treatment and regimen for other reason; Z88.1 Allergy status to other antibiotic agents; Z88.2 Allergy status to sulfonamides; Z79.82 Long term (current) use of aspirin
CPT/HCPCS: 80048; 80053; 80202; 82962; 83036; 83735; 83880; 85025; 85027; 87070; 93970; 96365; 97116; 97162; 97166; 97535; 99285; 99406

== ENCOUNTER → 2023-12-31 15:42 | Outpatient (REF) | payer OTHER, MEDICARE, BC, SELFPAY ==
[2023-12-31 15:59] LABS: % Basophils 1.2 % (0-2); % Eosinophils 2.1 % (0-6); % Immature Granulocytes 0.5 % (0-0.5); % Lymphocytes 23.4 % (20.5-51.1); % Monocytes 8.7 % (1.7-9.3); % Neutrophils 64.1 % (42.2-75.2); Absolute Basophils 0.1 10^3/uL (0-0.2); Absolute Eosinophils 0.1 10^3/uL (0-0.7); Absolute Lymphocytes 1.5 10^3/uL (1.2-3.4); Absolute Monocytes 0.6 10^3/uL (0.1-0.6); Absolute Neutrophils 4.2 10^3/uL (1.4-6.5); Hematocrit 38.8 % (37.0-47.0); Hemoglobin 12.8 g/dL (12.0-16.0); Mean Corpuscular Hgb 30.5 pg (27.0-31.0); Mean Corpuscular Volume 92.6 fL (81.0-99.0); Mean Platelet Volume 12.1 fL (7.4-10.4); Nucleated Red Blood Cells % 0 %; Platelet Count 255 10^3/uL (130-400); Red Blood Cell Count 4.19 10^6/uL (4.20-5.40); Red Cell Dist. Width 13.6 % (11.5-14.5); White Blood Cell Count 6.6 10^3/uL (4.8-10.8)
[2023-12-31 16:05] LABS: ALT (SGPT) 27 U/L (0-35); AST (SGOT) 28 U/L (14-36); Albumin 3.7 g/dl (3.5-5.0); Alkaline Phosphatase 81 U/L (38-126); Blood Urea Nitrogen 57 mg/dl (7-17); Calcium 9.4 mg/dl (8.4-10.2); Carbon Dioxide 26 mmol/L (22-30); Chloride 100 mmol/L (98-107); Glucose 184 mg/dl (70-99); Magnesium 2.5 mg/dl (1.6-2.3); Potassium 4.6 mmol/L (3.5-5.1); Sodium 139 mmol/L (135-145); Total Bilirubin 0.4 mg/dl (0.2-1.3); Total Protein 6.9 g/dl (6.3-8.2); eGFR 28.13
== END ==
LOC: OLABP 15:42
PROVIDERS: ATTENDING PHYSICIAN Family Medicine
DX: L03.116 Cellulitis of left lower limb (principal); I89.0 Lymphedema, not elsewhere classified; E11.628 Type 2 diabetes mellitus with other skin complications; I50.30 Unspecified diastolic (congestive) heart failure
CPT/HCPCS: 36415; 80053; 83735; 85025

== ENCOUNTER 2024-03-07 23:49 | Inpatient (IN) | payer MEDICARE, BC, SELFPAY ==
--- NOTE | 2024-03-07 13:41 | ED.GENMED ---
ED Provider Triage
<Candelaria Stover MANAGED CARE DIRECTOR - Last Filed: 03/07/24 13:53>
-
Patient seen by provider in Triage?: Seen in Triage
Attestation: A medical screening examination has been initiated by a qualified medical provider. Based on the assessment performed at this time, it has been determined that an emergent medical condition may exist and the patient has been informed
that further medical evaluation and possible additional diagnostic testing may be needed.
HPI: 78-year-old female with history of COPD, CHF, HTN, HLD presents for ' UTI.' States her home nurse noted that she urinated on the chair and sent her in to check for urinary infection. Patient states she did not realize that she was
incontinent. Patient denies burning frequency or urgency to urinate. She denies abdominal pain. She denies fever or chills.
GENERAL: Alert , in no apparent distress
EYE: No visual abnormalities.
NECK: Trachea midline
ENT: No visible abnormalities.
LUNGS: No acute respiratory distress
NEUROLOGICAL: Alert and oriented
SKIN: Skin intact. No visible changes.
MUSCULOSKELETAL: Moving extremities normally
PSYCH: Normal and appropriate interaction.
This is a medical evaluation conducted in person to initiate diagnostic evaluation and provide initial therapeutics. Please see further documentation by the treating clinician.
History of Present Illness
<Candelaria Stover MANAGED CARE DIRECTOR - Last Filed: 03/07/24 13:53>
General
Chief Complaint: Urinary Symptoms
Time Seen by Provider: 03/07/24 21:04
<LANCE Santiago - Last Filed: 03/07/24 22:13>
General
Source: patient and family (Son)
Exam Limitations: none
History of Present Illness
History of Present Illness:
This is a 78 year old female that is brought in by her son. Son states that the VN were there today and they fell she is unsafe at home. States that she is living with his brother but he doesn't take care of himself. State sthat she is unable to
care for herself. States that she its in a chair all day in her own urine. HE believed that the only time she gets up is to use the toilet to have a BM. States that she refused any help. States that she has open wound on the left leg and that she
sleeps in this lounge chair. Patient states when questioned she has not eaten or drank anything today. Denies any fever, chills, chest pain, SOB, abd pain, nausea, vomiting, diarrhea, headache, dizziness, urinary burning.
Past History
<Candelaria Stover MANAGED CARE DIRECTOR - Last Filed: 03/07/24 13:53>
Past History
ED Past Medical History: COPD, HTN, Hypercholesterolemia, NIDDM, Renal failure and Other (Chronic venous stasis, lymphedema)
ED Past Surgical History: Gynecological and Orthopedic
Social History
Tobacco: Non-smoker
Alcohol: None
Drug: None
Personal:
Living: with family
Employment: Not employed
Family History
Family History: Diabetes and Other
<LANCE Santiago - Last Filed: 03/07/24 22:13>
Past History
ED Past Medical History: CHF and Other (Chronic venous stasis, lymphedema, Numbness arms and leg, Sleep apnea, UTI, Cellulitis, )
ED Past Surgical History: Appendectomy, Gynecological (Tubal, ) and Orthopedic (Right knee surgery)
Social History
Tobacco: Smoker
Review of Systems
<LANCE Santiago - Last Filed: 03/07/24 22:13>
Review of Systems
All Other Systems: ROS reviewed and negative except as documented in HPI and ROS
Constitutional: Reports no symptoms; Denies fever or chills
EENT: Reports no symptoms
Respiratory: Reports no symptoms; Denies cough or trouble breathing
Cardiac: Reports no symptoms; Denies chest pain
ABD/GI: Reports no symptoms; Denies abdominal pain, nausea, vomiting or diarrhea
: Reports incontinence
Musculoskeletal: Reports edema (bilateral leg chronic)
Skin: Reports other (Open wound right posterior leg)
Neurological: Reports no symptoms; Denies dizzy or headache
Psychiatric: Reports no symptoms
Phy Exam
<LANCE Santiago - Last Filed: 03/07/24 22:13>
General Physical Exam
General Presentation: no apparent distress
General age: appears stated age
General Skin: warm and dry
General Habitus: elderly and obese
General Mental: alert
General Hydration: dry mucous membranes
ENT Exam
ENT Exam: TM's normal, pharynx normal and neck supple
Eye Exam
Eye Exam: EOMI
Cardiovascular Exam
Cardiovascular Exam: regular rate/rhythm and normal peripheral pulses
Pulmonary Exam
Pulmonary Exam: lungs clear, no respiratory distress, no rales, chest non tender, no crackles, no rhonchi, no wheezing and no cough
Gastrointestinal Exam
Gastrointestinal Exam: normal bowel sounds, non tender, soft, no organomegaly, no pulsatile mass, non distended and other (Obese)
Musculoskeletal Exam
Musculoskeletal Exam: full ROM and edema (Chronic lymph edema. )
Skin Exam
Skin Exam: normal color, redness (Fungal rash under the left breast with redness and drainage. ) and other (Redness of the left posterior lower leg with open wounds and drainage. )
Psychiatric Exam
Psychiatric Exam: normal mood/affect
Course
<Candelaria Stover NP - Last Filed: 03/07/24 13:53>
Orders/Labs/Results
Orders:
Orders
03/07/24 13:55
Complete Blood Count/With Diff Urgent
Comprehensive Metabolic Panel Urgent
03/07/24 16:14
Urinalysis Reflex To Culture Urgent
Date Specimen was Collected: 03/07/24
Time Specimen was Collected: 13:47
Urine Microscopic Reflex Cult Urgent
03/07/24 21:33
0.9% Sodium Chloride 500 ml [Nss] 500 ml IV BOLUS
03/07/24 22:07
CeFAZolin 2 GRAM [Ancef] 2 grams in 10 ml IV NOW
Abnormal Lab Results
03/07/24 03/07/24
13:55 16:14
RBC 4.09 L 10^6/uL
(4.20-5.40)
Hct 36.9 L %
(37.0-47.0)
MCHC 32.8 L g/dL
(33.0-37.0)
Absolute Lymphs (auto) 0.7 L 10^3/uL
(1.2-3.4)
Neutrophils % 80.1 H %
(42.2-75.2)
Lymphocytes % 10.0 L %
(20.5-51.1)
Chloride 97 L mmol/L
(98-107)
BUN 88 H mg/dl
(7-17)
Creatinine 1.9 H mg/dL
(0.6-1.0)
Glucose 349 H mg/dl
(70-99)
Alkaline Phosphatase 127 H U/L
(38-126)
Ur Occult Blood Reflex Trace A
(Negative)
Urine RBC 3-6 A /HPF
(0-2)
Urine Glucose 2+ A
(Negative)
03/07/24 13:55
03/07/24 13:55
Vital Signs
Initial and Last Documented VS:
Initial Vital Signs
Temp Pulse Resp BP Pulse Ox
98.2 F 74 18 110/81 96
03/07/24 13:42 03/07/24 13:42 03/07/24 13:42 03/07/24 13:42 03/07/24 13:42
Last Documented Vital Signs
Temp Pulse Resp BP Pulse Ox
98.2 F 79 19 107/54 98
03/07/24 13:42 03/07/24 16:05 03/07/24 16:05 03/07/24 16:05 03/07/24 22:19
<LANCE Santiago - Last Filed: 03/07/24 22:13>
Orders/Labs/Results
Orders:
Orders
03/07/24 13:55
Complete Blood Count/With Diff Urgent
Comprehensive Metabolic Panel Urgent
03/07/24 16:14
Urinalysis Reflex To Culture Urgent
Date Specimen was Collected: 03/07/24
Time Specimen was Collected: 13:47
Urine Microscopic Reflex Cult Urgent
03/07/24 21:33
0.9% Sodium Chloride 500 ml [Nss] 500 ml IV BOLUS
03/07/24 22:07
CeFAZolin 2 GRAM [Ancef] 2 grams in 10 ml IV NOW
Abnormal Lab Results
03/07/24 03/07/24
13:55 16:14
RBC 4.09 L 10^6/uL
(4.20-5.40)
Hct 36.9 L %
(37.0-47.0)
MCHC 32.8 L g/dL
(33.0-37.0)
Absolute Lymphs (auto) 0.7 L 10^3/uL
(1.2-3.4)
Neutrophils % 80.1 H %
(42.2-75.2)
Lymphocytes % 10.0 L %
(20.5-51.1)
Chloride 97 L mmol/L
(98-107)
BUN 88 H mg/dl
(7-17)
Creatinine 1.9 H mg/dL
(0.6-1.0)
Glucose 349 H mg/dl
(70-99)
Alkaline Phosphatase 127 H U/L
(38-126)
Ur Occult Blood Reflex Trace A
(Negative)
Urine RBC 3-6 A /HPF
(0-2)
Urine Glucose 2+ A
(Negative)
03/07/24 13:55
03/07/24 13:55
Chronic renal failure, Hyperglycemia. Alk phos slightly elevated. Urine negative for infection.
Vital Signs
Initial and Last Documented VS:
Initial Vital Signs
Temp Pulse Resp BP Pulse Ox
98.2 F 74 18 110/81 96
03/07/24 13:42 03/07/24 13:42 03/07/24 13:42 03/07/24 13:42 03/07/24 13:42
Last Documented Vital Signs
Temp Pulse Resp BP Pulse Ox
98.2 F 79 19 107/54 98
03/07/24 13:42 03/07/24 16:05 03/07/24 16:05 03/07/24 16:05 03/07/24 22:19
<Adan Fernandes, DO - Last Filed: 03/07/24 22:34>
Orders/Labs/Results
Orders:
Orders
03/07/24 13:55
Complete Blood Count/With Diff Urgent
Comprehensive Metabolic Panel Urgent
03/07/24 16:14
Urinalysis Reflex To Culture Urgent
Date Specimen was Collected: 03/07/24
Time Specimen was Collected: 13:47
Urine Microscopic Reflex Cult Urgent
03/07/24 21:33
0.9% Sodium Chloride 500 ml [Nss] 500 ml IV BOLUS
03/07/24 22:07
CeFAZolin 2 GRAM [Ancef] 2 grams in 10 ml IV NOW
Abnormal Lab Results
03/07/24 03/07/24
13:55 16:14
RBC 4.09 L 10^6/uL
(4.20-5.40)
Hct 36.9 L %
(37.0-47.0)
MCHC 32.8 L g/dL
(33.0-37.0)
Absolute Lymphs (auto) 0.7 L 10^3/uL
(1.2-3.4)
Neutrophils % 80.1 H %
(42.2-75.2)
Lymphocytes % 10.0 L %
(20.5-51.1)
Chloride 97 L mmol/L
(98-107)
BUN 88 H mg/dl
(7-17)
Creatinine 1.9 H mg/dL
(0.6-1.0)
Glucose 349 H mg/dl
(70-99)
Alkaline Phosphatase 127 H U/L
(38-126)
Ur Occult Blood Reflex Trace A
(Negative)
Urine RBC 3-6 A /HPF
(0-2)
Urine Glucose 2+ A
(Negative)
03/07/24 13:55
03/07/24 13:55
Vital Signs
Initial and Last Documented VS:
Initial Vital Signs
Temp Pulse Resp BP Pulse Ox
98.2 F 74 18 110/81 96
03/07/24 13:42 03/07/24 13:42 03/07/24 13:42 03/07/24 13:42 03/07/24 13:42
Last Documented Vital Signs
Temp Pulse Resp BP Pulse Ox
98.2 F 79 19 107/54 98
03/07/24 13:42 03/07/24 16:05 03/07/24 16:05 03/07/24 16:05 03/07/24 22:19
<LANCE Santiago - Last Filed: 03/07/24 22:13>
MDM/Problems Addressed
Differential Diagnosis Includes:
Fungal rash, Open wounds left leg. Failure to thrive. Cellulitis,
MDM/Problems Addressed:
This is a 78 year old female that comes in with c/o urinary incontinence. Son states that she is unable to take care of herself. VN felt that patient was unsafe at home and that she can't care for self.
Will check labs, Urine and Explained to son that she will be admitted.
Patient seen by Dr. Fernandes and patient will be admitted. Hospitalist notified.
Chronic conditions affecting care: DM and Kidney disease
Acute Exacerbation and/or Progression of Chronic Illness: DM and Kidney disease
<LANCE Santiago - Last Filed: 03/07/24 22:13>
*Pulse Oximetry
Patient hypoxic: no
*EKG
Interpreted by ED Provider?: NA
Rate: EKG- N/A
*Breeder Hen Service Technician Interpretation
Rate: Breeder Hen Service Technician- N/A
*Critical Care Note
Total Time (30-74mins, 75-104mins- exclusive of procedures): Not Applicable
ED Attending Note
<Candelaria Stover NP - Last Filed: 03/07/24 13:53>
-
Portions of this chart may have been created with voice recognition software.� Occasional wrong word or��sound alike� substitutions may have occurred due to the inherent limitations of voice recognition software.
<Adan Fernandes DO - Last Filed: 03/07/24 22:34>
ED Attending Note
Patient seen and examined by attending physician: Yes
ED Attending Note:
I reviewed and agree with history and treatment plan by Anny Trammell. My exam revealed 78-year-old female with erythema left lower leg, dried skin on bilateral lower leg, poorly kempt. Clear lungs. Abdomen exam benign. Failure to thrive and left
lower leg cellulitis. Admit to hospitalist.
Discharge Plan
Departure
Patient Disposition: Admit
Date of Disposition: 03/07/24
Time of Disposition: 22:10
Admit to: Med/Surg
Presentation/result/management discussed w/ accepting MD/DO: Hospitalist
Patient with high blood pressure during this ER visit?: No
Condition: Good
Covid-19: Not Applicable
Discharge Problem:
Cellulitis of left leg, Unable to care for self, Fungal rash
Prescriptions:
No Action
metoprolol succinate 50 MG tablet extended release 24 hr
50 mg PO DAILY
pravastatin 20 MG tablet
20 mg PO DAILY
spironolactone 25 MG tablet
12.5 mg PO DAILY
aspirin 81 mg Tablet,Delayed Release (Dr/Ec)
81 mg PO DAILY
acetaminophen [Tylenol Extra Strength] 500 mg Tablet
1,000 mg PO Q6HPRN PRN (Reason: mild pain)
furosemide 80 mg Tablet
80 mg PO DAILY Qty: 30 0RF
furosemide 40 mg Tablet
40 mg PO QPM
metolazone 2.5 mg Tablet
2.5 mg PO WESA
vitamin A 2,400 mcg Capsule
2,400 mcg PO DAILY
thiamine HCl (vitamin B1) 100 mg tablet
100 mg PO DAILY
insulin asp prt-insulin aspart [Novolog Mix 70-30FlexPen U-100] 100 unit/mL (70-30) Insulin Pen
20 unit SC BID 30 Days Qty: 5 0RF
Rx Instructions:
Take 20 units twice a day with breakfast and dinner
(DME) pen needle, diabetic [BD Ultra-Fine Kim Pen Needle] 32 gauge x 5/32' Needle
Qty: 200 0RF
Rx Instructions:
As Directed
(DME) Contour Next Test Strips Strip
Qty: 130 0RF
Rx Instructions:
Pt Testing 4 times a day
(DME) lancets [Microlet Lancet] Misc
Qty: 130 0RF
Rx Instructions:
Pt testing 4 times a day
Referrals:
Liz Pereira MD [Family Provider] -
Interventions
Interventions:
*Risk Screen - Suicide Last Done: 03/07/24 13:42
*General Assessment Last Done: 03/07/24 22:19
*Neglect/Abuse Screening Last Done: 03/07/24 13:42
ED- Fall Risk Assessment Last Done: 03/07/24 22:19
*ED COVID-19 Vaccine History Last Done: 03/07/24 22:19
ED-Female Genitourinary Assessment Last Done: 03/07/24 22:19
Discharge Date and Time
Print Language: TELUGU
[2024-03-07 13:42] VITALS: BP 110/81
[2024-03-07 14:05] LABS: % Basophils 0.3 % (0-2); % Eosinophils 1.1 % (0-6); % Immature Granulocytes 0.5 % (0-0.5); % Neutrophils 80.1 % (42.2-75.2); Absolute Eosinophils 0.1 10^3/uL (0-0.7); Absolute Lymphocytes 0.7 10^3/uL (1.2-3.4); Absolute Monocytes 0.6 10^3/uL (0.1-0.6); Absolute Neutrophils 5.9 10^3/uL (1.4-6.5); Hematocrit 36.9 % (37.0-47.0); Hemoglobin 12.1 g/dL (12.0-16.0); Mean Corp Hgb Conc. 32.8 g/dL (33.0-37.0); Mean Corpuscular Hgb 29.6 pg (27.0-31.0); Mean Corpuscular Volume 90.2 fL (81.0-99.0); Mean Platelet Volume 10.2 fL (7.4-10.4); Nucleated Red Blood Cells % 0 %; Platelet Count 259 10^3/uL (130-400); Red Blood Cell Count 4.09 10^6/uL (4.20-5.40); Red Cell Dist. Width 13.6 % (11.5-14.5); White Blood Cell Count 7.4 10^3/uL (4.8-10.8)
[2024-03-07 14:25] LABS: ALT (SGPT) 18 U/L (0-35); AST (SGOT) 24 U/L (14-36); Albumin 3.7 g/dl (3.5-5.0); Alkaline Phosphatase 127 U/L (38-126); Blood Urea Nitrogen 88 mg/dl (7-17); Calcium 9.2 mg/dl (8.4-10.2); Carbon Dioxide 28 mmol/L (22-30); Chloride 97 mmol/L (98-107); Glucose 349 mg/dl (70-99); Potassium 3.5 mmol/L (3.5-5.1); Sodium 135 mmol/L (135-145); Total Bilirubin 0.4 mg/dl (0.2-1.3); Total Protein 6.7 g/dl (6.3-8.2); eGFR 26.36
[2024-03-07 16:05] VITALS: BP 107/54
[2024-03-07 16:35] LABS: Urine Albumin Negative (Neg - Trace); Urine Bilirubin Negative (Negative); Urine Character Clear (Clear); Urine Color Yellow; Urine Glucose 2+ (Negative); Urine Ketone Negative (Negative); Urine Leukocyte Negative (Negative); Urine Nitrite Negative (Negative); Urine Occult Blood Trace (Negative); Urine Urobilinogen Negative (Neg - 1+)
[2024-03-07 16:59] LABS: Urine White Cell 0-2 /HPF (0-5)
[2024-03-07 21:47] VITALS: BMI 35.4
[2024-03-07 22:30] VITALS: BP 77/46
[2024-03-07 22:39] VITALS: BP 99/85
[2024-03-07 22:48] VITALS: BP 115/97
[2024-03-07 23:00] VITALS: BP 115/58
[2024-03-07] MEDS: NSS 500 IV (23:21)
[2024-03-07] MEDS: ANCEF 10 IV (23:22)
--- NOTE | 2024-03-07 23:40 | HPS.HSE ---
Family Physician
-
Family Physician: Liz Pereira
Chief Complaint
-
Weakness, Incontinence
History of Present Illness
Patient is an 78y F with PMH significant for chronic venous stasis dermatitis, HFpEF, CKD IV and DM-II who presents to ED for evaluation of failure to thrive. History obtained from patient and her son at the bedside. Patient resides with her
other son - who apparently does not provide much assistance. She spends the vast majority of her time sitting in a recliner chair. She sleeps in this chair. She is incontinent of urine in this chair and essentially gets up only to have bowel
movements. She was visited by VN today who noted that she had been incontinent of urine and advised ED evaluation for possible UTI.
In the ED, patient is resting comfortably and denies any specific complaints.
Medical History
Past Medical History
Past Medical History: Reports Other
Additional Past Medical History:
Hypertension
CKD IV
Chronic HFpEF
Severe pulmonary HTN
DM-II
Morbid Obesity
Chronic Venous Stasis Dermatitis
COPD
Sleep apnea
Past Surgical History: Reports Other
Additional Past Surgical History:
Tubal ligation
Appendectomy
Right knee arthroscopy
Social History
Tobacco: Smoker (Current every day smoker.)
Alcohol: Occasional (Patient with history of excesive drinking. Now states it is 'too expensive'.)
Drug: None
Personal: Single
Living: With Family (Youngest adult son child lives with her)
Employment: Retired
Family History
Family History: Other (Father age 83 dementia mother age 94)
Allergies / Home Medications
Allergies reflects when Allergies were last updated in [facility].
Home Medications with original date entered in [facility]
Allergy/Medication List:
Allergies
Allergy/AdvReac Type Severity Reaction Status Date / Time
cephalexin [From Keflex] Allergy Mild Rash, Verified 03/07/24 13:30
Tolerates
zosyn,
cefepime,
cefazolin
DINA Inhibitors Allergy cough Verified 03/07/24 13:30
amlodipine besylate Allergy cough Verified 03/07/24 13:30
[From [facility]]
Influenza Virus Vaccines Allergy does not Verified 03/07/24 13:30
remember
Sulfa (Sulfonamide Allergy eyes swell Verified 03/07/24 13:30
Antibiotics)
valsartan [From Diovan] Allergy cough Verified 03/07/24 13:30
vancomycin AdvReac Mild Red man Verified 03/07/24 13:30
syndrome
Home Medications
metoprolol succinate 50 mg tablet,extended release 24 hr 50 mg PO DAILY Heart disease/condition 08/09/15
pravastatin 20 mg tablet 20 mg PO DAILY High cholesterol 08/09/15
spironolactone 25 mg tablet 12.5 mg PO DAILY Fluid retention/Swelling 01/31/21
acetaminophen 500 mg tablet (Tylenol Extra Strength) 1,000 mg PO Q6HPRN PRN mild pain 03/29/23
aspirin 81 mg tablet,delayed release 81 mg PO DAILY Blood Clot Prevention/Tx 03/29/23
thiamine HCl (vitamin B1) 100 mg tablet 100 mg PO DAILY Supplement 12/17/23
doxycycline monohydrate 100 mg capsule 100 mg PO DAILY 03/07/24
furosemide 40 mg tablet (Lasix) 40 mg PO NOON 03/07/24
furosemide 80 mg tablet (Lasix) 80 mg PO DAILY 03/07/24
Review of Systems
-
History Source: Patient
A 12 point ROS was completed and negative except as noted: Yes
Constitutional: Reports Fatigue; Denies Fever or Chills
Respiratory: Denies Cough or Trouble Breathing
Cardiac: Denies Chest Pain or Palpitations
Abdomen/GI: Reports Anorexia; Denies Abdominal Pain, Nausea, Vomiting, Diarrhea, Constipated, Bloody Stools or Black Stools
: Reports Incontinence; Denies Dysuria, Frequency, Flank Pain or Bleeding
Musculoskeletal: Reports Edema; Denies Joint Pain
Skin: Reports Other (Chronic LE skin changes / scaling / weeping.)
Psych: Denies Depression or Anxiety
Physical Exam
Vital Signs
Vital Signs
Temp Pulse Resp BP Pulse Ox
98.2 F 79 19 107/54 98
03/07/24 13:42 03/07/24 16:05 03/07/24 16:05 03/07/24 16:05 03/07/24 22:19
Physical Exam
General: Other (78y F in no acute distress.)
HEENT: Moist mucous membranes, PERRLA and Other (Thick neck.)
Respiratory: Other (Decreased at bases - otherwise clear.)
Cardiac: S1/S2 and Regular Rhythm; No Murmur
GI: Soft, Non Tender, Non Distended, Normal Bowel Sounds and Other (Obese.)
Musculoskeletal: No Clubbing, No Cyanosis and No Edema
Skin: Other (Scaling / dry skin b/l LEs - L > R. Erythema of the L > R LE extending to the knee. Mild ozzing from posterio leg without discrete wound / abscess. Ecchymotic lesion tip of the R great toe.)
Neuro: AO x 3 and Nonfocal/grossly intact
Laboratory Results
-
03/07/24 13:55
03/07/24 13:55
Laboratory Results
Total Bilirubin 0.4 mg/dl (0.2-1.3) 03/07/24 13:55
AST 24 U/L (14-36) 03/07/24 13:55
ALT 18 U/L (0-35) 03/07/24 13:55
Alkaline Phosphatase 127 U/L (38-126) H 03/07/24 13:55
Impression/Plan
-
A/P: Patient is an 78y F with PMH significant for HTN, CHF and CKD who presents to ED for evaluation of urinary incontinence and failure to thrive.
Chronic LE Venous Stasis Dermatitis
Possible Acute Cellulitis Component
- Admit for further evaluation and treatment.
- Wound care evaluation for local care.
- Renally dosed cefazolin for now and follow for clinical improvement.
- Will need ongoing / senior living wound care.
Urinary Incontinence
Failure to Thrive
Chronic Ambulatory Dysfunction
- No evidence of acute infection by UA.
- Incontinence seems mediated primarily by weakness / gait dysfunction / inability to get up.
- PT / OT evaluation.
- CM evaluation - will likely benefit from placement at discharge.
Chronic HFpEF
Benign Hypertension
- Stable. Continue home med regimen.
- Follow I/Os, daily weights, etc.
- No evidence of volume overload on exam.
DM-II
- Uncontrolled. No insulin on current med list.
- Follow glucose and cover with SSI as needed.
- Restart basal insulin.
- Update A1C.
CKD IV
- Stable. SCr at / near known baseline.
- Follow for any changes.
Morbid Obesity due to excess calories
- Affects all aspects of care.
- Encourage healthy diet and increased activity / mobility with goal of weight loss.
DVT Prophylaxis: Subcut Heparin
Code Status: DNR
[2024-03-08] VITALS (14 sets, daily range): BP systolic 92–125; BP diastolic 31–74; PULSE 83; O2SAT 98; BMI 35.2
[2024-03-08] MEDS: HEPARIN SC (04:07)
[2024-03-08 07:10] LABS: Hematocrit 33.9 % (37.0-47.0); Hemoglobin 11.4 g/dL (12.0-16.0); Mean Corp Hgb Conc. 33.6 g/dL (33.0-37.0); Mean Corpuscular Hgb 30.1 pg (27.0-31.0); Mean Corpuscular Volume 89.4 fL (81.0-99.0); Mean Platelet Volume 10.6 fL (7.4-10.4); Platelet Count 238 10^3/uL (130-400); Red Blood Cell Count 3.79 10^6/uL (4.20-5.40); Red Cell Dist. Width 13.7 % (11.5-14.5); White Blood Cell Count 6.2 10^3/uL (4.8-10.8)
[2024-03-08 07:47] LABS: TSH Reflex To Free T4 1.22 uIU/ml (0.47-4.68)
[2024-03-08 08:31] LABS: Glycohemoglobin (HgbA1c) 9.7 % (4.0-5.6)
--- NOTE | 2024-03-08 08:43 | VNURNOTE ---
Addendum entered by Lien Chaudhary RN 03/08/24 08:46:
Per VN RN, patient sent to ER for change in mental status. Incontinent of large amount of foul odor urine. Concern for uti. Has L leg draining stasis wound. Pt found living in deplorable conditions. Per [facility] RN, will need placement and can not
come home to house. Kj Santiago is contact [phone]. [facility]. [facility] updated.
Original Note:
Chart reviewed. Patient is current with [facility] nursing. Will continue to follow hospital course and DC plans.
[2024-03-08 08:46] LABS: Blood Urea Nitrogen 58 mg/dl (7-17); Carbon Dioxide 28 mmol/L (22-30); Chloride 101 mmol/L (98-107); Estimated Creatinine Clearance 42 ml/min; Glucose 240 mg/dl (70-99); Potassium 3.1 mmol/L (3.5-5.1); Sodium 137 mmol/L (135-145); eGFR 41.57
[2024-03-08 08:54] LABS: Glucose - Point of Care 243 mg/dl (70-99)
[2024-03-08] MEDS: ALDACTONE 12.5 MG PO (08:54)
[2024-03-08] MEDS: VITAMIN B-12 100 MCG PO (08:59)
[2024-03-08] MEDS: LASIX 80 MG PO (08:59)
[2024-03-08] MEDS: PRAVACHOL 20 MG PO (08:59)
[2024-03-08] MEDS: HEPARIN 5000 UNITS SC ×2 (09:00→17:22)
[2024-03-08] MEDS: ASPIR LOW (ENTERIC COATED) 81 MG PO (09:00)
[2024-03-08] MEDS: NOVOLOG MIX 70/30 FLEXPEN 14 UNITS SC ×2 (09:02→18:19)
[2024-03-08] MEDS: TOPROL XL 50 MG PO (09:13)
[2024-03-08] MEDS: NOVOLOG FLEXPEN-MODERATE RESISTANCE 3 UNITS SC (09:16)
[2024-03-08] MEDS: KCL 40 MEQ PO (09:35)
--- NOTE | 2024-03-08 09:43 | EDRN ---
' I just got comfortable'. Will try after breakfast
--- NOTE | 2024-03-08 11:31 | WOUNDNOTE ---
LEFT POSTERIOR LOWER LEG
--- NOTE | 2024-03-08 11:32 | WOUNDNOTE ---
LEFT LOWER LEG
--- NOTE | 2024-03-08 11:32 | WOUNDNOTE ---
BILATERAL LOWER EXTREMITIES
--- NOTE | 2024-03-08 11:34 | WOUNDNOTE ---
RIGHT GREAT TOE
--- NOTE | 2024-03-08 11:34 | WOUNDNOTE ---
LEFT BUTTOCKS/BILATERAL POSTERIOR THIGHS
--- NOTE | 2024-03-08 11:35 | WOUNDNOTE ---
BILATERAL POSTERIOR LOWER LEGS
--- NOTE | 2024-03-08 11:40 | WOUNDNOTE ---
WON RN note: Patient admitted with cellulitis of L leg and fungal rash.
See H&P for complete history. Patient lives with son. Patient has been sleeping in her recliner chair.
PMH: HTN, CKD, CHF, COPD, sleep apnea, obesity, lymphedema,venous stasis, smoker, ETOH abuse.
Wound Location and type/assessment: Patient admitted with: dermal venous stasis ulcers L posterior medial calf and very dry flaky skin. +Hemosiderosis, +1-2 LE edema. +Palpable pedal pulses. Patient states she has compression stockings she wears
daily at home. Heels intact, patient turned self to sides. Sacral/buttocks/posterior thigh discolored dull red/purple (blanchable), severe Incontinent associated skin damage. Patient admitted she wears a brief at home and sits in urine for prolonged
periods. Ambulates at home with walker, can tell when has to have BM. Using Purwick at assessment, brief soiled with urine and changed. Purwick repositioned, ties left loose on brief. Milder MASD abdominal/groin skin folds. R great toe and 2nd toe
with evolving blood blisters, no drainage. Patient said she stubbed toe.
Appetite: good.
Pressure redistribution devices in place: [employer] Accumax. Encourage turning, pillow under calves, air cushion.
Plan: Dressing changed on L leg- adaptic, alginate, Rita, romina wraps knee high both legs. Applied A&D to legs and feet. small silicone foam applied to R great toe. Will order mineral oil for legs, fungal cream for backside and fungal powder to skin
folds. pillow placed under calves, has air chair cushions in use. Confirmed the above orders with Dr. Au at bedside. Nurse updated on the above. Care plan to be updated and will follow as needed.
Note to case management requested for discharge: VN if goes home when discharged. Recommend patient follow up with Wound care center.
[2024-03-08 12:04] LABS: Glucose - Point of Care 255 mg/dl (70-99)
[2024-03-08] MEDS: LASIX 40 MG PO (12:27)
[2024-03-08] MEDS: ANCEF 10 IV (12:34)
[2024-03-08] MEDS: NOVOLOG FLEXPEN-MODERATE RESISTANCE 5 UNITS SC (12:35)
--- NOTE | 2024-03-08 16:16 | W.PN.HOSP.TC ---
Today's Communication/Plan
-
Assessment / Plan
Assessment / Plan
Gen-AAOx3, NAD
HEENT-NC, AT, anicteric, clear oral mm
Neck-supple
CV-reg, no M, +S1/S2
Lungs-clear B/L
Abd-soft, NT, ND
Musculoskeletal-no edema, no deformity
Skin-warm and dry, bilateral lower extremity venous stasis dermatitis with mild erythema and TTP
Neuro-grossly non-focal
Psych-calm, cooperative
Ms. Black is a 78-year-old female with a medical history of chronic venous stasis dermatitis, HFpEF, CKD stage IV, and diabetes mellitus (does not appear to be on antihyperglycemic regimen) who presented from home with failure to thrive.
Apparently she does not get adequate care at home and visiting nurse reportedly found her soaked in urine. In the ED was found to be hemodynamically stable. Urinalysis showed no evidence of infection. Labs showed uncontrolled blood glucose and a
creatinine likely close to her baseline. Exam of bilateral lower extremities revealed chronic appearing venous stasis dermatitis with possible superimposed acute cellulitis. She was started on antibiotics and admitted for further evaluation and
management.
Lower extremity cellulitis:
-Likely secondary to chronic venous stasis changes with acutely superimposed cellulitis
-Continue local wound care
-Renally dosed cefazolin
Uncontrolled diabetes mellitus:
-Blood glucose 349 on initial labs, hemoglobin A1c 9.7
-Per med rec patient does not appear to be on antihyperglycemic regimen as an outpatient
-She has been started on an insulin regimen with NovoLog 70/30 in addition to moderate resistance sliding scale
-Consult placed to diabetes nurse practitioner
-Will continue to monitor and adjust antihyperglycemic regimen as appropriate
HFpEF, chronic:
-Continue home Lasix regimen of 80 mg daily and additional 40 mg at noon
-Beta-blockade with metoprolol succinate 50 mg daily
-Not on afterload reducing agents presumably due to borderline hypotension, will monitor and add as indicated, would avoid DINA/ARB due to advanced CKD
CKD stage IV:
-Appears close to baseline renal function
-Will monitor
-Renally dose medications
CODE STATUS: DNR
Anticipated Discharge: 24 - 48 hours
Subjective/Interval History
-
Date of Service: March 08, 2024
Patient was seen and examined at bedside this morning. Wound care team was present and providing local wound care to her bilateral lower extremities. Patient reported leg pain with movement of her legs. No difficulty breathing or chest pain.
Objective Data
-
Labs:
Laboratory Results
03/08/24 03/08/24
05:48 08:21
WBC 6.2
Hgb 11.4 L
Hct 33.9 L
Plt Count 238
Sodium Cancelled 137
Potassium Cancelled 3.1 L
Chloride Cancelled 101
Carbon Dioxide Cancelled 28
BUN Cancelled 58 H
Creatinine Cancelled 1.3 H
Glucose Cancelled 240 H
Calcium Cancelled 9.0
Vital Signs:
Vital Signs
Temp Pulse Resp BP Pulse Ox
98.3 F 79 27 117/68 91
03/08/24 07:00 03/08/24 12:27 03/08/24 07:00 03/08/24 12:32 03/08/24 08:55
I&O
03/07/24 03/08/24 03/09/24
06:59 06:59 06:59
Output Total 500 / 500
Balance -500 / -500
Review of Systems
-
History Source: Patient
All other systems: Reviewed and negative
Musculoskeletal: Reports Muscle Stiffness (Bilateral thighs)
Skin: Reports Sores (Painful wounds of bilateral lower extremities)
Physical Exam
-
General: No Apparent Distress
[2024-03-08 18:14] LABS: Glucose - Point of Care 249 mg/dl (70-99)
[2024-03-08] MEDS: NOVOLOG FLEXPEN-MODERATE RESISTANCE 300 UNITS SC (18:21)
[2024-03-08 21:52] LABS: Glucose - Point of Care 155 mg/dl (70-99)
[2024-03-08] MEDS: DESENEX/MITRAZOL/ZEASORB 1 APPLIC TOPICAL (21:52)
[2024-03-08] MEDS: NIZORAL 2% CREAM 1 APPLIC TOPICAL (21:52)
[2024-03-09] MEDS: HEPARIN 5000 UNITS SC ×4 (01:00→23:24)
[2024-03-09] MEDS: ANCEF 10 IV ×3 (01:08→23:24)
[2024-03-09 05:36] LABS: % Basophils 0.6 % (0-2); % Eosinophils 1.9 % (0-6); % Immature Granulocytes 0.4 % (0-0.5); % Lymphocytes 25.9 % (20.5-51.1); % Monocytes 9.8 % (1.7-9.3); % Neutrophils 61.4 % (42.2-75.2); Absolute Eosinophils 0.1 10^3/uL (0-0.7); Absolute Lymphocytes 1.4 10^3/uL (1.2-3.4); Absolute Monocytes 0.5 10^3/uL (0.1-0.6); Absolute Neutrophils 3.2 10^3/uL (1.4-6.5); Hematocrit 33.6 % (37.0-47.0); Hemoglobin 11.1 g/dL (12.0-16.0); Mean Corpuscular Hgb 29.8 pg (27.0-31.0); Mean Corpuscular Volume 90.1 fL (81.0-99.0); Mean Platelet Volume 9.9 fL (7.4-10.4); Nucleated Red Blood Cells % 0 %; Platelet Count 240 10^3/uL (130-400); Red Blood Cell Count 3.73 10^6/uL (4.20-5.40); Red Cell Dist. Width 13.6 % (11.5-14.5); White Blood Cell Count 5.2 10^3/uL (4.8-10.8)
[2024-03-09 05:59] LABS: Blood Urea Nitrogen 44 mg/dl (7-17); Calcium 8.4 mg/dl (8.4-10.2); Carbon Dioxide 29 mmol/L (22-30); Chloride 103 mmol/L (98-107); Estimated Creatinine Clearance 50 ml/min; Glucose 162 mg/dl (70-99); Magnesium 1.8 mg/dl (1.6-2.3); Phosphorus 2.5 mg/dl (2.5-4.5); Potassium 3.6 mmol/L (3.5-5.1); Sodium 139 mmol/L (135-145)
[2024-03-09 06:00] VITALS: BMI 35.0
--- NOTE | 2024-03-09 07:17 | PTCARENOTE ---
Patient arrived on unit @2036 via stretcher from ED, pulled over to bed with assist x3. Patient AAOx3,denies any pain or discomfort. Patient oriented to unit, call segura within reach.
[2024-03-09 07:30] VITALS: BP 110/35
[2024-03-09 07:35] VITALS: BP 110/35
[2024-03-09 07:58] LABS: Glucose - Point of Care 203 mg/dl (70-99)
--- NOTE | 2024-03-09 08:16 | PN.DE.MGMTRT ---
Insulin Management
- -
03/09/2024: Diabetes Management Follow up:
Patient sent to ED by V/N due to incontinence large amount foul smelling urine and swelling in lower legs with open wounds. PMH COPD, CHF, HTN, HLD, chronic renal failure, T2DM, chronic venous stasis with lymphedema. Pre admission medication for
diabetes unknown, A1C on admission 9.7%, Cr 1.1, eGFR 50.80. Patient in known to me from admission 01/01. At that time she was started on 70/30 novolog BID. Current medication list does not include 70/30 insulin.
Patient is awake and alert, but not reliable for past diabetes care/management. She does not know what medications she took. She states she has no recollection of being instructed on insulin injections during previous visit 01/01. She was given a
new glucose monitor during the 01/01 stay but does not know what happened to it.
03/08 patient received 14 units 70/30 BID. Glucose range 155 to 255. Fasting glucose today 203. Will increase 70/30 insulin to 16 units, decrease moderate corrective to low. Discussed with nurse.
Will follow.
Diabetes History
- -
Type of Diabetes: 2 requiring insulin
Pre-Admission Diabetes Regimen
03/08/24 03/09/24
08:21 05:15
Creatinine 1.3 H 1.1 H
Lab Results
Hemoglobin A1c 9.7 % (4.0-5.6) H 03/08/24 05:48
Insulin Pump Settings
IP Diabetes Regimen
03/08/24 03/08/24 03/08/24
08:21 08:53 11:56
Glucose 240 H
POC Glucose 243 H 255 H
03/08/24 03/08/24 03/09/24
18:13 21:51 05:15
Glucose 162 H
POC Glucose 249 H 155 H
03/09/24
07:57
Glucose
POC Glucose 203 H
Patient Education
--- NOTE | 2024-03-09 09:08 | PN.CDI ---
CDI
- -
CDI:
Physician Documentation Request
Admit Date: 03/07/24 23:49
Dear Doctor Randy,
Clinical Indicators:
Patient admitted with venous stasis dermatitis with cellulitis.
Potassium 40 meq po x 1 given.
Potassium level:
03/08/24
08:21
Potassium 3.1 L
Based on the above, could you clarify in the progress notes, the appropriate diagnosis, if significant, that supports the above abnormalities and additional evaluation, monitoring and/or treatment rendered:
Hypokalemia
Abnormal lab value, clinically insignificant
Other
Use of terms such as suspected, likely, concern for, or probable (associated with a specific diagnosis that is being evaluated, monitored, or treated as if it exists) are acceptable and can be coded in the inpatient setting, when documented at the
time of discharge.
Thank you,
Karen Man RN BSN
CDI Specialist
available via tiger text
Please use your independent medical judgment in providing your response.
[2024-03-09] MEDS: NOVOLOG FLEXPEN-MODERATE RESISTANCE 3 UNITS SC (09:52)
[2024-03-09] MEDS: NOVOLOG MIX 70/30 FLEXPEN 16 UNITS SC ×2 (09:53→18:39)
[2024-03-09] MEDS: LASIX 80 MG PO (09:54)
[2024-03-09] MEDS: VITAMIN B-12 100 MCG PO (09:55)
[2024-03-09] MEDS: ASPIR LOW (ENTERIC COATED) 81 MG PO (09:57)
[2024-03-09] MEDS: TOPROL XL 50 MG PO (09:58)
[2024-03-09] MEDS: ALDACTONE 12.5 MG PO (10:00)
[2024-03-09] MEDS: PRAVACHOL 20 MG PO (10:04)
[2024-03-09] MEDS: HYDROPHOR 1 APPLIC TOPICAL (10:05)
[2024-03-09] MEDS: DESENEX/MITRAZOL/ZEASORB 1 APPLIC TOPICAL ×2 (10:05→19:41)
[2024-03-09] MEDS: NIZORAL 2% CREAM 1 APPLIC TOPICAL ×2 (10:06→19:41)
[2024-03-09] MEDS: NOVOLOG MIX 70/30 FLEXPEN SC (10:10)
[2024-03-09 12:01] LABS: Glucose - Point of Care 173 mg/dl (70-99)
[2024-03-09] MEDS: NOVOLOG FLEXPEN-LOW RESISTANCE 1 UNITS SC ×2 (12:40→18:37)
[2024-03-09] MEDS: LASIX 40 MG PO (12:43)
--- NOTE | 2024-03-09 14:37 | W.PN.HOSP.TC ---
Today's Communication/Plan
-
Assessment / Plan
Assessment / Plan
Gen-AAOx3, NAD
HEENT-NC, AT, anicteric, clear oral mm
Neck-supple
CV-reg, no M, +S1/S2
Lungs-clear B/L
Abd-soft, NT, ND
Musculoskeletal-no edema, no deformity
Skin-warm and dry, bilateral lower extremities with wound dressing CDI
Neuro-grossly non-focal
Psych-calm, cooperative
Ms. Black is a 78-year-old female with a medical history of chronic venous stasis dermatitis, HFpEF, CKD stage IV, and diabetes mellitus (does not appear to be on antihyperglycemic regimen) who presented from home with failure to thrive.
Apparently she does not get adequate care at home and visiting nurse reportedly found her soaked in urine. In the ED was found to be hemodynamically stable. Urinalysis showed no evidence of infection. Labs showed uncontrolled blood glucose and a
creatinine likely close to her baseline. Exam of bilateral lower extremities revealed chronic appearing venous stasis dermatitis with possible superimposed acute cellulitis. She was started on antibiotics and admitted for further evaluation and
management.
Lower extremity cellulitis:
-Likely secondary to chronic venous stasis changes with acutely superimposed cellulitis
-Continue local wound care
-Renally dosed cefazolin
Hypokalemia:
-Yesterday had moderate hypokalemia of 3.1, repleted
-Potassium level within normal limits today, will monitor
Uncontrolled diabetes mellitus:
-Blood glucose 349 on initial labs, hemoglobin A1c 9.7
-Per med rec patient does not appear to be on antihyperglycemic regimen as an outpatient
-She has been started on an insulin regimen with NovoLog 70/30 in addition to moderate resistance sliding scale
-Consult placed to diabetes nurse practitioner, NovoLog dose increased from 14 units twice daily to 16 units twice daily
-Will continue to monitor and adjust antihyperglycemic regimen as appropriate
HFpEF, chronic:
-Continue home Lasix regimen of 80 mg daily and additional 40 mg at noon
-Beta-blockade with metoprolol succinate 50 mg daily
-Not on afterload reducing agents presumably due to borderline hypotension, will monitor and add as indicated, would avoid DINA/ARB due to advanced CKD
CKD stage IV:
-Appears close to baseline renal function
-Will monitor
-Renally dose medications
Ambulatory dysfunction:
-Would benefit from skilled rehab prior to home
-SNF placement pending
-Appreciate PT/OT evaluation and recommendations
CODE STATUS: DNR
Anticipated Discharge: 24 - 48 hours
Subjective/Interval History
-
Date of Service: March 09, 2024
Patient was seen and examined at bedside this morning. Generally feels well although does still have lower extremity pain.
Objective Data
-
Labs:
Laboratory Results
03/09/24
05:15
WBC 5.2
Hgb 11.1 L
Hct 33.6 L
Plt Count 240
Sodium 139
Potassium 3.6
Chloride 103
Carbon Dioxide 29
BUN 44 H
Creatinine 1.1 H
Glucose 162 H
Calcium 8.4
Vital Signs:
Vital Signs
Temp Pulse Resp BP Pulse Ox
97.7 F 76 20 110/35 96
03/09/24 07:30 03/09/24 07:30 03/09/24 07:30 03/09/24 07:30 03/09/24 07:30
I&O
03/08/24 03/09/24 03/10/24
06:59 06:59 06:59
Intake Total 480 / 480
Output Total 500 / 500
Balance -500 / -500 480 / 480
Review of Systems
-
History Source: Patient
All other systems: Reviewed and negative
Physical Exam
-
General: No Apparent Distress
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
[2024-03-09 15:40] VITALS: BP 108/89
[2024-03-09 16:28] LABS: Glucose - Point of Care 176 mg/dl (70-99)
[2024-03-09 23:30] VITALS: BP 96/56
[2024-03-09 23:44] LABS: Glucose - Point of Care 119 mg/dl (70-99)
[2024-03-10 06:00] VITALS: BMI 35.1
[2024-03-10 06:26] LABS: % Basophils 0.9 % (0-2); % Eosinophils 2.9 % (0-6); % Immature Granulocytes 0.4 % (0-0.5); % Lymphocytes 24.9 % (20.5-51.1); % Monocytes 10.1 % (1.7-9.3); % Neutrophils 60.8 % (42.2-75.2); Absolute Basophils 0.1 10^3/uL (0-0.2); Absolute Eosinophils 0.2 10^3/uL (0-0.7); Absolute Lymphocytes 1.4 10^3/uL (1.2-3.4); Absolute Monocytes 0.6 10^3/uL (0.1-0.6); Absolute Neutrophils 3.3 10^3/uL (1.4-6.5); Hematocrit 35.1 % (37.0-47.0); Hemoglobin 11.7 g/dL (12.0-16.0); Mean Corp Hgb Conc. 33.3 g/dL (33.0-37.0); Mean Corpuscular Hgb 30.4 pg (27.0-31.0); Mean Corpuscular Volume 91.2 fL (81.0-99.0); Mean Platelet Volume 10.5 fL (7.4-10.4); Nucleated Red Blood Cells % 0 %; Platelet Count 260 10^3/uL (130-400); Red Blood Cell Count 3.85 10^6/uL (4.20-5.40); Red Cell Dist. Width 13.5 % (11.5-14.5); White Blood Cell Count 5.5 10^3/uL (4.8-10.8)
[2024-03-10 06:52] LABS: Blood Urea Nitrogen 36 mg/dl (7-17); Calcium 8.4 mg/dl (8.4-10.2); Carbon Dioxide 30 mmol/L (22-30); Chloride 100 mmol/L (98-107); Estimated Creatinine Clearance 50 ml/min; Glucose 138 mg/dl (70-99); Magnesium 1.8 mg/dl (1.6-2.3); Phosphorus 2.7 mg/dl (2.5-4.5); Potassium 3.7 mmol/L (3.5-5.1); Sodium 138 mmol/L (135-145)
[2024-03-10 07:05] VITALS: BP 122/58
--- NOTE | 2024-03-10 07:21 | PN.DE.MGMTRT ---
Insulin Management
- -
03/10/2024: Diabetes Management Follow up:
Patient sent to ED by V/N due to incontinence large amount foul smelling urine and swelling in lower legs with open wounds. PMH COPD, CHF, HTN, HLD, chronic renal failure, T2DM, chronic venous stasis with lymphedema. Pre admission medication for
diabetes unknown, A1C on admission 9.7%, Cr 1.1, eGFR 50.80. Patient in known to me from admission 01/01. She does not know what medications she takes at home and states she has no recollection of being instructed on insulin injections during
previous visit 01/01. At that time she was started on 70/30 NovoLog BID. She was given a new glucose monitor during the 01/01 stay but does not know what happened to it. She has been provided a new glucose meter today with instructions. Current
medication list does not include 70/30 insulin.
Patient is awake and alert, unable to participate in discuss about diabetes management at this time.
03/09 patient received 16 units 70/30 BID. Glucose range 173 to 203. Fasting glucose today 138(V) and 150 POC this AM.
Will make no changes to her current 70/30 dose of 16 units BID. Cont low corrective with meals
Will cont to follow.
Diabetes History
- -
Type of Diabetes: 2 requiring insulin
Pre-Admission Diabetes Regimen
03/10/24
05:16
Creatinine 1.1 H
Lab Results
Hemoglobin A1c 9.7 % (4.0-5.6) H 03/08/24 05:48
Insulin Pump Settings
IP Diabetes Regimen
03/09/24 03/09/24 03/09/24
07:57 12:00 16:27
Glucose
POC Glucose 203 H 173 H 176 H
03/09/24 03/10/24
23:43 05:16
Glucose 138 H
POC Glucose 119 H
Meal type: Lunch
Meal type: Breakfast
Meal type: Breakfast
Amount consumed: 100%
Amount consumed: 100%
Amount consumed: 100%
Patient Education
[2024-03-10 07:35] LABS: Glucose - Point of Care 150 mg/dl (70-99)
[2024-03-10] MEDS: NOVOLOG FLEXPEN-LOW RESISTANCE 1 UNITS SC ×2 (08:39→13:14)
[2024-03-10] MEDS: TOPROL XL 50 MG PO (08:40)
[2024-03-10] MEDS: ALDACTONE 12.5 MG PO (08:40)
[2024-03-10] MEDS: LASIX 80 MG PO (08:40)
[2024-03-10] MEDS: ASPIR LOW (ENTERIC COATED) 81 MG PO (08:40)
[2024-03-10] MEDS: PRAVACHOL 20 MG PO (08:40)
[2024-03-10] MEDS: VITAMIN B-12 100 MCG PO (08:40)
[2024-03-10] MEDS: HEPARIN 5000 UNITS SC ×2 (08:41→16:27)
[2024-03-10] MEDS: HYDROPHOR 1 APPLIC TOPICAL (08:45)
[2024-03-10] MEDS: DESENEX/MITRAZOL/ZEASORB 1 APPLIC TOPICAL ×2 (08:45→23:03)
[2024-03-10] MEDS: NIZORAL 2% CREAM 1 APPLIC TOPICAL ×2 (08:46→23:02)
[2024-03-10] MEDS: NOVOLOG MIX 70/30 FLEXPEN 16 UNITS SC ×2 (09:36→16:35)
--- NOTE | 2024-03-10 11:38 | PN.CDI ---
CDI
- -
CDI:
Physician Documentation Request
Admit Date: 03/07/24 23:49
Dear Doctor Randy,
Clinical Indicators:
Patient admitted with failure to thrive and cellulitis.
03/09 PN, 'CKD stage IV'
CR/GFR trend:
03/07/24 03/08/24 03/09/24
13:55 08:21 05:15
Creatinine 1.9 H 1.3 H 1.1 H
eGFR 26.36 41.57 50.80
Please clarify which of the following accurately represents the patient's renal status:
JONO on CKD 3
CKD IV only
Other,please specify
Criteria for JONO*
1 Increase in serum creatinine by > or = to 0.3 mg/dL (> or = to 26.5 micromol/L) within 48 hours, OR
2 Increase in serum creatinine to > or = to 1.5 times baseline, which is known or presumed to have occurred within 7 days, OR
3 Urine volume < 0.5 mL/kg/hour for six hours
Stages of Chronic Kidney Disease*
Level Description GFR
G1 Normal or High >90
G2 Mildly decreased 60-89
G3a Mildly to moderately decreased 45-59
G3b Moderately to severely decreased 30-44
G4 Severely decreased 15-29
G5 Kidney failure <15
Use of terms such as suspected, likely, concern for, or probable (associated with a specific diagnosis that is being evaluated, monitored, or treated as if it exists) are acceptable and can be coded in the inpatient setting, when documented at the
time of discharge.
Thank you,
Karen Man RN BSN
CDI Specialist
available via tiger text
Please use your independent medical judgment in providing your response.
*Source: Kidney Disease: Improving Global Outcomes (KDIGO) 2012
[2024-03-10 11:52] LABS: Glucose - Point of Care 193 mg/dl (70-99)
[2024-03-10 12:49] VITALS: PULSE 70; O2SAT 96
[2024-03-10] MEDS: LASIX 40 MG PO (13:20)
[2024-03-10] MEDS: ANCEF 10 IV (13:25)
--- NOTE | 2024-03-10 13:40 | CM ---
Addendum entered by Missy Braden RN 03/10/24 16:35:
Jack provided SNF choices [facility],Referral in care port .
Original Note:
PT OT eval indicate SNF .
Spoke with pt at bedside she is unsure about SNF . She said to call son Jack.
Spoke with Jack [phone]. Reviewed PT OT . Son agreed with SNf at co.
[facility] Referral placed in care port.
Jack said she needs assistance at home.
Jack give [facility] [employer] number to check for patient care nursing assistant waiver.
PLan To SNf afer located
[2024-03-10 15:09] VITALS: BP 113/64
--- NOTE | 2024-03-10 15:21 | W.DCSUMMARY ---
Discharge Summary
Discharge Data
Date of Admission: 03/07/24
Date of Discharge: 03/10/24
-
Pending Results: No
Hospital Course
Ms. Black is a 78-year-old female with a medical history of chronic venous stasis dermatitis, HFpEF, CKD stage IIIa, and diabetes mellitus (does not appear to be on antihyperglycemic regimen) who presented from home with failure to thrive.
Apparently she does not get adequate care at home and visiting nurse reportedly found her soaked in urine. In the ED was found to be hemodynamically stable. Urinalysis showed no evidence of infection. Labs showed uncontrolled blood glucose and a
creatinine likely close to her baseline. Exam of bilateral lower extremities revealed chronic appearing venous stasis dermatitis with superimposed acute cellulitis. She was started on antibiotics and admitted for further evaluation and management.
She improved clinically with local wound care and antibiotics. She has been transition to oral antibiotics which she will continue through 03/13/2024. Her blood sugar was extremely uncontrolled with a hemoglobin A1c of 9.7. However her blood
glucose became much better controlled after being started on an adequate insulin regimen with guidance from the diabetes management nurse practitioner. She had an JONO on CKD at time of admission however her renal function appears to have returned
to baseline. She was evaluated by PT/OT recommended skilled rehab after hospital discharge for ongoing therapy. SNF placement has been arranged. At the time of hospital discharge she was hemodynamically stable. She will need close follow-up with
her primary care physician and with wound care after hospital discharge
Gen-AAOx3, NAD
HEENT-NC, AT, anicteric, clear oral mm
Neck-supple
CV-reg, no M, +S1/S2
Lungs-clear B/L
Abd-soft, NT, ND
Musculoskeletal-no edema, no deformity
Skin-warm and dry, bilateral lower extremities with wound dressing CDI
Neuro-grossly non-focal
Psych-calm, cooperative
Discharge Plan
-
Patient Disposition: Fdc/SNF
Discharge Diagnosis/Procedures: Lower extremity cellulitis
Diet: Diabetic, Carb Controlled
Activity: With assistance
Other Services: PT and OT
Activity Restrictions/Additional Instructions:
Wound Care Instructions
L leg: clean with soap and water, adaptic, alginate and Rita change daily and prn drainage.
R great toe: silicone foam change q other day and prn soilage. Skin prep R 2nd medial toe daily.
mineral oil to both legs daily.
fungal cream to buttocks posterior thighs as directed.
fungal powder to groin and breast skin folds as directed.
leg elevation when sitting
Follow up at wound care center call for an appointment.
Ms. Black is a 78-year-old female with a medical history of chronic venous stasis dermatitis, HFpEF, CKD stage IIIa, and diabetes mellitus (does not appear to be on antihyperglycemic regimen) who presented from home with failure to thrive.
Apparently she does not get adequate care at home and visiting nurse reportedly found her soaked in urine. In the ED was found to be hemodynamically stable. Urinalysis showed no evidence of infection. Labs showed uncontrolled blood glucose and a
creatinine likely close to her baseline. Exam of bilateral lower extremities revealed chronic appearing venous stasis dermatitis with superimposed acute cellulitis. She was started on antibiotics and admitted for further evaluation and management.
She improved clinically with local wound care and antibiotics. She has been transition to oral antibiotics which she will continue through 03/13/2024. Her blood sugar was extremely uncontrolled with a hemoglobin A1c of 9.7. However her blood
glucose became much better controlled after being started on an adequate insulin regimen with guidance from the diabetes management nurse practitioner. She had an JONO on CKD at time of admission however her renal function appears to have returned
to baseline. She was evaluated by PT/OT recommended skilled rehab after hospital discharge for ongoing therapy. SNF placement has been arranged. At the time of hospital discharge she was hemodynamically stable. She will need close follow-up with
her primary care physician and with wound care after hospital discharge.
Referrals:
Liz Pereira MD [Family Provider] -
Prescriptions:
New
dicloxacillin 250 mg Capsule
500 mg PO Q6 4 Days Qty: 32 0RF
insulin asp prt-insulin aspart 100 unit/mL (70-30) Insulin Pen
16 unit SC BID@0800,1700 30 Days Qty: 1 0RF
Continued
metoprolol succinate 50 MG tablet extended release 24 hr
50 mg PO DAILY
pravastatin 20 MG tablet
20 mg PO DAILY
spironolactone 25 MG tablet
12.5 mg PO DAILY
aspirin 81 mg Tablet,Delayed Release (Dr/Ec)
81 mg PO DAILY
acetaminophen [Tylenol Extra Strength] 500 mg Tablet
1,000 mg PO Q6HPRN PRN (Reason: mild pain)
thiamine HCl (vitamin B1) 100 mg tablet
100 mg PO DAILY
furosemide [Lasix] 40 mg Tablet
40 mg PO NOON
furosemide [Lasix] 80 mg Tablet
80 mg PO DAILY
Discontinued
doxycycline monohydrate 100 mg Capsule
100 mg PO DAILY
Patient Comments:
for 20 days starting 03/02/24
Discharge Orders:
Discharge Patient (As Directed); Ordered 03/10/24
Ordered By: Alin Padilla
Discharge Date and Time
Print Language: LITHUANIAN
[2024-03-10 16:32] LABS: Glucose - Point of Care 208 mg/dl (70-99)
[2024-03-10] MEDS: NOVOLOG FLEXPEN-LOW RESISTANCE 2 UNITS SC (16:33)
[2024-03-10] MEDS: DYNAPEN 500 MG PO (17:27)
[2024-03-10 22:03] LABS: Glucose - Point of Care 140 mg/dl (70-99)
[2024-03-10 23:00] VITALS: BP 107/57
[2024-03-11] MEDS: DYNAPEN 500 MG PO ×5 (00:57→23:03)
[2024-03-11] MEDS: HEPARIN 5000 UNITS SC ×4 (00:57→23:03)
[2024-03-11 06:00] VITALS: BMI 34.3
[2024-03-11] MEDS: TYLENOL 650 MG PO (06:21)
[2024-03-11 07:30] VITALS: BP 104/58
[2024-03-11 07:50] LABS: Glucose - Point of Care 194 mg/dl (70-99)
[2024-03-11] MEDS: VITAMIN B-12 100 MCG PO (07:59)
[2024-03-11] MEDS: PRAVACHOL 20 MG PO (07:59)
[2024-03-11] MEDS: ASPIR LOW (ENTERIC COATED) 81 MG PO (07:59)
[2024-03-11] MEDS: LASIX 80 MG PO (07:59)
[2024-03-11] MEDS: TOPROL XL 50 MG PO (08:00)
[2024-03-11] MEDS: ALDACTONE 12.5 MG PO (08:00)
[2024-03-11] MEDS: DESENEX/MITRAZOL/ZEASORB 1 APPLIC TOPICAL ×2 (08:03→21:26)
[2024-03-11] MEDS: HYDROPHOR 1 APPLIC TOPICAL (08:06)
[2024-03-11] MEDS: NIZORAL 2% CREAM 1 APPLIC TOPICAL ×2 (08:06→21:26)
[2024-03-11 08:45] LABS: % Basophils 0.6 % (0-2); % Eosinophils 1.7 % (0-6); % Immature Granulocytes 0.6 % (0-0.5); % Lymphocytes 18.8 % (20.5-51.1); % Monocytes 11.1 % (1.7-9.3); % Neutrophils 67.2 % (42.2-75.2); Absolute Eosinophils 0.1 10^3/uL (0-0.7); Absolute Monocytes 0.6 10^3/uL (0.1-0.6); Absolute Neutrophils 3.6 10^3/uL (1.4-6.5); Hemoglobin 11.5 g/dL (12.0-16.0); Mean Corp Hgb Conc. 32.9 g/dL (33.0-37.0); Mean Corpuscular Hgb 29.9 pg (27.0-31.0); Mean Corpuscular Volume 90.9 fL (81.0-99.0); Mean Platelet Volume 10.3 fL (7.4-10.4); Nucleated Red Blood Cells % 0 %; Platelet Count 248 10^3/uL (130-400); Red Blood Cell Count 3.85 10^6/uL (4.20-5.40); Red Cell Dist. Width 13.4 % (11.5-14.5); White Blood Cell Count 5.3 10^3/uL (4.8-10.8)
[2024-03-11 09:06] LABS: Blood Urea Nitrogen 38 mg/dl (7-17); Carbon Dioxide 29 mmol/L (22-30); Chloride 98 mmol/L (98-107); Estimated Creatinine Clearance 45 ml/min; Glucose 189 mg/dl (70-99); Phosphorus 3.2 mg/dl (2.5-4.5); Potassium 4.1 mmol/L (3.5-5.1); Sodium 137 mmol/L (135-145); eGFR 45.76
[2024-03-11] MEDS: NOVOLOG FLEXPEN-LOW RESISTANCE 1 UNITS SC ×3 (09:46→16:30)
[2024-03-11] MEDS: NOVOLOG MIX 70/30 FLEXPEN 16 UNITS SC ×2 (09:47→16:30)
[2024-03-11 12:05] LABS: Glucose - Point of Care 192 mg/dl (70-99)
[2024-03-11] MEDS: LASIX 40 MG PO (12:50)
--- NOTE | 2024-03-11 13:37 | W.PN.HOSP.TC ---
Today's Communication/Plan
-
Awaiting SNF placement
Assessment / Plan
Assessment / Plan
Gen-AAOx3, NAD
HEENT-NC, AT, anicteric, clear oral mm
Neck-supple
CV-reg, no M, +S1/S2
Lungs-clear B/L
Abd-soft, NT, ND
Musculoskeletal-no edema, no deformity
Skin-warm and dry, bilateral lower extremities with wound dressing CDI
Neuro-grossly non-focal
Psych-calm, cooperative
Ms. Black is a 78-year-old female with a medical history of chronic venous stasis dermatitis, HFpEF, CKD stage IV, and diabetes mellitus (does not appear to be on antihyperglycemic regimen) who presented from home with failure to thrive.
Apparently she does not get adequate care at home and visiting nurse reportedly found her soaked in urine. In the ED was found to be hemodynamically stable. Urinalysis showed no evidence of infection. Labs showed uncontrolled blood glucose and a
creatinine likely close to her baseline. Exam of bilateral lower extremities revealed chronic appearing venous stasis dermatitis with possible superimposed acute cellulitis. She was started on antibiotics and admitted for further evaluation and
management.
Lower extremity cellulitis:
-Likely secondary to chronic venous stasis changes with acutely superimposed cellulitis
-Continue local wound care
-Renally dosed cefazolin
Hypokalemia:
-Resolved
Uncontrolled diabetes mellitus:
-Blood glucose 349 on initial labs, hemoglobin A1c 9.7
-Per med rec patient does not appear to be on antihyperglycemic regimen as an outpatient
-She has been started on an insulin regimen with NovoLog 70/30 in addition to moderate resistance sliding scale
-Consult placed to diabetes nurse practitioner, NovoLog dose increased from 14 units twice daily to 16 units twice daily
-Blood glucose now much better controlled, will continue to monitor and adjust antihyperglycemic regimen as appropriate
HFpEF, chronic:
-Continue home Lasix regimen of 80 mg daily and additional 40 mg at noon
-Beta-blockade with metoprolol succinate 50 mg daily
-Not on afterload reducing agents presumably due to borderline hypotension, will monitor and add as indicated, would avoid DINA/ARB due to advanced CKD
CKD stage IV:
-Appears close to baseline renal function
-Will monitor
-Renally dose medications
Ambulatory dysfunction:
-Would benefit from skilled rehab prior to home
-SNF placement pending
-Appreciate PT/OT evaluation and recommendations
CODE STATUS: DNR
Anticipated Discharge: Within 24 hours
Subjective/Interval History
-
Date of Service: March 11, 2024
Patient was seen and examined at bedside this morning. Resting comfortably. Awaiting SNF placement.
Objective Data
-
Labs:
Laboratory Results
03/11/24
07:49
WBC 5.3
Hgb 11.5 L
Hct 35.0 L
Plt Count 248
Sodium 137
Potassium 4.1
Chloride 98
Carbon Dioxide 29
BUN 38 H
Creatinine 1.2 H
Glucose 189 H
Calcium 9.0
Vital Signs:
Vital Signs
Temp Pulse Resp BP Pulse Ox
98.3 F 70 18 107/54 97
03/11/24 07:30 03/11/24 12:50 03/11/24 07:30 03/11/24 12:50 03/11/24 07:30
I&O
03/10/24 03/11/24 03/12/24
06:59 06:59 06:59
Intake Total 1020 / 1020 720 / 720 450 / 450
Output Total 250 / 250 560 / 560 550 / 550
Balance 770 / 770 160 / 160 -100 / -100
Review of Systems
-
History Source: Patient
All other systems: Reviewed and negative
Physical Exam
-
General: No Apparent Distress
[2024-03-11 15:45] VITALS: BP 102/55
[2024-03-11 16:26] LABS: Glucose - Point of Care 186 mg/dl (70-99)
[2024-03-11 21:34] LABS: Glucose - Point of Care 131 mg/dl (70-99)
[2024-03-11 22:59] VITALS: BP 135/68
[2024-03-12 06:00] VITALS: BMI 34.5
[2024-03-12] MEDS: DYNAPEN 500 MG PO ×4 (06:00→23:09)
[2024-03-12 07:30] VITALS: BP 129/57
[2024-03-12 08:15] LABS: Glucose - Point of Care 174 mg/dl (70-99)
[2024-03-12] MEDS: NOVOLOG FLEXPEN-LOW RESISTANCE 1 UNITS SC ×2 (09:59→13:21)
[2024-03-12] MEDS: PRAVACHOL 20 MG PO (10:00)
[2024-03-12] MEDS: LASIX 80 MG PO (10:00)
[2024-03-12] MEDS: VITAMIN B-12 100 MCG PO (10:00)
[2024-03-12] MEDS: TOPROL XL 50 MG PO (10:01)
[2024-03-12] MEDS: ALDACTONE 12.5 MG PO (10:01)
[2024-03-12] MEDS: ASPIR LOW (ENTERIC COATED) 81 MG PO (10:01)
[2024-03-12] MEDS: HEPARIN 5000 UNITS SC ×3 (10:03→23:09)
[2024-03-12] MEDS: NOVOLOG MIX 70/30 FLEXPEN 16 UNITS SC ×2 (10:06→18:11)
[2024-03-12] MEDS: DESENEX/MITRAZOL/ZEASORB 1 APPLIC TOPICAL ×2 (10:07→20:25)
[2024-03-12] MEDS: HYDROPHOR 1 APPLIC TOPICAL (10:07)
[2024-03-12] MEDS: NIZORAL 2% CREAM 1 APPLIC TOPICAL ×2 (10:07→20:25)
--- NOTE | 2024-03-12 10:50 | CM ---
Addendum entered by Lelo Torres 03/12/24 12:58:
2nd call attempt to reach son - CM explained that [facility] has a bed today for pt.
He strongly declines and states he has reviewed the ratings. He is interested in [facility], [facility], and [facility].
At this time, unable to reach [facility] and [facility]. Olive states there is a potential bed tomorrow for [facility].
CM to outreach SNFs in the AM to confirm bed.
Addendum entered by Lelo Torres 03/12/24 11:10:
Discussed with Olive @ [facility], informed that only [facility] a female bed for today.
Call placed to son Jack, left requesting call back.
Original Note:
CM following re: d/c planning.
Pt for d/c today.
Pt has been clinically accepted at [facility] and [facility], 2 of son's SNF choices.
Call placed to Olive, SNF liaison, regarding bed availability for today.
She will return CM call shortly re: which facility can take pt today.
Goal: SNF : [facility] vs. [facility].
--- NOTE | 2024-03-12 11:46 | W.PN.HOSP.TC ---
Today's Communication/Plan
-
Assessment / Plan
Assessment / Plan
Gen-AAOx3, NAD
HEENT-NC, AT, anicteric, clear oral mm
Neck-supple
CV-reg, no M, +S1/S2
Lungs-clear B/L
Abd-soft, NT, ND
Musculoskeletal-no edema, no deformity
Skin-warm and dry, bilateral lower extremities with wound dressing CDI
Neuro-grossly non-focal
Psych-calm, cooperative
Ms. Black is a 78-year-old female with a medical history of chronic venous stasis dermatitis, HFpEF, CKD stage IV, and diabetes mellitus (does not appear to be on antihyperglycemic regimen) who presented from home with failure to thrive.
Apparently she does not get adequate care at home and visiting nurse reportedly found her soaked in urine. In the ED was found to be hemodynamically stable. Urinalysis showed no evidence of infection. Labs showed uncontrolled blood glucose and a
creatinine likely close to her baseline. Exam of bilateral lower extremities revealed chronic appearing venous stasis dermatitis with possible superimposed acute cellulitis. She was started on antibiotics and admitted for further evaluation and
management.
Lower extremity cellulitis:
-Likely secondary to chronic venous stasis changes with acutely superimposed cellulitis
-Continue local wound care, will need close follow-up in wound care center as an outpatient
-Changed antibiotics to dicloxacillin, last dose tomorrow 2/3
-Would benefit from long-term facility after hospital discharge for physical therapy and wound care
Hypokalemia:
-Resolved
Uncontrolled diabetes mellitus:
-Now much better controlled
-Blood glucose 349 on initial labs, hemoglobin A1c 9.7
-Per med rec patient does not appear to be on antihyperglycemic regimen as an outpatient, apparently patient does not like giving herself injections of insulin
-She has been started on an insulin regimen with NovoLog 70/30 in addition to moderate resistance sliding scale
-Diabetes nurse practitioner following, NovoLog dose increased from 14 units twice daily to 16 units twice daily
HFpEF, chronic:
-Continue home Lasix regimen of 80 mg daily and additional 40 mg at noon
-Beta-blockade with metoprolol succinate 50 mg daily
-Not on afterload reducing agents presumably due to borderline hypotension, will monitor and add as indicated, would avoid DINA/ARB due to advanced CKD
CKD stage IV:
-Appears close to baseline renal function
-Will monitor
-Renally dose medications
Ambulatory dysfunction:
-Would benefit from skilled rehab prior to home
-SNF placement pending
-Appreciate PT/OT evaluation and recommendations
CODE STATUS: DNR
Anticipated Discharge: 24 - 48 hours
Subjective/Interval History
-
Date of Service: March 12, 2024
Patient was seen and examined at bedside this morning. Blood glucose much better controlled. Awaiting SNF placement.
Objective Data
-
Vital Signs:
Vital Signs
Temp Pulse Resp BP Pulse Ox
98.3 F 73 16 129/57 97
03/12/24 07:30 03/12/24 10:01 03/12/24 07:30 03/12/24 10:01 03/12/24 07:30
I&O
03/11/24 03/12/24 03/13/24
06:59 06:59 06:59
Intake Total 720 / 720 1410 / 1410
Output Total 560 / 560 1400 / 1400
Balance 160 / 160
Review of Systems
-
History Source: Patient
All other systems: Reviewed and negative
Physical Exam
-
General: No Apparent Distress
[2024-03-12 11:58] LABS: Glucose - Point of Care 194 mg/dl (70-99)
[2024-03-12] MEDS: LASIX 40 MG PO (13:25)
[2024-03-12 15:45] VITALS: BP 104/74
[2024-03-12 17:02] LABS: Glucose - Point of Care 225 mg/dl (70-99)
[2024-03-12] MEDS: NOVOLOG FLEXPEN-LOW RESISTANCE 2 UNITS SC (18:13)
[2024-03-12 21:32] LABS: Glucose - Point of Care 149 mg/dl (70-99)
[2024-03-12 23:39] VITALS: BP 125/66
[2024-03-13] MEDS: DYNAPEN 500 MG PO ×2 (05:31→13:09)
[2024-03-13 05:58] VITALS: BMI 34.4
[2024-03-13 07:42] LABS: Glucose - Point of Care 163 mg/dl (70-99)
[2024-03-13 08:00] VITALS: BP 117/63
[2024-03-13] MEDS: PRAVACHOL 20 MG PO (08:37)
[2024-03-13] MEDS: LASIX 80 MG PO (08:37)
[2024-03-13] MEDS: ASPIR LOW (ENTERIC COATED) 81 MG PO (08:37)
[2024-03-13] MEDS: TOPROL XL 50 MG PO (08:38)
--- NOTE | 2024-03-13 08:38 | PN.DE.MGMTRT ---
Insulin Management
- -
03/13/2024: Diabetes Management Follow up:
Patient sent to ED by V/N due to incontinence large amount foul smelling urine and swelling in lower legs with open wounds. PMH COPD, CHF, HTN, HLD, chronic renal failure, T2DM, chronic venous stasis with lymphedema. Pre admission medication for
diabetes unknown, A1C on admission 9.7%, Cr 1.1, eGFR 50.80. Patient in known to me from admission 01/01. She does not know what medications she takes at home and states she has no recollection of being instructed on insulin injections during
previous visit 01/01. At that time she was started on 70/30 NovoLog BID. She was given a new glucose monitor during the 01/01 stay but does not know what happened to it. She has been provided a new glucose meter today with instructions. Current
medication list does not include 70/30 insulin.
Patient is awake and alert, unable to participate in discuss about diabetes management at this time.
2/2 patient received 16 units 70/30 BID. Glucose range 174 to 225, requiring 1-2 units of additional corrective insulin with meals. FBG 163 POC this AM.
Will increase 70/30 dose of 18 units BID. Cont low corrective with meals
Will cont to follow and make further insulin dose adjustments if needed.
Diabetes History
- -
Type of Diabetes: 2 requiring insulin
Pre-Admission Diabetes Regimen
Lab Results
Hemoglobin A1c 9.7 % (4.0-5.6) H 03/08/24 05:48
Insulin Pump Settings
IP Diabetes Regimen
03/12/24 03/12/24 03/12/24
11:57 17:00 21:31
POC Glucose 194 H 225 H 149 H
03/13/24
07:40
POC Glucose 163 H
Patient Education
[2024-03-13] MEDS: ALDACTONE 12.5 MG PO (08:39)
[2024-03-13] MEDS: HEPARIN 5000 UNITS SC ×2 (08:39→15:20)
[2024-03-13] MEDS: VITAMIN B-12 100 MCG PO (08:39)
[2024-03-13] MEDS: NIZORAL 2% CREAM 1 APPLIC TOPICAL (08:43)
[2024-03-13] MEDS: DESENEX/MITRAZOL/ZEASORB 1 APPLIC TOPICAL (08:44)
[2024-03-13] MEDS: HYDROPHOR 1 APPLIC TOPICAL (08:44)
[2024-03-13] MEDS: NOVOLOG FLEXPEN-LOW RESISTANCE 1 UNITS SC (09:43)
[2024-03-13] MEDS: NOVOLOG MIX 70/30 FLEXPEN 18 UNITS SC (09:49)
[2024-03-13] MEDS: NOVOLOG MIX 70/30 FLEXPEN SC ×2 (09:55→17:40)
--- NOTE | 2024-03-13 10:41 | CM ---
MD entered order for discharge
PT OT eval indicate SNF .
Spoke with both cam Cyrus and Jack [phone]. Both agreed with SNf at dc.
[facility] Melendez confirmed bed available today.Both sons agree with SNF.
Spoke with Sergei Guzman [phone] from [facility] AWARE of dc plan.
sons requested ambulance Medical nec completed
[facility]
repor [phone]
fax [phone]
Plan To [facility] today
--- NOTE | 2024-03-13 11:29 | W.PN.HOSP.TC ---
Today's Communication/Plan
-
Dicloxacillin for 3 more days after discharge
SNF versus home with PT (patient has capacity to make own decision, even if a poor decision)
Assessment / Plan
Assessment / Plan
Ms. Black is a 78-year-old female with a medical history of chronic venous stasis dermatitis, HFpEF, CKD stage IV, and diabetes mellitus (does not appear to be on antihyperglycemic regimen) who presented from home with failure to thrive.
Apparently she does not get adequate care at home and visiting nurse reportedly found her soaked in urine. In the ED was found to be hemodynamically stable. Urinalysis showed no evidence of infection. Labs showed uncontrolled blood glucose and a
creatinine likely close to her baseline. Exam of bilateral lower extremities revealed chronic appearing venous stasis dermatitis with possible superimposed acute cellulitis. She was started on antibiotics and admitted for further evaluation and
management.
#Nonpurulent left lower extremity cellulitis
-Likely secondary to chronic venous stasis changes with acutely superimposed cellulitis
-Continue local wound care, will need close follow-up in wound care center as an outpatient
-Changed antibiotics to dicloxacillin, last dose tomorrow 2/3
-Would benefit from long term facility after hospital discharge for physical therapy and wound care
#Hypokalemia
-Resolved, BMP in 1 week as OP
#Uncontrolled diabetes mellitus
-Now much better controlled since being started on NovoLog 70/30
-Upon presentation had blood glucose 349, hemoglobin A1c 9.7
-Per med rec patient does not appear to be on antihyperglycemic regimen as an outpatient, apparently patient does not like giving herself injections of insulin
-She has been started on an insulin regimen with NovoLog 70/30 16 U BID in addition to moderate ISS
-Diabetes nurse practitioner following
#HFpEF, chronic
-Continue home Lasix regimen of 80 mg daily and additional 40 mg at noon
-Beta-blockade with metoprolol succinate 50 mg daily
-Not on afterload reducing agents presumably due to borderline hypotension, will monitor and add as indicated,
-Would avoid ACEi/ARB, MRA, SGLT2i due to advanced CKD
#CKD stage IV
-Unclear etiology; no associated chronic acidemia, anemia, bone mineral disease
-Has been euvolemic with baseline at renal function throughout hospital stay
-Will monitor BMP, Renally dose medications
#Ambulatory dysfunction:
-Would benefit from skilled rehab prior to home though seems resistant
-SNF placement pending if ammenable
DVT prophylaxis: Heparin subcutaneous
Diet: Carbohydrate controlled
CODE STATUS: DNR
Disposition: Home with PT for SNF. Patient seems resistant to SNF placement, is AAOx3 with ability to make her own medical decisions. Would encourage her to pursue SNF as it would be beneficial however cannot force her to do this. If she remains
resistant we will plan for home physical therapy
Anticipated Discharge: Within 24 hours
Subjective/Interval History
-
Date of Service: March 13, 2024
Seen and examined at the bedside. No acute events reported overnight. AFVSS on room air today
Patient states she feels well. States she does not want SNF but rather would want home PT. Case management to speak with her, reportedly very poor functional status
Denies any other acute complaints today
Objective Data
-
Vital Signs:
Vital Signs
Temp Pulse Resp BP Pulse Ox
97.8 F 76 18 125/66 96
03/12/24 23:39 03/12/24 23:39 03/12/24 23:39 03/12/24 23:39 03/12/24 23:39
I&O
03/12/24 03/13/24 03/14/24
06:59 06:59 06:59
Intake Total 1410 / 1410 1080 / 1080
Output Total 1400 / 1400 1700 / 1700
Balance -620 / -620
Review of Systems
-
History Source: Patient
All other systems: Reviewed and negative
Physical Exam
-
General: Well Developed, No Apparent Distress, Comfortable and Obese
HEENT: Normocephalic, Atraumatic, Moist Mucous Membranes and Anicteric
Respiratory: Clear to Auscultation and Non Labored Respirations
Cardiac: Regular Rhythm and S1/S2; Negative Murmur, Rub or Gallop
GI: Soft, Nontender, Nondistended and Normal Bowel Sounds
Musculoskeletal: No Clubbing, No Cyanosis and No Edema
Skin: Warm, Dry and Normal Turgor; Negative Rash
Neuro: AO x 3 and Nonfocal/Grossly Intact
Psych: Calm
Data Reviewed
-
Labs: Labs Reviewed by me and Discussed with Patient
[2024-03-13 11:51] LABS: Glucose - Point of Care 235 mg/dl (70-99)
[2024-03-13] MEDS: LASIX 40 MG PO (11:58)
[2024-03-13] MEDS: NOVOLOG FLEXPEN-LOW RESISTANCE 2 UNITS SC (12:01)
[2024-03-13 15:05] VITALS: BP 127/68
--- NOTE | 2024-03-13 16:27 | W.DCSUMMARY ---
Discharge Summary
Discharge Data
Date of Admission: 03/07/24
Date of Discharge: 03/13/24
-
Pending Results: No
Hospital Course
Ms. Black is a 78-year-old female with a medical history of chronic venous stasis dermatitis, HFpEF, CKD stage IIIa, and diabetes mellitus (does not appear to be on antihyperglycemic regimen) who presented from home with failure to thrive.�
Apparently she does not get adequate care at home and visiting nurse reportedly found her soaked in urine.� In the ED was found to be hemodynamically stable.� Urinalysis showed no evidence of infection.� Labs showed uncontrolled blood glucose and a
creatinine likely close to her baseline.� Exam of bilateral lower extremities revealed chronic appearing venous stasis dermatitis with superimposed acute cellulitis.� She was started on antibiotics and admitted for further evaluation and
management.� She improved clinically with local wound care and antibiotics.� She has been transition to oral antibiotics which she will continue through 03/13/2024.� Her blood sugar was extremely uncontrolled with a hemoglobin A1c of 9.7.� However her
blood glucose became much better controlled after being started on an adequate insulin regimen with guidance from the diabetes management nurse practitioner.� She had an JONO on CKD at time of admission however her renal function appears to have
returned to baseline.� She was evaluated by PT/OT recommended skilled rehab after hospital discharge for ongoing therapy.� SNF placement has been arranged.� At the time of hospital discharge she was hemodynamically stable.� She will need close
follow-up with her primary care physician and with wound care after hospital discharge. Sent Rx for 5 days of senna BID and miralax QD for constipation.
Discharge Plan
-
Patient Disposition: Shelter/SNF
Discharge Diagnosis/Procedures: Lower extremity cellulitis
Condition: Fair
Diet: Diabetic, Carb Controlled
Activity: With assistance
Driving Restrictions: Not until seen by your Dr
Bathing Restrictions: OK to Shower
Blood Work: BMP in 7 days to recheck potassium level
Other Services: PT and OT
Activity Restrictions/Additional Instructions:
Wound Care Instructions
L leg: clean with soap and water, adaptic, alginate and Rita change daily and prn drainage.
R great toe: silicone foam change q other day and prn soilage. Skin prep R 2nd medial toe daily.
mineral oil to both legs daily.
fungal cream to buttocks posterior thighs as directed.
fungal powder to groin and breast skin folds as directed.
leg elevation when sitting
Follow up at wound care center call for an appointment.
Instructions: Cellulitis (skin infection) in adults - Discharge instructions
Referrals:
Liz Pereira MD [Family Provider] -
Additional Discharge Medication Instructions: Continue dicloxacillin 250 mg every 6 hours for 3 more days after discharge (last day 03/16/2024)
Start insulin aspart 70/30, 16 units twice daily
Carmine senna BID and miralax daily for 5 days
Prescriptions:
New
dicloxacillin 250 mg Capsule
500 mg PO Q6 4 Days Qty: 32 0RF
insulin asp prt-insulin aspart 100 unit/mL (70-30) Insulin Pen
16 unit SC BID@0800,1700 30 Days Qty: 1 0RF
sennosides [senna] 8.8 mg/5 mL syrup
10 ml PO BID 5 Days Qty: 100 0RF
polyethylene glycol 3350 [Miralax] 17 gram/dose powder
4 g PO DAILY 5 Days Qty: 20 0RF
Continued
metoprolol succinate 50 MG tablet extended release 24 hr
50 mg PO DAILY
pravastatin 20 MG tablet
20 mg PO DAILY
spironolactone 25 MG tablet
12.5 mg PO DAILY
aspirin 81 mg Tablet,Delayed Release (Dr/Ec)
81 mg PO DAILY
acetaminophen [Tylenol Extra Strength] 500 mg Tablet
1,000 mg PO Q6HPRN PRN (Reason: mild pain)
thiamine HCl (vitamin B1) 100 mg tablet
100 mg PO DAILY
furosemide [Lasix] 40 mg Tablet
40 mg PO NOON
furosemide [Lasix] 80 mg Tablet
80 mg PO DAILY
Discontinued
doxycycline monohydrate 100 mg Capsule
100 mg PO DAILY
Patient Comments:
for 20 days starting 03/02/24
Discharge Orders:
Discharge Patient (As Directed); Ordered 03/13/24
Ordered By: Ronnie Sainz
Discharge Date and Time
Print Language: BELARUSIAN
[2024-03-13 16:58] LABS: Glucose - Point of Care 197 mg/dl (70-99)
[2024-03-13] MEDS: NOVOLOG FLEXPEN-LOW RESISTANCE SC (17:39)
== END 2024-03-13 17:54 | DRG 300 ==
LOC: 3 WEST ACU 23:49
PROVIDERS: Internal Medicine; Registered Nurse; ADMITTING PHYSICIAN Hospitalist; ATTENDING PHYSICIAN Internal Medicine; EMERGENCY PHYSICIAN Emergency Medicine; FAMILY PHYSICIAN Family Medicine
DX: I87.2 Venous insufficiency (chronic) (peripheral) (principal); I13.0 Hypertensive heart and chronic kidney disease with heart failure and stage 1 through stage 4 chronic kidney disease, or unspecified chronic kidney disease; I50.32 Chronic diastolic (congestive) heart failure; N18.4 Chronic kidney disease, stage 4 (severe); L03.116 Cellulitis of left lower limb; N17.9 Acute kidney failure, unspecified; E87.6 Hypokalemia; Z66 Do not resuscitate; E11.22 Type 2 diabetes mellitus with diabetic chronic kidney disease; E66.01 Morbid (severe) obesity due to excess calories; F17.200 Nicotine dependence, unspecified, uncomplicated; R62.7 Adult failure to thrive; Z79.4 Long term (current) use of insulin; Z68.34 Body mass index [BMI] 34.0-34.9, adult; Z75.1 Person awaiting admission to adequate facility elsewhere
CPT/HCPCS: 80048; 80053; 81003; 81015; 82962; 83036; 83735; 84100; 84443; 85025; 85027; 87070; 97530; 99406

== ENCOUNTER → 2024-05-15 11:30 | Outpatient (REF) | payer MEDICARE, BC, SELFPAY ==
[2024-05-15 12:58] LABS: Blood Urea Nitrogen 52 mg/dl (7-17); Calcium 9.9 mg/dl (8.4-10.2); Carbon Dioxide 25 mmol/L (22-30); Chloride 100 mmol/L (98-107); Glucose 165 mg/dl (70-99); Potassium 3.5 mmol/L (3.5-5.1); Sodium 138 mmol/L (135-145); eGFR 30.13
[2024-05-15 13:08] LABS: NT-proBNP 675 pg/ml
== END ==
LOC: CLAB 11:30
PROVIDERS: ATTENDING PHYSICIAN Internal Medicine Cardiovascular Disease; FAMILY PHYSICIAN Family Medicine
DX: I11.0 Hypertensive heart disease with heart failure (principal)
CPT/HCPCS: 36415; 80048; 83880

== ENCOUNTER → 2024-05-19 07:54 | Outpatient (REF) | payer MEDICARE, BC, SELFPAY | LOC: RAD 07:54 | PROVIDERS: ATTENDING PHYSICIAN Family Medicine | DX: N18.4 Chronic kidney disease, stage 4 (severe) (principal); N39.46 Mixed incontinence | CPT/HCPCS: 76770 ==